=== PATIENT | male | born 1965 | race Caucasian/White ===

== ENCOUNTER 2023-03-20 15:06 | Emergency (ER) | payer SELFPAY ==
[2023-03-20] VITALS (41 sets, daily range): BP systolic 80–109; BP diastolic 43–85; PULSE 46–104; RESP 12–30; TEMP 36.4; O2SAT 90–100; BMI 30.7
--- NOTE | 2023-03-20 15:33 | ED_ITS ---
HPI - Chest Pain General Chief Complaint: Chest Pain Stated Complaint: Left Side pain/numbness Time Seen by Provider: 03/20/23 15:16 Source: patient Mode of arrival: ambulance Limitations: no limitations History of Present Illness HPI narrative: this patient came from his home. He stays with his family members. He said he had some tingling and numbness in his left arm and aching in his left chest and arm today. He has exact same problem one week ago last but did not go the hospital. He's not known any previous cardiovascular disease or pulmonary disease. He is not had previous EKGs. He had a traumatic brain injury a number of years ago but did not have surgery for it. He has some shortness of breath. He's very gassy and bloated today he's belching and passing a lot of gas and when he does he starts to feel a bit better but he still has his aching in his left chest. He has no swelling of his legs. He is not had a family doctor recently. He's not seen a health and physical education professor and has a severe no previous EKGs. On arrival here he did have an EKG that did not sshow any ST segment elevation but there is poor R-wave progression across his precordium indicating possible anterior lateral previous myocardial infarction. Related Data Allergies Allergy/AdvReac Type Severity Reaction Status Date / Time Penicillins Allergy Severe Verified 03/20/23 15:[address] [facility] Social History Smoking status: Heavy tobacco smoker Exam Narrative Exam Narrative: awake alert vital signs are stable. He is on a monitor is not having ectopy. Twelve-lead does not show any ST segment elevation his skin is warm and dry there is no pallor or diaphoresis. He is belching continuously. Chest examination his lungs are completely clear no wheezes rales or rhonchi the no pleural or pericardial rub heart sounds are normal with no ectopy at this time. I do not hear murmur. Extremities do not show any leg swelling edema or phlebitis. Neurological cognition and mentation is normal. There is no confusion. patient has no abdominal discomfort and no back pain Skin integument is without petechia purpura rash or exanthem. Constitutional Vital Signs, click to edit/add: Last Vital Signs Temp 97.6 F 03/20/23 15:12 Pulse 91 H 03/20/23 15:12 Resp 24 03/20/23 15:12 BP 105/78 03/20/23 15:12 Pulse Ox 97 03/20/23 15:12 O2 Del Method Room Air 03/20/23 15:12 Course Vital Signs Vital signs: Vital Signs Temperature 97.6 F 03/20/23 15:12 Pulse Rate 91 H 03/20/23 15:12 Respiratory Rate 24 03/20/23 15:12 Blood Pressure 105/78 03/20/23 15:12 Pulse Oximetry 97 03/20/23 15:12 Oxygen Delivery Method Room Air 03/20/23 15:12 Temperature 97.6 F 03/20/23 15:12 Pulse Rate 91 H 03/20/23 15:12 Respiratory Rate 24 03/20/23 15:12 Blood Pressure 105/78 03/20/23 15:12 Pulse Oximetry 97 03/20/23 15:12 Oxygen Delivery Method Room Air 03/20/23 15:12 MDM - Chest Pain MDM Narrative Medical decision making narrative: this patient did have some relief with this treatment but still having a little bit discomfort. His troponin has come back substantially elevated. It was reported at 4:40 PM. We immediately placed a call for the [facility] cardiology group. He'll be placed on a heparin drip and given a low bit of additional analgesic. His vital signs are stable. The health and physical education professor, Dr. Shaw was coil connector and suggested patient be started on [place] to 180 mg and nitroglycerin if the blood pressure would tolerate. However his blood pressure has been in the low 90s systolic and I did not start the nitroglycerin because of that. A 2nd IV was started. At approximately the same time I spoke with health and physical education professor the female family member in attendance now states that they do not want him going to [place] under any circumstances. They suggested that we take him to [place]. I explained that we would try to get a bed there as soon as possible but we have to initiate the transfer process all over again. We paged [place] [facility] immediately and also spoke with the hospitalist at [facility] area at 5:45 PM the hospitalist has accepted the patient but is awaiting an opening for the bed assignment. And we still have not heard back from [place] [facility]. We did here from cardiology at 1830 hrs. area there is no other treatment recommendations. We are going to repeat his troponin. The health and physical education professor requested that if the troponin elevated to greater than fifteen hundred that the patient be transferred by [facility] for intervention tonight. If the patient's blood pressure stays normal and a troponin just elevates a small amount that they should admit him to the cardiology floor and he would not need intervention this evening. The family was kept appraised of all these decisions and the nuances of making these decisions throughout his stay here. He did have one brief episode of hypotension. He was given a 300 mL bolus and his blood pressure came up very nicely with no pressor support. At the time of this notation he is not having any arrhythmia or heart block. Discharge Plan Discharge Chief Complaint: Chest Pain Clinical Impression: Non-ST elevated myocardial infarction (non-STEMI) Patient Disposition: [facility] Time of Disposition Decision: 18:38 Referrals: Physician,Non-Staff, MD [Primary Care Provider] - 1 week
--- NOTE | 2023-03-20 15:35 | XR_ITS ---
The [address] [address] Patient Name: SAM CROSS MRN: [id number] date: 1965 Sex: M Assigned Patient Location: ER Current Patient Location: ED.MAIN Accession/Order Number: [id number] Exam Date: 03/20/2023 15:55 Report Date: 03/20/2023 16:24 At the request of: OSCAR FRANZ Procedure: XR chest 1V EXAM: CHEST 1 VIEW HISTORY: chest TECHNIQUE: Chest, one view. COMPARISON: None. FINDINGS: Lungs are clear. No focal consolidation, pleural effusion, or pneumothorax. Pulmonary vasculature is within normal limits. There is mild aortic atherosclerosis, and heart size is borderline to mildly enlarged. XR/XR chest 1V IMPRESSION: 1. No acute cardiopulmonary disease. 2. Borderline to mild cardiomegaly. Electronically authenticated by: DONIS ÁLVAREZ Date: 03/20/2023 16:24
--- NOTE | 2023-03-20 15:35 | ECG_ITS ---
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
[2023-03-20] MEDS: MORPHINE SULFATE 2 MG/ML SYRINGE IV (15:45)
[2023-03-20] MEDS: ASPIRIN 81 MG TAB.CHEW 162 MG PO (15:45)
[2023-03-20 16:20] LABS: Basophils Percent Auto 0.2 % (0.2-2.0); Eosinophils Absolute Auto 0.1 10^3/uL (0.0-0.7); Eosinophils Percent Auto 0.4 % (0.9-7.0); Hematocrit 43.5 % (42.0-54.0); Hemoglobin 14.1 g/dL (14.0-18.0); Immature Granulocytes Abs Auto 0.04 10^3/uL (0.00-0.03); Immature Granulocytes Pct Auto 0.3 % (0.0-0.5); Lymphocytes Absolute Auto 1.5 10^3/uL (1.2-3.8); Lymphocytes Percent Auto 11.9 % (20.5-60.0); Mean Corpuscular HGB Conc 32.4 g/dL (29.9-35.2); Mean Corpuscular Hemoglobin 30.5 pg (25.9-34.0); Mean Corpuscular Volume 94.2 fL (80.0-94.0); Mean Platelet Volume 10.3 fL (9.5-13.5); Monocytes Absolute Auto 0.7 10^3/uL (0.3-0.8); Monocytes Percent Auto 5.4 % (1.7-12.0); Neutrophils Absolute Auto 10.5 10^3/uL (1.4-6.5); Neutrophils Percent Auto 81.8 % (43.0-75.0); Platelet Count 230 10^3/uL (150-450); Red Blood Count 4.62 10^6/uL (4.70-6.10); Red Cell Distribution Width 13.5 % (11.0-15.0); White Blood Count 12.9 10^3/uL (4.0-11.0)
[2023-03-20 16:37] LABS: Alanine Aminotransferase 23 U/L (16-63); Albumin Level 3.4 g/dL (3.4-5.0); Alkaline Phosphatase 72 U/L (46-116); Aspartate Amino Transferase 16 U/L (15-37); BUN Creatinine Ratio 9.7; Bilirubin Total 0.6 mg/dL (0.2-1.0); Calcium 8.9 mg/dL (8.5-10.1); Carbon Dioxide 26.5 mmol/L (21.0-32.0); Chloride 104 mmol/L (98-107); D Dimer 0.28 mg/L FEU (<=0.59); Estimated GFR (African America >60 (>=60); Estimated GFR (Non-African Ame >60 (>=60); Globulin 3.3 g/dL; Glucose 110 mg/dL (74-106); Potassium 3.5 mmol/L (3.5-5.1); Sodium 139 mmol/L (136-145); Total Protein 6.7 g/dL (6.4-8.2)
[2023-03-20 16:38] LABS: Troponin I High Sensitivity 819.5 pg/mL (4.0-76.1)
[2023-03-20] MEDS: MORPHINE SULFATE 4 MG/ML VIAL IV (16:56)
[2023-03-20] MEDS: HEPARIN SODIUM (PORCINE) 5,000 UNIT/ML VIAL 4000 UNIT IV (16:57)
[2023-03-20] MEDS: HEPARIN SODIUM,PORCINE/D5W 25,000 UNIT/500 ML IV.SOLN 20 UNIT IV (17:00)
[2023-03-20] MEDS: TICAGRELOR 90 MG TABLET 180 MG PO (17:13)
[2023-03-20] MEDS: 0.9 % SODIUM CHLORIDE 500 ML IV (18:00)
[2023-03-20] MEDS: ONDANSETRON PF 4 MG/2 ML VIAL IV (18:40)
--- NOTE | 2023-03-20 18:48 | ECG_ITS ---
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
[2023-03-20 19:00] LABS: Troponin I High Sensitivity 1082.6 pg/mL (4.0-76.1)
== END 2023-03-20 19:58 | disposition short-term general hospital (02) ==
PROVIDERS: Emergency Provider Emergency Medicine Emergency Medical Services
DX: I21.4 Non-ST elevation (NSTEMI) myocardial infarction (principal); F17.210 Nicotine dependence, cigarettes, uncomplicated; Z87.820 Personal history of traumatic brain injury
CPT/HCPCS: 36415; 71045; 80053; 84484; 85025; 85378; 93005; 96374; 96375; 96376; 99285

== ENCOUNTER 2023-04-22 12:53 | Outpatient (OUT) | payer MEDICAID, SELFPAY ==
--- OUTSIDE RECORDS SUMMARY | 2023-04-22 13:10 | XMS_ITS | CCD ---
Author Name Unknown Address [address] [place] [address] Organization [facility] Care Team Providers [facility] Supervisor Name Role Phone TRISTEN CASTILLO Admitting Unavailable TRISTEN CASTILLO Attending Unavailable REQUEST, NONE LISTED Primary Care Unavailable MANUEL APONTE Consulting Unavailable TRISTEN CASTILLO Consulting Unavailable ALI, DARIEL MCCARTHY Referring Unavailable ALI, DARIEL TIANMAN Referring Unavailable MAXINEMATEOF Admitting Unavailable PUNEETLAST PETER Attending Unavailable RAIMUNDO FRANZ Referring Unavailable PUNEET, LAST Admitting Unavailable PUNEETOBIE PETERMED Attending Unavailable ERNESTO JUNG Referring Unavailable YNIA ORNELAS Referring Unavailable AOUTHYINA CANTU Referring Unavailable MANISHA CALVILLO Attending Unavailable BRYAN NIELSEN Referring Unavailable ALI, HANNA SHARI Referring Unavailable Allergies Allergy Classification Reported Allergen(s) Allergy Type Date of Onset Reaction(s) Facility (2 sources) Penicillins; Translations: [PENICILLINS] Drug allergy (disorder) 3 [facility] Repository (1 source) Acetaminophen / HYDROcodone; Translations: [HYDROCODONE-ACET AMINOPHEN] Drug Allergy 3 [facility] Repository (1 source) oxyCODONE; Translations: [OXYCODONE] Drug Allergy 3 [facility] Repository (1 source) ALLERGIES NOT ON FILE; Translations: [ALLERGIES NOT ON FILE] Propensity to adverse reactions (disorder) [facility] Repository Problems Problem Classification Problem Date Documented Date Episodic/Chronic Acute myocardial infarction (4 sources) Non-ST elevation (NSTEMI) myocardial infarction; Translations: [Acute non-ST segment elevation myocardial infarction] Onset: 03-20-2023 Chronic Congestive heart failure; nonhypertensive (2 sources) Acute on chronic systolic (congestive) heart failure; Translations: [Acute on chronic systolic (congestive) heart failure] Onset: 03-28-2023 Chronic Coronary atherosclerosis and other heart disease (2 sources) Atherosclerotic heart disease of rosebud coronary artery without angina pectoris; Translations: [Atherosclerotic heart disease of rosebud coronary artery without angina pectoris] Onset: 03-28-2023 Chronic Disorders of lipid metabolism (2 sources) Mixed hyperlipidemia; Translations: [Mixed hyperlipidemia] Onset: 03-28-2023 Chronic Hypertension with complications and secondary hypertension (2 sources) Hypertensive heart disease with heart failure; Translations: [Hypertensive heart disease with heart failure] Onset: 03-28-2023 Chronic Intracranial injury (4 sources) Unspecified intracranial injury with loss of consciousness of unspecified duration, initial encounter; Translations: [UNS INTRACRAN INJ LOC UNS DUR INIT] Onset: 12-23-2018 Episodic Late effects of cerebrovascular disease (1 source) Unspecified sequelae of cerebral infarction; Translations: [UNS SEQUELAE CEREBRAL INFARCTION] Onset: 12-31-2018 Chronic Other lower respiratory disease (2 sources) Shortness of breath; Translations: [Shortness of breath] Onset: 03-20-2023 Episodic Lisette-; endo-; and myocarditis; cardiomyopathy (except that caused by tuberculosis or sexually transmitted disease) (2 sources) 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 classified elsewhere; Translations: [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 classified elsewhere] Onset: 03-28-2023 Chronic Syncope (1 source) Syncope and collapse; Translations: [SYNCOPE AND COLLAPSE] Onset: 12-31-2018 Episodic Results Test Name Value Interpretation Reference Range Facility 29on 03-28-2023 29 Addended by: MANISHA CALVILLO on: 03/28/2023 06:54 PM Modules accepted: Orders Normal [facility] Office Visiton 03-28-2023 Follow-up visit [id number] Michelle Elder B 1965 M Date Provider Department Center 03/28/2023 120-MANISHA CALVILLO [facility] Family History Problem Relation Age of Onset Coronary artery disease Mother Atrial fibrillation Mother Coronary artery disease Brother Hyperlipidemia Brother Family Status - Relation Status Age at Mother Brother Level of Service:30001 ID OFFICE/OUTPATIENT ESTABLISHED MOD MDM 30-39 MIN [facility] 36on 03-26-2023 36 Discharge date: 03/25/23 Call date: 03/26/23 Spoke with: patient HF Follow-up date: 03/28/23 Med reconciliation completed: yes Questions/Concerns: Home meds reviewed with pt. Pt denied any SOB or CP and stated he is checking daily weights. Pt acknowledged his follow up appt as well as the need to call to make other follow up appts listed on the AVS. Pt denied any additional questions or concerns. [facility] Documentationon 03-26-2023 Documentation [id number] Michelle Elder ld 1965 M Date Provider Department Center 03/26/2023 [id number], [facility] No family history on file Reason for Visit and Comments: HF inpatient satisfaction survey sent. [Other] [facility] Telephoneon 03-26-2023 Telephone [id number] Michelle Eledr ld 1965 M Date Provider Department Center 03/26/2023 [id number], [facility] No family history on file [facility] 30on 03-25-2023 30 Anibal from [employer] called and patient made payment, he will be fitted for lifevest sometime before 4pm today. [facility] 30 Call placed to Javier montoya from [employer] who reports he has a nurse on standby, and as soon as he gets confirmation of payment, nurse will be in to place life vest. Machine Rebuilder back to bedside, and updated. Patient verbalized understanding. Patient reports he is unsure of where his mother is, as she is not answering phone call. States he hopes to hear from her soon. Primary RN aware. [facility] 30 Spoke with patient a t bedside. Patients reports he was never fitted for [employer] yesterday. Patient states he only came in and gave me a brochure and educated me. I was never fitted for anything . Machine Rebuilder informed him Anibal from [employer] sent email stating patient owed $323.99 to get [employer], and a refund of $250.00 would be given to him when life vest was returned. Patient verbalized understanding and reports he received text messages stating this information. Patient states his mother is on her way to pick him up, and will be bringing his wallet. Primary RN aware. Normal [facility] BASIC METABOLIC PANELon 12-1 Anion gap [Moles/Vol] 11 mmol/L Normal 7-20 [facility] Comment on above: Performed By: #### L [id number] #### [facility] [address] [place] [address] Calcium [Mass/Vol] 9.4 mg/dL Normal 8.6-10.3 [facility] Comment on above: Performed By: #### L [id number] #### [facility] ([facility]) [address] [place] [address] Chloride [Moles/Vol] 108 mmol/L High 98-107 [facility] Comment on above: Performed By: #### L [id number] #### [facility] ([facility]) [address] [place] [address] CO2 [Moles/Vol] 23 mmol/L Normal 21-31 [facility] Comment on above: Performed By: #### L [id number] #### [facility] ([facility]) [address] [place] [address] Creatinine [Mass/Vol] 0.70 mg/dL Normal 0.70-1.30 [facility] Comment on above: Performed By: #### L [id number] #### [facility] ([facility]) [address] [place] [address] GLOMERULAR FILTRATION RATE ML/MIN/1.73 SQ M.PREDICTED 107.5 mL/min/1.73m*2 Normal >60.0 [facility] Comment on above: Result Comment: The [facility]???s estimated glomerular filtration rate (eGFR) will no longer include consideration of race in its calculation. The National Kidney Foundation???s eGFR Task Force developed new recommendations for the estimation of the glomerular filtration rate in the [place] They recommend immediate implementation of the new equation refit without the race variable in all laboratories because the calculation does not include race. In addition to not including race in the calculation and reporting, it included diversity in its development, and has acceptable performance characteristics and potential consequences that do not disproportionately affect any one group of individuals. Performed By: #### L [id number] #### [facility] ([facility]) [address] [place] [address] Glucose [Mass/Vol] 99 mg/dL Normal 70-100 [facility] Comment on above: Performed By: #### L [id number] #### [facility] ([facility]) [address] [place] [address] Potassium [Moles/Vol] 4.0 mmol/L Normal 3.5-5.1 [facility] Comment on above: Performed By: #### L [id number] #### [facility] ([facility]) [address] [place] [address] Sodium [Moles/Vol] 138 mmol/L Normal 136-145 [facility] Comment on above: Performed By: #### L [id number] #### [facility] ([facility]) [address] [place] [address] Urea nitrogen [Mass/Vol] 13 mg/dL Normal 7-25 [facility] Comment on above: Performed By: #### L [id number] #### [facility] ([facility]) [address] [place] [address] UREA NITROGEN/CREATININE (MASS RATIO) IN SER/PLAS 18.6 Normal [facility] Comment on above: Performed By: #### L [id number] #### [facility] ([facility]) [address] [place] [address] CBCon 03-25-2023 Erythrocyte distribution width (RBC) [Ratio] 13.4 % Normal 11.5-15.0 [facility] Comment on above: Performed By: #### L [id number] #### [facility] ([facility]) [address] [place] [address] ERYTHROCYTE MEAN CORPUSCULAR HEMOGLOBIN CONCENTRATION (G/DL) BY AUTOMATED 33.3 g/dL Normal 32.0-35.0 [facility] Comment on above: Performed By: #### L [id number] #### [facility] ([facility]) [address] [place] [address] Hematocrit (Bld) [Volume fraction] 40.2 % Normal 39.0-55.0 [facility] Comment on above: Performed By: #### L [id number] #### [facility] ([facility]) [address] [place] [address] Hemoglobin (Bld) [Mass/Vol] 13.4 g/dL Normal 13.0-17.0 [facility] Comment on above: Performed By: #### L [id number] #### [facility] ([facility]) [address] [place] [address] MCH (RBC) [Entitic mass] 30.3 pg Normal 27.0-33.0 [facility] Comment on above: Performed By: #### L [id number] #### [facility] ([facility]) [address] [place] [address] MCV (RBC) [Entitic vol] 91.0 fL Normal 82.0-98.0 [facility] Comment on above: Performed By: #### L [id number] #### [facility] ([facility]) [address] [place] [address] PLATELETS (10*3/UL) IN BLOOD AUTOMATED COUNT 268 10*3/uL Normal 150-400 [facility] Comment on above: Performed By: #### L [id number] #### [facility] ([facility]) [address] [place] [address] RBC (Bld) [#/Vol] 4.42 10*6/uL Normal 4.20-5.70 [facility] Comment on above: Performed By: #### L [id number] #### [facility] ([facility]) [address] [place] [address] WBC (Bld) [#/Vol] 8.69 10*3/uL Normal 4.00-10.60 [facility] Comment on above: Performed By: #### L [id number] #### [facility] ([facility]) [address] [place] [address] MAGNESIUMon 03-25-2023 Magnesium [Mass/Vol] 1.8 mg/dL Low 1.9-2.7 [facility] Comment on above: Performed By: #### L [id number] #### [facility] ([facility]) [address] [place] [address] 30on 03-24-2023 30 The patient is Moderately Stable - Low risk of patient condition declining or worsening The patient's goals for the shift include comfort, healing The clinical goals for the shift include vss Problem: Pain - Adult Goal: Verbalizes/displays adequate comfort level or baseline comfort level Outcome: Progressing Flowsheets (Taken 03/23/2023104 by Maria G Roberts RN) Verbalizes/displays adequate comfort level or baseline comfort level: Encourage patient to monitor pain and request assistance Assess pain using appropriate pain scale Administer analgesics based on type and severity of pain and evaluate response Implement non-pharmacological measures as appropriate and evaluate response Consider cultural and social influences on pain and pain management Problem: Safety - Adult Goal: Free from fall injury Outcome: Progressing Flowsheets (Taken 03/22/20232099 by Maria G Roberts RN) Free from fall injury: Assess patient frequently for physical needs Identify cognitive and physical deficits and behaviors that affect risk of falls Pelican fall precautions as indicated by assessment Educate patient/family on patient safety, including physical limitations Instruct patient to call for assistance with activity based on assessment Modify environment to reduce risk of injury Problem: Discharge Planning Goal: Discharge to home or other facility with appropriate resources Outcome: Progressing Flowsheets (Taken 03/23/2023104 by Maria G Roberts, RN) Discharge to home or other facility with appropriate resources: Identify barriers to discharge with patient and caregiver Arrange for needed discharge resources and transportation as appropriate Identify discharge learning needs (meds, wound care, etc) Problem: Chronic Conditions and Co-morbidities Goal: Patient's chronic conditions and co-morbidity symptoms are monitored and maintained or improved Outcome: Progressing Flowsheets (Taken 03/23/2023104 by Maria G Roberts RN) Care Plan - Patient's Chronic Conditions and Co-Morbidity Symptoms are Monitored and Maintained or Improved: Monitor and assess patient's chronic conditions and comorbid symptoms for stability, deterioration, or improvement Collaborate with multidisciplinary team to address chronic and comorbid conditions and prevent exacerbation or deterioration Update acute care plan with appropriate goals if chronic or comorbid symptoms are exacerbated and prevent overall improvement and discharge Problem: Cardiovascular - Adult Goal: Maintains optimal cardiac output and hemodynamic stability Outcome: Progressing Flowsheets (Taken 03/23/2023104 by aMria G Roberts RN) Maintains optimal cardiac output and hemodynamic stability: Monitor blood pressure and heart rate Monitor urine output and notify Licensed Independent Practitioner for values outside of normal range Assess for signs of decreased cardiac output Administer fluid and/or volume expanders as ordered Goal: Absence of cardiac dysrhythmias or at baseline Outcome: Progressing Flowsheets (Taken 03/23/2023104 by Maria G Roberts RN) Absence of cardiac dysrhythmias or at baseline: Monitor cardiac rate and rhythm Assess for signs of decreased cardiac output Problem: Skin/Tissue Integrity - Adult Goal: Skin integrity remains intact Outcome: Progressing Flowsheets (Taken 03/23/2023104 by Maria G Roberts RN) Skin integrity remains intact: Monitor for areas of redness and/or skin breakdown Assess vascular access sites hourly Change oxygen saturation probe site as needed Goal: Incisions, wounds, or drain sites healing without S/S of infection Outcome: Progressing Goal: Oral mucous membranes remain intact Outcome: Progressing Flowsheets (Taken 03/21/20231599 by Mitzy Murray RN) Oral mucous membranes remain intact: Assess oral mucosa and hygiene practices Implement preventative oral hygiene regimen Implement oral medicated treatments as ordered Problem: Genitourinary - Adult Goal: Absence of urinary retention Outcome: Progressing Flowsheets (Taken 03/23/2023104 by Maria G Roberts RN) Absence of urinary retention: Assess patient???s ability to void and empty bladder Monitor intake/output and perform bladder scan as needed Goal: Urinary catheter remains patent Outcome: Progressing Flowsheets (Taken 03/21/2023 1600 by Mitzy Murray RN) Urinary catheter remains patent: Assess patency of urinary catheter Irrigate catheter per Licensed Independent Practitioner order if indicated and notify Licensed Independent Practitioner if unable to irrigate Problem: Metabolic/Fluid and Electrolytes - Adult Goal: Electrolytes maintained within normal limits Outcome: Progressing Flowsheets (Taken 03/21/2023 1600 by Mitzy Murray RN) Electrolytes maintained within normal limits: Monitor labs and assess patient for signs and symptoms of electrolyte imbalances Administer electrolyte replacement as ordered Fluid restriction a (more content not included)... Normal [facility] 30 Contacted [facility] [employer] Anibal concerning lifevest. Anibal states he is on his way to [facility]. EF 25%. Order for vest was received per Anibal. 12:16 Spoke with Anibal from [facility] [employer] and all requested paperwork given. Anibal to check into charitable donations available form this patient and cost of lifevest considering income. Patient and SW updated on plan/delay. 13:20 Anibal and this sign writer hand met with patient and explained paperwork for lifevest assistance program. Paperwork given to patient. Awaiting finical statement from patient. 15:05 patient completed form with presence of sign writer hand. Assisted patient in calling his bank to request last statement to provide to [facility] [employer]. 15:25 All requested information and forms sent to Anibal from [employer]. Await determination Normal [facility] BASIC METABOLIC PANELon 12-1 Anion gap [Moles/Vol] 11 mmol/L Normal 7-20 [facility] Comment on above: Performed By: #### L [id number] #### [facility] ([facility]) [address] [place] [address] Calcium [Mass/Vol] 9.1 mg/dL Normal 8.6-10.3 [facility] Comment on above: Performed By: #### L [id number] #### [facility] ([facility]) [address] [place] [address] Chloride [Moles/Vol] 108 mmol/L High 98-107 [facility] Comment on above: Performed By: #### L [id number] #### [facility] ([facility]) [address] [place] [address] CO2 [Moles/Vol] 22 mmol/L Normal 21- [facility] Comment on above: Performed By: #### L [id number] #### [facility] ([facility]) [address] [place] [address] Creatinine [Mass/Vol] 0.67 mg/dL Low 0.70-1.30 [facility] Comment on above: Performed By: #### L [id number] #### [facility] ([facility]) [address] [place] [address] GLOMERULAR FILTRATION RATE ML/MIN/1.73 SQ M.PREDICTED 108.9 mL/min/1.73m*2 Normal >60.0 [facility] Comment on above: Result Comment: The [facility]???s estimated glomerular filtration rate (eGFR) will no longer include consideration of race in its calculation. The National Kidney Foundation???s eGFR Task Force developed new recommendations for the estimation of the glomerular filtration rate in the [place] They recommend immediate implementation of the new equation refit without the race variable in all laboratories because the calculation does not include race. In addition to not including race in the calculation and reporting, it included diversity in its development, and has acceptable performance characteristics and potential consequences that do not disproportionately affect any one group of individuals. Performed By: #### L [id number] #### [facility] ([facility]) [address] [place] [address] Glucose [Mass/Vol] 102 mg/dL High 70-100 [facility] Comment on above: Performed By: #### L [id number] #### [facility] ([facility]) [address] [place] [address] Potassium [Moles/Vol] 3.6 mmol/L Normal 3.5-5.1 [facility] Comment on above: Performed By: #### L [id number] #### [facility] ([facility]) [address] [place] [address] Sodium [Moles/Vol] 137 mmol/L Normal 136-145 [facility] Comment on above: Performed By: #### L [id number] #### [facility] ([facility]) [address] [place] [address] Urea nitrogen [Mass/Vol] 12 mg/dL Normal 7-25 [facility] Comment on above: Performed By: #### L [id number] #### [facility] ([facility]) [address] [place] [address] UREA NITROGEN/CREATININE (MASS RATIO) IN SER/PLAS 17.9 Normal [facility] Comment on above: Performed By: #### L [id number] #### [facility] ([facility]) [address] [place] [address] CBCon 03-24-2023 Erythrocyte distribution width (RBC) [Ratio] 13.6 % Normal 11.5-15.0 [facility] Comment on above: Performed By: #### L [id number] #### [facility] ([facility]) [address] [place] [address] ERYTHROCYTE MEAN CORPUSCULAR HEMOGLOBIN CONCENTRATION (G/DL) BY AUTOMATED 33.2 g/dL Normal 32.0-35.0 [facility] Comment on above: Performed By: #### L [id number] #### [facility] ([facility]) [address] [place] [address] Hematocrit (Bld) [Volume fraction] 38.0 % Low 39.0-55.0 [facility] Comment on above: Performed By: #### L [id number] #### [facility] ([facility]) [address] [place] [address] Hemoglobin (Bld) [Mass/Vol] 12.6 g/dL Low 13.0-17.0 [facility] Comment on above: Performed By: #### L [id number] #### [facility] ([facility]) [address] [place] [address] MCH (RBC) [Entitic mass] 30.1 pg Normal 27.0-33.0 [facility] Comment on above: Performed By: #### L [id number] #### [facility] ([facility]) [address] [place] [address] MCV (RBC) [Entitic vol] 90.9 fL Normal 82.0-98.0 [facility] Comment on above: Performed By: #### L [id number] #### [facility] ([facility]) [address] [place] [address] PLATELETS (10*3/UL) IN BLOOD AUTOMATED COUNT 217 10*3/uL Normal 150-400 [facility] Comment on above: Performed By: #### L [id number] #### [facility] ([facility]) [address] [place] [address] RBC (Bld) [#/Vol] 4.18 10*6/uL Low 4.20-5.70 [facility] Comment on above: Performed By: #### L [id number] #### [facility] ([facility]) [address] [place] [address] WBC (Bld) [#/Vol] 9.39 10*3/uL Normal 4.00-10.60 [facility] Comment on above: Performed By: #### L [id number] #### [facility] ([facility]) [address] [place] [address] CONSULTon 03-24-2023 CONSULT Adult Nutrition Consult Name: Sam Elder Date: 1965 Date of Visit: 03/24/23 Admission Dx: SOB (shortness of breath) [R06.02] NSTEMI (non-ST elevated myocardial infarction) ([facility]) [I21.4] Acute HFrEF: Life Vest upon discharge Reason for assessment: MD referral: HF Information obtained from: patient and medical record PMH: COPD Current Medications: aspirin, 81 mg, oral, Daily atorvastatin, 80 mg, oral, Nightly dapagliflozin propanediol, 10 mg, oral, Daily heparin (porcine), 5,000 Units, subcutaneous, BID lisinopril, 2.5 mg, oral, Daily metoprolol succinate XL, 25 mg, oral, Daily nicotine, 1 patch, transdermal, Daily Oxygen Therapy, , inhalation, Continuous pantoprazole, 40 mg, oral, Daily spironolactone, 12.5 mg, oral, Daily ticagrelor, 90 mg, oral, BID Labs: 0 Lab Value Date/Time BUN 12 03/24/2023420 CREATININE 0.67 (L) 03/24/2023420 NA 137 03/24/2023420 NA 134 (L) 03/21/2023 1333 K 3.6 03/24/2023420 K 3.8 03/21/2023 1333 MG 1.6 (L) 03/24/2023420 HGB 12.6 (L) 03/24/2023420 WBC 9.39 03/24/2023420 CHOL 178 03/20/20232038 HDL 35 03/20/20232038 I/O: Intake/Output Summary (Last 24 hours) at 03/24/2023 1552 Last data filed at 03/24/2023 1059 Gross per 24 hour Intake 556.66 ml Output 600 ml Net -43.34 ml Allergies: Allergies Allergen Reactions Oxycodone Nausea And Vomiting Penicillins Unknown Vicodin [Hydrocodone-Acetamino phen] Nausea And Vomiting Nutrition Problems: Swallowing Assessment: Pt denies difficulty swallowing Mouth: Pt denies difficulty chewing Abdominal Assessment: Pt c/o lower abd pain, off and on, over the past few weeks; at the time he attributed it to gas but in hindsight wonders if it was a precursor to the heart attack Appetite: decreased upon admission but now improving Cognition: A/O x4 Nutrition Data/Clinical Indicators of Nutrition Status: Height: 180.3 cm (5' 11 ) Weight: 102 kg (225 lb 15.5 oz) BMI (Calculated): 31.53 Wt change: Pt reports UBW of 229-230# (~104kg) but had recently made dietary changes and weight last week SIGN CARPENTER was 219# (99.5kg) IBW: 78.2kg Nutrition Assessment: Nutrition history: 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 He reports eating only 1 meal per day at times; drinking coffee throughout the day, and smoking 1-3 packs cigarettes/day. At times would get hungry at 10pm and eat an entire pizza. He admits to adding a lot of salt to food, even those foods that already contain high sodium content. He thinks his taste buds were dulled due to smoking. He reports starting last August, he started making changes in these habits: started eating oatmeal in the morning, purchasing fruit at the truck stops and using a drum dyeing machine operator to make smoothies, ordering salads at restaurants, and snacking on vegetables at times. He cut back coffee to twice daily and added green tea with dinner. He adds tumeric and black pepper to food. Dietary Orders (From admission, onward) Start Ordered 03/21/231928 Regular Diet Heart Healthy/HTN, CABG,Stroke, (2gNA, low fat, low cholesterol) Diet effective now Question Answer Comment Room Service? Yes Fat restriction: Heart Healthy/HTN, CABG,Stroke, (2gNA, low fat, low cholesterol) 03/21/231927 Meal Intakes: not recorded Nutrition Risk: Low Nutrition Needs: Needs based on: ideal body weight: 78.2kg Calorie needs: 5916-1300 kcals/day based on Equation: 25-30 kcal/kg Protein needs: 78-94 g/day based on 1-1.2 g/kg Fluid needs: 2000 ml/day per physician order Nutrition Diagnosis: food and nutrition related knowledge deficit related to low sodium diet as evidenced by lack of previous diet education Nutrition Education: Diet literature: Heart Failure Nutrition Therapy from Nutrition Care Manual Discussed rationale for <2000mg sodium per day r/t HF. Discussed difference between different types of salt (ie, iodized table salt, Himalayan, sea salt) and all contain sodium which should be limited r/t HF. 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 Discussed seasoning alternatives rather than salt: encouraged use of sodium-free seasonings such as Dash (name brand or store band version) and black pepper. Expected compliance/patient understanding: good Teach back method: completed Time spent: [address] contact information if questions arise after discharge. Treatment Plan: Monitor weight daily. Monitor meal intakes. Pt may benefit from further outpt education by RD after discharge. Goals: Nutrition Goals: intake > 75% meals and compliance w/ MNT Contact the dietitian via [employer] chat [phone]-[phone] Friday through Friday or call extension [phone]. For weekends & holidays, the dietitian can be reached via pager (more content not included)... Normal [facility] MAGNESIUMon 03-24-2023 Magnesium [Mass/Vol] 1.6 mg/dL Low 1.9-2.7 [facility] Comment on above: Performed By: #### L [id number] #### [facility] ([facility]) [address] [place] [address] 30on 03-23-2023 30 The patient is Moderately Stable - Low risk of patient condition declining or worsening The patient's goals for the shift include comfortDISCHARGE The clinical goals for the shift include AMBULATE, COMFORT Problem: Pain - Adult Goal: Verbalizes/displays adequate comfort level or baseline comfort level Outcome: Progressing Flowsheets (Taken 03/23/2023104 by Maria G Roberts RN) Verbalizes/displays adequate comfort level or baseline comfort level: Encourage patient to monitor pain and request assistance Assess pain using appropriate pain scale Administer analgesics based on type and severity of pain and evaluate response Implement non-pharmacological measures as appropriate and evaluate response Consider cultural and social influences on pain and pain management Problem: Safety - Adult Goal: Free from fall injury Outcome: Progressing Flowsheets (Taken 03/22/2023 2100 by Maria G Roberts RN) Free from fall injury: Assess patient frequently for physical needs Identify cognitive and physical deficits and behaviors that affect risk of falls Pelican fall precautions as indicated by assessment Educate patient/family on patient safety, including physical limitations Instruct patient to call for assistance with activity based on assessment Modify environment to reduce risk of injury Problem: Discharge Planning Goal: Discharge to home or other facility with appropriate resources Outcome: Progressing Flowsheets (Taken 03/23/2023104 by Maria G Roberts RN) Discharge to home or other facility with appropriate resources: Identify barriers to discharge with patient and caregiver Arrange for needed discharge resources and transportation as appropriate Identify discharge learning needs (meds, wound care, etc) Problem: Cardiovascular - Adult Goal: Maintains optimal cardiac output and hemodynamic stability Outcome: Progressing Flowsheets (Taken 03/23/2023104 by Maria G Roberts RN) Maintains optimal cardiac output and hemodynamic stability: Monitor blood pressure and heart rate Monitor urine output and notify Licensed Independent Practitioner for values outside of normal range Assess for signs of decreased cardiac output Administer fluid and/or volume expanders as ordered Goal: Absence of cardiac dysrhythmias or at baseline Outcome: Progressing Flowsheets (Taken 03/23/2023104 by Maria G Roberts RN) Absence of cardiac dysrhythmias or at baseline: Monitor cardiac rate and rhythm Assess for signs of decreased cardiac output Problem: Skin/Tissue Integrity - Adult Goal: Skin integrity remains intact Outcome: Progressing Flowsheets (Taken 03/23/2023104 by Marai G Roberts RN) Skin integrity remains intact: Monitor for areas of redness and/or skin breakdown Assess vascular access sites hourly Change oxygen saturation probe site as needed Goal: Incisions, wounds, or drain sites healing without S/S of infection Outcome: Progressing Flowsheets (Taken 03/23/2023104 by Maria G Roberts RN) Incisions, wounds, or drain sites healing without sign and symptoms of infection: TWICE DAILY: Assess and document skin integrity Goal: Oral mucous membranes remain intact Outcome: Progressing Flowsheets (Taken 03/21/2023 1600 by Mitzy Murray RN) Oral mucous membranes remain intact: Assess oral mucosa and hygiene practices Implement preventative oral hygiene regimen Implement oral medicated treatments as ordered Problem: Genitourinary - Adult Goal: Absence of urinary retention Outcome: Progressing Flowsheets (Taken 03/23/2023104 by Maria G Roberts RN) Absence of urinary retention: Assess patient???s ability to void and empty bladder Monitor intake/output and perform bladder scan as needed Goal: Urinary catheter remains patent Outcome: Progressing Flowsheets (Taken 03/21/2023 1600 by Mitzy Murray RN) Urinary catheter remains patent: Assess patency of urinary catheter Irrigate catheter per Licensed Independent Practitioner order if indicated and notify Licensed Independent Practitioner if unable to irrigate Problem: Metabolic/Fluid and Electrolytes - Adult Goal: Electrolytes maintained within normal limits Outcome: Progressing Flowsheets (Taken 03/21/2023 1600 by Mitzy Murray RN) Electrolytes maintained within normal limits: Monitor labs and assess patient for signs and symptoms of electrolyte imbalances Administer electrolyte replacement as ordered Fluid restriction as ordered Monitor response to electrolyte replacements, including repeat lab results as appropriate Goal: Hemodynamic stability and optimal renal function maintained Outcome: Progressing Problem: Musculoskeletal - Adult Goal: Return mobility to safest level of function Outcome: Progressing Goal: Return ADL status to a safe level of function Outcome: Progressing Problem: Gastrointestinal - Adult Goal: Minimal or absence of nausea and vomiting Outcome: Progressing Goal: Maintains or returns to baseline bowel fun (more content not included)... Normal [facility] 30 The patient is Moderately Stable - Low risk of patient condition declining or worsening The patient's goals for the shift include comfort The clinical goals for the shift include absence of chest pain/associated symptoms Problem: Pain - Adult Goal: Verbalizes/displays adequate comfort level or baseline comfort level Outcome: Progressing Flowsheets (Taken 03/23/2023104) Verbalizes/displays adequate comfort level or baseline comfort level: Encourage patient to monitor pain and request assistance Assess pain using appropriate pain scale Administer analgesics based on type and severity of pain and evaluate response Implement non-pharmacological measures as appropriate and evaluate response Consider cultural and social influences on pain and pain management Problem: Safety - Adult Goal: Free from fall injury Outcome: Progressing Flowsheets (Taken 03/22/2023 2100) Free from fall injury: Assess patient frequently for physical needs Identify cognitive and physical deficits and behaviors that affect risk of falls Pelican fall precautions as indicated by assessment Educate patient/family on patient safety, including physical limitations Instruct patient to call for assistance with activity based on assessment Modify environment to reduce risk of injury Problem: Discharge Planning Goal: Discharge to home or other facility with appropriate resources Flowsheets (Taken 03/23/2023104) Discharge to home or other facility with appropriate resources: Identify barriers to discharge with patient and caregiver Arrange for needed discharge resources and transportation as appropriate Identify discharge learning needs (meds, wound care, etc) Problem: Chronic Conditions and Co-morbidities Goal: Patient's chronic conditions and co-morbidity symptoms are monitored and maintained or improved Flowsheets (Taken 03/23/2023104) Care Plan - Patient's Chronic Conditions and Co-Morbidity Symptoms are Monitored and Maintained or Improved: Monitor and assess patient's chronic conditions and comorbid symptoms for stability, deterioration, or improvement Collaborate with multidisciplinary team to address chronic and comorbid conditions and prevent exacerbation or deterioration Update acute care plan with appropriate goals if chronic or comorbid symptoms are exacerbated and prevent overall improvement and discharge Problem: Cardiovascular - Adult Goal: Maintains optimal cardiac output and hemodynamic stability Outcome: Progressing Flowsheets (Taken 03/23/2023104) Maintains optimal cardiac output and hemodynamic stability: Monitor blood pressure and heart rate Monitor urine output and notify Licensed Independent Practitioner for values outside of normal range Assess for signs of decreased cardiac output Administer fluid and/or volume expanders as ordered Goal: Absence of cardiac dysrhythmias or at baseline Flowsheets (Taken 03/23/2023104) Absence of cardiac dysrhythmias or at baseline: Monitor cardiac rate and rhythm Assess for signs of decreased cardiac output Problem: Skin/Tissue Integrity - Adult Goal: Skin integrity remains intact Outcome: Progressing Flowsheets (Taken 03/23/2023104) Skin integrity remains intact: Monitor for areas of redness and/or skin breakdown Assess vascular access sites hourly Change oxygen saturation probe site as needed Goal: Incisions, wounds, or drain sites healing without S/S of infection Outcome: Progressing Flowsheets (Taken 03/23/2023104) Incisions, wounds, or drain sites healing without sign and symptoms of infection: TWICE DAILY: Assess and document skin integrity Problem: Genitourinary - Adult Goal: Absence of urinary retention Outcome: Progressing Flowsheets (Taken 03/23/2023104) Absence of urinary retention: Assess patient???s ability to void and empty bladder Monitor intake/output and perform bladder scan as needed Normal [facility] BASIC METABOLIC PANELon 12- Anion gap [Moles/Vol] 10 mmol/L Normal 7-20 [facility] Comment on above: Performed By: #### L [id number] #### [facility] ([facility]) [address] [place] [address] Calcium [Mass/Vol] 9.2 mg/dL Normal 8.6-10.3 [facility] Comment on above: Performed By: #### L [id number] #### [facility] ([facility]) [address] [place] [address] Chloride [Moles/Vol] 107 mmol/L Normal 98-107 [facility] Comment on above: Performed By: #### L [id number] #### [facility] ([facility]) [address] [place] [address] CO2 [Moles/Vol] 24 mmol/L Normal 21-31 [facility] Comment on above: Performed By: #### L [id number] #### [facility] ([facility]) [address] [place] [address] Creatinine [Mass/Vol] 0.65 mg/dL Low 0.70-1.30 [facility] Comment on above: Performed By: #### L [id number] #### [facility] ([facility]) [address] [place] [address] GLOMERULAR FILTRATION RATE ML/MIN/1.73 SQ M.PREDICTED 109.9 mL/min/1.73m*2 Normal >60.0 [facility] Comment on above: Result Comment: The [facility]???s estimated glomerular filtration rate (eGFR) will no longer include consideration of race in its calculation. The National Kid[employer] Foundation???s eGFR Task Force developed new recommendations for the estimation of the glomerular filtration rate in the [place] They recommend immediate implementation of the new equation refit without the race variable in all laboratories because the calculation does not include race. In addition to not including race in the calculation and reporting, it included diversity in its development, and has acceptable performance characteristics and potential consequences that do not disproportionately affect any one group of individuals. Performed By: #### L [id number] #### [facility] ([facility]) [address] [place] [address] Glucose [Mass/Vol] 103 mg/dL High 70-100 [facility] Comment on above: Performed By: #### L [id number] #### [facility] ([facility]) [address] [place] [address] Potassium [Moles/Vol] 3.8 mmol/L Normal 3.5-5.1 [facility] Comment on above: Performed By: #### L [id number] #### [facility] ([facility]) [address] [place] [address] Sodium [Moles/Vol] 137 mmol/L Normal 136-145 [facility] Comment on above: Performed By: #### L [id number] #### [facility] ([facility]) [address] [place] [address] Urea nitrogen [Mass/Vol] 9 mg/dL Normal 7-25 [facility] Comment on above: Performed By: #### L [id number] #### [facility] ([facility]) [address] [place] [address] UREA NITROGEN/CREATININE (MASS RATIO) IN SER/PLAS 13.8 Normal [facility] Comment on above: Performed By: #### L [id number] #### [facility] ([facility]) [address] [place] [address] MAGNESIUMon 03-23-2023 Magnesium [Mass/Vol] 1.6 mg/dL Low 1.9-2.7 [facility] Comment on above: Performed By: #### L [id number] #### [facility] ([facility]) [address] [place] [address] NURSNOTEon 03-23-2023 NURSNOTE Patient Name: Sam Elder : 1965 Primary Care Physician: SELF, REFERRED Admission Date: 03/20/2023 RAPID RESPONSE TEAM ICU TRANSFER FOLLOW-UP NOTE SUBJECTIVE / OBJECTIVE: Follow-up for previous transfer out of the ICU notification for 03/22 at 18:49. ASSESSMENT / INTERVENTIONS: Recent Vital Signs: Vitals: 03/22/23 1600 03/22/23 1634 03/22/23 1700 03/22/23 195 BP: 95/62 109/69 93/62 Pulse: 96 95 91 Resp: 20 20 Temp: 37.4 ???C (99.3 ???F) TempSrc: SpO2: 94% 97% 98% Weight: Height: Latest Labs: Results from last 7 days Lab Units 03/21/23 1333 PH ART pH 7.45 PCO2 ART mmHg 36 PO2 ART mmHg 79* HCO3 ART mEq/L 25.0 O2 SAT ART % 97.5 BASE EXC ART mmol/L 1.3 SOURCE OF OXYGEN Nasal cannula Lab Results Component Value Date WBC 10.09 03/22/2023 WBC 8.80 03/21/2023 HGB 13.1 03/22/2023 HGB 13.3 03/21/2023 HCT 38.5 (L) 03/22/2023 HCT 40.1 03/21/2023 MCV 90.6 03/22/2023 MCV 92.2 03/21/2023 PLT 198 03/22/2023 PLT 201 03/21/2023 NEUTROABS 7.22 03/21/2023 NEUTROABS 8.21 (H) 03/20/2023 Lab Results Component Value Date GLUCOSE 108 (H) 03/22/2023 GLUCOSE 124 (H) 03/22/2023 CALCIUM 8.4 (L) 03/22/2023 CALCIUM 8.8 03/22/2023 NA 137 03/22/2023 NA 136 03/22/2023 K 4.1 03/22/2023 K 3.4 (L) 03/22/2023 CO2 24 03/22/2023 CO2 25 03/22/2023 CL 108 (H) 03/22/2023 CL 106 03/22/2023 BUN 10 03/22/2023 BUN 12 03/22/2023 CREATININE 0.68 (L) 03/22/2023 CREATININE 0.76 03/22/2023 EGFR 108.4 03/22/2023 EGFR 104.8 03/22/2023 BCR 14.7 03/22/2023 BCR 15.8 03/22/2023 Lab Results Component Value Date MG 1.9 03/22/2023 MG 1.8 (L) 03/22/2023 No results found for: PHOS Lab Results Component Value Date ALT 13 03/20/2023 AST 26 03/20/2023 ALKPHOS 63 03/20/2023 BILITOT 0.6 03/20/2023 Lab Results Component Value Date INR 1.06 03/20/2023 Follow-up: Patient seen resting in bed and speaking on his phone at the time of my follow-up and in no apparent distress. I spoke with his primary nurse who noted that he has been having pain and tenderness at his femoral cath sites, likely secondary to insertion of Impella and monitoring devices during complex PCI. Vital signs and labs have been stable since transfer from ICU. No other questions or concerns noted. Encouraged to call if anything changes over night. Bryan Garg RN Rapid Response Team Nurse [phone] 03/22/2023 10:45 PM Normal [facility] 30on 03-22-2023 30 Problem: Pain - Adul t Goal: Verbalizes/displays adequate comfort level or baseline comfort level Outcome: Progressing Problem: Safety - Adult Goal: Free from fall injury Outcome: Progressing Problem: Discharge Planning Goal: Discharge to home or other facility with appropriate resources Outcome: Progressing Problem: Chronic Conditions and Co-morbidities Goal: Patient's chronic conditions and co-morbidity symptoms are monitored and maintained or improved Outcome: Progressing Problem: Cardiovascular - Adult Goal: Maintains optimal cardiac output and hemodynamic stability Outcome: Progressing Goal: Absence of cardiac dysrhythmias or at baseline Outcome: Progressing Problem: Skin/Tissue Integrity - Adult Goal: Skin integrity remains intact Outcome: Progressing Goal: Incisions, wounds, or drain sites healing without S/S of infection Outcome: Progressing Goal: Oral mucous membranes remain intact Outcome: Progressing Problem: Genitourinary - Adult Goal: Absence of urinary retention Outcome: Progressing Goal: Urinary catheter remains patent Outcome: Progressing Problem: Metabolic/Fluid and Electrolytes - Adult Goal: Electrolytes maintained within normal limits Outcome: Progressing Goal: Hemodynamic stability and optimal renal function maintained Outcome: Progressing Problem: Neurosensory - Adult Goal: Achieves stable or improved neurological status Outcome: Progressing Problem: Respiratory - Adult Goal: Achieves optimal ventilation and oxygenation Outcome: Progressing Problem: Musculoskeletal - Adult Goal: Return mobility to safest level of function Outcome: Progressing Goal: Return ADL status to a safe level of function Outcome: Progressing Problem: Gastrointestinal - Adult Goal: Minimal or absence of nausea and vomiting Outcome: Progressing Goal: Maintains or returns to baseline bowel function Outcome: Progressing Problem: Infection - Adult Goal: Absence of infection at discharge Outcome: Progressing Problem: Hematologic - Adult Goal: Maintains hematologic stability Outcome: Progressing Normal [facility] 30 Problem: Pain - Adul t Goal: Verbalizes/displays adequate comfort level or baseline comfort level Outcome: Progressing Flowsheets (Taken 03/21/2023 1330 by Mitzy Murray RN) Verbalizes/displays adequate comfort level or baseline comfort level: Encourage patient to monitor pain and request assistance Assess pain using appropriate pain scale Administer analgesics based on type and severity of pain and evaluate response Implement non-pharmacological measures as appropriate and evaluate response Consider cultural and social influences on pain and pain management Problem: Safety - Adult Goal: Free from fall injury Outcome: Progressing Flowsheets (Taken 03/22/2023 0243) Free from fall injury: Assess patient frequently for physical needs Pelican fall precautions as indicated by assessment Identify cognitive and physical deficits and behaviors that affect risk of falls Educate patient/family on patient safety, including physical limitations Problem: Discharge Planning Goal: Discharge to home or other facility with appropriate resources Outcome: Progressing Flowsheets (Taken 03/21/2023 1600 by Mitzy Murray RN) Discharge to home or other facility with appropriate resources: Identify barriers to discharge with patient and caregiver Arrange for needed discharge resources and transportation as appropriate Identify discharge learning needs (meds, wound care, etc) Arrange for interpreters to assist at discharge as needed Refer to discharge planning if patient needs post-hospital services based on physician order or complex needs related to functional status, cognitive ability or social support system Problem: Chronic Conditions and Co-morbidities Goal: Patient's chronic conditions and co-morbidity symptoms are monitored and maintained or improved Outcome: Progressing Flowsheets (Taken 03/22/2023 0243) Care Plan - Patient's Chronic Conditions and Co-Morbidity Symptoms are Monitored and Maintained or Improved: Monitor and assess patient's chronic conditions and comorbid symptoms for stability, deterioration, or improvement Collaborate with multidisciplinary team to address chronic and comorbid conditions and prevent exacerbation or deterioration Problem: Cardiovascular - Adult Goal: Maintains optimal cardiac output and hemodynamic stability Outcome: Progressing Flowsheets (Taken 03/21/2023 1600 by Mitzy Murray RN) Maintains optimal cardiac output and hemodynamic stability: Monitor blood pressure and heart rate Monitor urine output and notify Licensed Independent Practitioner for values outside of normal range Assess for signs of decreased cardiac output Administer fluid and/or volume expanders as ordered Administer vasoactive medications as ordered Problem: Skin/Tissue Integrity - Adult Goal: Skin integrity remains intact Outcome: Progressing Flowsheets (Taken 03/21/2023 1600 by Mitzy Murray RN) Skin integrity remains intact: Monitor for areas of redness and/or skin breakdown Assess vascular access sites hourly Change oxygen saturation probe site as needed Problem: Genitourinary - Adult Goal: Absence of urinary retention Outcome: Progressing Flowsheets (Taken 03/21/2023 1600 by Mitzy Murray RN) Absence of urinary retention: Assess patient???s ability to void and empty bladder Monitor intake/output and perform bladder scan as needed Place urinary catheter per Licensed Independent Practitioner order if needed Problem: Metabolic/Fluid and Electrolytes - Adult Goal: Electrolytes maintained within normal limits Outcome: Progressing Flowsheets (Taken 03/21/2023 1600 by Mitzy Murray RN) Electrolytes maintained within normal limits: Monitor labs and assess patient for signs and symptoms of electrolyte imbalances Administer electrolyte replacement as ordered Fluid restriction as ordered Monitor response to electrolyte replacements, including repeat lab results as appropriate Problem: Respiratory - Adult Goal: Achieves optimal ventilation and oxygenation Outcome: Progressing Flowsheets (Taken 03/21/2023 1600 by Mitzy Murray RN) Achieves optimal ventilation and oxygenation: Assess for changes in respiratory status Assess for changes in mentation and behavior Oxygen supplementation based on oxygen saturation or arterial blood gases Assess the need for suctioning and aspirate as needed Normal [facility] BASIC METABOLIC PANELon 12-0 Anion gap [Moles/Vol] 9 mmol/L Normal 7-20 [facility] Comment on above: Performed By: #### L [id number] #### [facility] ([facility]) [address] [place] [address] Calcium [Mass/Vol] 8.4 mg/dL Low 8.6-10.3 [facility] Comment on above: Performed By: #### L [id number] #### [facility] ([facility]) [address] [place] [address] Chloride [Moles/Vol] 108 mmol/L High 98-107 [facility] Comment on above: Performed By: #### L [id number] #### [facility] [address] [place] [address] CO2 [Moles/Vol] 24 mmol/L Normal 21-31 [facility] Comment on above: Performed By: #### L [id number] #### [facility] ([facility]) [address] [place] [address] Creatinine [Mass/Vol] 0.68 mg/dL Low 0.70-1.30 [facility] Comment on above: Performed By: #### L [id number] #### [facility] ([facility]) [address] [place] [address] GLOMERULAR FILTRATION RATE ML/MIN/1.73 SQ M.PREDICTED 108.4 mL/min/1.73m*2 Normal >60.0 [facility] Comment on above: Result Comment: The [facility]???s estimated glomerular filtration rate (eGFR) will no longer include consideration of race in its calculation. The National Kidney Foundation???s eGFR Task Force developed new recommendations for the estimation of the glomerular filtration rate in the [place] They recommend immediate implementation of the new equation refit without the race variable in all laboratories because the calculation does not include race. In addition to not including race in the calculation and reporting, it included diversity in its development, and has acceptable performance characteristics and potential consequences that do not disproportionately affect any one group of individuals. Performed By: #### L [id number] #### [facility] ([facility]) [address] [place] [address] Glucose [Mass/Vol] 108 mg/dL High 70-100 [facility] Comment on above: Performed By: #### L [id number] #### [facility] ([facility]) [address] [place] [address] Potassium [Moles/Vol] 4.1 mmol/L Normal 3.5-5.1 [facility] Comment on above: Performed By: #### L [id number] #### [facility] ([facility]) [address] [place] [address] Sodium [Moles/Vol] 137 mmol/L Normal 136-145 [facility] Comment on above: Performed By: #### L [id number] #### [facility] ([facility]) [address] [place] [address] Urea nitrogen [Mass/Vol] 10 mg/dL Normal 7-25 [facility] Comment on above: Performed By: #### L [id number] #### [facility] ([facility]) [address] [place] [address] UREA NITROGEN/CREATININE (MASS RATIO) IN SER/PLAS 14.7 Normal [facility] Comment on above: Performed By: #### L [id number] #### [facility] ([facility]) [address] [place] [address] Anion gap [Moles/Vol] 8 mmol/L Normal 7-20 [facility] Comment on above: Performed By: #### L [id number] #### [facility] ([facility]) [address] [place] [address] Calcium [Mass/Vol] 8.8 mg/dL Normal 8.6-10.3 [facility] Comment on above: Performed By: #### L [id number] #### [facility] ([facility]) [address] [place] [address] Chloride [Moles/Vol] 106 mmol/L Normal 98-107 [facility] Comment on above: Performed By: #### L [id number] #### [facility] ([facility]) [address] [place] [address] CO2 [Moles/Vol] 25 mmol/L Normal 21-31 [facility] Comment on above: Performed By: #### L [id number] #### [facility] [address] [place] [address] Creatinine [Mass/Vol] 0.76 mg/dL Normal 0.70-1.30 [facility] Comment on above: Performed By: #### L [id number] #### [facility] ([facility]) [address] [place] [address] GLOMERULAR FILTRATION RATE ML/MIN/1.73 SQ M.PREDICTED 104.8 mL/min/1.73m*2 Normal >60.0 [facility] Comment on above: Result Comment: The [facility]???s estimated glomerular filtration rate (eGFR) will no longer include consideration of race in its calculation. The National Kidney Foundation???s eGFR Task Force developed new recommendations for the estimation of the glomerular filtration rate in the [place] They recommend immediate implementation of the new equation refit without the race variable in all laboratories because the calculation does not include race. In addition to not including race in the calculation and reporting, it included diversity in its development, and has acceptable performance characteristics and potential consequences that do not disproportionately affect any one group of individuals. Performed By: #### L [id number] #### [facility] ([facility]) [address] [place] [address] Glucose [Mass/Vol] 124 mg/dL High 70-100 [facility] Comment on above: Performed By: #### L [id number] #### [facility] ([facility]) [address] [place] [address] Potassium [Moles/Vol] 3.4 mmol/L Low 3.5-5.1 [facility] Comment on above: Performed By: #### L [id number] #### [facility] [address] [place] [address] Sodium [Moles/Vol] 136 mmol/L Normal 136-145 [facility] Comment on above: Performed By: #### L [id number] #### [facility] ([facility]) [address] [place] [address] Urea nitrogen [Mass/Vol] 12 mg/dL Normal 7-25 [facility] Comment on above: Performed By: #### L [id number] #### [facility] ([facility]) [address] [place] [address] UREA NITROGEN/CREATININE (MASS RATIO) IN SER/PLAS 15.8 Normal [facility] Comment on above: Performed By: #### L [id number] #### [facility] ([facility]) [address] [place] [address] CBCon 03-22-2023 Erythrocyte distribution width (RBC) [Ratio] 13.7 % Normal 11.5-15.0 [facility] Comment on above: Performed By: #### L [id number] #### [facility] ([facility]) [address] [place] [address] ERYTHROCYTE MEAN CORPUSCULAR HEMOGLOBIN CONCENTRATION (G/DL) BY AUTOMATED 34.0 g/dL Normal 32.0-35.0 [facility] Comment on above: Performed By: #### L [id number] #### [facility] ([facility]) [address] [place] [address] Hematocrit (Bld) [Volume fraction] 38.5 % Low 39.0-55.0 [facility] Comment on above: Performed By: #### L [id number] #### [facility] ([facility] [address] [place] [address] Hemoglobin (Bld) [Mass/Vol] 13.1 g/dL Normal 13.0-17.0 [facility] Comment on above: Performed By: #### L [id number] #### [facility] ([facility] [address] [place] [address] MCH (RBC) [Entitic mass] 30.8 pg Normal 27.0-33.0 [facility] Comment on above: Performed By: #### L [id number] #### [facility] ([facility] [address] [place] [address] MCV (RBC) [Entitic vol] 90.6 fL Normal 82.0-98.0 [facility] Comment on above: Performed By: #### L [id number] #### [facility] ([facility]) [address] [place] [address] PLATELETS (10*3/UL) IN BLOOD AUTOMATED COUNT 198 10*3/uL Normal 150-400 [facility] Comment on above: Performed By: #### L [id number] #### [facility] ([facility]) [address] [place] [address] RBC (Bld) [#/Vol] 4.25 10*6/uL Normal 4.20-5.70 [facility] Comment on above: Performed By: #### L [id number] #### [facility] ([facility]) [address] [place] [address] WBC (Bld) [#/Vol] 10.09 10*3/uL Normal 4.00-10.60 [facility] Comment on above: Performed By: #### L [id number] #### [facility] ([facility] [address] [place] [address] MAGNESIUMon 03-22-2023 Magnesium [Mass/Vol] 1.9 mg/dL Normal 1.9-2.7 [facility] Comment on above: Performed By: #### L [id number] #### [facility] ([facility] [address] [place] [address] Magnesium [Mass/Vol] 1.8 mg/dL Low 1.9-2.7 [facility] Comment on above: Performed By: #### L [id number] #### [facility] ([facility] [address] [place] [address] TROPONIN Ion 03-22-2023 Troponin I.cardiac [Mass/Vol] 8.73 ng/mL Critically high 0.00-0.04 [facility] Comment on above: Result Comment: Prev ious result verified on 03/22/2023 0140 on specimen/case [id number] called with component Troponin I for procedure Troponin I with value 12.32 ng/mL. Performed By: #### L [id number] #### [facility] ([facility]) [address] [place] [address] Troponin I.cardiac [Mass/Vol] 12.32 ng/mL Critically high 0.00-0.04 [facility] Comment on above: Result Comment: M-ID EVIOUS CRITICAL RESULT Previous result verified on 03/21/2023 1359 on specimen/case [id number] called with component Troponin I for procedure Troponin I with value 19.66 ng/mL. Performed By: #### L [id number] #### [facility] ([facility]) [address] [place] [address] 30on 03-21-2023 30 The patient is Moderately Unstable - Medium risk of patient condition declining or worsening The patient's goals for the shift include comfort The clinical goals for the shift include absence of chest pain/associated symptoms Over the shift, the patient made progress toward the following goals: Problem: Pain - Adult Goal: Verbalizes/displays adequate comfort level or baseline comfort level Outcome: Progressing Problem: Safety - Adult Goal: Free from fall injury Outcome: Progressing Problem: Discharge Planning Goal: Discharge to home or other facility with appropriate resources Outcome: Progressing Problem: Chronic Conditions and Co-morbidities Goal: Patient's chronic conditions and co-morbidity symptoms are monitored and maintained or improved Outcome: Progressing Problem: Cardiovascular - Adult Goal: Maintains optimal cardiac output and hemodynamic stability Outcome: Progressing Goal: Absence of cardiac dysrhythmias or at baseline Outcome: Progressing Problem: Skin/Tissue Integrity - Adult Goal: Skin integrity remains intact Outcome: Progressing Goal: Incisions, wounds, or drain sites healing without S/S of infection Outcome: Progressing Problem: Genitourinary - Adult Goal: Absence of urinary retention Outcome: Progressing Problem: Metabolic/Fluid and Electrolytes - Adult Goal: Electrolytes maintained within normal limits Outcome: Progressing Goal: Hemodynamic stability and optimal renal function maintained Outcome: Progressing Normal [facility] ANTI-XA (HEPARIN LEVEL)on HEPARIN UNFRACTIONATED (U/ML) IN PPP BY CHROMOGENIC METHOD 0.59 IU/mL Normal 0.3-0.7 [facility] Comment on above: Result Comment: Adrian roxaban and Apixaban will interfere with the anti Xa assay used to monitor UFH and LMWH. Performed By: #### L [id number] #### [facility] ([facility]) [address] [place] [address] HEPARIN UNFRACTIONATED (U/ML) IN PPP BY CHROMOGENIC METHOD 0.42 IU/mL Normal 0.3-0.7 [facility] Comment on above: Result Comment: Adrian roxaban and Apixaban will interfere with the anti Xa assay used to monitor UFH and LMWH. Performed By: #### L [id number] #### [facility] ([facility]) [address] [place] [address] ARTERIAL BLOOD GAS WITH CO-O XIMETRYon 03-21-2023 Base excess Calc (Bld) [Moles/Vol] 1.3 mmol/L Normal -2.0-3.0 [facility] Comment on above: Performed By: #### L [id number] #### [facility] ([facility]) [address] [place] [address] CARBOXYHEMOGLOBIN/H EMOGLOBIN TOTAL % IN BLOOD 1.8 % Normal 0.0-3.0 [facility] Comment on above: Performed By: #### L [id number] #### [facility] ([facility]) [address] [place] [address] CO2 (Bld) [Partial pressure] 36 mm[Hg] Normal 35-48 [facility] Comment on above: Performed By: #### L [id number] #### [facility] ([facility]) [address] [place] [address] DEOXYGENATED HEMOGLOBIN IN BLOOD 2.4 % Normal 1-5 [facility] Comment on above: Performed By: #### L [id number] #### [facility] [address] [place] [address] HCO3 (Bld) [Moles/Vol] 25.0 mmol/L Normal 21.0-28.0 [facility] Comment on above: Performed By: #### L [id number] #### [facility] ([facility]) [address] [place] [address] Hemoglobin (Bld) [Mass/Vol] 13.6 g/dL Normal 11.7-17.4 [facility] Comment on above: Performed By: #### L [id number] #### [facility] ([facility]) [address] [place] [address] LPM 5 Normal [facility] Comment on above: Performed By: #### L [id number] #### [facility] ([facility]) [address] [place] [address] METHEMOGLOBIN/100 IN BLOOD 0.7 % Normal 0.0-1.5 [facility] Comment on above: Performed By: #### L [id number] #### [facility] ([facility]) [address] [place] [address] Oxygen (Bld) [Partial pressure] 79 mm[Hg] Low 83-100 [facility] Comment on above: Performed By: #### L [id number] #### [facility] ([facility]) [address] [place] [address] OXYGEN SATURATION (%) IN ARTERIAL BLOOD 97.5 % Normal 94.0-98.0 [facility] Comment on above: Performed By: #### L [id number] #### [facility] ([facility]) [address] [place] [address] OXYGENATED HEMOGLOBIN IN BLOOD 95.0 % Normal 90.0-95.0 [facility] Comment on above: Performed By: #### L [id number] #### [facility] ([facility]) [address] [place] [address] pH (Bld) 7.45 [pH] Normal 7.35-7.45 [facility] Comment on above: Performed By: #### L [id number] #### [facility] [address] [place] [address] SOURCE OF OXYGEN Nasal cannula Normal [facility] Comment on above: Performed By: #### L [id number] #### [facility] [address] [place] [address] B-TYPE NATRIURETIC PEPTIDEon 03-21-2023 Natriuretic peptide B (Bld) [Mass/Vol] 464 pg/mL High 0-100 [facility] Comment on above: Performed By: #### L [id number] #### [facility] [address] [place] [address] BASIC METABOLIC PANELon 120 Anion gap [Moles/Vol] 11 mmol/L Normal 7-20 [facility] Comment on above: Performed By: #### L [id number] #### [facility] ([facility] [address] [place] [address] Calcium [Mass/Vol] 8.9 mg/dL Normal 8.6-10.3 [facility] Comment on above: Performed By: #### L [id number] #### [facility] ([facility] [address] [place] [address] Chloride [Moles/Vol] 105 mmol/L Normal 98-107 [facility] Comment on above: Performed By: #### L [id number] #### [facility] ([facility] [address] [place] [address] CO2 [Moles/Vol] 24 mmol/L Normal 21-31 [facility] Comment on above: Performed By: #### L [id number] #### [facility] ([facility]) [address] [place] [address] Creatinine [Mass/Vol] 0.73 mg/dL Normal 0.70-1.30 [facility] Comment on above: Performed By: #### L [id number] #### [facility] ([facility]) [address] [place] [address] GLOMERULAR FILTRATION RATE ML/MIN/1.73 SQ M.PREDICTED 106.1 mL/min/1.73m*2 Normal >60.0 [facility] Comment on above: Result Comment: The [facility]???s estimated glomerular filtration rate (eGFR) will no longer include consideration of race in its calculation. The National Kidney Foundation???s eGFR Task Force developed new recommendations for the estimation of the glomerular filtration rate in the [place] They recommend immediate implementation of the new equation refit without the race variable in all laboratories because the calculation does not include race. In addition to not including race in the calculation and reporting, it included diversity in its development, and has acceptable performance characteristics and potential consequences that do not disproportionately affect any one group of individuals. Performed By: #### L [id number] #### [facility] ([facility]) [address] [place] [address] Glucose [Mass/Vol] 100 mg/dL Normal 70-100 [facility] Comment on above: Performed By: #### L [id number] #### [facility] ([facility]) [address] [place] [address] Potassium [Moles/Vol] 3.8 mmol/L Normal 3.5-5.1 [facility] Comment on above: Performed By: #### L [id number] #### [facility] ([facility]) [address] [place] [address] Sodium [Moles/Vol] 136 mmol/L Normal 136-145 [facility] Comment on above: Performed By: #### L [id number] #### [facility] ([facility]) [address] [place] [address] Urea nitrogen [Mass/Vol] 11 mg/dL Normal 7-25 [facility] Comment on above: Performed By: #### L [id number] #### [facility] ([facility]) [address] [place] [address] UREA NITROGEN/CREATININE (MASS RATIO) IN SER/PLAS 15.1 Normal [facility] Comment on above: Performed By: #### L [id number] #### [facility] [address] [place] [address] Anion gap [Moles/Vol] 10 mmol/L Normal 7-20 [facility] Comment on above: Performed By: #### L [id number] #### [facility] ([facility] [address] [place] [address] Calcium [Mass/Vol] 8.8 mg/dL Normal 8.6-10.3 [facility] Comment on above: Performed By: #### L [id number] #### [facility] ([facility]) [address] [place] [address] Chloride [Moles/Vol] 107 mmol/L Normal 98-107 [facility] Comment on above: Performed By: #### L [id number] #### [facility] [address] [place] [address] CO2 [Moles/Vol] 22 mmol/L Normal 21-31 [facility] Comment on above: Performed By: #### L [id number] #### [facility] ([facility]) [address] [place] [address] Creatinine [Mass/Vol] 0.71 mg/dL Normal 0.70-1.30 [facility] Comment on above: Performed By: #### L [id number] #### [facility] ([facility]) [address] [place] [address] GLOMERULAR FILTRATION RATE ML/MIN/1.73 SQ M.PREDICTED 107.0 mL/min/1.73m*2 Normal >60.0 [facility] Comment on above: Result Comment: The [facility]???s estimated glomerular filtration rate (eGFR) will no longer include consideration of race in its calculation. The National Kid[employer] Foundation???s eGFR Task Force developed new recommendations for the estimation of the glomerular filtration rate in the [place] They recommend immediate implementation of the new equation refit without the race variable in all laboratories because the calculation does not include race. In addition to not including race in the calculation and reporting, it included diversity in its development, and has acceptable performance characteristics and potential consequences that do not disproportionately affect any one group of individuals. Performed By: #### L [id number] #### [facility] ([facility]) [address] [place] [address] Glucose [Mass/Vol] 99 mg/dL Normal 70-100 [facility] Comment on above: Performed By: #### L [id number] #### [facility] ([facility]) [address] [place] [address] Potassium [Moles/Vol] 3.9 mmol/L Normal 3.5-5.1 [facility] Comment on above: Performed By: #### L [id number] #### [facility] ([facility]) [address] [place] [address] Sodium [Moles/Vol] 135 mmol/L Low 136-145 [facility] Comment on above: Performed By: #### L [id number] #### [facility] ([facility]) [address] [place] [address] Urea nitrogen [Mass/Vol] 11 mg/dL Normal 7-25 [facility] Comment on above: Performed By: #### L [id number] #### [facility] ([facility]) [address] [place] [address] UREA NITROGEN/CREATININE (MASS RATIO) IN SER/PLAS 15.5 Normal [facility] Comment on above: Performed By: #### L [id number] #### [facility] ([facility]) [address] [place] [address] CALCIUM, IONIZEDon CALCIUM IONIZED (MMOL/L) IN BLOOD 1.15 mmol/L Normal 1.15-1.33 [facility] Comment on above: Performed By: #### L [id number] #### [facility] ([facility]) [address] [place] [address] CBCon 03-21-2023 Erythrocyte distribution width (RBC) [Ratio] 13.9 % Normal 11.5-15.0 [facility] Comment on above: Order Comment: On ar rival to CVU Performed By: #### L [id number] #### [facility] ([facility]) [address] [place] [address] ERYTHROCYTE MEAN CORPUSCULAR HEMOGLOBIN CONCENTRATION (G/DL) BY AUTOMATED 33.2 g/dL Normal 32.0-35.0 [facility] Comment on above: Order Comment: On ar rival to CVU Performed By: #### L [id number] #### [facility] ([facility]) [address] [place] [address] Hematocrit (Bld) [Volume fraction] 40.1 % Normal 39.0-55.0 [facility] Comment on above: Order Comment: On ar rival to CVU Performed By: #### L [id number] #### [facility] ([facility]) [address] [place] [address] Hemoglobin (Bld) [Mass/Vol] 13.3 g/dL Normal 13.0-17.0 [facility] Comment on above: Order Comment: On ar rival to CVU Performed By: #### L [id number] #### [facility] ([facility]) [address] [place] [address] MCH (RBC) [Entitic mass] 30.6 pg Normal 27.0-33.0 [facility] Comment on above: Order Comment: On ar rival to CVU Performed By: #### L [id number] #### [facility] ([facility]) [address] [place] [address] MCV (RBC) [Entitic vol] 92.2 fL Normal 82.0-98.0 [facility] Comment on above: Order Comment: On ar rival to CVU Performed By: #### L [id number] #### [facility] ([facility]) [address] [place] [address] PLATELETS (10*3/UL) IN BLOOD AUTOMATED COUNT 201 10*3/uL Normal 150-400 [facility] Comment on above: Order Comment: On ar rival to CVU Performed By: #### L [id number] #### [facility] [address] [place] [address] RBC (Bld) [#/Vol] 4.35 10*6/uL Normal 4.20-5.70 [facility] Comment on above: Order Comment: On ar rival to CVU Performed By: #### L [id number] #### [facility] [address] [place] [address] WBC (Bld) [#/Vol] 8.80 10*3/uL Normal 4.00-10.60 [facility] Comment on above: Order Comment: On ar rival to CVU Performed By: #### L [id number] #### [facility] ([facility] [address] [place] [address] CBC WITH AUTO DIFFERENTIALon 03-21-2023 Basophils (Bld) [#/Vol] 0.03 10*3/uL Normal 0.00-0.20 [facility] Comment on above: Performed By: #### L [id number] #### [facility] [address] [place] [address] Basophils/100 WBC (Bld) 0.3 % Normal 0.0-1.0 [facility] Comment on above: Performed By: #### L [id number] #### [facility] ([facility] [address] [place] [address] Eosinophils (Bld) [#/Vol] 0.08 10*3/uL Normal 0.00-0.50 [facility] Comment on above: Performed By: #### L [id number] #### [facility] ([facility] [address] [place] [address] Eosinophils/100 WBC (Bld) 0.8 % Normal 0.0-6.0 [facility] Comment on above: Performed By: #### L [id number] #### [facility] ([facility]) [address] [place] [address] Erythrocyte distribution width (RBC) [Ratio] 13.7 % Normal 11.5-15.0 [facility] Comment on above: Performed By: #### L [id number] #### [facility] ([facility]) [address] [place] [address] ERYTHROCYTE MEAN CORPUSCULAR HEMOGLOBIN CONCENTRATION (G/DL) BY AUTOMATED 32.9 g/dL Normal 32.0-35.0 [facility] Comment on above: Performed By: #### L [id number] #### [facility] ([facility]) [address] [place] [address] Hematocrit (Bld) [Volume fraction] 37.4 % Low 39.0-55.0 [facility] Comment on above: Performed By: #### L [id number] #### [facility] ([facility]) [address] [place] [address] Hemoglobin (Bld) [Mass/Vol] 12.3 g/dL Low 13.0-17.0 [facility] Comment on above: Performed By: #### L [id number] #### [facility] ([facility]) [address] [place] [address] Immature granulocytes (Bld) [#/Vol] 0.04 10*3/uL Normal 0.00-0.20 [facility] Comment on above: Performed By: #### L [id number] #### [facility] ([facility]) [address] [place] [address] Immature granulocytes/100 WBC (Bld) 0.4 % Normal 0.0-1.0 [facility] Comment on above: Performed By: #### L [id number] #### [facility] ([facility]) [address] [place] [address] Lymphocytes (Bld) [#/Vol] 2.22 10*3/uL Normal 1.20-4.00 [facility] Comment on above: Performed By: #### L [id number] #### [facility] ([facility]) [address] [place] [address] Lymphocytes/100 WBC (Bld) 21.4 % Normal 20.0-45.0 [facility] Comment on above: Performed By: #### L [id number] #### [facility] ([facility]) [address] [place] [address] MCH (RBC) [Entitic mass] 30.6 pg Normal 27.0-33.0 [facility] Comment on above: Performed By: #### L [id number] #### [facility] ([facility]) [address] [facility] [place] [address] MCV (RBC) [Entitic vol] 93.0 fL Normal 82.0-98.0 [facility] Comment on above: Performed By: #### L [id number] #### [facility] ([facility]) [address] [place] [address] Monocytes (Bld) [#/Vol] 0.80 10*3/uL Normal 0.10-1.00 [facility] Comment on above: Performed By: #### L [id number] #### [facility] ([facility]) [address] [place] [address] Monocytes/100 WBC (Bld) 7.7 % Normal 5.0-12.0 [facility] Comment on above: Performed By: #### L [id number] #### [facility] ([facility]) [address] [place] [address] Neutrophils (Bld) [#/Vol] 7.22 10*3/uL Normal 1.60-7.60 [facility] Comment on above: Performed By: #### L [id number] #### [facility] ([facility]) [address] [place] [address] Neutrophils/100 WBC (Bld) 69.4 % Normal 40.0-72.0 [facility] Comment on above: Performed By: #### L [id number] #### [facility] ([facility]) [address] [place] [address] NRBC (PER 100 WBCS) BY AUTOMATED COUNT 0.0 % Normal 0 [facility] Comment on above: Performed By: #### L [id number] #### [facility] ([facility]) [address] [place] [address] PLATELETS (10*3/UL) IN BLOOD AUTOMATED COUNT 185 10*3/uL Normal 150-400 [facility] Comment on above: Performed By: #### L [id number] #### [facility] ([facility]) [address] [place] [address] RBC (Bld) [#/Vol] 4.02 10*6/uL Low 4.20-5.70 [facility] Comment on above: Performed By: #### L [id number] #### [facility] ([facility]) [address] [place] [address] WBC (Bld) [#/Vol] 10.39 10*3/uL Normal 4.00-10.60 [facility] Comment on above: Performed By: #### L [id number] #### [facility] ([facility]) [address] [place] [address] CO-OXIMETRYon 03-21-2023 CARBOXYHEMOGLOBIN/H EMOGLOBIN TOTAL % IN BLOOD 1.4 % Normal [facility] Comment on above: Performed By: #### L [id number] #### [facility] ([facility]) [address] [place] [address] Hemoglobin (Bld) [Mass/Vol] 13.3 g/dL Normal [facility] Comment on above: Performed By: #### L [id number] #### [facility] ([facility]) [address] [place] [address] METHEMOGLOBIN/100 IN BLOOD 1.1 % Normal 0.0-1.5 [facility] Comment on above: Performed By: #### L [id number] #### [facility] ([facility]) [address] [place] [address] Oxygen saturation in Blood 64.9 % Normal [facility] Comment on above: Performed By: #### L [id number] #### [facility] ([facility]) [address] [place] [address] OXYGENATED HEMOGLOBIN IN BLOOD 63.3 % Normal [facility] Comment on above: Performed By: #### L [id number] #### [facility] ([facility]) [address] [place] [address] CONSULTon 03-21-2023 CONSULT -- Attestation signed by Dariel Brewer MD at 03/24/2023 11:31 AM Patient is seen and examined at bedside. I agree with the findings as described with the following additions or corrections: Patient with NSTEMI and cardiogenic shock requiring empella support. Plan to remove device today per cardiology. Monitor in ICU Critical Care services were required for the patient due to critical condition: Cardiogenic shock NSTEMI Fluid and electrolyte imbalance The patient is critically ill and requires high complexity decision making for assessment and support including: frequent evaluation and titration of therapies; extensive interpretation of multiple databases including chart review, review of patient's labs, independent interpretation of imaging findings; application of advanced monitoring technologies and assessment and treatment of complex metabolic derangement. Critical Care minutes were 35, which excludes time performing separately billed procedures, updating family, and teaching. Medical ICU Consult Note Patient - Sam Elder Age - 57 y.o. - 1965 Date of Admission - 03/20/2023 8:25 PM Chief Complaint Chest pain History of Present Illness Sam Elder is a 57 y.o. male Patient has no known past medical history and has not seen a doctor regularly for his entire life. He initially presented to [facility] yesterday after having chest pain with radiation to the left arm for 1 week. Patient states at first he thought it was due to gas and he was having a large amount of gas/burping. Yesterday morning when walking outside he felt again worsening of the chest pain with radiation to left arm and jaw. He sat down and became diaphoretic and EMS was called. At [facility] initial workup significant for Troponin of 1.53, BNP 464, EKG with sinus rhythm, PVCs and septal infarct. Patient transferred to [facility] for catheterization. Patient had catheterization this am with stent placement in RCA and LAD. During the procedure patient had decompensating heart failure with low blood pressures and Impella device was placed. 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 Currently in the ICU, MAP 70 with systolics in 90s. Patient is asymptomatic, denies chest pain, shortness of breath, lightheadedness, dizziness, abdominal pain, fevers or chills. He does endorse pain with Quinn catheter and in right groin at site of Impella removal. Patient's heparin has been discontinued. Remains on ASA, ticagrelor, Toprol, aldactone, lisinopril and atrovastatin. Will monitor blood pressure overnight. PMH: has no past medical history on file. PSH: has no past surgical history on file. SH: reports that he has been smoking cigarettes. He has never used smokeless tobacco. Alc/Tobacco/Drug: has no history on file for alcohol use. reports that he has been smoking cigarettes. He has never used smokeless tobacco. has no history on file for drug use. Medications: Current Facility-Administered Medications: albuterol 90 mcg/actuation inhaler 2 puff, 2 puff, inhalation, q6h PRN, Bryan Nielsen MD aspirin EC tablet 81 mg, 81 mg, oral, Daily, Bryan Nielsen MD atorvastatin (Lipitor) tablet 80 mg, 80 mg, oral, Nightly, Bryan Nielsen MD, 80 mg at 12/07/23 2312 lisinopril tablet 2.5 mg, 2.5 mg, oral, Daily, Ernesto Jung MD, 2.5 mg at 03/21/23 1822 metoprolol succinate XL (Toprol-XL) 24 hr tablet 25 mg, 25 mg, oral, Daily, Jesse Mckeon MD nicotine (Nicoderm CQ) 21 mg/24 hr patch 1 patch, 1 patch, transdermal, Daily, Bryan Nielsen MD ondansetron ODT (Zofran-ODT) disintegrating tablet 4 mg, 4 mg, oral, q8h PRN OR ondansetron HCl (PF) (Zofran) injection 4 mg, 4 mg, intravenous, q6h PRN, Katy Ayala Oxygen Therapy, , inhalation, Continuous, Bryan Nielsen MD, Given at 03/20/23 2240 Oxygen Therapy, , inhalation, Continuous PRN, Dariel Brewer MD, Given at 03/21/23 1500 pantoprazole (ProtoNix) EC tablet 40 mg, 40 mg, oral, Daily, Bryan Nielsen MD, 40 mg at 03/20/23 2343 spironolactone (Aldactone) split tablet 12.5 mg, 12.5 mg, oral, Daily, Katy Ayala ticagrelor (Brilinta) tablet 90 mg, 90 mg, oral, BID, Katy Ayala Allergies: Oxycodone, Penicillins, and Vicodin [hydrocodone-acetamino phen] Family history: family history is not on file. Review of Systems: Review of Systems Constitutional: Negative for fever. HENT: Negative for sore throat. Eyes: Negative for visual disturbance. Respiratory: Negative for cough and shortness of breath. Cardiovascular: Negative for chest pain. Gastrointestinal: Negative for abdominal pain, nausea and vomiting. Genitourinary: Positive for penile pain. Negative for dysuria. Musculoskeleta (more content not included)... [facility] 03-21-2023 H&P reviewed. The patient was examined and there are no changes to the H&P. Patient without knonwn prior CAD hx, significant smoking and FH, presenting with NSTEMI and elevated BNP Will proceed with coronary angiogram and right heart cath. Procedures' details, risks and benefits discussed with the patient and he's agreeable. Normal [facility] MAGNESIUMon 03-21-2023 Magnesium [Mass/Vol] 1.7 mg/dL Low 1.9-2.7 [facility] Comment on above: Order Comment: On ar rival to CVU Performed By: #### L [id number] #### [facility] ([facility] [address] [place] [address] Magnesium [Mass/Vol] 1.7 mg/dL Low 1.9-2.7 [facility] Comment on above: Performed By: #### L [id number] #### [facility] ([facility]) [address] [place] [address] POCT ACTIVATED CLOTTING TIME UNSOLICITED RESULTSon 03-21-2023 POC ACTIVATED CLOTTING TIME 165 sec High 82-152 [facility] Comment on above: Performed By: #### L [id number] #### [facility] ([facility]) [address] [place] [address] POC ACTIVATED CLOTTING TIME 154 sec High 82-152 [facility] Comment on above: Performed By: #### L [id number] #### [facility] ([facility]) [address] [place] [address] POC ACTIVATED CLOTTING TIME 165 sec High 82-152 [facility] Comment on above: Performed By: #### L [id number] #### [facility] ([facility] [address] [place] [address] POC ACTIVATED CLOTTING TIME 194 sec High 82-152 [facility] Comment on above: Performed By: #### L [id number] #### [facility] ([facility]) [address] [place] [address] POTASSIUM, WHOLE BLOODon Potassium [Moles/Vol] 3.8 mmol/L Normal 3.5-5.1 [facility] Comment on above: Performed By: #### L [id number] #### [facility] ([facility]) [address] [place] [address] SODIUM, WHOLE BLOODon 2022 SODIUM, WHOLE BLOOD 134 Low 136-145 [facility] Comment on above: Performed By: #### S ODIUM, WHOLE BLOOD #### [facility] RESPIRATORY THERAPY [address] [place] [address] [place] TROPONIN Ion 03-21-2023 Troponin I.cardiac [Mass/Vol] 12.84 ng/mL Critically high 0.00-0.04 [facility] Comment on above: Result Comment: M-ID EVIOUS CRITICAL RESULT Previous result verified on 03/21/2023 1359 on specimen/case [id number] called with component Troponin I for procedure Troponin I with value 19.66 ng/mL. Performed By: #### L [id number] #### [facility] ([facility]) [address] [place] [address] Troponin I.cardiac [Mass/Vol] 19.66 ng/mL Critically high 0.00-0.04 [facility] Comment on above: Result Comment: Prev ious result verified on 03/21/2023 0637 on specimen/case [id number] called with component Troponin I for procedure Troponin I with value 17.29 ng/mL. Performed By: #### L [id number] #### [facility] ([facility]) [address] [place] [address] Troponin I.cardiac [Mass/Vol] 17.29 ng/mL Critically high 0.00-0.04 [facility] Comment on above: Result Comment: Prev ious result verified on 03/20/2023 2201 on specimen/case [facility]-[id number] called with component Troponin I for procedure Troponin I with value 1.53 ng/mL. Performed By: #### L [id number] #### [facility] ([facility]) [address] [place] [address] ANTI-XA (HEPARIN LEVEL)on HEPARIN UNFRACTIONATED (U/ML) IN PPP BY CHROMOGENIC METHOD 0.19 IU/mL Low 0.3-0.7 [facility] Comment on above: Order Comment: Check anti-Xa level every 6 hours while on heparin infusion, or per protocol. Result Comment: Mary roxaban and Apixaban will interfere with the anti Xa assay used to monitor UFH and LMWH. Performed By: #### L [id number] #### [facility] ([facility]) [address] [place] [address] APTTon 03-20-2023 ACTIVATED PARTIAL THROMBOPLASTIN TIME IN PPP BY COAGULATION ASSAY 49.5 Seconds High 25.0-35.0 [facility] Comment on above: Result Comment: Clin ical significance of the APTT is questionable in the presence of heparin. Performed By: #### L [id number] #### [facility] ([facility]) [address] [place] [address] CBC WITH AUTO DIFFERENTIALon 03-20-2023 Basophils (Bld) [#/Vol] 0.02 10*3/uL Normal 0.00-0.20 [facility] Comment on above: Performed By: #### L [id number] #### [facility] ([facility]) [address] [place] [address] Basophils/100 WBC (Bld) 0.2 % Normal 0.0-1.0 [facility] Comment on above: Performed By: #### L [id number] #### [facility] ([facility]) [address] [place] [address] Eosinophils (Bld) [#/Vol] 0.02 10*3/uL Normal 0.00-0.50 [facility] Comment on above: Performed By: #### L [id number] #### [facility] ([facility]) [address] [place] [address] Eosinophils/100 WBC (Bld) 0.2 % Normal 0.0-6.0 [facility] Comment on above: Performed By: #### L [id number] #### [facility] ([facility]) [address] [place] [address] Erythrocyte distribution width (RBC) [Ratio] 13.7 % Normal 11.5-15.0 [facility] Comment on above: Performed By: #### L [id number] #### [facility] ([facility]) [address] [place] [address] ERYTHROCYTE MEAN CORPUSCULAR HEMOGLOBIN CONCENTRATION (G/DL) BY AUTOMATED 32.8 g/dL Normal 32.0-35.0 [facility] Comment on above: Performed By: #### L [id number] #### [facility] ([facility]) [address] [place] [address] Hematocrit (Bld) [Volume fraction] 40.8 % Normal 39.0-55.0 [facility] Comment on above: Performed By: #### L [id number] #### [facility] ([facility]) [address] [place] [address] Hemoglobin (Bld) [Mass/Vol] 13.4 g/dL Normal 13.0-17.0 [facility] Comment on above: Performed By: #### L [id number] #### [facility] ([facility]) [address] [place] [address] Immature granulocytes (Bld) [#/Vol] 0.04 10*3/uL Normal 0.00-0.20 [facility] Comment on above: Performed By: #### L [id number] #### [facility] ([facility]) [address] [place] [address] Immature granulocytes/100 WBC (Bld) 0.4 % Normal 0.0-1.0 [facility] Comment on above: Performed By: #### L [id number] #### [facility] ([facility]) [address] [place] [address] Lymphocytes (Bld) [#/Vol] 1.22 10*3/uL Normal 1.20-4.00 [facility] Comment on above: Performed By: #### L [id number] #### [facility] (BEAKER) [address] [place] [address] Lymphocytes/100 WBC (Bld) 12.2 % Low 20.0-45.0 [facility] Comment on above: Performed By: #### L [id number] #### [facility] [address] [place] [address] MCH (RBC) [Entitic mass] 30.8 pg Normal 27.0-33.0 [facility] Comment on above: Performed By: #### L [id number] #### [facility] ([facility] [address] [place] [address] MCV (RBC) [Entitic vol] 93.8 fL Normal 82.0-98.0 [facility] Comment on above: Performed By: #### L [id number] #### [facility] ([facility]) [address] [place] [address] Monocytes (Bld) [#/Vol] 0.51 10*3/uL Normal 0.10-1.00 [facility] Comment on above: Performed By: #### L [id number] #### [facility] ([facility]) [address] [place] [address] Monocytes/100 WBC (Bld) 5.1 % Normal 5.0-12.0 [facility] Comment on above: Performed By: #### L [id number] #### [facility] ([facility]) [address] [place] [address] Neutrophils (Bld) [#/Vol] 8.21 10*3/uL High 1.60-7.60 [facility] Comment on above: Performed By: #### L [id number] #### [facility] ([facility] [address] [place] [address] Neutrophils/100 WBC (Bld) 81.9 % High 40.0-72.0 [facility] Comment on above: Performed By: #### L [id number] #### [facility] ([facility]) [address] [place] [address] NRBC (PER 100 WBCS) BY AUTOMATED COUNT 0.0 % Normal 0 [facility] Comment on above: Performed By: #### L [id number] #### [facility] ([facility] [address] [place] [address] PLATELETS (10*3/UL) IN BLOOD AUTOMATED COUNT 215 10*3/uL Normal 150-400 [facility] Comment on above: Performed By: #### L [id number] #### [facility] ([facility]) [address] [address] RBC (Bld) [#/Vol] 4.35 10*6/uL Normal 4.20-5.70 [facility] Comment on above: Performed By: #### L [id number] #### [facility] ([facility]) [address] [place] [address] WBC (Bld) [#/Vol] 10.02 10*3/uL Normal 4.00-10.60 [facility] Comment on above: Performed By: #### L [id number] #### [facility] ([facility]) [address] [place] [address] COMPREHENSIVE METABOLIC PANE Edy 03-20-2023 Albumin [Mass/Vol] 3.9 g/dL Normal 3.5-5.7 [facility] Comment on above: Performed By: #### L [id number] #### [facility] ([facility]) [address] [place] [address] ALP [Catalytic activity/Vol] 63 U/L Normal 34-104 [facility] Comment on above: Performed By: #### L [id number] #### [facility] ([facility]) [address] [place] [address] ALT [Catalytic activity/Vol] 13 U/L Normal 7-52 [facility] Comment on above: Performed By: #### L [id number] #### [facility] ([facility]) [address] [place] [address] Anion gap [Moles/Vol] 13 mmol/L Normal 7-20 [facility] Comment on above: Performed By: #### L [id number] #### [facility] ([facility]) [address] [place] [address] AST [Catalytic activity/Vol] 26 U/L Normal 13-39 [facility] Comment on above: Performed By: #### L [id number] #### [facility] ([facility]) [address] [place] [address] Bilirubin [Mass/Vol] 0.6 mg/dL Normal 0.3-1.0 [facility] Comment on above: Performed By: #### L [id number] #### [facility] ([facility]) [address] [place] [address] Calcium [Mass/Vol] 8.9 mg/dL Normal 8.6-10.3 [facility] Comment on above: Performed By: #### L [id number] #### [facility] ([facility]) [address] [place] [address] Chloride [Moles/Vol] 107 mmol/L Normal 98-107 [facility] Comment on above: Performed By: #### L [id number] #### [facility] ([facility]) [address] [place] [address] CO2 [Moles/Vol] 22 mmol/L Normal 21-31 [facility] Comment on above: Performed By: #### L [id number] #### [facility] ([facility]) [address] [place] [address] Creatinine [Mass/Vol] 0.78 mg/dL Normal 0.70-1.30 [facility] Comment on above: Performed By: #### L [id number] #### [facility] ([facility]) [address] [place] [address] GLOMERULAR FILTRATION RATE ML/MIN/1.73 SQ M.PREDICTED 104.0 mL/min/1.73m*2 Normal >60.0 [facility] Comment on above: Result Comment: The [facility]???s estimated glomerular filtration rate (eGFR) will no longer include consideration of race in its calculation. The National Kidney Foundation???s eGFR Task Force developed new recommendations for the estimation of the glomerular filtration rate in the [place] They recommend immediate implementation of the new equation refit without the race variable in all laboratories because the calculation does not include race. In addition to not including race in the calculation and reporting, it included diversity in its development, and has acceptable performance characteristics and potential consequences that do not disproportionately affect any one group of individuals. Performed By: #### L [id number] #### [facility] ([facility]) [address] [place] [address] Glucose [Mass/Vol] 121 mg/dL High 70-100 [facility] Comment on above: Performed By: #### L [id number] #### [facility] ([facility]) [address] [place] [address] Potassium [Moles/Vol] 4.6 mmol/L Normal 3.5-5.1 [facility] Comment on above: Performed By: #### L [id number] #### [facility] ([facility]) [address] [place] [address] Protein [Mass/Vol] 6.2 g/dL Normal 6.0-8.3 [facility] Comment on above: Performed By: #### L [id number] #### [facility] ([facility]) [address] [place] [address] Sodium [Moles/Vol] 137 mmol/L Normal 136-145 [facility] Comment on above: Performed By: #### L [id number] #### [facility] ([facility]) [address] [place] [address] Urea nitrogen [Mass/Vol] 10 mg/dL Normal 7-25 [facility] Comment on above: Performed By: #### L [id number] #### [facility] ([facility]) [address] [place] [address] UREA NITROGEN/CREATININE (MASS RATIO) IN SER/PLAS 12.8 Normal [facility] Comment on above: Performed By: #### L [id number] #### [facility] ([facility]) [address] [place] [address] EDNURSon 03-20-2023 EDNURS Patient arrives by life flight from [place] with elevated and increasing troponin from 0.82 to 1.1. Patient also reports shortness of breath with no history of COPD, asthma, emphysema, etc, but is a smoker. Patient comes with an established 22G in the Left AC and a 20 G in the right AC with a 1 L bolus of 0.9 NS given along with, 6mg morphine, aspirin, and heparin running at 12u/kg/hr with a initial 4000 unit bolus. Patient is currently alert and oriented times 4 and denies any pain. Normal [facility] EDPROVon 03-20-2023 EDPROV HPI Chief Complaint Patient presents with Shortness of Breath Initial evaluation completed by (Resident) at 2019 Sam Elder is a 57 y.o. male who presents with a chief complaint of shortness of breath. Patient arrives to the ED via EMS. EMS reports that the patient is suffering from shortness of breath. EMS reports that the patient is not suffering from any other symptoms or complaints. EMS reports that the patient arrives on heparin. EMS reports that the patient was sent to the ED for elevated troponin, possible NSTEMI and further cardiac work up. Patient reports no past cardiac hx. Patient reports that he is a tobacco user. Patient reports that he does not take any medication currently. History provided by: EMS personnel and patient manager bilingual used: No [facility] Coma Scale Score: 15 Patient History History reviewed. No pertinent past medical history. History reviewed. No pertinent surgical history. No family history on file. Social History Tobacco Use Smoking status: Not on file Smokeless tobacco: Not on file Substance Use Topics Alcohol use: Not on file Drug use: Not on file Review of Systems Review of Systems Respiratory: Positive for shortness of breath. Cardiovascular: Negative for chest pain. Physical Exam ED Triage Vitals Temp Pulse Resp BP -- -- -- -- SpO2 Temp src Heart Rate Source Patient Position -- -- -- -- BP Location FiO2 (%) -- -- Physical Exam Vitals and nursing note reviewed. Constitutional: Appearance: Normal appearance. He is not ill-appearing. HENT: Head: Normocephalic and atraumatic. Eyes: Extraocular Movements: Extraocular movements intact. Conjunctiva/sclera: Conjunctivae normal. Cardiovascular: Rate and Rhythm: Normal rate and regular rhythm. Pulses: Normal pulses. Carotid pulses are 2+ on the right side and 2+ on the left side. Radial pulses are 2+ on the right side and 2+ on the left side. Femoral pulses are 2+ on the right side and 2+ on the left side. Popliteal pulses are 2+ on the right side and 2+ on the left side. Dorsalis pedis pulses are 2+ on the right side and 2+ on the left side. Posterior tibial pulses are 2+ on the right side and 2+ on the left side. Heart sounds: Normal heart sounds. Pulmonary: Effort: Pulmonary effort is normal. Breath sounds: Wheezing (JACKIE) present. Abdominal: Palpations: Abdomen is soft. Tenderness: There is no abdominal tenderness. Comments: Small focal hernia Musculoskeletal: General: No tenderness. Normal range of motion. Cervical back: Normal range of motion. No tenderness. Skin: General: Skin is warm and dry. Neurological: General: No focal deficit present. Mental Status: He is alert and oriented to person, place, and time. Sensory: No sensory deficit. ECG 12 lead Performed by: Yina Ornelas MD Authorized by: Yina Ornelas MD ECG reviewed by ED Physician in the absence of a property assistant: yes Previous ECG: Previous ECG: Unavailable Interpretation: Interpretation: abnormal Rate: ECG rate: 83 ECG rate assessment: normal Rhythm: Rhythm: sinus rhythm Rhythm comment: W right axis deviation Comments: EKG interpretation done by Dr. Ornelas Qtc 432 ms ED Course & [facility] ED Course as of 03/20/232208 Deepali Mar 20, [id number] Patient arrives from OSH for concern of NSTEMI. He received 1 L fluid SIGN CARPENTER as well as aspirin and Brilinta. He arrives with systolic in the 100s. AOx4, GCS 15, no complaints. EKG showing mild ST depressions in the lateral precordial leads and aVF. Minimal ST elevations in V1-V2 however do not meet STEMI criteria. Patient states he is chest pain-free but has shortness of breath. Daily tobacco user. Heart rate in the 70s. Cardiac workup ordered. Will speak to property assistant once troponin results. Patient arrives on a heparin drip. This is continued. [NG] 2205 Troponin resulted at 1.53, cardiology paged [NG] [phone] Spoke to cardiology. As patient is stable they are recommending admission to medicine. Plan for trending troponins, echo, and cardiac cath. Cardiology will see patient in the morning [NG] ED Course User Index [NG] Marshal Weir MD Diagnoses as of 03/20/232208 NSTEMI (non-ST elevated myocardial infarction) ([facility]) SOB (shortness of breath) Medical Decision Making Patient arrives as transfer from OSH for concern of NSTEMI. On arrival patient is AOx4, GCS 15, complaining only of shortness of breath. Denies chest pain. Initial EKG on arrival shows ST depressions in aVF as well as lateral precordial leads. Minimal ST elevation in V1 through V2 however this does not meet STEMI criteria. He arrives with adequate heart rate and normotensive. Prior to arrival he received 1L fluid bolus, aspirin/Brilinta, heparin bolus, and arrives on a heparin drip. Repeat troponin and cardiac lab work ordered. troponin came back elevated 1.53. Patient remained stable with mild hypotension. He (more content not included)... Invalid Interpretation Code [facility] EDPROV -- Attestation signed by Yina Ornelas MD at 03/24/2023 3:04 PM I performed a history and physical examination of Sam Elder and discussed his management with Dr. Ornelas. I agree with the history, physical, assessment, and plan of care, with the following exceptions: None I was present for the following procedures: None Time Spent in Critical Care of the patient: None Time spent in discussions with the patient and family: 60 mins Yina Ornelas MD HPI Chief Complaint Patient presents with Shortness of Breath Initial evaluation completed by (Resident) at 2019 Sam Elder is a 57 y.o. male who presents with a chief complaint of shortness of breath. Patient arrives to the ED via EMS. EMS reports that the patient is suffering from shortness of breath. EMS reports that the patient is not suffering from any other symptoms or complaints. EMS reports that the patient arrives on heparin. EMS reports that the patient was sent to the ED for elevated troponin, possible NSTEMI and further cardiac work up. Patient reports no past cardiac hx. Patient reports that he is a tobacco user. Patient reports that he does not take any medication currently. History provided by: EMS personnel and patient manager bilingual used: No [facility] Coma Scale Score: 15 Patient History History reviewed. No pertinent past medical history. History reviewed. No pertinent surgical history. No family history on file. Social History Tobacco Use Smoking status: Not on file Smokeless tobacco: Not on file Substance Use Topics Alcohol use: Not on file Drug use: Not on file Review of Systems Review of Systems Respiratory: Positive for shortness of breath. Cardiovascular: Negative for chest pain. Physical Exam ED Triage Vitals Temp Pulse Resp BP -- -- -- -- SpO2 Temp src Heart Rate Source Patient Position -- -- -- -- BP Location FiO2 (%) -- -- Physical Exam Vitals and nursing note reviewed. Constitutional: Appearance: Normal appearance. He is not ill-appearing. HENT: Head: Normocephalic and atraumatic. Eyes: Extraocular Movements: Extraocular movements intact. Conjunctiva/sclera: Conjunctivae normal. Cardiovascular: Rate and Rhythm: Normal rate and regular rhythm. Pulses: Normal pulses. Carotid pulses are 2+ on the right side and 2+ on the left side. Radial pulses are 2+ on the right side and 2+ on the left side. Femoral pulses are 2+ on the right side and 2+ on the left side. Popliteal pulses are 2+ on the right side and 2+ on the left side. Dorsalis pedis pulses are 2+ on the right side and 2+ on the left side. Posterior tibial pulses are 2+ on the right side and 2+ on the left side. Heart sounds: Normal heart sounds. Pulmonary: Effort: Pulmonary effort is normal. Breath sounds: Wheezing (JACKIE) present. Abdominal: Palpations: Abdomen is soft. Tenderness: There is no abdominal tenderness. Comments: Small focal hernia Musculoskeletal: General: No tenderness. Normal range of motion. Cervical back: Normal range of motion. No tenderness. Skin: General: Skin is warm and dry. Neurological: General: No focal deficit present. Mental Status: He is alert and oriented to person, place, and time. Sensory: No sensory deficit. ECG 12 lead Performed by: Yina Ornelas MD Authorized by: Yina Ornelas MD ECG reviewed by ED Physician in the absence of a property assistant: yes Previous ECG: Previous ECG: Unavailable Interpretation: Interpretation: abnormal Rate: ECG rate: 83 ECG rate assessment: normal Rhythm: Rhythm: sinus rhythm Rhythm comment: W right axis deviation Comments: EKG interpretation done by Dr. Ornelas Qtc 432 ms ED Course & [facility] ED Course as of 03/20/232208 Deepali Mar 20, [id number] Patient arrives from OSH for concern of NSTEMI. He received 1 L fluid SIGN CARPENTER as well as aspirin and Brilinta. He arrives with systolic in the 100s. AOx4, GCS 15, no complaints. EKG showing mild ST depressions in the lateral precordial leads and aVF. Minimal ST elevations in V1-V2 however do not meet STEMI criteria. Patient states he is chest pain-free but has shortness of breath. Daily tobacco user. Heart rate in the 70s. Cardiac workup ordered. Will speak to property assistant once troponin results. Patient arrives on a heparin drip. This is continued. [NG] 2205 Troponin resulted at 1.53, cardiology paged [NG] [phone] Spoke to cardiology. As patient is stable they are recommending admission to medicine. Plan for trending troponins, echo, and cardiac cath. Cardiology will see patient in the morning [NG] ED Course User Index [NG] Marshal Weir MD Diagnoses as of 03/20/232208 NSTEMI (non-ST elevated myocardial infarction) (CMS/HCC) SOB (shortness of breath) Medical Decision (more content not included)... Normal [facility] LIPID PANELon 03-20-2023 CHOL/HDL 5.1 mg/dL Normal [facility] Comment on above: Performed By: #### L [id number] #### [facility] [address] [place] [address] Cholesterol [Mass/Vol] 178 mg/dL Normal 120-200 [facility] Comment on above: Performed By: #### L [id number] #### [facility] ([facility]) [address] [place] [address] Magnesium [Mass/Vol] 90 mg/dL Normal 40-149 [facility] Comment on above: Result Comment: TRIG LYCERIDE REFERENCE RANGE: 20 YEARS AND OLDER CARDIOVASCULAR RISK LESS THAN 150 mg/dL LOW RISK 150 TO 199 mg/dL BORDERLINE RISK 200 mg/dL AND GREATER HIGH RISK Performed By: #### L [id number] #### [facility] ([facility]) [address] [place] [address] Magnesium [Mass/Vol] 125 mg/dL Normal 0-160 [facility] Comment on above: Performed By: #### L [id number] #### [facility] ([facility]) [address] [place] [address] Magnesium [Mass/Vol] 35 mg/dL Normal 23-92 [facility] Comment on above: Performed By: #### L [id number] #### [facility] ([facility]) [address] [place] [address] NON HDL CHOL. (LDL+VLDL) 143 Normal [facility] Comment on above: Performed By: #### L [id number] #### [facility] ([facility]) [address] [place] [address] TOTAL VLDL-C 18 mg/dL Normal 0-40 [facility] Comment on above: Performed By: #### L [id number] #### [facility] ([facility]) [address] [place] [address] MAGNESIUMon 03-20-2023 Magnesium [Mass/Vol] 1.6 mg/dL Low 1.9-2.7 [facility] Comment on above: Performed By: #### L [id number] #### [facility] ([facility]) [address] [place] [place] [address] PROTIME-INRon 03-20-2023 INR IN PPP BY COAGULATION ASSAY 1.06 Normal 0.90-1.10 [facility] Comment on above: Result Comment: [facility] P RECOMMENDED INR FOR WARFARIN THERAPY CONDITION INR PROPHYLAXIS OF VENOUS THROMBOSIS 2-3 (HIGH-RISK SURGERY) TREATMENT OF VENOUS THROMBOSIS 2-3 TREATMENT OF PULMONARY EMBOLISM 2-3 PREVENTION OF SYSTEMIC EMBOLISM: 2-3 ACUTE MYOCARDIAL INFARCTION TISSUE HEART VALVES VALVULAR HEART DISEASE ATRIAL FIBRILLATION RECURRENT SYSTEMIC EMBOLISM MECHANICAL HEART VALVE 2.5-3.5 FROM: ORAL ANTICOAGULANTS. MECHANISM OF ACTION, CLINICAL EFFECTIVENESS, AND OPTIMAL THERAPEUTIC RANGE. CHEST 1995;108:231S-246S. Performed By: #### L [id number] #### [facility] [address] [place] [address] PROTHROMBIN TIME (PT) IN PPP BY COAGULATION ASSAY 13.8 Seconds Normal 12.3-14.8 [facility] Comment on above: Performed By: #### L [id number] #### [facility]) [address] [place] [address] TROPONIN Ion 03-20-2023 Troponin I.cardiac [Mass/Vol] 1.53 ng/mL Critically high 0.00-0.04 [facility] Comment on above: Performed By: #### L [id number] #### [facility] ([facility]) [address] [place] [address] MRI BRAIN WO/W CONon 019 MRI BRAIN WO/W CON Patient: SAM ELDERJn Exam Date: 12/23/2018 : 1965 Gender:M Ordering : TRISTEN CASTILLO Admission #: [id number] Family : Order #: [id number] CLICK HERE TO VIEW EXAM RADIOLOGY REPORT PROCEDURE: MRI BRAIN WITH AND WITHOUT CONTRAST COMPARISON: CT HEAD WO CON, 04/20/2017. INDICATIONS: Subsequent imaging for right frontal subdural hematoma TECHNIQUE: A variety of imaging planes and parameters were utilized for visualization of suspected pathology. Images were performed without and with 20 ml Dotarem contrast. FINDINGS: CEREBRUM: Stable area of encephalomalacic changes within the anterior inferior aspect of the right frontal lobe. A few small T2 hyperintensities scattered within the subcortical deep white matter, nonspecific but favoring chronic small vessel ischemic changes. No edema, hemorrhage, mass, acute infarction, or inappropriate atrophy. CEREBELLUM: No edema, hemorrhage, mass, acute infarction, or inappropriate atrophy. BRAINSTEM: No edema, hemorrhage, mass, acute infarction, or inappropriate atrophy. CSF SPACES: Ventricles, cisterns, and sulci are appropriate for age. No hydrocephalus, subarachnoid hemorrhage, or mass. SKULL: No mass or other significant visible lesion. SINUSES: Limited views demonstrate no significant mucosal thickening or fluid. ORBITS: Limited views are unremarkable. OTHER: No abnormal meningeal or parenchymal enhancement. CONCLUSION: 1. Stable encephalomalacia changes within the right frontal lobe from remote infarction. 2. Few, nonspecific small T2 hyperintensities within the deep white matter; chronic small vessel ischemic changes versus sequela of chronic migraine headaches versus incidental. 3. No appreciable right subdural hematoma or acute abnormality. Dictated by: Manuel Aponte M.D. on 12/23/2018 at 15:06 Approved by: Manuel Aponte M.D. on 12/23/2018 at 15:16 Normal [facility] XR FOREIGN BODY EYEon 2018 XR FOREIGN BODY EYE Patient: SAM ELDER Exam Date: 12/23/2018 : 1965 Gender:M Ordering : TRISTEN CASTILLO Admission #: [id number] Family : Order #: [id number] CLICK HERE TO VIEW EXAM RADIOLOGY REPORT PROCEDURE: RADIOGRAPH FOREIGN BODY EYE COMPARISON: None. INDICATIONS: Foreign body in eye for MRI FINDINGS: ORBITS: Negative for a metallic foreign body. OTHER: Negative. CONCLUSION: No metallic foreign body within the orbits. Dictated by: Manuel Aponte M.D. on 12/23/2018 at 13:31 Approved by: Manuel Aponte M.D. on 12/23/2018 at 13:31 Normal [facility] Encounters Encounter Date Encounter Type Care Provider Facility Start: 03-28-2023 End: 03-28-2023 ambulatory MANISHA CALVILLO [facility] Start: 03-22-2023 Evaluation and management of inpatient HANNA [facility] Start: 03-22-2023 Evaluation and management of inpatient HANNA [facility] Start: 03-21-2023 Evaluation and management of inpatient HANNA [facility] Start: 03-21-2023 Evaluation and management of inpatient ERNESTO JUNG [facility] Start: 03-21-2023 Evaluation and management of inpatient BRYAN NIELSEN [facility] Start: 03-20-2023 Emergency department patient visit YINA ORNELAS [facility] Start: 03-20-2023 End: 03-25-2023 Evaluation and management of inpatient CHAYA MAXINE [facility] Start: 03-20-2023 Emergency department patient visit RAIMUNDO FRANZ [facility] Start: 12-23-2018 End: 12-24-2018 Patient encounter procedure TRISTEN CASTILLO Facility:H1 Payers Date Payer Category Payer Unknown [id number] 1959 Self-pay [id number] Clinical Notes 03-21-2023 to 03-28-2023 Note Date & Type Note Facility 03-28-2023 Note Currently pt is akbar vering well, lifevest in place and pt is tolerating well. Initiation of Cardiac rehab and referral to furnace mechanic for nutrition counseling [facility] 03-28-2023 Note Continue lipitor [facility] 03-28-2023 Note [facility] CARDIOLOGY PROGR ESS NOTE HPI: Sam Elder is a 57 y.o. male here for hospital F/U s/p NSTEMI Patient here for follow up [facility] for NSTEMI and CHF. He was discharged with a LifeVest. Has stopped smoking since admission. Denies recurrent chest pain, lightheadedness, and palpitations. Gets a little SOB w/ exertion at times. PT arrived with his mother and daughter today to visit, living situation- they all reside in same home. Denied chest pain, shortness of breath at rest, orthopnea, palpitations, lightheadedness/dizziness, or leg swelling. States having his mother and daughter micro-managing his diet/ meals, sodium intake, fluid intake, and this is causing a lot of arguing and stress. States he is trying to eat a healthy diet, low sodium, monitoring fluid intake. 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 Review of Systems Cardiovascular: Positive for dyspnea on exertion. Musculoskeletal: Positive for back pain. All other systems reviewed and are negative. 03/20/23 Discharge Summary Final Discharge Diagnosis: #NSTEMI #status post PCI to LAD and RCA #Acute CHF with reduced ejection fraction, EF 25%. #Tobacco use #Hypomagnesemia Admission Diagnosis: SOB (shortness of breath) [R06.02] NSTEMI (non-ST elevated myocardial infarction) ([facility]) [I21.4] Hospital course: 57-year-old male with past medical history significant for tobacco use and otherwise unknown past medical history. Presented to [facility] due to chest pain, apparently has been dealing with chest discomfort for 1 week associated with shortness of breath and diaphoresis. At [facility] his high sensitive troponin was elevated, he was transferred to [facility] urgently for cardiology evaluation. Patient was started on IV heparin and he was admitted to the stepdown unit, his troponin was found to be elevated. EKG on admission was showing septal infarct. Patient had coronary angiogram which showed severe two-vessel coronary artery disease with 100% occlusion of LAD and 90% occlusion to RCA, he received GEN to RCA and LAD. Due to severely decompensated heart failure, Impella mechanical circulatory support was implemented. Patient was admitted to the medical ICU postoperatively. He was started on DAPT, high intensity statin, beta-bello. Repeat echocardiogram showed an EF of 25%. Patient was started on spironolactone and lisinopril. Patient will be on LifeVest on discharge. Patient was unable to afford [employer]. Patient will have close follow-up with cardiology and CHF clinic. He was counseled about his tobacco use and he is determined to quit smoking. Patient is being discharged home in stable condition on March 24, 2023 per Visit Vitals BP 102/60 (BP Location: Left arm, Patient Position: Sitting) Pulse 84 Ht 1.803 m (5' 11 ) Wt 94.3 kg (208 lb) SpO2 97% BMI 29.01 kg/m??? Smoking Status Former BSA 2.17 m??? Allergies Allergen Reactions Oxycodone Nausea And Vomiting Penicillins Unknown Vicodin [Hydrocodone-Acetaminophen] Nausea And Vomiting Medications: Current Outpatient Medications on File Prior to Visit Medication Sig Dispense Refill aspirin 81 mg EC tablet Take 1 tablet (81 mg) by mouth in the morning for 97 doses. 30 tablet 2 atorvastatin (Lipitor) 80 mg tablet Take 1 tablet (80 mg) by mouth at bedtime for 95 doses. 30 tablet 2 dapagliflozin propanediol (Farxiga) 10 mg Take 1 tablet (10 mg) by mouth in the morning for 99 doses. 30 tablet 2 lisinopril 2.5 mg tablet Take 1 tablet (2.5 mg) by mouth in the morning for 97 doses. 30 tablet 2 metoprolol succinate XL (Toprol-XL) 25 mg 24 hr tablet Take 1 tablet (25 mg) by mouth in the morning for 98 doses. Do not crush or chew. 30 tablet 2 nicotine (Nicoderm CQ) 21 mg/[address] 1 patch on the skin in the morning for 10 doses. Do not start before March 25, 2023. 10 patch 0 pantoprazole (ProtoNix) 40 mg EC tablet Take 1 tablet (40 mg) by mouth before breakfast for 95 doses. Do not crush, chew, or split. 30 tablet 2 spironolactone (Aldactone) 25 mg tablet Take 0.5 tablets (12.5 mg) by mouth in the morning for 97 doses. 15 tablet 2 ticagrelor (Brilinta) 90 mg tablet Take 1 tablet (90 mg) by mouth in the morning and at bedtime. 60 tablet 11 [START ON 04/05/2023] nicotine (Nicoderm CQ) 14 mg/[address] 1 patch on the skin 1 (one) time each day at the same time for 10 days. Do not start before April 05, 2023. (Patient not taking: Reported on 03/28/2023 Do not start before April 05, 2023.) 10 patch 0 [START ON 04/16/2023] nicotine (Nicoderm CQ) 7 mg/[address] 1 patch on the skin 1 (one) time each day at the same time for 10 days. Do not start before April 16, 2023. (Patient not taking: Reported on 03/28/2023 Do not start before April 16, 2023.) 10 patch 0 No current facility-administered medications on file prior to visit. Physical Exam: Constitutional: (more content not included)... [facility] 03-28-2023 Note Patient here for [facility] for NSTEMI and CHF. He was discharged with a LifeVest. Has stopped smoking since admission. Denies recurrent chest pain, lightheadedness, and palpitations. Gets a little SOB w/ exertion at times. Review of Systems Cardiovascular: Positive for dyspnea on exertion. Musculoskeletal: Positive for back pain. All other systems reviewed and are negative. [facility] 03-28-2023 Note [facility] II, currently e uvolemic without exacerbation. Pt has stopped smoking, implementing lifestyle modifications of heart healthy/ low sodium diet, fluid restriction and exercise. Family is helping to monitor sodium intake, fluid intake- which is also causing quite a bit of friction and stress to the pt. Support and reassurance given to pt. Continue GDMT- ASA, lipitor, farxiga, lisinopril, and aldactone. Repeating BMP and if renal function and electrolytes remains stable- will increase aldactone as b/p allows. Diuretic therapy- none currently- remains on farxiga Monitor daily weights, I&O, fluid restriction 1.5-2L/day, renal function and electrolytes- [facility] 03-28-2023 Note HTN very well contro lled 102/60- borderline labile- continue all medications [facility] 03-28-2023 Note Coronary artery dise ase is stable Continue GDMT- ASA, brilinta, toprol, lipitor and lisinopril. Pt to start cardiac rehab- orders completed continue risk factor modifications- heart healthy diet, regular exercise as tolerated and continue all medications. [facility] 03-25-2023 Note Hospital Medicine Daily Progress Note - 03/25/2023 2:11 PM; Room: 4148/4148-01 Admission: 03/20/2023 8:25 PM; Length of stay: 5 days THE HOSPITALIST TEAM PREFERS TO USE [employer] FOR COMMUNICATION 7AM-7PM. IF I DO NOT RESPOND WITHIN 15 MINUTES, PLEASE PAGE ME/CALL THROUGH THE SCREEN ROLLER. FROM 7PM-7AM, PLEASE PAGE [phone](COVR) Code Status: Full Code Barriers to Discharge: pending LifeVest arrangement Expected Discharge Date: today Discharge Destination: home Overview Patient is seen for evaluation and management of NSTEMI. Subjective Seen and evaluated at the bedside. patient reports no new symptoms. Physical Exam Visit Vitals BP 96/71 Pulse 79 Temp 36.8 ???C (98.2 ???F) Resp 16 Intake/Output Summary (Last 24 hours) at 03/25/2023 1411 Last data filed at 03/25/2023 0500 Gross per 24 hour Intake 1.67 ml Output 1000 ml Net -998.33 ml Physical Exam Eyes: Pupils: Pupils are equal, round, and reactive to light. Cardiovascular: Rate and Rhythm: Normal rate and regular rhythm. Pulmonary: Effort: Pulmonary effort is normal. Breath sounds: Normal breath sounds. Abdominal: General: Bowel sounds are normal. Palpations: Abdomen is soft. Skin: Capillary Refill: Capillary refill takes less than 2 seconds. Comments: Small bruise around the access site in the left groin area. Neurological: General: No focal deficit present. Mental Status: He is alert and oriented to person, place, and time. Estimated body mass index is 31.52 kg/m??? as calculated from the following: Height as of this encounter: 1.803 m (5' 11 ). Weight as of this encounter: 102 kg (225 lb 15.5 oz). Active Inpatient Problems Principal Problem: NSTEMI (non-ST elevated myocardial infarction) ([facility]) Assessment and Plan # NSTEMI # status post PCI to LAD and RCA - continue with dual antiplatelet treatment, continue with beta-bello and high intensity statin. # Acute CHF with reduced ejection fraction, EF 25%. Overall compensated. NYHA class 1 - continue with antiplatelets, beta-bello, statin, lisinopril and Aldactone. - pending lifevest # Tobacco use, counseled about that. # Hypomagnesemia, replace magnesium. Nutrition Screen VTE Prophylaxis: Heparin subcutaneous Scheduled Meds aspirin, 81 mg, oral, Daily atorvastatin, 80 mg, oral, Nightly dapagliflozin propanediol, 10 mg, oral, Daily heparin (porcine), 5,000 Units, subcutaneous, BID lisinopril, 2.5 mg, oral, Daily metoprolol succinate XL, 25 mg, oral, Daily nicotine, 1 patch, transdermal, Daily Oxygen Therapy, , inhalation, Continuous pantoprazole, 40 mg, oral, Daily spironolactone, 12.5 mg, oral, Daily ticagrelor, 90 mg, oral, BID Oxygen Therapy, Pertinent Investigations Hematology: Results from last 7 days Lab Units 03/25/23 0543 03/24/23 0421 03/21/23 0516 03/20/232038 WBC AUTO 10*3/uL 8.69 9.39 < > 10.02 HEMOGLOBIN g/dL 13.4 12.6* < > 13.4 HEMATOCRIT % 40.2 38.0* < > 40.8 MCV fL 91.0 90.9 < > 93.8 PLATELETS AUTO 10*3/uL 268 217 < > 215 INR -- -- -- 1.06 < > = values in this interval not displayed. Chemistry: Results from last 7 days Lab Units 03/25/23 0543 03/24/23 0421 03/23/23 0712 SODIUM mmol/L 138 137 137 POTASSIUM mmol/L 4.0 3.6 3.8 CHLORIDE mmol/L 108* 108* 107 CO2 mmol/L 23 22 24 BUN mg/dL 13 12 9 CREATININE mg/dL 0.70 0.67* 0.65* GLUCOSE mg/dL 99 102* 103* MAGNESIUM mg/dL 1.8* 1.6* 1.6* CALCIUM mg/dL 9.4 9.1 9.2 Results from last 7 days Lab Units 03/21/23 1333 03/20/232038 HCO3 ART mEq/L 25.0 -- O2 SAT ART % 97.5 -- AST U/L -- 26 ALT U/L -- 13 ALK PHOS U/L -- 63 BILIRUBIN TOTAL mg/dL -- 0.6 Historical Values: (Includes values prior to this admission) Lab Results Component Value Date HDL 35 03/20/2023 LDL 143 03/20/2023 No results found for: AXCINAXT47 , IRON , TIBC , C3 , C4 , FRANCOISE , CANCA , ASO , PSA , CEA , CA125 , CA199 , AFP , CA153 Imaging Cardiac catheterization Procedure: Impella removal and vascular hemostasis with modified post-closure technique (use of Perclose and Angio-seal closure devices) Window Draper: Ernesto Jung MD Technique: Patient's blood pressure and heart rate were stable throughout the day. He is awake and alert without any complaints. We did wean the Impella down from p7 to P5 and then to P4. I decided it was time to remove the Impella mechanical circulatory support device. Patient was brought back to the cardiac catheterization lab. The Impella device and right femoral site were prepped in sterile fashion. I placed a 0.035 wire through the sideport of the Impella sheath up to the thoracic aorta. I then turned the Impella to P2 and then removed it from the heart and then turn it off and the removed from the body. Manual pressure was applied to the access site to obtain temporary hemostasis. A 8 Urdu sheath was placed over the wire. A second 0.035 wire was then placed through the (more content not included)... [facility] 03-25-2023 Note 03/25/23 1045 Referral Data Referral Source Physician Referral Reason Other (Comment) (CHF) Patient Information Primary Caregiver Self Activities of Daily Living Assistive Device Not applicable Living Arrangement (Current/Prior to Hospitalization) Private residence Ambulation Independent Dressing Independent Feeding Independent Behavior Oriented Communication Can write;Talks;Understands speaking;Understands Maori;Reads Income Information Income Source Employed (He will not be able to work for at least 3 mths if not longer.) Referral To Financial Resources Change Healthcare;Financial counseling Discharge Planning Support Systems Family members;Parent Type of Residence/Post Acute Needs Private residence Patient's goal for discharge home with life vest. Does the patient need discharge transport arranged? No SW met with patient for CHF consult. Patient is a new CHF. He will be going home with a life vest today. 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 He has not sick, paid time off, STD or LTD plan. He states who would expect this at the age of 57 . Patient has already been seen by [facility] care. They completed a PFA and he is not eligible for Medicaid this month but will receive a discount for hospital stay. Due to patients job and a large transport load he was paid for the beginning of Mar he is over income for Mar. Patient states he knows he is grounded for at least 3 mths . He is not sure what will happen at that time as it depends on his recovery. Patient concerned about the financial future but states I have to take care of my health so he is paying his deposit for the Life vest and his meds through [employer] and plans to return home with family for his recovery. He feels he has been given a lot of information on his CHF and what he can and cannot do. HHC would be another expense and he does not feel he would need PT/OT at home. Education can be continued through the various appts that are being scheduled for his follow up after his discharge. Patient has family that will transport him at discharge. At this time he denies any other SW needs at this time. [facility] 03-24-2023 Note Cardiology Progress Note Reason for Consult: transfer from [place], NSTEMI, elevated trop 1.53, vitals stable, cards on board Subjective HPI: Sam Elder is a 57 y.o. male originally presented at outside hospital with chief complaint of chest pain. Patient describes the pain as left sided chest pain described as burning sensation radiating to left jaw and left arm with associated numbness and tingling which has been for the last 1 week. On initial investigation, troponin was found to be elevated at 1.53. Admission EKG revealed normal sinus rhythm with infrequent PVCs and septal infarct. BNP was elevated 464. Past medical history includes tobacco abuse disorder and COPD. Appears the patient is not on any medications at home. Unable to locate any prior ischemic workup. Patient remains afebrile and slightly hypotensive. Blood pressure around 90s and diastolic blood pressure in 60s. Patient remains on nasal cannula saturating well. 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 Patient evaluated in afternoon following stent placement in catheter lab. Patient denies any chest pain at this time and states that his numbness in his left hand has much improved. Denies any palpitations, dyspnea, nor lightheadedness at this time. 03/23/2023 Patient seen and eamined at bedside. No acute events overnight. He plans to quit smoking. Denies c/o CP, dyspnea, orthopnea, PND, LE edema, dizziness/LH, palpitations, syncope. 03/24/23 Patient examined while hw is resting in bed No acute events overnight. Has plans to stop smoking Denies c/o CP, dyspnea, orthopnea, PND, LE edema, dizziness/LH, palpitations, syncope. Objective Patient Vitals for the past 24 hrs: BP Temp Pulse Resp SpO2 03/24/23 0734 101/66 36.6 ???C (97.9 ???F) 76 16 96 % 03/24/23 0325 94/64 37 ???C (98.6 ???F) 87 18 95 % 03/23/232012 100/70 37 ???C (98.6 ???F) 89 18 96 % Physical Exam Constitutional: Appearance: Normal appearance. He is normal weight. HENT: Head: Normocephalic and atraumatic. Right Ear: External ear normal. Left Ear: External ear normal. Eyes: Extraocular Movements: Extraocular movements intact. Pupils: Pupils are equal, round, and reactive to light. Neck: Vascular: No carotid bruit. Cardiovascular: Rate and Rhythm: Normal rate and regular rhythm. Pulses: Normal pulses. Heart sounds: Normal heart sounds. Comments: Right radial cath site soft, nontender, no hematoma, no bruit, no eccymosis Right femoral cath site soft, +tenderness with palpation, small hematoma, small amount of ecchymosis, no drainage, no bruit Left femoral cath site soft, nontender, no hematoma, no bruit, no eccymosis Pulmonary: Effort: Pulmonary effort is normal. Breath sounds: Normal breath sounds. Abdominal: General: Bowel sounds are normal. Palpations: Abdomen is soft. Musculoskeletal: General: Normal range of motion. Cervical back: Neck supple. Right lower leg: No edema. Left lower leg: No edema. Skin: General: Skin is warm and dry. Neurological: General: No focal deficit present. Mental Status: He is alert and oriented to person, place, and time. Psychiatric: Mood and Affect: Mood normal. Behavior: Behavior normal. Thought Content: Thought content normal. Judgment: Judgment normal. Lab Results Component Value Date NA 137 03/24/2023 K 3.6 03/24/2023 CL 108 (H) 03/24/2023 ANIONGAP 11 03/24/2023 BUN 12 03/24/2023 CREATININE 0.67 (L) 03/24/2023 CALCIUM 9.1 03/24/2023 MG 1.6 (L) 03/24/2023 Lab Results Component Value Date BILITOT 0.6 03/20/2023 ALKPHOS 63 03/20/2023 AST 26 03/20/2023 ALT 13 03/20/2023 PROT 6.2 03/20/2023 ALBUMIN 3.9 03/20/2023 Lab Results Component Value Date WBC 9.39 03/24/2023 RBC 4.18 (L) 03/24/2023 HGB 12.6 (L) 03/24/2023 HCT 38.0 (L) 03/24/2023 MCV 90.9 03/24/2023 MCH 30.1 03/24/2023 MCHC 33.2 03/24/2023 RDW 13.6 03/24/2023 NEUTOPHILPCT 69.4 03/21/2023 LYMPHOPCT 21.4 03/21/2023 MONOPCT 7.7 03/21/2023 EOSPCT 0.8 03/21/2023 BASOPCT 0.3 03/21/2023 NEUTROABS 7.22 03/21/2023 LYMPHSABS 2.22 03/21/2023 MONOSABS 0.80 03/21/2023 EOSABS 0.08 03/21/2023 BASOSABS 0.03 03/21/2023 PLT 217 03/24/2023 NRBC 0.0 03/21/2023 === Imaging Orders, Last 24 Hours === XR CHEST 1 VIEW - Impression - Unchanged from 2 days ago Electronically signed: Raimundo Villavicencio. ECHO 03/22/2023 Left Ventricle: The left ventricle appears enlarged. Global left ventricular systolic function is severely reduced. The EF is 25 % visually. Left ventricular wall thickness is normal. Regional wall motion abnormalities (see diagram). Right Ventricle: The right ventricle appears normal in size. Right ventricular systolic function appears normal. Left Atrium: The left atrium appears enlarged. Overall Conclusions: Due to suboptimal imaging Lumason contrast was administered for opacification and better delineation of endocardial bord (more content not included)... [facility] 03-24-2023 Note Hospital Medicine Discharge Summary Final Discharge Diagnosis: #NSTEMI #status post PCI to LAD and RCA #Acute CHF with reduced ejection fraction, EF 25%. #Tobacco use #Hypomagnesemia Admission Diagnosis: SOB (shortness of breath) [R06.02] NSTEMI (non-ST elevated myocardial infarction) ([facility]) [I21.4] Hospital course: 57-year-old male with past medical history significant for tobacco use and otherwise unknown past medical history. Presented to [facility] due to chest pain, apparently has been dealing with chest discomfort for 1 week associated with shortness of breath and diaphoresis. At [facility] his high sensitive troponin was elevated, he was transferred to [facility] urgently for cardiology evaluation. Patient was started on IV heparin and he was admitted to the stepdown unit, his troponin was found to be elevated. EKG on admission was showing septal infarct. Patient had coronary angiogram which showed severe two-vessel coronary artery disease with 100% occlusion of LAD and 90% occlusion to RCA, he received GEN to RCA and LAD. Due to severely decompensated heart failure, Impella mechanical circulatory support was implemented. Patient was admitted to the medical ICU postoperatively. He was started on DAPT, high intensity statin, beta-bello. Repeat echocardiogram showed an EF of 25%. Patient was started on spironolactone and lisinopril. Patient will be on LifeVest on discharge. Patient was unable to afford Farxiga. Patient will have close follow-up with cardiology and CHF clinic. He was counseled about his tobacco use and he is determined to quit smoking. Patient is being discharged home in stable condition on March 24, 2023 per Dear ONEYDA Neff Ronald is advised to follow up with you within 1-2 weeks. Follow-up with: Cardiology and CHF clinic Scheduled appointments: Future Appointments Date Time Provider Department Center 03/28/2023 9:20 AM Manisha Calvillo NP [facility] Your medication list START taking these medications Instructions Last Dose Given Next Dose Due aspirin 81 mg EC tablet Take 1 tablet (81 mg) by mouth in the morning for 97 doses. atorvastatin 80 mg tablet Commonly known as: Lipitor Take 1 tablet (80 mg) by mouth at bedtime for 95 doses. dapagliflozin propanediol 10 mg Commonly known as: Farxiga Take 1 tablet (10 mg) by mouth in the morning for 99 doses. lisinopril 2.5 mg tablet Take 1 tablet (2.5 mg) by mouth in the morning for 97 doses. metoprolol succinate XL 25 mg 24 hr tablet Commonly known as: Toprol-XL Take 1 tablet (25 mg) by mouth in the morning for 98 doses. Do not crush or chew. nicotine 21 mg/24 hr patch Commonly known as: Nicoderm CQ Start taking on: March 25, 2023 Place 1 patch on the skin in the morning for 10 doses. Do not start before March 25, 2023. nicotine 14 mg/24 hr patch Commonly known as: Nicoderm CQ Start taking on: April 05, 2023 Place 1 patch on the skin 1 (one) time each day at the same time for 10 days. Do not start before April 05, 2023. nicotine 7 mg/24 hr patch Commonly known as: Nicoderm CQ Start taking on: April 16, 2023 Place 1 patch on the skin 1 (one) time each day at the same time for 10 days. Do not start before April 16, 2023. pantoprazole 40 mg EC tablet Commonly known as: ProtoNix Take 1 tablet (40 mg) by mouth before breakfast for 95 doses. Do not crush, chew, or split. spironolactone 25 mg tablet Commonly known as: Aldactone Take 0.5 tablets (12.5 mg) by mouth in the morning for 97 doses. ticagrelor 90 mg tablet Commonly known as: Brilinta Take 1 tablet (90 mg) by mouth in the morning and at bedtime. Where to Get Your Medications These medications were sent to [facility] - [address] [place] [address] [address] [facility] [place] [address], [facility] [address] aspirin 81 mg EC tablet atorvastatin 80 mg tablet dapagliflozin propanediol 10 mg lisinopril 2.5 mg tablet metoprolol succinate XL 25 mg 24 hr tablet nicotine 14 mg/24 hr patch nicotine 21 mg/24 hr patch nicotine 7 mg/24 hr patch pantoprazole 40 mg EC tablet spironolactone 25 mg tablet ticagrelor 90 mg tablet Sam is allergic to oxycodone, penicillins, and vicodin [hydrocodone-acetaminophen]. Disposition: Home or Self Care Discharge Condition: Stable Code Status: Full Code Diagnostic Results Hematology: Results from last 7 days Lab Units 03/24/23 0421 03/22/23 0024 03/21/23 0516 03/20/23 2039 WBC AUTO 10*3/uL 9.39 10.09 < > 10.02 HEMOGLOBIN g/dL 12.6* 13.1 < > 13.4 HEMATOCRIT % 38.0* 38.5* < > 40.8 MCV fL 90.9 90.6 < > 93.8 PLATELETS AUTO 10*3/uL 217 198 < > 215 INR -- -- -- 1.06 < > = values in this interval not displayed. Chemistry: Results from last 7 days Lab Units 03/24/23 0421 03/23/23 0712 03/22/23 0811 SODIUM mmol/L 137 137 137 POTASSIUM (more content not included)... [facility] 03-24-2023 Note Pt admitted to [facility] for NSTEMI. Pt's echo from 03/22/23 estimated LVEF 25%, which qualifies pt for cardiac rehab (CR) therapy with HF diagnosis. Pt also eligible for NSTEMI. I will watch for updates and follow up with pt, if appropriate. JOSE GuzmánN cytology manager Outpatient Coordinator Cardiopulmonary Rehab [facility] 03-23-2023 Note Hospital Medicine Daily Progress Note - 03/23/2023 11:53 AM; Room: [address] [place] [address] Admission: 03/20/2023 8:25 PM; Length of stay: 3 days THE HOSPITALIST TEAM PREFERS TO USE [employer] FOR COMMUNICATION 7AM-7PM. IF I DO NOT RESPOND WITHIN 15 MINUTES, PLEASE PAGE ME/CALL THROUGH THE SCREEN ROLLER. FROM 7PM-7AM, PLEASE PAGE [phone](COVR) Code Status: Full Code Barriers to Discharge: pending clinical course. Expected Discharge Date: within 24 hours Discharge Destination: home Overview Patient is seen for evaluation and management of NSTEMI. Subjective Seen and evaluated at the bedside. Patient was transferred from MICU service to our service, he reports no new symptoms, no shortness of breath no chest pain. Physical Exam Visit Vitals BP 99/65 Pulse 81 Temp 37 ???C (98.6 ???F) Resp 16 Intake/Output Summary (Last 24 hours) at 03/23/2023 1153 Last data filed at 03/23/2023 0600 Gross per 24 hour Intake -- Output 900 ml Net -900 ml Physical Exam Eyes: Pupils: Pupils are equal, round, and reactive to light. Cardiovascular: Rate and Rhythm: Normal rate and regular rhythm. Pulmonary: Effort: Pulmonary effort is normal. Breath sounds: Normal breath sounds. Abdominal: General: Bowel sounds are normal. Palpations: Abdomen is soft. Skin: Capillary Refill: Capillary refill takes less than 2 seconds. Comments: Small bruise around the access site in the left groin area. Neurological: General: No focal deficit present. Mental Status: He is alert and oriented to person, place, and time. Estimated body mass index is 31.52 kg/m??? as calculated from the following: Height as of this encounter: 1.803 m (5' 11 ). Weight as of this encounter: 102 kg (225 lb 15.5 oz). Active Inpatient Problems Principal Problem: NSTEMI (non-ST elevated myocardial infarction) ([facility]) Assessment and Plan # NSTEMI # status post PCI to LAD and RCA - continue with dual antiplatelet treatment, continue with beta-bello and high intensity statin. # Acute CHF with reduced ejection fraction, EF 25%. Overall compensated. - continue with antiplatelets, beta-bello, statin, lisinopril and Aldactone. - Discussed with cardiology about LifeVest, they will reevaluate. # Tobacco use, counseled about that. # Hypomagnesemia, replace magnesium. Nutrition Screen VTE Prophylaxis: Heparin subcutaneous Scheduled Meds aspirin, 81 mg, oral, Daily atorvastatin, 80 mg, oral, Nightly heparin (porcine), 5,000 Units, subcutaneous, BID lisinopril, 2.5 mg, oral, Daily metoprolol succinate XL, 25 mg, oral, Daily nicotine, 1 patch, transdermal, Daily Oxygen Therapy, , inhalation, Continuous pantoprazole, 40 mg, oral, Daily spironolactone, 12.5 mg, oral, Daily ticagrelor, 90 mg, oral, BID Oxygen Therapy, Pertinent Investigations Hematology: Results from last 7 days Lab Units 03/22/23 0024 03/21/23 1305 03/21/23 0516 03/20/23 2039 WBC AUTO 10*3/uL 10.09 8.80 < > 10.02 HEMOGLOBIN g/dL 13.1 13.3 < > 13.4 HEMATOCRIT % 38.5* 40.1 < > 40.8 MCV fL 90.6 92.2 < > 93.8 PLATELETS AUTO 10*3/uL 198 201 < > 215 INR -- -- -- 1.06 < > = values in this interval not displayed. Chemistry: Results from last 7 days Lab Units 03/23/23 0712 03/22/23 0811 03/22/23 0024 SODIUM mmol/L 137 137 136 POTASSIUM mmol/L 3.8 4.1 3.4* CHLORIDE mmol/L 107 108* 106 CO2 mmol/L 24 24 25 BUN mg/dL 9 10 12 CREATININE mg/dL 0.65* 0.68* 0.76 GLUCOSE mg/dL 103* 108* 124* MAGNESIUM mg/dL 1.6* 1.9 1.8* CALCIUM mg/dL 9.2 8.4* 8.8 Results from last 7 days Lab Units 03/21/23 1333 03/20/232038 HCO3 ART mEq/L 25.0 -- O2 SAT ART % 97.5 -- AST U/L -- 26 ALT U/L -- 13 ALK PHOS U/L -- 63 BILIRUBIN TOTAL mg/dL -- 0.6 Historical Values: (Includes values prior to this admission) Lab Results Component Value Date HDL 35 03/20/2023 LDL 143 03/20/2023 No results found for: [id number] , IRON , TIBC , C3 , C4 , FRANCOISE , CANCA , ASO , PSA , CEA , CA125 , CA199 , AFP , CA153 Imaging XR chest 1 view Narrative: XR CHEST 1 VIEW 03/22/2023 9:39 AM CLINICAL INDICATIONS: Follow-up for pulmonary edema COMPARISON: 03/20/2023 FINDINGS: Cardiomegaly and pulmonary vascular congestion unchanged. No tommie pulmonary edema or other acute pulmonary or pleural abnormalities displayed Impression: Unchanged from 2 days ago Electronically signed: Raimundo Villavicencio. TRANSTHORACIC ECHO (TTE) LIMITED W/O IMAGING AGENT, STRAIN, 3D, BUBBLE STUDY 1 1 [facility] Heart Station [address] [facility] [place] [address] [phone] (fax) Echocardiogram-[facility] Name: SAM ELDER Study Date: 03/22/2023 08:13 AM B/P: 103 mmHg/57 mmHg HR: Date of : 1965 Location: [facility] Height: 71 in. Age: 57 year(s) Patient Room: 3219 Weight: 225 lb. Gender: Male Patient Status: InPt BSA: 2.22 m2 Indication: Chest Pain, Impella removed 03/21/23 (more content not included)... [facility] 03-23-2023 Note Cardiology Progress Note Reason for Consult: transfer from [facility], NSTEMI, elevated trop 1.53, vitals stable, cards on board Subjective HPI: Sam Elder is a 57 y.o. male originally presented at outside hospital with chief complaint of chest pain. Patient describes the pain as left sided chest pain described as burning sensation radiating to left jaw and left arm with associated numbness and tingling which has been for the last 1 week. On initial investigation, troponin was found to be elevated at 1.53. Admission EKG revealed normal sinus rhythm with infrequent PVCs and septal infarct. BNP was elevated 464. Past medical history includes tobacco abuse disorder and COPD. Appears the patient is not on any medications at home. Unable to locate any prior ischemic workup. Patient remains afebrile and slightly hypotensive. Blood pressure around 90s and diastolic blood pressure in 60s. Patient remains on nasal cannula saturating well. 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 Patient evaluated in afternoon following stent placement in catheter lab. Patient denies any chest pain at this time and states that his numbness in his left hand has much improved. Denies any palpitations, dyspnea, nor lightheadedness at this time. 03/23/2023 Patient seen and eamined at bedside. No acute events overnight. He plans to quit smoking. Denies c/o CP, dyspnea, orthopnea, PND, LE edema, dizziness/LH, palpitations, syncope. Objective Patient Vitals for the past 24 hrs: BP Temp Pulse Resp SpO2 03/23/23 0919 99/65 37 ???C (98.6 ???F) 81 16 92 % 03/23/23 0450 105/67 37.4 ???C (99.3 ???F) 85 -- 96 % 03/23/23 0042 98/69 37.3 ???C (99.1 ???F) 96 -- 93 % 03/22/23 1952 93/62 37.4 ???C (99.3 ???F) 91 -- 96 % 03/22/23 1700 109/69 -- 95 20 98 % 03/22/23 1634 -- -- -- -- 97 % 03/22/23 1600 95/62 -- 96 20 94 % 03/22/23 1500 95/61 -- 95 14 97 % 03/22/23 1400 93/68 -- 87 19 95 % 03/22/23 1300 91/63 -- 83 21 91 % 03/22/23 1200 90/69 -- 84 20 96 % 03/22/23 1100 92/67 -- 81 17 96 % Physical Exam Constitutional: Appearance: Normal appearance. He is normal weight. HENT: Head: Normocephalic and atraumatic. Right Ear: External ear normal. Left Ear: External ear normal. Eyes: Extraocular Movements: Extraocular movements intact. Pupils: Pupils are equal, round, and reactive to light. Neck: Vascular: No carotid bruit. Cardiovascular: Rate and Rhythm: Normal rate and regular rhythm. Pulses: Normal pulses. Heart sounds: Normal heart sounds. Comments: Right radial cath site soft, nontender, no hematoma, no bruit, no eccymosis Right femoral cath site soft, +tenderness with palpation, small hematoma, small amount of ecchymosis, no drainage, no bruit Left femoral cath site soft, nontender, no hematoma, no bruit, no eccymosis Pulmonary: Effort: Pulmonary effort is normal. Breath sounds: Normal breath sounds. Abdominal: General: Bowel sounds are normal. Palpations: Abdomen is soft. Musculoskeletal: General: Normal range of motion. Cervical back: Neck supple. Right lower leg: No edema. Left lower leg: No edema. Skin: General: Skin is warm and dry. Neurological: General: No focal deficit present. Mental Status: He is alert and oriented to person, place, and time. Psychiatric: Mood and Affect: Mood normal. Behavior: Behavior normal. Thought Content: Thought content normal. Judgment: Judgment normal. Lab Results Component Value Date NA 137 03/23/2023 K 3.8 03/23/2023 CL 107 03/23/2023 ANIONGAP 10 03/23/2023 BUN 9 03/23/2023 CREATININE 0.65 (L) 03/23/2023 CALCIUM 9.2 03/23/2023 MG 1.6 (L) 03/23/2023 Lab Results Component Value Date BILITOT 0.6 03/20/2023 ALKPHOS 63 03/20/2023 AST 26 03/20/2023 ALT 13 03/20/2023 PROT 6.2 03/20/2023 ALBUMIN 3.9 03/20/2023 Lab Results Component Value Date WBC 10.09 03/22/2023 RBC 4.25 03/22/2023 HGB 13.1 03/22/2023 HCT 38.5 (L) 03/22/2023 MCV 90.6 03/22/2023 MCH 30.8 03/22/2023 MCHC 34.0 03/22/2023 RDW 13.7 03/22/2023 NEUTOPHILPCT 69.4 03/21/2023 LYMPHOPCT 21.4 03/21/2023 MONOPCT 7.7 03/21/2023 EOSPCT 0.8 03/21/2023 BASOPCT 0.3 03/21/2023 NEUTROABS 7.22 03/21/2023 LYMPHSABS 2.22 03/21/2023 MONOSABS 0.80 03/21/2023 EOSABS 0.08 03/21/2023 BASOSABS 0.03 03/21/2023 PLT 198 03/22/2023 NRBC 0.0 03/21/2023 === Imaging Orders, Last 24 Hours === XR CHEST 1 VIEW - Impression - Unchanged from 2 days ago Electronically signed: Raimundo Villavicencio. ECHO 03/22/2023 Left Ventricle: The left ventricle appears enlarged. Global left ventricular systolic function is severely reduced. The EF is 25 % visually. Left ventricular wall thickness is normal. Regional wall motion abnormalities (see diagram). Right Ventricle: The right ventricle appears normal in size. Right ventricular systolic function appears normal. Left Atrium: The left atrium appears enlarged. Overall Conclusions: (more content not included)... [facility] 03-22-2023 Note ------ Attestation signed by Yordy Judd MD at 03/23/2023 1:35 PM I personally saw and examined the patient on the same date of service as resident/fellow Dr. Mckeon. I discussed the findings and therapeutic plan with the resident/fellow Dr. Mckeon. I agree with the documentation, except for any edits/updates below. Teaching Physician's Revisions: None ------ Cardiology Progress Note Subjective Subjective: Sam Elder is a 57 y.o. male presenting as a transfer from [facility] for chest pain. Patient underwent stent placement; post day . Impella was removed same day of cath procedure. No acute overnight events. Patient was seen and examined today. He denies chest pain, palpitations, shortness of breath or dyspnea. Objective Objective: Patient Vitals for the past 24 hrs: BP Temp Pulse Resp SpO2 03/23/23 0919 99/65 37 ???C (98.6 ???F) 81 16 92 % 03/23/23 0450 105/67 37.4 ???C (99.3 ???F) 85 -- 96 % 03/23/23 0042 98/69 37.3 ???C (99.1 ???F) 96 -- 93 % 03/22/23 1952 93/62 37.4 ???C (99.3 ???F) 91 -- 96 % 03/22/23 1700 109/69 -- 95 20 98 % 03/22/23 1634 -- -- -- -- 97 % 03/22/23 1600 95/62 -- 96 20 94 % 03/22/23 1500 95/61 -- 95 14 97 % 03/22/23 1400 93/68 -- 87 19 95 % 03/22/23 1300 91/63 -- 83 21 91 % 03/22/23 1200 90/69 -- 84 20 96 % 03/22/23 1100 92/67 -- 81 17 96 % Physical Examination: GENERAL: AOx3, in no acute distress. HEAD: Atraumatic, normocephalic. EYES: SELIN, EOMI. NECK: No JVD present. CARDIAC: RRR. No murmur, rubs, or gallops. RESPIRATORY: CTAB, no increased effort of breathing. ABDOMEN: Soft, nontender, nondistended. EXTREMITIES: No lower extremity edema, peripheral pulses are 2+ bilaterally. NEURO: No focal deficits Relevant Lab Results Encounter Date: 03/20/23 Electrocardiogram, 12-lead Result Value Ventricular Rate 82 Atrial Rate 82 ID Interval 178 QRS DURATION 96 QT Interval 396 QTC CALCULATION(BAZETT) 462 P Monetta 55 R-Monetta 85 T Wave Monetta 40 Impression Normal sinus rhythm Possible Left atrial enlargement Low voltage QRS limb leads Septal infarct (cited on or before 20-MAR-2023) Abnormal ECG When compared with ECG of 20-MAR-2023 23:26, Premature ventricular complexes are no longer Present Nonspecific T wave abnormality now evident in Inferior lead Confirmed by Papi CARDOSO, L.S. (2) on 03/21/2023 1:57:25 PM Lab Results Component Value Date TROPONINI 8.73 (HH) 03/22/2023 TRANSTHORACIC ECHO (TTE) LIMITED W/O IMAGING AGENT, STRAIN, 3D, BUBBLE STUDY Result Date: 03/22/2023 1 1 [facility] Heart Station [address] [place], [place] [id number] (fax) Echocardiogram-[facility] Name: SAM ELDER Study Date: 03/22/2023 08:13 AM B/P: 103 mmHg/57 mmHg HR: Date of : 1965 Location: [facility] Height: 71 in. Age: 57 year(s) Patient Room: 3219 Weight: 225 lb. Gender: Male Patient Status: InPt BSA: 2.22 m2 Indication: Chest Pain, Impella removed 03/21/23 Examination: Limited Echo, Lumason Contrast Image Quality: Fair Patient Consent: Procedure explained to patient Conclusions Left Ventricle: The left ventricle appears enlarged. Global left ventricular systolic function is severely reduced. The EF is 25 % visually. Left ventricular wall thickness is normal. Regional wall motion abnormalities (see diagram). Right Ventricle: The right ventricle appearsnormal in size. Right ventricular systolic function appears normal. Left Atrium: The left atrium appears enlarged. Overall Conclusions: Due to suboptimal imaging Lumason contrast was administered for opacification and better delineation of endocardial borders. Measurements Left Ventricle Label Value Normal Value LVEF visual 25 % Findings Left Ventricle: The left ventricle appears enlarged. Global left ventricular systolic function is severely reduced. The EF is 25 % visually. Left ventricular wall thickness is normal. Regional wall motion abnormalities (see diagram). The basal inferior, basal inferolateral, basal anterolateral, mid inferior, mid inferolateral, mid anterolateral, apical inferior and apical lateral left ventricular wall segments are hypokinetic. The basal anterior, basal anteroseptal, basal inferoseptal, mid anterior, mid anteroseptal, mid inferoseptal, apical anterior, apical septal and apex left ventricular wall segments are akinetic. Right Ventricle: The right ventricle appears normal in size. Right ventricular systolic function appears normal. Left Atrium: The left atrium appears enlarged. Right Atrium: The right atrium appears normal in size. Mitral Valve: Mitral valve appears normal. AorticValve: Aortic valve appears normal. Tricuspid Valve: Tricuspid valve appears normal. Aorta: The aortic root exhibits n (more content not included)... [facility] 03-22-2023 Note ------ Attestation signed by Omari Lamb MD at 03/22/2023 4:04 PM Patient was seen and examined with the resident on the same date of service, I discussed the findings and therapeutic plan with the resident/fellow, I agree with the documentation, assessment and plan as above except for any edits/updates below. Omari Lamb MD Pulmonary and critical care ------ Medical ICU Progress Note Patient - Sam Elder Age - 57 y[facility] 1965 [id number] Date of Admission - 03/20/2023 8:25 PM HPI/Hospital Course Subjective Patient has no known past medical history and has not seen a doctor regularly for his entire life. He initially presented to [facility] yesterday after having chest pain with radiation to the left arm for 1 week. Patient states at first he thought it was due to gas and he was having a large amount of gas/burping. Yesterday morning when walking outside he felt again worsening of the chest pain with radiation to left arm and jaw. He sat down and became diaphoretic and EMS was called. At [facility] initial workup significant for Troponin of 1.53, BNP 464, EKG with sinus rhythm, PVCs and septal infarct. Patient transferred to [facility] for catheterization. Patient had catheterization this am with stent placement in RCA and LAD. During the procedure patient had decompensating heart failure with low blood pressures and Impella device was placed. 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 Currently in the ICU, MAP 70 with systolics in 90s. Patient is asymptomatic, denies chest pain, shortness of breath, lightheadedness, dizziness, abdominal pain, fevers or chills. He does endorse pain with Quinn catheter and in right groin at site of Impella removal. Patient's heparin has been discontinued. Remains on ASA, ticagrelor, Toprol, aldactone, lisinopril and atrovastatin. Will monitor blood pressure overnight. SUBJECTIVE Send bedside. Remains afebrile hemodynamically stable. Morning lab reviewed, electrolytes replaced. Denies having chest pain shortness of breath or cough OBJECTIVE Vitals height is 1.803 m (5' 11 ) and weight is 102 kg (225 lb 15.5 oz). His temperature is 36 ???C (96.8 ???F). His blood pressure is 103/57 and his pulse is 82. His respiration is 15 and oxygen saturation is 96%. Temp: [36 ???C (96.8 ???F)-37.3 ???C (99.1 ???F)] 36 ???C (96.8 ???F) Heart Rate: [79-98] 82 Resp: [5-22] 15 BP: (103-140)/(55-81) 103/57 Arterial Line BP 1: (81-112)/(48-71) 86/50 Physical Exam: General: No acute distress HEENT: Normocephalic, atraumatic, EOMI, no scleral icterus or erythema Neck: Supple, trachea midline, no masses noted Cardiovascular: Regular rate and rhythm, normal S1-S2, no murmurs, no rubs, no peripheral edema Respiratory: No acute respiratory distress, clear to auscultation bilaterally, no wheezing, no rales Abdomen: Soft, nontender, nondistended, positive bowel sounds Extremities: No cyanosis, no edema Neuro: No focal deficits Skin: Warm, dry, no rashes Weight: Admission weight: 102 kg (225 lb 1.4 oz) Wt Readings from Last 1 Encounters: 03/21/23 102 kg (225 lb 15.5 oz) Input/Output: Intake/Output Summary (Last 24 hours) at 03/22/2023 0909 Last data filed at 03/22/2023 0800 Gross per 24 hour Intake 2078.33 ml Output 4995 ml Net -2916.67 ml Ventilator: Lab Results ABG: pH, Arterial Date Value Ref Range Status 03/21/2023 7.45 7.35 - 7.45 pH Final pCO2, Arterial Date Value Ref Range Status 03/21/2023 36 35 - 48 mmHg Final pO2, Arterial Date Value Ref Range Status 03/21/2023 79 (L) 83 - 100 mmHg Final HCO3, Arterial Date Value Ref Range Status 03/21/2023 25.0 21.0 - 28.0 mEq/L Final No results found for: PHVEN , YUV6PRY , PO2VEN , IQW5CMM , IONCALVEN CBC: Results from last 7 days Lab Units 03/22/23 0024 03/21/23 1305 03/21/23 0516 WBC AUTO 10*3/uL 10.09 8.80 10.39 HEMOGLOBIN g/dL 13.1 13.3 12.3* HEMATOCRIT % 38.5* 40.1 37.4* PLATELETS AUTO 10*3/uL 198 201 185 Coagulation: Results from last 7 days Lab Units 03/20/232038 APTT Seconds 49.5* INR 1.06 Metabolic Panel: Results from last 7 days Lab Units 03/22/23 0024 03/21/23 1333 03/21/23 1243 03/21/23 0516 SODIUM, WHOLE BLOOD -- 134* -- -- SODIUM mmol/L 136 -- 136 135* POTASSIUM, WHOLE BLOOD mmol/L -- 3.8 -- -- POTASSIUM mmol/L 3.4* -- 3.8 3.9 CHLORIDE mmol/L 106 -- 105 107 CO2 mmol/L 25 -- 24 22 BUN mg/dL 12 -- 11 11 CREATININE mg/dL 0.76 -- 0.73 0.71 GLUCOSE mg/dL 124* -- 100 99 CALCIUM mg/dL 8.8 -- 8.9 8.8 MAGNESIUM mg/dL 1.8* -- 1.7* 1.7* Liver Panel: Results from last 7 days Lab Units 03/20/232038 ALBUMIN g/dL 3.9 BILIRUBIN TOTAL mg/dL 0.6 ALT U/L 13 AST U/L 26 ALK PHOS U/L 63 (more content not included)... [facility] 03-21-2023 Note Interventional Cardi ology Impella removed in the cook house laborer See my procedure note under the cardiology tab for details Patient tolerated Impella removal well Monitor right groin access sites for bleeding I discontinued heparin infusion Optimize HFrEF meds in the next few days Ernesto Jung MD tag writer Interventional Cardiology [place] [facility] Pager: [phone] [facility] 03-21-2023 Note Interventional Cardi ology Complex presentation with high risk NSTEMI, acute systolic heart failure, cardiogenic shock, and multivessel CAD Patient status post Impella mechanical circulatory support and multivessel PCI Please see my report under cardiology tab Page interventional cardiology with any questions Interventional cardiology will reassess to determine appropriate time for Impella weaning and removal. Ernesto Jung MD tag writer Interventional Cardiology [place] [facility] Pager: [phone] [facility] 03-21-2023 Note Patient: Sma alva Procedure Information Date/Time: 03/21/23 0830 Procedures: Coronary angiography Right heart cath Location: [facility] SERVICE SUPERINTENDENT 3 / [facility] (Cath) Providers: Ernesto Jung MD Clinical information reviewed: Allergies Meds Med Hx Surg Hx Fam Hx Physical Exam Airway Mallampati: III TM distance: >3 FB Neck ROM: full Cardiovascular Rhythm: regular Rate: normal Dental Pulmonary - normal exam Breath sounds clear to auscultation Abdominal (+) obese Abdomen: soft Anesthesia Plan ASA 4 other (Moderate sedation) Anesthetic plan and risks discussed with patient. Use of blood products discussed with patient who consented to blood products. Plan discussed with fellow and attending. Additional Equipment Requests [facility] 03-21-2023 Note unable to see Patien t to discuss insurance needs, due to Pt not being in room [facility] 03-21-2023 Note Pt left floor for ec ho and cath procedure prior to sign writer hand being able to perform morning assessment. [facility] 03-21-2023 Note 03/20/23 2310 Physical Activity On average, how many days per week do you engage in moderate to strenuous exercise (like a brisk walk)? 0 days On average, how many minutes do you engage in exercise at this level? 0 min Financial Resource Strain How hard is it for you to pay for the very basics like food, housing, medical care, and heating? Not hard Housing Stability In the last 12 months, was there a time when you were not able to pay the mortgage or rent on time? N In the last 12 months, how many places have you lived? 1 (Lives at home with mother) In the last 12 months, was there a time when you did not have a steady place to sleep or slept in a long-term (including now)? N Transportation Needs In the past 12 months, has lack of transportation kept you from medical appointments or from getting medications? no In the past 12 months, has lack of transportation kept you from meetings, work, or from getting things needed for daily living? No Food Insecurity Within the past 12 months, you worried that your food would run out before you got the money to buy more. Never true Within the past 12 months, the food you bought just didn't last and you didn't have money to get more. Never true Stress Do you feel stress - tense, restless, nervous, or anxious, or unable to sleep at night because your mind is troubled all the time - these days? Rather much Social Connections In a typical week, how many times do you talk on the phone with family, friends, or neighbors? More than 3 How often do you get together with friends or relatives? Never How often do you attend congregational or episcopalian services? Never Do you belong to any clubs or organizations such as congregational groups, unions, fraternal or athletic groups, or school groups? No How often do you attend meetings of the clubs or organizations you belong to? Never Are you , , , , never , or living with a partner? Intimate Partner Violence Within the last year, have you been afraid of your partner or ex-partner? No Within the last year, have you been humiliated or emotionally abused in other ways by your partner or ex-partner? No Within the last year, have you been kicked, hit, slapped, or otherwise physically hurt by your partner or ex-partner? No Within the last year, have you been raped or forced to have any kind of sexual activity by your partner or ex-partner? No Alcohol Use Q1: How often do you have a drink containing alcohol? Never Q2: How many drinks containing alcohol do you have on a typical day when you are drinking? None Q3: How often do you have six or more drinks on one occasion? Never 03/20/23 5495 Referral Data Referral Source family worker Referral Reason Psychosocial assessment Patient Information Primary Caregiver Self Christianity/Cultural Factors Jainism Activities of Daily Living Assistive Device Not applicable Living Arrangement (Current/Prior to Hospitalization) Private residence (Lives at home with mother) Ambulation Independent Dressing Independent Feeding Independent Behavior Oriented Communication Can write;Talks;Understands speaking;Understands Maori;Reads Income Information Income Source Employed (Employed FT) Discharge Planning Support Systems Friends/neighbors Type of Residence/Post Acute Needs Private residence Will patient need Precert for Post Acute needs? No Patient's goal for discharge Home Does the patient need discharge transport arranged? No (Family will provide) Completed social work assessment and SDoH screening. Patient was awake, alert and oriented at this time. Patient exhibited tangential thinking. Patient reported that he lives at home with his mother and he identified his friends as his support system. Patient endorsed social isolation and denied any regular physical activity. Patient reported that he is independent with ADLs and denied the use of any assistive devices. Patient reported that he is employed full-time and denied the need for assistance with obtaining basic needs. Patient also denied the need for assistance with transportation for medical appointments. Patient reported that his family will provide transportation for him to return home from the hospital upon discharge. Patient endorsed experiencing a significant level of stress in his everyday life. Patient denied having a current mental health provider and declined interest to be connected with one. Patient denied experiencing any form of IPV within the past year and denied any alcohol consumption. [facility] 03-21-2023 Note Hospital Medicine History and Physical 03/20/2023 10:38 PM THE HOSPITALIST TEAM PREFERS TO USE [employer] FOR COMMUNICATION 7AM-7PM. IF I DO NOT RESPOND WITHIN 15 MINUTES, PLEASE PAGE ME/CALL THROUGH THE SCREEN ROLLER. FROM 7PM-7AM, PLEASE PAGE [phone](COVR) Chief Complaint Chief Complaint Patient presents with Shortness of Breath History of Present Illness Sam Elder is an 57 y.o. male [facility] where he was evaluated for ongoing chest pain starting at on the left chest pressure-like at times burning sensation going to his neck jaw and left arm with some numbness tingling on the fingers patient stated that he had been having these discomfort intermittently since 1 week back today it got worse had associated diaphoresis and shortness of breath he felt bloated and gassy and had belching with passing of a lot of gas he denies any heart palpitation PND orthopnea syncope or syncope like feeling he did feel tired after the pain started he smokes 2 packs/day and has dyspnea on exertion and since past 1 year his level of activity has been affected had to rest because of shortness of breath and wheezing he has cough more pronounced in the morning productive of clear phlegm and intermittent wheezing and dyspnea on exertion the EKG in the [facility] showed anterior septal changes and possible incomplete left bundle branch block his white blood count at [facility] was 12.9 his glucose was 110 and troponin high-sensitivity was 819.5 he had repeat troponin done in [facility] which was 1.53 chest x-ray showed no consolidation or CHF but moderate cardiomegaly EKG showed septal changes patient denies any history of hypertension hyperlipidemia stroke thromboembolic event he had family history of coronary artery disease with his mother having acute [place] in the mid 50s Review of System and Physical Exam Temp: [36.8 ???C (98.2 ???F)] 36.8 ???C (98.2 ???F) Heart Rate: [78-92] 81 Resp: [15-24] 23 BP: (86-108)/(58-77) 86/69 Physical Exam Constitutional: Appearance: He is normal weight. Comments: Unkempt appearance HENT: Head: Normocephalic and atraumatic. Right Ear: Tympanic membrane, ear canal and external ear normal. Left Ear: Tympanic membrane, ear canal and external ear normal. Nose: Nose normal. Mouth/Throat: Mouth: Mucous membranes are moist. Pharynx: Oropharynx is clear. Eyes: Extraocular Movements: Extraocular movements intact. Conjunctiva/sclera: Conjunctivae normal. Pupils: Pupils are equal, round, and reactive to light. Cardiovascular: Rate and Rhythm: Normal rate and regular rhythm. Pulses: Normal pulses. Pulmonary: Effort: Pulmonary effort is normal. Breath sounds: Wheezing present. Abdominal: General: Abdomen is flat. Bowel sounds are normal. Palpations: Abdomen is soft. Musculoskeletal: General: Normal range of motion. Cervical back: Normal range of motion and neck supple. Skin: General: Skin is warm and dry. Capillary Refill: Capillary refill takes less than 2 seconds. Neurological: General: No focal deficit present. Mental Status: He is alert and oriented to person, place, and time. Psychiatric: Mood and Affect: Mood normal. Behavior: Behavior normal. Review of Systems Constitutional: Positive for fatigue. Negative for activity change, appetite change, chills, diaphoresis and fever. HENT: Negative. Eyes: Negative. Respiratory: Positive for cough, chest tightness and shortness of breath. Negative for wheezing. Cardiovascular: Positive for chest pain. Negative for palpitations and leg swelling. Gastrointestinal: Negative. Dyspepsia Endocrine: Negative. Genitourinary: Negative. Musculoskeletal: Negative. Allergic/Immunologic: Negative. Neurological: Negative. Hematological: Negative. Psychiatric/Behavioral: Negative. Problem List Patient Active Problem List Diagnosis Date Noted NSTEMI (non-ST elevated myocardial infarction) ([facility]) 03/20/2023 Assessment and Plan Nstemi Copd exertional dyspnea Tobacco dependence Iv heparin serial troponins asa high intensity statin cardiology to see patient echo to assess Lv function counseled re tobacco cessation nicotine replacement recommend out PT PFT sw to help patient for health insurance VTE Prophylaxis: IV heparin ----- Focus of this inpatient stay will remain on problems that need acute care setting for care. We will review available studies and will order additional labs, imaging and other studies as appropriate. As needed medicines are ordered as appropriate. VTE Prophylaxis will be ordered as appropriate. Please see above for management plan for individual hospital problems. Home medications are reviewed and will be continued as appropriate. Patient will be continued to be followed during this hospital stay by a member of [facility]. Past Medical History History reviewed. No pertinent past medical history. Past Surgical (more content not included)... [facility] Summary Purpose Family History No Family History Records FoundNo Family History Records Found Advance Directives No Advanced Directives Records FoundNo Advanced Directives Records Found Additional Source Comments (unrecognized sect ion and content) No Status Records FoundNo Status Records Found INFORMATION SOURCE (unrecogn ized section and content) DATE CREATED AUTHOR 12/31/2018 [facility] DATE CREATED AUTHOR AUTHOR'S ORGANIZ ATION 03/30/[address] [facility] FOR RECORDS PERTAINING TO PATIENTS WHO ARE OR HAVE BEEN ENROLLED IN A CHEMICAL DEPENDENCY/SUBSTANCEABUSE PROGRAM, SOME INFORMATION MAY BE OMITTED. This clinical summary was aggregated from multiple sources. Caution should be exercised in using it in the provision of clinical care. This summary normalizes information from multiple sources, and as a consequence, information in this document may materially change the coding, format and clinical context of patient data. In addition, data may be omitted in some cases. CLINICAL DECISIONS SHOULD BE BASED ON THE PRIMARY CLINICAL RECORDS. [employer] provides no warranty or guarantee of the accuracy or completeness of information in this document.
--- NOTE | 2023-04-22 14:35 | CA_ITS ---
Patient Name: SAM CROSS MR#: [id number] : 1965 Exam Date: 04/22/2023 Ordering Doctor: MANISHA CALVILLO ECHOCARDIOGRAM REPORT PROCEDURE: CA ECHO W/ CON INDICATIONS: Heart failure with reduced ejection fraction, VA with PYCA, hypertension COMPARISON: None. DESCRIPTION: COMPLETE ECHOCARDIOGRAM Real-time transthoracic echocardiography with 2D, M-mode, spectral and color flow Doppler performed. QUALITY: Technical quality was good. 71 , 196#, BSA 2.09 m2 LEFT VENTRICLE: Normal chamber size. Normal left ventricular wall thickness. Calculated left ventricular ejection fraction is 37%. LV EF: Global left ventricular systolic function is mild to moderately reduced; visually estimated ejection fraction is 45 to 40%. Diffuse hypokinesis. DIASTOLIC: Grade II diastolic dysfunction. ATRIAL SEPTUM: Visually appears intact. LEFT ATRIUM: Normal chamber size. RIGHT ATRIUM: Normal chamber size. RIGHT VENTRICLE: Normal chamber size. Normal right ventricular systolic function. TRICUSPID VALVE: Normal mobility and thickness. No stenosis with no regurgitation. Unable to assess right-sided pressures due to lack of measurable tricuspid regurgitation. MITRAL VALVE: Normal mobility and thickness. No evidence of mitral valve stenosis. There is no mitral annular calcification. Trivial mitral regurgitation. AORTIC VALVE: Normal trileaflet appearance. No visible sclerosis. Normal leaflet mobility. No evidence of aortic valve stenosis. No aortic regurgitation. AORTIC ROOT: Normal diameter when corrected for body surface area and appearance. PULMONIC VALVE: Normal thickness and mobility. No stenosis. Trivial regurgitation. PERICARDIUM: Anterior free space; trivial effusion versus fat pad. IVC: Collapses with inspirations. CONCLUSION: 1. Global left ventricular systolic function is mild to moderately reduced; visually estimated ejection fraction is 35 to 40% 2. The right ventricle is normal in size and systolic function 3. Grade 2, moderate diastolic dysfunction 4. No significant valvular abnormalities 5. Anterior free space; trivial effusion versus fat pad Adult Echocardiography Procedure Report Left Ventricle LVEDD (3.7 - 5.6 cm): 5.43 cm LVESD (2.2 - 4.0 cm): 4.22 cm LVIVS thickness (0.6 - 1.2 cm): 1.10 cm LVPW thickness (0.5 - 1.0 cm): 1.04 cm E - e': 6.86 LVOT Max Gradient: 2.84 mm[Hg] LVOT Area (cm2): 0.84 m/s Peak Velocity (LVOT): 0.84 m/s Mean Velocity (LVOT): 0.62 m/s LVOT Diameter 2.60 cm Left Atrium LA Volume Index (2D A2C): 24.03 ml/m2 Left Atrium Systolic Dimension: 3.94 cm Mitral Valve MV E to A Ratio: 0.83, 0.72 Right Ventricle Aorta AO Root Diam: 3.81 cm Ascending Ao Diam: 3.34 cm Aortic Valve AoV Area (Peak Doug): 4.75 cm2, 4.75 cm2 AoV Area (VTI): 4.21 cm2, 4.21 cm2 Peak Velocity(Antegrade Flow): 0.94 m/s Peak Gradient(Antegrade Flow): 3.51 mm[Hg] Mean Velocity(Antegrade Flow): 0.69 m/s Mean Gradient(Antegrade Flow): 2.18 mm[Hg] Velocity Time Integral: 16.60 cm Tricuspid Valve Pulmonic Valve Peak Gradient: 2.27 mm[Hg], 1.98 mm[Hg] Right Atrium Right Atrium Systolic Pressure: 56.14 ml, 56.14 ml Dictated by: Isaias Woodward M.D. on 04/23/2023 at 09:39 Approved by: Isaias Woodward M.D. on 04/23/2023 at 09:44
== END 2023-04-22 12:54 | disposition home or self-care (01) ==
LOC: CARD 12:53
PROVIDERS: Visit Provider Nurse Practitioner
DX: I50.23 Acute on chronic systolic (congestive) heart failure (principal)
CPT/HCPCS: 93356; C8929

== ENCOUNTER 2023-05-02 09:37 | Outpatient (OUT) | payer MEDICAID, SELFPAY ==
--- OUTSIDE RECORDS SUMMARY | 2023-05-02 09:45 | XMS_ITS | CCD ---
Author Name Unknown Address [address] [place] [address] Organization [facility] Care Team Providers Care Agriculture Scientist Name Role Phone TRISTEN CASTILLO Admitting Unavailable TRISTEN CASTILLO Attending Unavailable REQUEST, NONE LISTED Primary Care Unavailable MANUEL APONTE Consulting Unavailable TRISTEN CASTILLO Consulting Unavailable ALI, DARIEL MCCARTHY Referring Unavailable ALI, DARIEL TIANMAN Referring Unavailable MAXINEMATEOF Admitting Unavailable PUNEETLAST PETER Attending Unavailable RAIMUNDO FRANZ Referring Unavailable PUNEET, LAST Admitting Unavailable PUNEETOBIE PETERMED Attending Unavailable ERNESTO JUNG Referring Unavailable YINA ORNELAS Referring Unavailable AOUTHYINA CANTU Referring Unavailable MANISHA CALVILLO Attending Unavailable BRYAN NIELSEN Referring Unavailable ALI, HANNA SHARI Referring Unavailable Allergies Allergy Classification Reported Allergen(s) Allergy Type Date of Onset Reaction(s) Facility (2 sources) Penicillins; Translations: [PENICILLINS] Drug allergy (disorder) 3 [facility] Repository (1 source) Acetaminophen / HYDROcodone; Translations: [HYDROCODONE-ACET AMINOPHEN] Drug Allergy 3 [facility] Repository (1 source) oxyCODONE; Translations: [OXYCODONE] Drug Allergy 3 [facility] Repository (1 source) ALLERGIES NOT ON FILE; Translations: [ALLERGIES NOT ON FILE] Propensity to adverse reactions (disorder) [facility] Repository Problems Problem Classification Problem Date [...] disease (2 sources) Atherosclerotic heart disease of [place] coronary artery without angina pectoris; Translations: [Atherosclerotic heart disease of [place] coronary artery without angina pectoris] Onset: 03-28-2023 [...] Test Name Value Interpretation Reference Range Facility Documentationon 04-23-2023 Documentation [id number] Michelle Elder B 1965 M Date Provider Department Center 04/23/202334043-ORDPIILRONAL DOWNS [facility] CARD [facility] Family History Problem Relation Age of Onset Coronary artery disease Mother Atrial fibrillation Mother Coronary artery disease Brother Hyperlipidemia Brother Family Status - Relation Status Age at Mother Brother Reason for Visit and Comments: Medication Access - Farxiga [Other] [facility] 36on 04-22-2023 36 Patient stopped by t he office after his echo today to make you aware that Brilinta and Farxiga are too costly for him. Can he be switched to Plavix and maybe Jardiance? He does not currently have insurance. Please advise. Thanks. [facility] 29on 03-28-2023 29 Addended by: MANISHA CALVILLO on: 03/28/2023 06:54 PM Modules accepted: Orders [facility] Office Visiton 03-28-2023 Follow-up visit [id number] JerrodMichelle ld B 1965 M Date Provider Department Center 03/28/2023 120-MANISHA CAL[facility]ILLO CARD [facility] Family History Problem Relation Age of Onset Coronary artery disease Mother Atrial fibrillation Mother Coronary artery disease Brother Hyperlipidemia Brother Family Status - Relation Status Age at Mother Brother Level of Service:33214 ND OFFICE/OUTPATIENT ESTABLISHED MOD MDM 30-39 MIN [facility] 36on 03-26-2023 36 Discharge date: 03/25/23 Call [...] Pt denied any additional questions or concerns. [facility] Documentationon 03-26-2023 Documentation [id number] Michelle Elder 1965 M Date Provider Department [place] 03/26/2023 [facility] No family history on file Reason for Visit and Comments: HF inpatient satisfaction survey sent. [Other] [facility] Telephoneon 03-26-2023 Telephone [id number] Michelle Elder 1965 M Date Provider Department [place] 03/26/2023 [facility] HVC [facility] No family history on file [facility] 30on 03-25-2023 30 Anibal from life[employer] called and patient made payment, he will be fitted for lifevest sometime before 4pm today. [facility] 30 Call placed to Javier montoya from [employer] who reports he has a nurse on standby, and as soon as he gets confirmation of payment, nurse will be in to place life vest. 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 Patient verbalized understanding. Patient reports he is unsure of where his mother is, as she is not answering phone call. States he hopes to hear from her soon. Primary RN aware. Normal [facility] 30 Spoke with patient a t bedside. Patients reports he was never fitted for Life V[employer] yesterday. Patient states he only came in and gave me a brochure and educated me. I was never fitted for anything . Frozen Meat Cutter informed him Anibal from [employer] sent [...] be bringing his wallet. Primary RN aware. [facility] BASIC METABOLIC PANELon 12- Anion gap [Moles/Vol] 11 mmol/L Normal 7-20 [facility] Comment on above: Performed By: #### L [id number] ####[facility] (BEAKER)[address] [place] [address] Calcium [Mass/Vol] 9.4 mg/dL Normal 8.6-10.3 [facility] Comment on above: Performed By: #### L [id number] ####[facility] (BEAKER)[address] [place] [address] Chloride [Moles/Vol] 108 mmol/L High 98-107 [facility] Comment on above: Performed By: #### L [id number] ####[facility] (BEAKER)[address] [place] [address] CO2 [Moles/Vol] 23 mmol/L Normal 21-31 [facility] Comment on above: Performed By: #### L [id number] ####[facility] (BEAKER)[address] [place] [address] Creatinine [Mass/Vol] 0.70 mg/dL Normal 0.70-1.30 [facility] Comment on above: Performed By: #### L [id number] ####[facility] ([facility])[address] [place] [address] GLOMERULAR FILTRATION RATE ML/MIN/1.73 SQ M.PREDICTED 107.5 mL/min/1.73m*2 Normal >60.0 [facility] Comment on above: Result Comment: [facility]???s estimated glomerular filtration rate (eGFR) will [...] of individuals. Performed By: #### L [id number] ####[facility] ([facility])[address] [place] [address] Glucose [Mass/Vol] 99 mg/dL Normal 70-100 [facility] Comment on above: Performed By: #### L [id number] ####[facility] ([facility])[address] [place] [address] Potassium [Moles/Vol] 4.0 mmol/L Normal 3.5-5.1 [facility] Comment on above: Performed By: #### L [id number] ####[facility] ([facility])[address] [place] [address] Sodium [Moles/Vol] 138 mmol/L Normal 136-145 [facility] Comment on above: Performed By: #### L [id number] ####[facility] ([facility])[address] [facility] [place] [address] Urea nitrogen [Mass/Vol] 13 mg/dL Normal 7-25 [facility] Comment on above: Performed By: #### L [id number] ####[facility] ([facility])[address] [place] [address] UREA NITROGEN/CREATININE (MASS RATIO) IN SER/PLAS 18.6 Normal [facility] Comment on above: Performed By: #### L [id number] ####[facility] ([facility])[address] [place] [address] CBCon 03-25-2023 Erythrocyte distribution width (RBC) [Ratio] 13.4 % Normal 11.5-15.0 [facility] Comment on above: Performed By: #### L [id number] #### [facility] ([facility]) [address] [place] [address] ERYTHROCYTE MEAN CORPUSCULAR HEMOGLOBIN CONCENTRATION (G/DL) BY AUTOMATED 33.3 g/dL Normal 32.0-35.0 [facility] Comment on above: Performed By: #### L [id number] #### [facility] ([facility]) [address] [place] [address] Hematocrit (Bld) [Volume fraction] 40.2 % Normal 39.0-55.0 [facility] Comment on above: Performed By: #### L [id number] #### [facility] ([facility]) [address] [place] [address] Hemoglobin (Bld) [Mass/Vol] 13.4 g/dL Normal 13.0-17.0 [facility] Comment on above: Performed By: #### L [id number] #### [facility] ([facility]) [address] [place] [address] MCH (RBC) [Entitic mass] 30.3 pg Normal 27.0-33.0 [facility] Comment on above: Performed By: #### L [id number] #### [facility] ([facility]) [address] [place] [address] MCV (RBC) [Entitic vol] 91.0 fL Normal 82.0-98.0 [facility] Comment on above: Performed By: #### L [id number] #### [facility] ([facility]) [address] [place] [address] PLATELETS (10*3/UL) IN BLOOD AUTOMATED COUNT 268 10*3/uL Normal 150-400 [facility] Comment on above: Performed By: #### L [id number] #### [facility] ([facility]AKER) [address] [place] [address] RBC (Bld) [#/Vol] 4.42 10*6/uL Normal 4.20-5.70 [facility] Comment on above: Performed By: #### L [id number] #### [facility] ([facility]AKER) [address] [place] [address] WBC (Bld) [#/Vol] 8.69 10*3/uL Normal 4.00-10.60 [facility] Comment on above: Performed By: #### L [id number] #### [facility] ([facility]) [address] [place] [address] MAGNESIUMon 03-25-2023 Magnesium [Mass/Vol] 1.8 mg/dL Low 1.9-2.7 [facility] Comment on above: Performed By: #### L [id number] ####[facility] [place] [address] 30on 03-24-2023 30 The patient is Moderately Stable - Low risk of patient condition declining or worsening The patient's goals for the shift include comfort, healing The clinical goals for the shift include vss Problem: Pain - Adult Goal: Verbalizes/displays adequate comfort level or baseline comfort level Outcome: Progressing Flowsheets (Taken 03/23/2023 0105 by Maria G Roberts RN) Verbalizes/displays adequate [...] and behaviors that affect risk of falls [place] fall precautions as indicated by assessment Educate [...] Progressing Flowsheets (Taken 03/21/2023 1600 by Mitzy Murray, TISHA) Urinary catheter remains patent: Assess patency of urinary catheter Irrigate catheter per Licensed Independent Practitioner order if indicated and notify Licensed Independent Practitioner if unable to irrigate Problem: Metabolic/Fluid and Electrolytes - Adult Goal: Electrolytes maintained within normal limits Outcome: Progressing Flowsheets (Taken 03/21/2023 1600 by Mitzy Murray, TISHA) Electrolytes maintained within normal limits: Monitor labs and assess patient for signs and symptoms of electrolyte imbalances Administer electrolyte replacement as ordered Fluid restriction a (more content not included)... Normal [facility] 30 Contacted [facility] [employer] Hanger Anibal concerning lifevest. Anibal states he is on his way to [facility]. EF 25%. Order for vest was received per Anibal. 12:16 Spoke with Anibal from [facility] [employer] and all requested paperwork given. Anibal to check into charitable donations available form this patient and cost of lifevest considering income. Patient and SW updated on plan/delay. 13:20 Anibal and this investigative writer met with patient and explained paperwork for lifevest assistance program. Paperwork given to patient. Awaiting finical statement from patient. 15:05 patient completed form with presence of investigative writer. Assisted patient in calling his bank to request last statement to provide to [employer]. 15:25 All requested information and forms sent to Anibal from [employer]. Await determination Normal [facility] BASIC METABOLIC PANELon 12- Anion gap [Moles/Vol] 11 mmol/L Normal 7-20 [facility] Comment on above: Performed By: #### L [id number] ####[facility] ([facility]AKER)[address] [place] [address] Calcium [Mass/Vol] 9.1 mg/dL Normal 8.6-10.3 [facility] Comment on above: Performed By: #### L [id number] ####[facility] ([facility]ER)[address] [place] [address] Chloride [Moles/Vol] 108 mmol/L High 98-107 [facility] Comment on above: Performed By: #### L [id number] ####[facility] ([facility])[address] [place] [address] CO2 [Moles/Vol] 22 mmol/L Normal 21-31 [facility] Comment on above: Performed By: #### L [id number] ####[facility] ([facility])[address] [place] [address] Creatinine [Mass/Vol] 0.67 mg/dL Low 0.70-1.30 [facility] Comment on above: Performed By: #### L [id number] ####[facility] ([facility])[address] [place] [address] GLOMERULAR FILTRATION RATE ML/MIN/1.73 SQ M.PREDICTED 108.9 mL/min/1.73m*2 Normal >60.0 [facility] Comment on above: Result Comment: [facility]???s estimated glomerular filtration rate (eGFR) will [...] of individuals. Performed By: #### L [id number] ####[facility] ([facility])[address] [place] [address] Glucose [Mass/Vol] 102 mg/dL High 70-100 [facility] Comment on above: Performed By: #### L [id number] ####[facility] ([facility]ER)[address] [place] [address] Potassium [Moles/Vol] 3.6 mmol/L Normal 3.5-5.1 [facility] Comment on above: Performed By: #### L [id number] ####[facility] (BEAKER)[address] [place] [address] Sodium [Moles/Vol] 137 mmol/L Normal 136-145 [facility] Comment on above: Performed By: #### L [id number] ####[facility] ([facility]ER)[address] [place] [address] Urea nitrogen [Mass/Vol] 12 mg/dL Normal 7-25 [facility] Comment on above: Performed By: #### L [id number] ####[facility] ([facility]ER)[address] [place] [address] UREA NITROGEN/CREATININE (MASS RATIO) IN SER/PLAS 17.9 Normal [facility] Comment on above: Performed By: #### L [id number] ####[facility] ([facility])[address] [place] [address] CBCon 03-24-2023 Erythrocyte distribution width (RBC) [Ratio] 13.6 % Normal 11.5-15.0 [facility] Comment on above: Performed By: #### L [id number] ####[facility] ([facility])[address] [place] [address] ERYTHROCYTE MEAN CORPUSCULAR HEMOGLOBIN CONCENTRATION (G/DL) BY AUTOMATED 33.2 g/dL Normal 32.0-35.0 [facility] Comment on above: Performed By: #### L [id number] ####[facility] ([facility])[address] [place], [place] [address] Hematocrit (Bld) [Volume fraction] 38.0 % Low 39.0-55.0 [facility] Comment on above: Performed By: #### L [id number] ####[facility] (BEAKER)[address] [place], [place] [address] Hemoglobin (Bld) [Mass/Vol] 12.6 g/dL Low 13.0-17.0 [facility] Comment on above: Performed By: #### L [id number] ####[facility] (BEAKER)[address] [place] [address] MCH (RBC) [Entitic mass] 30.1 pg Normal 27.0-33.0 [facility] Comment on above: Performed By: #### L [id number] ####[facility] ([facility])[address] [place] [address] MCV (RBC) [Entitic vol] 90.9 fL Normal 82.0-98.0 [facility] Comment on above: Performed By: #### L [id number] ####[facility] ([facility])[address] [place] [address] PLATELETS (10*3/UL) IN BLOOD AUTOMATED COUNT 217 10*3/uL Normal 150-400 [facility] Comment on above: Performed By: #### L [id number] ####[facility] ([facility])[address] [place] [address] RBC (Bld) [#/Vol] 4.18 10*6/uL Low 4.20-5.70 [facility] Comment on above: Performed By: #### L [id number] ####[facility] ([facility])[address] [place] [address] WBC (Bld) [#/Vol] 9.39 10*3/uL Normal 4.00-10.60 [facility] Comment on above: Performed By: #### L [id number] ####[facility] ([facility])[address] [place] [address] CONSULTon 03-24-2023 CONSULT Adult Nutrition Consult Name: Sam Elder Date: 1965 Date of Visit: 03/24/23 Admission Dx: SOB (shortness of breath) [R06.02] NSTEMI (non-ST elevated myocardial infarction) (CMS/HCC) [I21.4] Acute HFrEF: Life Vest upon discharge [...] 1333 K 3.6 03/24/2023420 K 3.8 03/21/2023 133 MG 1.6 (L) 03/24/2023420 HGB 12.6 (L) [...] made dietary changes and weight last week TRANSPLANT NURSE was 219# (99.5kg) IBW: 78.2kg Nutrition Assessment: Nutrition history: 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 Discussed seasoning alternatives rather than salt: encouraged [...] compliance w/ MNT Contact the dietitian via [employer] chat [phone]-4P Friday through Friday or call extension [phone]. For weekends & holidays, the dietitian can be reached via pager (more content not included)... Normal [facility] MAGNESIUMon 03-24-2023 Magnesium [Mass/Vol] 1.6 mg/dL Low 1.9-2.7 [facility] Comment on above: Performed By: #### L [id number] #### [facility] ([facility]AKER) [address] [place] [address] 30on 03-23-2023 30 The patient is Moderately [...] and behaviors that affect risk of falls [place] fall precautions as indicated by assessment Educate [...] baseline Outcome: Progressing Flowsheets (Taken 03/23/2023104 by Mraia G Roberts RN) Absence of cardiac dysrhythmias [...] bowel fun (more content not included)... Normal [facility] 30 The patient is Moderately Stable [...] and behaviors that affect risk of falls [place] fall precautions as indicated by assessment Educate [...] and perform bladder scan as needed Normal [facility] BASIC METABOLIC PANELon 12-1 Anion gap [Moles/Vol] 10 mmol/L Normal 7-20 [facility] Comment on above: Performed By: #### L [id number] ####[facility] ([facility]ER)[address] [place] [address] Calcium [Mass/Vol] 9.2 mg/dL Normal 8.6-10.3 [facility] Comment on above: Performed By: #### L [id number] ####[facility] ([facility])[address] [place] [address] Chloride [Moles/Vol] 107 mmol/L Normal 98-107 [facility] Comment on above: Performed By: #### L AB15 ####[facility] ([facility])[address] [place] [address] CO2 [Moles/Vol] 24 mmol/L Normal 21-31 [facility] Comment on above: Performed By: #### L [id number] ####[facility] ([facility])[address] [place] [address] Creatinine [Mass/Vol] 0.65 mg/dL Low 0.70-1.30 [facility] Comment on above: Performed By: #### L AB15 ####[facility] ([facility])[address] [place] [address] GLOMERULAR FILTRATION RATE ML/MIN/1.73 SQ M.PREDICTED 109.9 mL/min/1.73m*2 Normal >60.0 [facility] Comment on above: Result Comment: [facility]???s estimated glomerular filtration rate (eGFR) will [...] of individuals. Performed By: #### L AB15 ####[facility] ([facility])[address] [place] [address] Glucose [Mass/Vol] 103 mg/dL High 70-100 [facility] Comment on above: Performed By: #### L [id number] ####[facility] ([facility])[address] [place] [address] Potassium [Moles/Vol] 3.8 mmol/L Normal 3.5-5.1 [facility] Comment on above: Performed By: #### L AB15 ####[facility] ([facility])[address] [place] [address] Sodium [Moles/Vol] 137 mmol/L Normal 136-145 [facility] Comment on above: Performed By: #### L [id number] ####[facility] ([facility])[address] [place] [address] Urea nitrogen [Mass/Vol] 9 mg/dL Normal 7-25 [facility] Comment on above: Performed By: #### L [id number] ####[facility] ([facility])[address] [place] [address] UREA NITROGEN/CREATININE (MASS RATIO) IN SER/PLAS 13.8 Normal [facility] Comment on above: Performed By: #### L [id number] ####[facility] ([facility])[address] [place] [address] MAGNESIUMon 03-23-2023 Magnesium [Mass/Vol] 1.6 mg/dL Low 1.9-2.7 [facility] Comment on above: Performed By: #### L [id number] ####[facility] ([facility])[address] [place] [address] NURSNOTEon 03-23-2023 NURSNOTE Patient Name: Sam Elder : 1965 Primary Care Physician: DAVY, REFERRED Admission Date: 03/20/2023 RAPID RESPONSE TEAM ICU TRANSFER FOLLOW-UP NOTE SUBJECTIVE / OBJECTIVE: Follow-up for previous transfer out of the ICU notification for 03/22 at 18:49. ASSESSMENT / INTERVENTIONS: Recent Vital Signs: Vitals: 03/22/23 1600 03/22/23 1634 03/22/23 1700 03/22/231951 BP: 95/62 109/69 93/62 Pulse: 96 95 [...] Bryan Garg RN Rapid Response Team Nurse [phone] 03/22/2023 10:45 PM Normal [facility] 30on 03-22-2023 30 Problem: Pain - [...] Goal: Maintains hematologic stability Outcome: Progressing Normal [facility] 30 Problem: Pain - Adul t [...] injury: Assess patient frequently for physical needs [place] fall precautions as indicated by assessment Identify [...] for suctioning and aspirate as needed Normal [facility] BASIC METABOLIC PANELon 12-0 Anion gap [Moles/Vol] 9 mmol/L Normal 7-20 [facility] Comment on above: Performed By: #### L [id number] #### [facility] ([facility]AKER) [address] [place] [address] Calcium [Mass/Vol] 8.4 mg/dL Low 8.6-10.3 [facility] Comment on above: Performed By: #### L [id number] #### [facility] (BE[facility]ER) [address] [place] [address] Chloride [Moles/Vol] 108 mmol/L High 98-107 [facility] Comment on above: Performed By: #### L [id number] #### [facility] ([facility]ER) [address] [place] [address] CO2 [Moles/Vol] 24 mmol/L Normal 21-31 [facility] Comment on above: Performed By: #### L [id number] #### [facility] (BEAKER) [address] [place] [address] Creatinine [Mass/Vol] 0.68 mg/dL Low 0.70-1.30 [facility] Comment on above: Performed By: #### L [id number] #### [facility] (BEAKER) [address] [place] [address] GLOMERULAR FILTRATION RATE ML/MIN/1.73 SQ M.PREDICTED 108.4 mL/min/1.73m*2 Normal >60.0 [facility] Comment on above: Result Comment: [facility]???s estimated glomerular filtration rate (eGFR) will [...] group of individuals. Performed By: #### L [id number] #### [facility] ([facility]) [address] [place] [address] Glucose [Mass/Vol] 108 mg/dL High 70-100 [facility] Comment on above: Performed By: #### L [id number] #### [facility] ([facility]) [address] [place] [address] Potassium [Moles/Vol] 4.1 mmol/L Normal 3.5-5.1 [facility] Comment on above: Performed By: #### L [id number] #### [facility] ([facility]) [address] [place] [address] Sodium [Moles/Vol] 137 mmol/L Normal 136-145 [facility] Comment on above: Performed By: #### L [id number] #### [facility] ([facility]) [address] [place] [address] Urea nitrogen [Mass/Vol] 10 mg/dL Normal 7-25 [facility] Comment on above: Performed By: #### L [id number] #### [facility] ([facility]) [address] [place] [address] UREA NITROGEN/CREATININE (MASS RATIO) IN SER/PLAS 14.7 Normal [facility] Comment on above: Performed By: #### L [id number] #### [facility] ([facility]) [address] [place] [address] Anion gap [Moles/Vol] 8 mmol/L Normal 7-20 [facility] Comment on above: Performed By: #### L [id number] ####[facility] ([facility] [place], [place] [address] Calcium [Mass/Vol] 8.8 mg/dL Normal 8.6-10.3 [facility] Comment on above: Performed By: #### L AB15 ####[facility] ([facility])[address] [place] [address] Chloride [Moles/Vol] 106 mmol/L Normal 98-107 [facility] Comment on above: Performed By: #### L [id number] ####[facility] ([facility])[address] [place] [address] CO2 [Moles/Vol] 25 mmol/L Normal 21-31 [facility] Comment on above: Performed By: #### L [id number] ####[facility] ([facility])[address] [place] [address] Creatinine [Mass/Vol] 0.76 mg/dL Normal 0.70-1.30 [facility] Comment on above: Performed By: #### L [id number] ####[facility] ([facility])[address] [place] [address] GLOMERULAR FILTRATION RATE ML/MIN/1.73 SQ M.PREDICTED 104.8 mL/min/1.73m*2 Normal >60.0 [facility] Comment on above: Result Comment: [facility]???s estimated glomerular filtration rate (eGFR) will [...] of individuals. Performed By: #### L [id number] ####[facility] ([facility])[address] [place] [address] Glucose [Mass/Vol] 124 mg/dL High 70-100 [facility] Comment on above: Performed By: #### L [id number] ####[facility] ([facility])[address] [place] [address] Potassium [Moles/Vol] 3.4 mmol/L Low 3.5-5.1 [facility] Comment on above: Performed By: #### L [id number] ####[facility] ([facility])[address] [place] [address] Sodium [Moles/Vol] 136 mmol/L Normal 136-145 [facility] Comment on above: Performed By: #### L [id number] ####[facility] ([facility])[address] [place] [address] Urea nitrogen [Mass/Vol] 12 mg/dL Normal 7-25 [facility] Comment on above: Performed By: #### L [id number] ####[facility] ([facility])[address] [place] [address] UREA NITROGEN/CREATININE (MASS RATIO) IN SER/PLAS 15.8 Normal [facility] Comment on above: Performed By: #### L [id number] ####[facility] ([facility])[address] [place] [address] CBCon 03-22-2023 Erythrocyte distribution width (RBC) [Ratio] 13.7 % Normal 11.5-15.0 [facility] Comment on above: Performed By: #### L [id number] #### [facility] ([facility]) [address] [place] [address] ERYTHROCYTE MEAN CORPUSCULAR HEMOGLOBIN CONCENTRATION (G/DL) BY AUTOMATED 34.0 g/dL Normal 32.0-35.0 [facility] Comment on above: Performed By: #### L [id number] #### [facility] ([facility]) [address] [place] [address] Hematocrit (Bld) [Volume fraction] 38.5 % Low 39.0-55.0 [facility] Comment on above: Performed By: #### L [id number] #### [facility] ([facility]) [address] [place] [address] Hemoglobin (Bld) [Mass/Vol] 13.1 g/dL Normal 13.0-17.0 [facility] Comment on above: Performed By: #### L [id number] #### [facility] ([facility]) [address] [place] [address] MCH (RBC) [Entitic mass] 30.8 pg Normal 27.0-33.0 [facility] Comment on above: Performed By: #### L [id number] #### [facility] ([facility]) [address] [place] [address] MCV (RBC) [Entitic vol] 90.6 fL Normal 82.0-98.0 [facility] Comment on above: Performed By: #### L [id number] #### [facility] ([facility]) [address] [place] [address] PLATELETS (10*3/UL) IN BLOOD AUTOMATED COUNT 198 10*3/uL Normal 150-400 [facility] Comment on above: Performed By: #### L [id number] #### [facility] ([facility]) [address] [place] [address] RBC (Bld) [#/Vol] 4.25 10*6/uL Normal 4.20-5.70 [facility] Comment on above: Performed By: #### L [id number] #### [facility] ([facility]) [address] [place] [address] WBC (Bld) [#/Vol] 10.09 10*3/uL Normal 4.00-10.60 [facility] Comment on above: Performed By: #### L [id number] #### [facility] ([facility]) [address] [place] [address] MAGNESIUMon 03-22-2023 Magnesium [Mass/Vol] 1.9 mg/dL Normal 1.9-2.7 [facility] Comment on above: Performed By: #### L [id number] ####[facility] ([facility])[address] [place] [address] Magnesium [Mass/Vol] 1.8 mg/dL Low 1.9-2.7 [facility] Comment on above: Performed By: #### L [id number] #### [facility] ([facility]) [address] [place] [address] TROPONIN Ion 03-22-2023 Troponin I.cardiac [Mass/Vol] 8.73 ng/mL Critically high 0.00-0.04 [facility] Comment on above: Result Comment: Prev ious result verified on 03/22/2023 0140 on specimen/case [id number] called with component Troponin I for procedure Troponin I with value 12.32 ng/mL. Performed By: #### L [id number] ####[facility] ([facility])[address] [place] [address] Troponin I.cardiac [Mass/Vol] 12.32 ng/mL Critically high 0.00-0.04 [facility] Comment on above: Result Comment: M-ND EVIOUS CRITICAL RESULT Previous result verified on 03/21/2023 1359 on specimen/case [id number] called with component Troponin I for procedure Troponin I with value 19.66 ng/mL. Performed By: #### L [id number] ####[facility] ([facility])[address] [place] [address] 30on 03-21-2023 30 The patient is Moderately [...] optimal renal function maintained Outcome: Progressing Normal [facility] ANTI-XA (HEPARIN LEVEL)on HEPARIN UNFRACTIONATED (U/ML) IN PPP BY CHROMOGENIC METHOD 0.59 IU/mL Normal 0.3-0.7 [facility] Comment on above: Result Comment: [place] roxaban and Apixaban will interfere with the anti Xa assay used to monitor UFH and LMWH. Performed By: #### L [id number] ####[facility] ([facility])[address] [place] [address] HEPARIN UNFRACTIONATED (U/ML) IN PPP BY CHROMOGENIC METHOD 0.42 IU/mL Normal 0.3-0.7 [facility] Comment on above: Result Comment: [place] roxaban and Apixaban will interfere with the anti Xa assay used to monitor UFH and LMWH. Performed By: #### L [id number] #### [facility] ([facility]) [address] [place] [address] ARTERIAL BLOOD GAS WITH CO-O XIMETRYon 03-21-2023 Base excess Calc (Bld) [Moles/Vol] 1.3 mmol/L Normal -2.0-3.0 [facility] Comment on above: Performed By: #### L [id number] ####[facility] RESPIRATORY [id number] [place] [address] [place] CARBOXYHEMOGLOBIN/H EMOGLOBIN TOTAL % IN BLOOD 1.8 % Normal 0.0-3.0 [facility] Comment on above: Performed By: #### L [id number] ####[facility] RESPIRATORY [id number] [place] [address] [place] CO2 (Bld) [Partial pressure] 36 mm[Hg] Normal 35-48 [facility] Comment on above: Performed By: #### L [id number] ####[facility] RESPIRATORY [id number] [place] [address] [place] DEOXYGENATED HEMOGLOBIN IN BLOOD 2.4 % Normal 1-5 [facility] Comment on above: Performed By: #### L [id number] ####[facility] RESPIRATORY [id number] [place] [address] [facility] HCO3 (Bld) [Moles/Vol] 25.0 mmol/L Normal 21.0-28.0 [facility] Comment on above: Performed By: #### L [id number] ####[facility] RESPIRATORY [id number] [place] [address] [facility] Hemoglobin (Bld) [Mass/Vol] 13.6 g/dL Normal 11.7-17.4 [facility] Comment on above: Performed By: #### L [id number] ####[facility] RESPIRATORY [id number] [place] [address] [place] LPM 5 Normal [facility] Comment on above: Performed By: #### L [id number] ####[facility] RESPIRATORY [id number] [place] [address] [place] METHEMOGLOBIN/100 IN BLOOD 0.7 % Normal 0.0-1.5 [facility] Comment on above: Performed By: #### L [id number] ####[facility] RESPIRATORY [id number] [place] [address] [place] Oxygen (Bld) [Partial pressure] 79 mm[Hg] Low 83-100 [facility] Comment on above: Performed By: #### L [id number] ####[facility] RESPIRATORY [id number] [place] [address] [place] OXYGEN SATURATION (%) IN ARTERIAL BLOOD 97.5 % Normal 94.0-98.0 [facility] Comment on above: Performed By: #### L [id number] ####[facility] RESPIRATORY [id number] [place] [address] [place] OXYGENATED HEMOGLOBIN IN BLOOD 95.0 % Normal 90.0-95.0 [facility] Comment on above: Performed By: #### L [id number] ####[facility] RESPIRATORY [id number] [place] [address] [facility] pH (Bld) 7.45 [pH] Normal 7.35-7.45 [facility] Comment on above: Performed By: #### L [id number] ####[facility] RESPIRATORY [id number] [place] [address] [facility] SOURCE OF OXYGEN Nasal cannula Normal [facility] Comment on above: Performed By: #### L [id number] ####[facility] RESPIRATORY [id number] [place] [address] [facility] B-TYPE NATRIURETIC PEPTIDEon 03-21-2023 Natriuretic peptide B (Bld) [Mass/Vol] 464 pg/mL High 0-100 [facility] Comment on above: Performed By: #### L [id number] #### [facility] ([facility]) [address] [place] [address] BASIC METABOLIC PANELon 12-0 Anion gap [Moles/Vol] 11 mmol/L Normal 7-20 [facility] Comment on above: Performed By: #### L [id number] #### [facility] ([facility]) [address] [place] [address] Calcium [Mass/Vol] 8.9 mg/dL Normal 8.6-10.3 [facility] Comment on above: Performed By: #### L [id number] #### [facility] ([facility]) [address] [place] [address] Chloride [Moles/Vol] 105 mmol/L Normal 98-107 [facility] Comment on above: Performed By: #### L [id number] #### [facility] LAB ([facility]) [address] [place] [address] CO2 [Moles/Vol] 24 mmol/L Normal 21-31 [facility] Comment on above: Performed By: #### L [id number] #### [facility] LAB ([facility]) [address] [place] [address] Creatinine [Mass/Vol] 0.73 mg/dL Normal 0.70-1.30 [facility] Comment on above: Performed By: #### L [id number] #### [facility] ([facility]) [address] [place] [address] GLOMERULAR FILTRATION RATE ML/MIN/1.73 SQ M.PREDICTED 106.1 mL/min/1.73m*2 Normal >60.0 [facility] Comment on above: Result Comment: [facility]???s estimated glomerular filtration rate (eGFR) will [...] group of individuals. Performed By: #### L [id number] #### [facility] ([facility]) [address] [place] [address] Glucose [Mass/Vol] 100 mg/dL Normal 70-100 [facility] Comment on above: Performed By: #### L [id number] #### [facility] ([facility]) [address] [place] [address] Potassium [Moles/Vol] 3.8 mmol/L Normal 3.5-5.1 [facility] Comment on above: Performed By: #### L [id number] #### [facility] ([facility]) [address] [place] [address] Sodium [Moles/Vol] 136 mmol/L Normal 136-145 [facility] Comment on above: Performed By: #### L [id number] #### [facility] ([facility]) [address] [place] [address] Urea nitrogen [Mass/Vol] 11 mg/dL Normal 7-25 [facility] Comment on above: Performed By: #### L [id number] #### [facility] ([facility]) [address] [place] [address] UREA NITROGEN/CREATININE (MASS RATIO) IN SER/PLAS 15.1 Normal [facility] Comment on above: Performed By: #### L [id number] #### [facility] ([facility]) [address] [place] [address] Anion gap [Moles/Vol] 10 mmol/L Normal 7-20 [facility] Comment on above: Performed By: #### C ALCIUM, IONIZED #### [facility] RESPIRATORY THERAPY [address] [place] [address] [place] Calcium [Mass/Vol] 8.8 mg/dL Normal 8.6-10.3 [facility] Comment on above: Performed By: #### C ALCIUM, IONIZED #### [facility] RESPIRATORY THERAPY [address] [place] [address] [place] Chloride [Moles/Vol] 107 mmol/L Normal 98-107 [facility] Comment on above: Performed By: #### C ALCIUM, IONIZED #### [facility] RESPIRATORY THERAPY [address] [place] [address] [place] CO2 [Moles/Vol] 22 mmol/L Normal 21-31 [facility] Comment on above: Performed By: #### C ALCIUM, IONIZED #### [facility] RESPIRATORY THERAPY [address] [place] [address] [place] Creatinine [Mass/Vol] 0.71 mg/dL Normal 0.70-1.30 [facility] Comment on above: Performed By: #### C ALCIUM, IONIZED #### [facility] RESPIRATORY THERAPY [address] [place] [address] [place] GLOMERULAR FILTRATION RATE ML/MIN/1.73 SQ M.PREDICTED 107.0 mL/min/1.73m*2 Normal >60.0 [facility] Comment on above: Result Comment: [facility]???s estimated glomerular filtration rate (eGFR) will [...] one group of individuals. Performed By: #### C ALCIUM, IONIZED #### [facility] RESPIRATORY THERAPY [address] [place] [address] [facility] Glucose [Mass/Vol] 99 mg/dL Normal 70-100 [facility] Comment on above: Performed By: #### C ALCIUM, IONIZED #### [facility] RESPIRATORY THERAPY [address] [place] [address] [facility] Potassium [Moles/Vol] 3.9 mmol/L Normal 3.5-5.1 [facility] Comment on above: Performed By: #### C ALCIUM, IONIZED #### [facility] RESPIRATORY THERAPY [address] [place] [address] [facility] Sodium [Moles/Vol] 135 mmol/L Low 136-145 [facility] Comment on above: Performed By: #### C ALCIUM, IONIZED #### [facility] RESPIRATORY THERAPY [address] [place] [address] [facility] Urea nitrogen [Mass/Vol] 11 mg/dL Normal 7-25 [facility] Comment on above: Performed By: #### C ALCIUM, IONIZED #### [facility] RESPIRATORY THERAPY [address] [place] [address] [place] UREA NITROGEN/CREATININE (MASS RATIO) IN SER/PLAS 15.5 Normal [facility] Comment on above: Performed By: #### C ALCIUM, IONIZED #### [facility] RESPIRATORY THERAPY [address] [place] [address] [place] CALCIUM, IONIZEDon 3 CALCIUM IONIZED (MMOL/L) IN BLOOD 1.15 mmol/L Normal 1.15-1.33 [facility] Comment on above: Performed By: #### C ALCIUM, IONIZED #### [facility] RESPIRATORY THERAPY [address] [place] [address] [place] CBCon 03-21-2023 Erythrocyte distribution width (RBC) [Ratio] 13.9 % Normal 11.5-15.0 [facility] Comment on above: Order Comment: On ar rival to CVU Performed By: #### L [id number] #### [facility] ([facility]) [address] [place] [address] ERYTHROCYTE MEAN CORPUSCULAR HEMOGLOBIN CONCENTRATION (G/DL) BY AUTOMATED 33.2 g/dL Normal 32.0-35.0 [facility] Comment on above: Order Comment: On ar rival to CVU Performed By: #### L [id number] #### [facility] ([facility]) [address] [place] [address] Hematocrit (Bld) [Volume fraction] 40.1 % Normal 39.0-55.0 [facility] Comment on above: Order Comment: On ar rival to CVU Performed By: #### L [id number] #### [facility] ([facility]) [address] [place] [address] Hemoglobin (Bld) [Mass/Vol] 13.3 g/dL Normal 13.0-17.0 [facility] Comment on above: Order Comment: On ar rival to CVU Performed By: #### L [id number] #### [facility] ([facility]) [address] [place] [address] MCH (RBC) [Entitic mass] 30.6 pg Normal 27.0-33.0 [facility] Comment on above: Order Comment: On ar rival to CVU Performed By: #### L [id number] #### [facility] ([facility]) [address] [place] [address] MCV (RBC) [Entitic vol] 92.2 fL Normal 82.0-98.0 [facility] Comment on above: Order Comment: On ar rival to CVU Performed By: #### L [id number] #### [facility] ([facility]) [address] [place] [address] PLATELETS (10*3/UL) IN BLOOD AUTOMATED COUNT 201 10*3/uL Normal 150-400 [facility] Comment on above: Order Comment: On ar rival to CVU Performed By: #### L [id number] #### [facility] ([facility]) [address] [place] [address] RBC (Bld) [#/Vol] 4.35 10*6/uL Normal 4.20-5.70 [facility] Comment on above: Order Comment: On ar rival to CVU Performed By: #### L [id number] #### [facility] ([facility]) [address] [place] [address] WBC (Bld) [#/Vol] 8.80 10*3/uL Normal 4.00-10.60 [facility] Comment on above: Order Comment: On ar rival to CVU Performed By: #### L [id number] #### [facility] ([facility]) [address] [place] [address] CBC WITH AUTO DIFFERENTIALon 03-21-2023 Basophils (Bld) [#/Vol] 0.03 10*3/uL Normal 0.00-0.20 [facility] Comment on above: Performed By: #### L [id number] #### [facility] ([facility]) [address] [place] [address] Basophils/100 WBC (Bld) 0.3 % Normal 0.0-1.0 [facility] Comment on above: Performed By: #### L [id number] #### [facility] ([facility]) [address] [place] [address] Eosinophils (Bld) [#/Vol] 0.08 10*3/uL Normal 0.00-0.50 [facility] Comment on above: Performed By: #### L [id number] #### [facility] ([facility]) [address] [place] [address] Eosinophils/100 WBC (Bld) 0.8 % Normal 0.0-6.0 [facility] Comment on above: Performed By: #### L [id number] #### [facility] ([facility]) [address] [place] [address] Erythrocyte distribution width (RBC) [Ratio] 13.7 % Normal 11.5-15.0 [facility] Comment on above: Performed By: #### L [id number] #### [facility] ([facility]) [address] [place] [address] ERYTHROCYTE MEAN CORPUSCULAR HEMOGLOBIN CONCENTRATION (G/DL) BY AUTOMATED 32.9 g/dL Normal 32.0-35.0 [facility] Comment on above: Performed By: #### L [id number] #### [facility] ([facility]) [address] [place] [address] Hematocrit (Bld) [Volume fraction] 37.4 % Low 39.0-55.0 [facility] Comment on above: Performed By: #### L [id number] #### [facility] ([facility]) [address] [place] [address] Hemoglobin (Bld) [Mass/Vol] 12.3 g/dL Low 13.0-17.0 [facility] Comment on above: Performed By: #### L [id number] #### [facility] ([facility]) [address] [place] [address] Immature granulocytes (Bld) [#/Vol] 0.04 10*3/uL Normal 0.00-0.20 [facility] Comment on above: Performed By: #### L [id number] #### [facility] ([facility]) [address] [place] [address] Immature granulocytes/100 WBC (Bld) 0.4 % Normal 0.0-1.0 [facility] Comment on above: Performed By: #### L [id number] #### [facility] ([facility]) [address] [place] [address] Lymphocytes (Bld) [#/Vol] 2.22 10*3/uL Normal 1.20-4.00 [facility] Comment on above: Performed By: #### L [id number] #### [facility] ([facility]) [address] [place] [address] Lymphocytes/100 WBC (Bld) 21.4 % Normal 20.0-45.0 [facility] Comment on above: Performed By: #### L [id number] #### [facility] ([facility]) [address] [place] [address] MCH (RBC) [Entitic mass] 30.6 pg Normal 27.0-33.0 [facility] Comment on above: Performed By: #### L [id number] #### [facility] ([facility]) [address] [place] [address] MCV (RBC) [Entitic vol] 93.0 fL Normal 82.0-98.0 [facility] Comment on above: Performed By: #### L [id number] #### [facility] ([facility]) [address] [place] [address] Monocytes (Bld) [#/Vol] 0.80 10*3/uL Normal 0.10-1.00 [facility] Comment on above: Performed By: #### L [id number] #### [facility] ([facility]) [address] [place] [address] Monocytes/100 WBC (Bld) 7.7 % Normal 5.0-12.0 [facility] Comment on above: Performed By: #### L [id number] #### [facility] ([facility]) [address] [place] [address] Neutrophils (Bld) [#/Vol] 7.22 10*3/uL Normal 1.60-7.60 [facility] Comment on above: Performed By: #### L [id number] #### [facility] ([facility]) [address] [place] [address] Neutrophils/100 WBC (Bld) 69.4 % Normal 40.0-72.0 [facility] Comment on above: Performed By: #### L [id number] #### [facility] ([facility]) [address] [place] [address] NRBC (PER 100 WBCS) BY AUTOMATED COUNT 0.0 % Normal 0 [facility] Comment on above: Performed By: #### L [id number] #### [facility] ([facility]) [address] [place] [address] PLATELETS (10*3/UL) IN BLOOD AUTOMATED COUNT 185 10*3/uL Normal 150-400 [facility] Comment on above: Performed By: #### L [id number] #### [facility] ([facility]) [address] [place] [address] RBC (Bld) [#/Vol] 4.02 10*6/uL Low 4.20-5.70 [facility] Comment on above: Performed By: #### L [id number] #### [facility] ([facility]) [address] [place] [address] WBC (Bld) [#/Vol] 10.39 10*3/uL Normal 4.00-10.60 [facility] Comment on above: Performed By: #### L [id number] #### [facility] ([facility]) [address] [place] [address] CO-OXIMETRYon 03-21-2023 CARBOXYHEMOGLOBIN/H EMOGLOBIN TOTAL % IN BLOOD 1.4 % Normal [facility] Comment on above: Performed By: #### L [id number] #### [facility] ([facility]) [address] [place] [address] Hemoglobin (Bld) [Mass/Vol] 13.3 g/dL Normal [facility] Comment on above: Performed By: #### L [id number] #### [facility] ([facility]) [address] [place] [address] METHEMOGLOBIN/100 IN BLOOD 1.1 % Normal 0.0-1.5 [facility] Comment on above: Performed By: #### L [id number] #### [facility] ([facility]) [address] [place] [address] Oxygen saturation in Blood 64.9 % Normal [facility] Comment on above: Performed By: #### L [id number] #### [facility] ([facility]) [address] [place] [address] OXYGENATED HEMOGLOBIN IN BLOOD 63.3 % Normal [facility] Comment on above: Performed By: #### L [id number] #### [facility] ([facility]) [address] [place] [address] CONSULTon 03-21-2023 CONSULT -- Attestation signed by [...] his entire life. He initially presented to [facility] yesterday after having chest pain with radiation [...] became diaphoretic and EMS was called. At [place] initial workup significant for Troponin of 1.53, BNP 464, EKG with sinus rhythm, PVCs and septal infarct. Patient transferred to [facility] for catheterization. Patient had catheterization this am with stent placement in RCA and LAD. During the procedure patient had decompensating heart failure with low blood pressures and Impella device was placed. Patient then returned to the laboratory supervisor later this afternoon and the Impella device [...] Nightly, Bryan Nielsen MD, 80 mg at 03/20/23 2312 lisinopril tablet 2.5 mg, 2.5 mg, [...] for dysuria. Musculoskeleta (more content not included)... Normal [facility] HPon 03-21-2023 H&P reviewed. The patient was examined and there are no changes to the H&P. Patient without knonwn prior CAD hx, significant smoking and FH, presenting with NSTEMI and elevated BNP Will proceed with coronary angiogram and right heart cath. Procedures' details, risks and benefits discussed with the patient and he's agreeable. Normal [facility] MAGNESIUMon 03-21-2023 Magnesium [Mass/Vol] 1.7 mg/dL Low 1.9-2.7 [facility] Comment on above: Order Comment: On ar [facility] to [facility] Performed By: #### L [id number] #### [facility] (BEAKER) [address] [place] [address] Magnesium [Mass/Vol] 1.7 mg/dL Low 1.9-2.7 [facility] Comment on above: Performed By: #### C ALCIUM, IONIZED #### [facility] RESPIRATORY THERAPY [address] [address] [place] POCT ACTIVATED CLOTTING TIME UNSOLICITED RESULTSon 03-21-2023 POC ACTIVATED CLOTTING TIME 165 sec High 82-152 [facility] Comment on above: Performed By: #### L [id number] #### [facility] ([facility]) [address] [place] [address] POC ACTIVATED CLOTTING TIME 154 sec High 82-152 [facility] Comment on above: Performed By: #### L [id number] #### [facility] ([facility]) [address] [place] [address] POC ACTIVATED CLOTTING TIME 165 sec High 82-152 [facility] Comment on above: Performed By: #### L [id number] ####[facility] ([facility])[address] [place] [address] POC ACTIVATED CLOTTING TIME 194 sec High 82-152 [facility] Comment on above: Performed By: #### L [id number] #### [facility] ([facility]) [address] [place] [address] POTASSIUM, WHOLE BLOODon Potassium [Moles/Vol] 3.8 mmol/L Normal 3.5-5.1 [facility] Comment on above: Performed By: #### P OTASSIUM, WHOLE BLOOD ####[facility] RESPIRATORY [id number] [place] [address] [place] SODIUM, WHOLE BLOODon 2022 SODIUM, WHOLE BLOOD 134 Low 136-145 [facility] Comment on above: Performed By: #### S ODIUM, WHOLE BLOOD ####[facility] RESPIRATORY [id number] [place] [address] [place] TROPONIN Ion 03-21-2023 Troponin I.cardiac [Mass/Vol] 12.84 ng/mL Critically high 0.00-0.04 [facility] Comment on above: Result Comment: M-ND EVIOUS CRITICAL RESULT Previous result verified on 03/21/2023 1359 on specimen/case [id number] called with component Troponin I for procedure Troponin I with value 19.66 ng/mL. Performed By: #### L [id number] #### [facility] ([facility]) [address] [place] [address] Troponin I.cardiac [Mass/Vol] 19.66 ng/mL Critically high 0.00-0.04 [facility] Comment on above: Result Comment: Prev ious result verified on 03/21/2023 0637 on specimen/case [facility]-[id number] called with component Troponin I for procedure Troponin I with value 17.29 ng/mL. Performed By: #### L [id number] ####[facility] ([facility])[address] [place] [address] Troponin I.cardiac [Mass/Vol] 17.29 ng/mL Critically high 0.00-0.04 [facility] Comment on above: Result Comment: Prev ious result verified on 03/20/2023 2201 on specimen/case [facility]-[id number] called with component Troponin I for procedure Troponin I with value 1.53 ng/mL. Performed By: #### L [id number] #### [facility] ([facility]) [address] [place] [address] ANTI-XA (HEPARIN LEVEL)on HEPARIN UNFRACTIONATED (U/ML) IN PPP BY CHROMOGENIC METHOD 0.19 IU/mL Low 0.3-0.7 [facility] Comment on above: Order Comment: Check anti-Xa level every 6 hours while on heparin infusion, or per protocol. Result Comment: [place] roxaban and Apixaban will interfere with the anti Xa assay used to monitor UFH and LMWH. Performed By: #### L [id number] ####[facility] ([facility])[address] [facility] [place] [address] APTTon 03-20-2023 ACTIVATED PARTIAL THROMBOPLASTIN TIME IN PPP BY COAGULATION ASSAY 49.5 Seconds High 25.0-35.0 [facility] Comment on above: Result Comment: Clin ical significance of the APTT is questionable in the presence of heparin. Performed By: #### L [id number] #### [facility] ([facility]) [address] [place] [address] CBC WITH AUTO DIFFERENTIALon 03-20-2023 Basophils (Bld) [#/Vol] 0.02 10*3/uL Normal 0.00-0.20 [facility] Comment on above: Performed By: #### L [id number] #### [facility] ([facility]) [address] [place] [address] Basophils/100 WBC (Bld) 0.2 % Normal 0.0-1.0 [facility] Comment on above: Performed By: #### L [id number] #### [facility] ([facility]) [address] [place] [address] Eosinophils (Bld) [#/Vol] 0.02 10*3/uL Normal 0.00-0.50 [facility] Comment on above: Performed By: #### L [id number] #### [facility] ([facility]) [address] [place] [address] Eosinophils/100 WBC (Bld) 0.2 % Normal 0.0-6.0 [facility] Comment on above: Performed By: #### L [id number] #### [facility] ([facility]) [address] [address] Erythrocyte distribution width (RBC) [Ratio] 13.7 % Normal 11.5-15.0 [facility] Comment on above: Performed By: #### L [id number] #### [facility] ([facility]) [address] [place] [address] ERYTHROCYTE MEAN CORPUSCULAR HEMOGLOBIN CONCENTRATION (G/DL) BY AUTOMATED 32.8 g/dL Normal 32.0-35.0 [facility] Comment on above: Performed By: #### L [id number] #### [facility] ([facility]) [address] [place] [address] Hematocrit (Bld) [Volume fraction] 40.8 % Normal 39.0-55.0 [facility] Comment on above: Performed By: #### L [id number] #### [facility] ([facility]) [address] [place] [address] Hemoglobin (Bld) [Mass/Vol] 13.4 g/dL Normal 13.0-17.0 [facility] Comment on above: Performed By: #### L [id number] #### [facility] ([facility]) [address] [place] [address] Immature granulocytes (Bld) [#/Vol] 0.04 10*3/uL Normal 0.00-0.20 [facility] Comment on above: Performed By: #### L [id number] #### [facility] ([facility]) [address] [place] [address] Immature granulocytes/100 WBC (Bld) 0.4 % Normal 0.0-1.0 [facility] Comment on above: Performed By: #### L [id number] #### [facility] ([facility]) [address] [place] [address] Lymphocytes (Bld) [#/Vol] 1.22 10*3/uL Normal 1.20-4.00 [facility] Comment on above: Performed By: #### L [id number] #### [facility] ([facility]) [address] [place] [address] Lymphocytes/100 WBC (Bld) 12.2 % Low 20.0-45.0 [facility] Comment on above: Performed By: #### L [id number] #### [facility] ([facility]) [address] [place] [address] MCH (RBC) [Entitic mass] 30.8 pg Normal 27.0-33.0 [facility] Comment on above: Performed By: #### L [id number] #### [facility] ([facility]) [address] [place] [address] MCV (RBC) [Entitic vol] 93.8 fL Normal 82.0-98.0 [facility] Comment on above: Performed By: #### L [id number] #### [facility] ([facility]) [address] [place] [address] Monocytes (Bld) [#/Vol] 0.51 10*3/uL Normal 0.10-1.00 [facility] Comment on above: Performed By: #### L [id number] #### [facility] ([facility]) [address] [place] [address] Monocytes/100 WBC (Bld) 5.1 % Normal 5.0-12.0 [facility] Comment on above: Performed By: #### L [id number] #### [facility] ([facility]) [address] [place] [address] Neutrophils (Bld) [#/Vol] 8.21 10*3/uL High 1.60-7.60 [facility] Comment on above: Performed By: #### L [id number] #### [facility] ([facility]) [address] [place] [address] Neutrophils/100 WBC (Bld) 81.9 % High 40.0-72.0 [facility] Comment on above: Performed By: #### L [id number] #### [facility] ([facility]) [address] [place] [address] NRBC (PER 100 WBCS) BY AUTOMATED COUNT 0.0 % Normal 0 [facility] Comment on above: Performed By: #### L [id number] #### [facility] ([facility]) [address] [place] [address] PLATELETS (10*3/UL) IN BLOOD AUTOMATED COUNT 215 10*3/uL Normal 150-400 [facility] Comment on above: Performed By: #### L [id number] #### [facility] ([facility]) [address] [place] [address] RBC (Bld) [#/Vol] 4.35 10*6/uL Normal 4.20-5.70 [facility] Comment on above: Performed By: #### L [id number] #### [facility] ([facility]) [address] [place] [address] WBC (Bld) [#/Vol] 10.02 10*3/uL Normal 4.00-10.60 [facility] Comment on above: Performed By: #### L [id number] #### [facility] ([facility]) [address] [place] [address] COMPREHENSIVE METABOLIC PANE Edy 03-20-2023 Albumin [Mass/Vol] 3.9 g/dL Normal 3.5-5.7 [facility] Comment on above: Performed By: #### L [id number] ####[facility] ([facility])[address] [place] [address] ALP [Catalytic activity/Vol] 63 U/L Normal 34-104 [facility] Comment on above: Performed By: #### L [id number] ####[facility] ([facility])[address] [place] [address] ALT [Catalytic activity/Vol] 13 U/L Normal 7-52 [facility] Comment on above: Performed By: #### L [id number] ####[facility] ([facility])[address] [place] [address] Anion gap [Moles/Vol] 13 mmol/L Normal 7-20 [facility] Comment on above: Performed By: #### L [id number] ####[facility] ([facility])[address] [place] [address] AST [Catalytic activity/Vol] 26 U/L Normal 13-39 [facility] Comment on above: Performed By: #### L [id number] ####[facility] ([facility])[address] [place] [address] Bilirubin [Mass/Vol] 0.6 mg/dL Normal 0.3-1.0 [facility] Comment on above: Performed By: #### L [id number] ####[facility] ([facility])[address] [place] [address] Calcium [Mass/Vol] 8.9 mg/dL Normal 8.6-10.3 [facility] Comment on above: Performed By: #### L [id number] ####[facility] ([facility])[address] [place] [address] Chloride [Moles/Vol] 107 mmol/L Normal 98-107 [facility] Comment on above: Performed By: #### L [id number] ####[facility] ([facility])[address] [place] [address] CO2 [Moles/Vol] 22 mmol/L Normal 21-31 [facility] Comment on above: Performed By: #### L [id number] ####[facility] ([facility])[address] [place] [address] Creatinine [Mass/Vol] 0.78 mg/dL Normal 0.70-1.30 [facility] Comment on above: Performed By: #### L [id number] ####[facility] ([facility])[address] [place] [address] GLOMERULAR FILTRATION RATE ML/MIN/1.73 SQ M.PREDICTED 104.0 mL/min/1.73m*2 Normal >60.0 [facility] Comment on above: Result Comment: [facility]???s estimated glomerular filtration rate (eGFR) will [...] group of individuals. Performed By: #### L [id number] ####[facility] ([facility])[address] [place] [address] Glucose [Mass/Vol] 121 mg/dL High 70-100 [facility] Comment on above: Performed By: #### L [id number] ####[facility] ([facility])[address] [place] [address] Potassium [Moles/Vol] 4.6 mmol/L Normal 3.5-5.1 [facility] Comment on above: Performed By: #### L [id number] ####[facility] ([facility])[address] [place] [address] Protein [Mass/Vol] 6.2 g/dL Normal 6.0-8.3 [facility] Comment on above: Performed By: #### L [id number] ####[facility] ([facility])[address] [place] [address] Sodium [Moles/Vol] 137 mmol/L Normal 136-145 [facility] Comment on above: Performed By: #### L [id number] ####[facility] ([facility])[address] [place] [address] Urea nitrogen [Mass/Vol] 10 mg/dL Normal 7-25 [facility] Comment on above: Performed By: #### L [id number] ####[facility] ([facility])[address] [place] [address] UREA NITROGEN/CREATININE (MASS RATIO) IN SER/PLAS 12.8 Normal [facility] Comment on above: Performed By: #### L [id number] ####[facility] ([facility])[address] [place] [address] EDNURSon 03-20-2023 EDNURS Patient arrives by life flight from [place] with elevated and increasing troponin from 0.82 [...] times 4 and denies any pain. Normal [facility] EDPROVon 03-20-2023 EDPROV HPI Chief Complaint [...] History provided by: EMS personnel and patient event decorator and designer used: No Naima Coma Scale Score: 15 Patient History History [...] ED Physician in the absence of a pantry steward/stewardess: yes Previous ECG: Previous ECG: Unavailable Interpretation: Interpretation: abnormal Rate: ECG rate: 83 ECG rate assessment: normal Rhythm: Rhythm: sinus rhythm Rhythm comment: W right axis deviation Comments: EKG interpretation done by Dr. Ornelas Qtc 432 ms ED Course & MDM ED Course as of 03/20/232208 Deepali Mar 20, 20232037 Patient arrives from OSH for concern of NSTEMI. He received 1 L fluid TRANSPLANT NURSE as well as aspirin and Brilinta. He [...] 70s. Cardiac workup ordered. Will speak to pantry steward/stewardess once troponin results. Patient arrives on a [...] of 03/20/232208 NSTEMI (non-ST elevated myocardial infarction) ([facility]) SOB (shortness of breath) Medical Decision Making [...] (more content not included)... Invalid Interpretation Code [facility] EDPROV -- Attestation signed by Yina [...] History provided by: EMS personnel and patient event decorator and designer used: No Naima Coma Scale Score: 15 Patient History History [...] ED Physician in the absence of a pantry steward/stewardess: yes Previous ECG: Previous ECG: Unavailable Interpretation: Interpretation: abnormal Rate: ECG rate: 83 ECG rate assessment: normal Rhythm: Rhythm: sinus rhythm Rhythm comment: W right axis deviation Comments: EKG interpretation done by Dr. Ornelas Qtc 432 ms ED Course & MDM ED Course as of 03/20/232208 Deepali Mar 20, 20232037 Patient arrives from OSH for concern of NSTEMI. He received 1 L fluid TRANSPLANT NURSE as well as aspirin and Brilinta. He [...] 70s. Cardiac workup ordered. Will speak to pantry steward/stewardess once troponin results. Patient arrives on a [...] Medical Decision (more content not included)... Normal [facility] LIPID PANELon 03-20-2023 CHOL/HDL 5.1 mg/dL Normal [facility] Comment on above: Performed By: #### L [id number] #### [facility] ([facility]) [address] [place] [address] Cholesterol [Mass/Vol] 178 mg/dL Normal 120-200 [facility] Comment on above: Performed By: #### L [id number] #### [facility] ([facility]) [address] [place] [address] Magnesium [Mass/Vol] 90 mg/dL Normal 40-149 [facility] Comment on above: Result Comment: TRIG LYCERIDE REFERENCE RANGE: 20 YEARS AND OLDER CARDIOVASCULAR RISK LESS THAN 150 mg/dL LOW RISK 150 TO 199 mg/dL BORDERLINE RISK 200 mg/dL AND GREATER HIGH RISK Performed By: #### L [id number] #### [facility] ([facility]) [address] [place] [address] Magnesium [Mass/Vol] 125 mg/dL Normal 0-160 [facility] Comment on above: Performed By: #### L [id number] #### [facility] ([facility]) [address] [place] [address] Magnesium [Mass/Vol] 35 mg/dL Normal 23-92 [facility] Comment on above: Performed By: #### L [id number] #### [facility] ([facility]) [address] [place] [address] NON HDL CHOL. (LDL+VLDL) 143 Normal [facility] Comment on above: Performed By: #### L [id number] #### [facility] ([facility]) [address] [place] [address] TOTAL VLDL-C 18 mg/dL Normal 0-40 [facility] Comment on above: Performed By: #### L [id number] #### [facility] ([facility]) [address] [place] [address] MAGNESIUMon 03-20-2023 Magnesium [Mass/Vol] 1.6 mg/dL Low 1.9-2.7 [facility] Comment on above: Performed By: #### L [id number] #### [facility] ([facility]) [address] [place] [address] PROTIME-INRon 03-20-2023 INR IN PPP BY COAGULATION ASSAY 1.06 Normal 0.90-1.10 [facility] Comment on above: Result Comment: ACCC [...] RANGE. CHEST 1995;108:231S-246S. Performed By: #### L [id number] ####[facility] ([facility])[address] [place] [address] PROTHROMBIN TIME (PT) IN PPP BY COAGULATION ASSAY 13.8 Seconds Normal 12.3-14.8 [facility] Comment on above: Performed By: #### L [id number] ####[facility] ([facility])[address] [place] [address] TROPONIN Ion 03-20-2023 Troponin I.cardiac [Mass/Vol] 1.53 ng/mL Critically high 0.00-0.04 [facility] Comment on above: Performed By: #### C ALCIUM, IONIZED #### [facility] RESPIRATORY THERAPY [address] [place] [address] [place] MRI BRAIN WO/W CONon 019 MRI BRAIN WO/W CON Patient: SAM ELDERJn Exam Date: 12/23/2018 : 1965 Gender:M Ordering : TRISTEN CASTILLO Admission #: [id number] Family : Order #: [id number] CLICK HERE TO VIEW EXAM RADIOLOGY REPORT [...] Aponte M.D. on 12/23/2018 at 15:16 Normal [facility] XR FOREIGN BODY EYEon 2018 XR FOREIGN BODY EYE Patient: SAM ELDER Exam Date: 12/23/2018 : 1965 Gender:M Ordering : TRISTEN CASTILLO Admission #: [id number] Family : Order #: [id number] CLICK HERE TO VIEW EXAM RADIOLOGY REPORT PROCEDURE: RADIOGRAPH FOREIGN BODY EYE COMPARISON: None. INDICATIONS: Foreign body in eye for MRI FINDINGS: ORBITS: Negative for a metallic foreign body. OTHER: Negative. CONCLUSION: No metallic foreign body within the orbits. Dictated by: Manuel Aponte M.D. on 12/23/2018 at 13:31 Approved by: Manuel Aponte M.D. on 12/23/2018 at 13:[address] [facility] Encounters Encounter Date Encounter Type Care Provider Facility Start: 03-28-2023 End: 03-28-2023 ambulatory MANISHA CALVILLO [facility] Start: 03-22-2023 Evaluation and management of inpatient DARIEL BREWER [facility] Start: 03-22-2023 Evaluation and management of inpatient DARIEL BREWER [facility] Start: 03-21-2023 Evaluation and management of inpatient DARIEL BREWER [facility] Start: 03-21-2023 Evaluation and management of inpatient ERNESTO JUNG [facility] Start: 03-21-2023 Evaluation and management of inpatient BRYAN MORALES [facility] Start: 03-20-2023 Emergency department patient visit YINA JOHNSON [facility] Start: 03-20-2023 End: 03-25-2023 Evaluation and management of inpatient CHAYA WATSONMOOD [facility] Start: 03-20-2023 Emergency department patient visit RAIMUNDO MARIA M [facility] Start: 12-23-2018 End: 12-24-2018 Patient encounter procedure TRISTEN CASTILLO Facility: Payers Date Payer Category Payer Unknown [id number] 1959 Self-pay [id number] Clinical Notes 03-21-2023 to 04-23-2023 Note Date & Type Note Facility 04-23-2023 Note PharmD Consult - [facility] T2i Initiation 04/23/23 Provider: Ernesto Humphreyegan is a 57 y.o. male with PMH of: Past Medical History: Diagnosis Date CHF (congestive heart failure) ([facility]) Coronary artery disease PharmD consulted for evaluation of [facility] for management of heart failure with reduced ejection fraction (Diagnosis Code: I50.23). Current heart failure medications: - Lisinopril 2.5 mg daily - Metoprolol succinate XL 25 mg daily - Spironolactone 12.5 mg daily Pertinent labs:?? CMP: Lab Results Component Value Date GLUCOSE 99 03/25/2023 CALCIUM 9.4 03/25/2023 NA 138 03/25/2023 K 4.0 03/25/2023 CO2 23 03/25/2023 CL 108 (H) 03/25/2023 BUN 13 03/25/2023 CREATININE 0.70 03/25/2023 EGFR 107.5 03/25/2023 Evaluation: Based on above labs within normal limits, patient is an appropriate candidate for this medication.?Of note, he does not have insurance and cannot afford the medication at [facility]. Started a patient assistance application with [employer] for Farxiga, but I need income information from the patient to proceed. Called patient to get this information, but he did not answer. LVM for him to call us back when he gets our message. Follow-up: Pharmacy will continue to try to reach the patient to get his income information and proceed with the application for Farxiga through [employer]. Ronal Downs (Robbie), PharmD, PGY-1 Drier And Evaporator Operator 04/23/23 [facility] Cardiology, Heart [facility] V[facility] Center [facility] 04-23-2023 Note Attempted to call sue verma to get information required for [employer] application for Farxiga, but he did not answer. LVM for him to call us back when he can. Ronal Downs (Robbie), Saroj, PGY-1 Drier And Evaporator Operator 04/30/23 [facility] Cardiology[facility] 03-28-2023 Note Currently pt is akbar vering well, lifevest in place and pt is tolerating well. Initiation of Cardiac rehab and referral to concession attendant for nutrition counseling [facility] 03-28-2023 Note Continue lipitor [facility] 03-28-2023 Note [facility] CARDIOLOGY PROGR ESS NOTE HPI: Sam Elder is a 57 y.o. male here for hospital F/U s/p NSTEMI Patient here for follow up [facility] for NSTEMI and CHF. He was discharged [...] breath) [R06.02] NSTEMI (non-ST elevated myocardial infarction) ([facility]) [I21.4] Hospital course: 57-year-old male with past medical history significant for tobacco use and otherwise unknown past medical history. Presented to [facility] due to chest pain, apparently has been dealing with chest discomfort for 1 week associated with shortness of breath and diaphoresis. At [facility] his high sensitive troponin was elevated, he was transferred to [facility] urgently for cardiology evaluation. Patient was started [...] on discharge. Patient was unable to afford [email or web address]. Patient will have close follow-up with cardiology [...] Physical Exam: Constitutional: (more content not included)... [facility] 03-28-2023 Note Patient here for [facility] for NSTEMI and CHF. He was discharged with a LifeVest. Has stopped smoking since admission. Denies recurrent chest pain, lightheadedness, and palpitations. Gets a little SOB w/ exertion at times. Review of Systems Cardiovascular: Positive for dyspnea on exertion. Musculoskeletal: Positive for back pain. All other systems reviewed and are negative. [facility] 03-28-2023 Note [facility] II, currently e [...] fluid restriction 1.5-2L/day, renal function and electrolytes- [facility] 03-28-2023 Note HTN very well contro lled 102/60- borderline labile- continue all medications [facility] 03-28-2023 Note Coronary artery dise ase is stable Continue GDMT- ASA, brilinta, toprol, lipitor and lisinopril. Pt to start cardiac rehab- orders completed continue risk factor modifications- heart healthy diet, regular exercise as tolerated and continue all medications. [facility] 03-25-2023 Note Hospital Medicine Daily Progress Note - 03/25/2023 2:11 PM; Room: 4148/4148-01 Admission: 03/20/2023 8:25 PM; Length of stay: 5 days THE HOSPITALIST TEAM PREFERS TO USE [employer] CHAT FOR COMMUNICATION 7AM-7PM. IF I DO NOT RESPOND WITHIN 15 MINUTES, PLEASE PAGE ME/CALL THROUGH THE PHOTO BOOTH OPERATOR. FROM 7PM-7AM, PLEASE PAGE [phone](COVR) Code Status: Full Code Barriers to Discharge: [...] Principal Problem: NSTEMI (non-ST elevated myocardial infarction) ([facility]) Assessment and Plan # NSTEMI # status [...] Units 03/25/23 0543 03/24/23 0421 03/21/23 0516 03/20/239 WBC AUTO 10*3/uL 8.69 9.39 < > [...] last 7 days Lab Units 03/21/23 1333 03/20/239 HCO3 ART mEq/L 25.0 -- O2 SAT ART % 97.5 -- AST U/L -- 26 ALT U/L -- 13 ALK PHOS U/L -- 63 BILIRUBIN TOTAL mg/dL -- 0.6 Historical Values: (Includes values prior to this admission) Lab Results Component Value Date HDL 35 03/20/2023 LDL 143 03/20/2023 No results found for: [id number] , IRON , TIBC , C3 , C4 , FRANCOISE , CANCA , ASO , PSA , CEA , CA125 , CA199 , AFP , CA153 Imaging Cardiac catheterization Procedure: Impella removal and vascular hemostasis with modified post-closure technique (use of Perclose and Angio-seal closure devices) Lifestyle Director: Ernesto Jung MD Technique: Patient's blood pressure [...] site to obtain temporary hemostasis. A 8 Ethiopian sheath was placed over the wire. A second 0.035 wire was then placed through the (more content not included)... [facility] 03-25-2023 Note 03/25/23 1045 Referral Data Referral Source Physician Referral Reason Other (Comment) (CHF) Patient Information Primary Caregiver Self Activities of Daily Living Assistive Device Not applicable Living Arrangement (Current/Prior to Hospitalization) Private residence Ambulation Independent Dressing Independent Feeding Independent Behavior Oriented Communication Can write;Talks;Understands speaking;Understands Icelandic;Reads Income Information Income Source Employed (He will [...] a life vest today. 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 He has not sick, paid time off, STD or LTD plan. He states who would expect this at the age of 57 . Patient has already been seen by [facility] care. They completed a PFA and [...] the Life vest and his meds through [facility] and plans to return home with family [...] any other SW needs at this time. [facility] 03-24-2023 Note Cardiology Progress Note Reason for Consult: transfer from [place], NSTEMI, elevated trop 1.53, vitals stable, cards [...] on nasal cannula saturating well. Patient at laboratory supervisor during bedside evaluation in AM. Patient evaluated [...] of endocardial bord (more content not included)... [facility] 03-24-2023 Note Hospital Medicine Discharge Summary Final Discharge Diagnosis: #NSTEMI #status post PCI to LAD and RCA #Acute CHF with reduced ejection fraction, EF 25%. #Tobacco use #Hypomagnesemia Admission Diagnosis: SOB (shortness of breath) [R06.02] NSTEMI (non-ST elevated myocardial infarction) (CMS/HCC) [I21.4] Hospital course: 57-year-old male with past medical history significant for tobacco use and otherwise unknown past medical history. Presented to [facility] due to chest pain, apparently has been dealing with chest discomfort for 1 week associated with shortness of breath and diaphoresis. At [facility] his high sensitive troponin was elevated, he was transferred to [facility] urgently for cardiology evaluation. Patient was started [...] Center 03/28/2023 9:20 AM Manisha Calvillo NP CARD [facility] Your medication list START taking these [...] Medications These medications were sent to [facility] - [address] [place] [address] [facility] [place] [address], [facility] [address] aspirin 81 mg EC tablet atorvastatin 80 [...] 137 137 POTASSIUM (more content not included)... [facility] 03-24-2023 Note Pt admitted to [facility] for NSTEMI. Pt's echo from 03/22/23 estimated LVEF 25%, which qualifies pt for cardiac rehab (CR) therapy with HF diagnosis. Pt also eligible for NSTEMI. I will watch for updates and follow up with pt, if appropriate. JOSE GuzmánN excellence consultant Outpatient Coordinator Cardiopulmonary Rehab [facility] 03-23-2023 Note Hospital Medicine Daily Progress Note - 03/23/2023 11:53 AM; Room: [address] [place] [address] Admission: 03/20/2023 8:25 PM; Length of stay: 3 days THE HOSPITALIST TEAM PREFERS TO USE [employer] CHAT FOR COMMUNICATION 7AM-7PM. IF I DO NOT RESPOND WITHIN 15 MINUTES, PLEASE PAGE ME/CALL THROUGH THE PHOTO BOOTH OPERATOR. FROM 7PM-7AM, PLEASE PAGE [phone](COVR) Code Status: Full Code Barriers to Discharge: [...] Principal Problem: NSTEMI (non-ST elevated myocardial infarction) ([facility]) Assessment and Plan # NSTEMI # status [...] last 7 days Lab Units 03/21/23 1333 03/20/239 HCO3 ART mEq/L 25.0 -- O2 SAT ART % 97.5 -- AST U/L -- 26 ALT U/L -- 13 ALK PHOS U/L -- 63 BILIRUBIN TOTAL mg/dL -- 0.6 Historical Values: (Includes values prior to this admission) Lab Results Component Value Date HDL 35 03/20/2023 LDL 143 03/20/2023 No results found for: [id number] , IRON , TIBC , C3 , [...] AGENT, STRAIN, 3D, BUBBLE STUDY 1 [facility] Heart Station [address] [place] [address] [phone] (fax) Echocardiogram-[facility] Name: SAM ELDER Study Date: 03/22/2023 08:13 AM B/P: 103 mmHg/57 mmHg HR: Date of : 1965 Location: [facility] Height: 71 in. Age: 57 year(s) Patient Room: 3219 Weight: 225 lb. Gender: Male Patient Status: InPt BSA: 2.22 m2 Indication: Chest Pain, Impella removed 03/21/23 (more content not included)... [facility] 03-23-2023 Note Cardiology Progress Note Reason for Consult: transfer from [place], NSTEMI, elevated trop 1.53, vitals stable, cards [...] on nasal cannula saturating well. Patient at laboratory supervisor during bedside evaluation in AM. Patient evaluated [...] enlarged. Overall Conclusions: (more content not included)... [facility] 03-22-2023 Note ------ Attestation signed by [...] y.o. male presenting as a transfer from [facility] for chest pain. Patient underwent stent placement; post day 01. Impella was removed same day of cath [...] Value Ventricular Rate 82 Atrial Rate 82 ND Interval 178 QRS DURATION 96 QT Interval 396 QTC CALCULATION(BAZETT) 462 P Blandon 55 R-Blandon 85 T Wave Blandon 40 Impression Normal sinus rhythm Possible Left [...] BUBBLE STUDY Result Date: 03/22/2023 1 1 [facility] Heart Station [address] [place] [address] [phone] (fax) Echocardiogram-[facility] Name: SAM ELDER Study Date: 03/22/2023 08:13 AM B/P: 103 mmHg/57 mmHg HR: Date of : 1965 Location: [facility] Height: 71 in. Age: 57 year(s) Patient [...] root exhibits n (more content not included)... [facility] 03-22-2023 Note ------ Attestation signed by [...] Elder Age - 57 y.o. - 1965 [facility] # - [id number] Date of Admission - 03/20/2023 8:25 PM HPI/Hospital Course Subjective Patient has no known past medical history and has not seen a doctor regularly for his entire life. He initially presented to [facility] yesterday after having chest pain with radiation [...] became diaphoretic and EMS was called. At [place] initial workup significant for Troponin of 1.53, BNP 464, EKG with sinus rhythm, PVCs and septal infarct. Patient transferred to [facility] for catheterization. Patient had catheterization this am with stent placement in RCA and LAD. During the procedure patient had decompensating heart failure with low blood pressures and Impella device was placed. Patient then returned to the laboratory supervisor later this afternoon and the Impella device [...] Final No results found for: PHVEN , ZPO4RGY , PO2VEN , QKW0SXD , IONCALVEN CBC: Results from last 7 [...] PHOS U/L 63 (more content not included)... [facility] 03-21-2023 Note Interventional Cardi ology Impella removed in the laboratory supervisor See my procedure note under the cardiology tab for details Patient tolerated Impella removal well Monitor right groin access sites for bleeding I discontinued heparin infusion [employer] HFrEF meds in the next few days Ernesto Jung MD stock order lister Interventional Cardiology [facility] Pager: [phone] [facility] 03-21-2023 Note Interventional Cardi ology Complex presentation with high risk NSTEMI, acute systolic heart failure, cardiogenic shock, and multivessel CAD Patient status post Impella mechanical circulatory support and multivessel PCI Please see my report under cardiology tab Page interventional cardiology with any questions Interventional cardiology will reassess to determine appropriate time for Impella weaning and removal. Ernesto Jung MD stock order lister Interventional Cardiology [facility] Pager: [phone] [facility] 03-21-2023 Note Patient: Sam alva Procedure Information Date/Time: 12/08/23 0830 Procedures: Coronary angiography Right heart cath Location: [facility] STRATEGIC CLIENT EXECUTIVE 3 / [facility] (Cath) Providers: Ernesto Jung MD [...] with fellow and attending. Additional Equipment Requests [facility] 03-21-2023 Note unable to see Patien t to discuss insurance needs, due to Pt not being in room [facility] 03-21-2023 Note Pt left floor for ec ho and cath procedure prior to investigative writer being able to perform morning assessment. [facility] 03-21-2023 Note 03/20/23 2310 Physical Activity [...] relatives? Never How often do you attend episcopalian or orthodox services? Never Do you belong to any clubs or organizations such as episcopalian groups, unions, fraternal or athletic groups, or [...] more drinks on one occasion? Never 03/20/23 4927 Referral Data Referral Source shearing shed worker Referral Reason Psychosocial assessment Patient Information Primary Caregiver Self Sabianism/Cultural Factors Adventism Activities of Daily Living Assistive Device Not applicable Living Arrangement (Current/Prior to Hospitalization) Private residence (Lives at home with mother) Ambulation Independent Dressing Independent Feeding Independent Behavior Oriented Communication Can write;Talks;Understands speaking;Understands Icelandic;Reads Income Information Income Source Employed (Employed FT) [...] past year and denied any alcohol consumption. [facility] 03-21-2023 Note Hospital Medicine History and Physical 03/20/2023 10:38 PM THE HOSPITALIST TEAM PREFERS TO USE [employer] CHAT FOR COMMUNICATION 7AM-7PM. IF I DO NOT RESPOND WITHIN 15 MINUTES, PLEASE PAGE ME/CALL THROUGH THE PHOTO BOOTH OPERATOR. FROM 7PM-7AM, PLEASE PAGE [phone](COVR) Chief Complaint Chief Complaint Patient presents with Shortness of Breath History of Present Illness Sam Elder is an 57 y.o. male [facility] where he was evaluated for ongoing [...] dyspnea on exertion the EKG in the [place] showed anterior septal changes and possible incomplete left bundle branch block his white blood count at [facility] was 12.9 his glucose was 110 and troponin high-sensitivity was 819.5 he had repeat troponin done in [facility] ER which was 1.53 chest x-ray showed [...] Date Noted NSTEMI (non-ST elevated myocardial infarction) ([facility]) 03/20/2023 Assessment and Plan Nstemi Copd exertional [...] this hospital stay by a member of [facility]. Past Medical History History reviewed. No pertinent past medical history. Past Surgical (more content not included)... [facility] Summary Purpose Family History No Family History Records FoundNo Family History Records Found Advance Directives No Advanced Directives Records FoundNo Advanced Directives Records Found Additional Source Comments (unrecognized sect ion and content) No Status Records FoundNo Status Records Found INFORMATION SOURCE (unrecogn ized section and content) DATE CREATED AUTHOR 12/31/2018 [facility] DATE CREATED AUTHOR AUTHOR'S ORGANIZ ATION 05/01/2023 [facility] FOR RECORDS PERTAINING TO PATIENTS WHO ARE [...] BE BASED ON THE PRIMARY CLINICAL RECORDS. [employer] provides no warranty or guarantee of the accuracy or completeness of information in this document.
[2023-05-02 10:16] LABS: Anion Gap 10.4; BUN Creatinine Ratio 8.1; Calcium 8.9 mg/dL (8.5-10.1); Chloride 104 mmol/L (98-107); Estimated GFR (African America >60 (>=60); Estimated GFR (Non-African Ame >60 (>=60); Glucose 91 mg/dL (74-106); Potassium 4.4 mmol/L (3.5-5.1); Sodium 139 mmol/L (136-145)
== END 2023-05-02 09:38 | disposition home or self-care (01) ==
PROVIDERS: Visit Provider Nurse Practitioner
DX: I50.23 Acute on chronic systolic (congestive) heart failure (principal)
CPT/HCPCS: 36415; 80048

== ENCOUNTER 2023-06-18 07:30 | Outpatient (OUT) | payer MEDICAID, SELFPAY ==
--- NOTE | 2023-06-18 | PCN_ITS ---
CARDIAC STRESS TEST Requesting Physician: Procedure Date: 06/18/2023 INDICATION: Coronary artery disease. METHODS: After risks, benefits, and alternatives were explained, written informed consent was obtained. The patient was brought to the Stress Lab in a resting and fasting state. He was connected to the appropriate hemodynamic and electrocardiographic monitoring. He underwent a Elmer protocol for exercise. At the completion of the test, he was discharged in a stable state. There were no complications. FINDINGS: HEMODYNAMICS: The patient exercised for 6 minutes and 22 seconds. He achieved 8.00 METS. He reached stage 3 of the Elmer protocol. Resting blood pressure was 102/64, increasing to a maximum of 120/68. Resting heart rate was 68 beats per minute, increasing to a maximum of 148 beats per minute, which is 90% of maximum predicted heart rate. There were no symptoms reported. The test was terminated due to achievement of target heart rate and fatigue. ELECTROCARDIOGRAPHY: Rest EKG: Sinus rhythm, anteroseptal infarct, age indeterminate, cannot be ruled out, right axis deviation. Abnormal resting EKG. During exercise and recovery: Upsloping ST-T wave changes are seen. No significant arrhythmias are noted. FINAL IMPRESSIONS: 1. No ischemic EKG changes seen on treadmill exercise stress test. 2. Appropriate heart rate and blood pressure response to exercise. 3. Cohen treadmill score is 6.2. Estimated one year mortality is 0.3 to 0.9%. Risk category is low risk. Angiography usually not indicated. MTDD
--- OUTSIDE RECORDS SUMMARY | 2023-06-18 07:33 | XMS_ITS | CCD ---
Author Name Unknown Address [address] [place] [address] Organization [facility] Care Team Providers [employer] Name Role Phone TRISTEN CASTILLO Admitting Unavailable TRISTEN CASTILLO Attending Unavailable REQUEST, NONE LISTED Primary Care Unavailable MANUEL APONTE Consulting Unavailable TRISTEN CASTILLO Consulting Unavailable RAIMUNDO FRANZ Referring Unavailable PUNEET, LAST Admitting Unavailable PUNEET, OBIEMED Attending Unavailable MAXINECHAYA Admitting Unavailable PUNEET, OBIEMED Attending Unavailable ALI, DARIEL MCCARTHY Referring Unavailable ALIDARIEL Referring Unavailable MARTIN BLACKBURN Attending Unavailable MANISHA CALVILLO Attending Unavailable ALGHOTHMARTIN VARGAS Attending Unavailable YINA ORNELAS Referring Unavailable AOUTHDIDI CANTUZA Referring Unavailable JUNGERNESTO VUONG Referring Unavailable SANBRYAN MOHR Referring Unavailable ALI, DARIEL MCCARTHY Referring Unavailable Allergies Allergy Classification Reported Allergen(s) Allergy Type Date of Onset Reaction(s) Facility (2 sources) Penicillins; Translations: [PENICILLINS] Drug allergy (disorder) 3 [facility] Repository (1 source) Acetaminophen / HYDROcodone; Translations: [HYDROCODONE-ACET AMINOPHEN] Drug Allergy 3 [facility] Repository (1 source) oxyCODONE; Translations: [OXYCODONE] Drug Allergy 3 [facility] Repository (1 source) ALLERGIES NOT ON FILE; Translations: [ALLERGIES NOT ON FILE] Propensity to adverse reactions (disorder) [facility] Repository Problems Problem Classification Problem [...] disease (2 sources) Atherosclerotic heart disease of [place] coronary artery without angina pectoris; Translations: [Atherosclerotic heart disease of [place] coronary artery without angina pectoris] Onset: 03-28-2023 [...] Test Name Value Interpretation Reference Range Facility Office Visiton 06-06-2023 Follow-up visit [id number] Michelle Elder 1965 M Date Provider Department Center 06/06/2023 MARTIN YATES [facility] Family History Problem Relation Age of Onset Coronary artery disease Mother Atrial fibrillation Mother Coronary artery disease Brother Hyperlipidemia Brother Family Status - Relation Status Age at Mother Brother Level of Service:84248 [place] OFFICE/OUTPATIENT ESTABLISHED MOD MDM 30 MIN Normal [facility] Orders Onlyon 06-06-2023 Orders Only [id number] Michelle Elder 1965 M Date Provider Department Center 06/06/2023 DONTE LUIS [facility] Family History Problem Relation Age of Onset Coronary artery disease Mother Atrial fibrillation Mother Coronary artery disease Brother Hyperlipidemia Brother Family Status - Relation Status Age at Mother Brother [facility] 36on 05-28-2023 36 Called patient and confirmed he received the Farxiga in the mail through the [place] patient assistance program without any issues around 05/19/2023. Educated the patient that his most recent BMP in April 2023 was WNL. He has an appointment with Dr. Blackburn on 06/06/2023, so I will pass the message along to him. Ronal Downs (Robbie), PharmD, PGY-1 Non Licensed Nuclear Equipment Operator 05/28/23 [facility] Cardiology, Heart and Vascular Center [facility] Telephoneon 05-28-2023 Telephone [id number] Michelle Elder 1965 M Date Provider Department Center 05/28/202393150-FEODWNORONAL DOWNS [facility]ARD [place] [facility] Family History Problem Relation Age of Onset Coronary artery disease Mother Atrial fibrillation Mother Coronary artery disease Brother Hyperlipidemia Brother Family Status - Relation Status Age at Mother Brother [facility] Office Visiton 05-02-2023 Follow-up visit [id number] Michelle Elder 1965 M Date Provider Department Center 05/02/2023 3848-MARTIN BLACKBURN [facility] Family History Problem Relation Age of Onset Coronary artery disease Mother Atrial fibrillation Mother Coronary artery disease Brother Hyperlipidemia Brother Family Status - Relation Status Age at Mother Brother Level of Service:[address]666 [place] OFFICE/OUTPATIENT ESTABLISHED MOD MDM 30 MIN [facility] 29on 04-23-2023 29 Addended by: RONAL DOWNS on: 05/05/2023 10:33 AM Modules accepted: Orders [facility] Documentationon 04-23-2023 Documentation [id number] Michelle Elder 1965 M Date Provider Department Center 04/23/202332114-JTOEMJDRONAL DOWNS [facility] CARD [place] [facility] Family History Problem Relation Age of Onset Coronary artery disease Mother Atrial fibrillation Mother Coronary artery disease Brother Hyperlipidemia Brother Family Status - Relation Status Age at Mother Brother Reason for Visit and Comments: Medication Access - Farxiga [Other] [facility] 36on 04-22-2023 36 Patient stopped by t irais office after his echo today to make you aware that Brilinta and Farxiga are too costly for him. Can he be switched to Plavix and maybe Jardiance? He does not currently have insurance. Please advise. Thanks. [facility] 29on 03-28-2023 29 Addended by: MANISHA CALVILLO on: 03/28/2023 06:54 PM Modules accepted: Orders [facility] Office Visiton 03-28-2023 Follow-up visit [id number] Michelle Elder B 1965 M Date Provider Department Center 03/28/2023 120-MANISHA CALVILLO CARD [facility] Family History Problem Relation Age of Onset Coronary artery disease Mother Atrial fibrillation Mother Coronary artery disease Brother Hyperlipidemia Brother Family Status - Relation Status Age at Mother Brother Level of Service:28636 [place] OFFICE/OUTPATIENT ESTABLISHED MOD MDM 30-39 MIN [facility] 36on 03-26-2023 36 Discharge [...] Pt denied any additional questions or concerns. [facility] Documentationon 03-26-2023 Documentation [id number] Michelle Elder 1965 M Date Provider Department Center 03/26/2023 JUAN GREEN [facility] VASC LAB [place] [facility] No family history on file Reason for Visit and Comments: HF inpatient satisfaction survey sent. [Other] [facility] Telephoneon 03-26-2023 Telephone [id number] Michelle Elder 1965 M Date Provider Department Center 03/26/2023 [facility] GREEN [facility] VASC LAB [facility] No family history on file [facility] 30on 03-25-2023 30 Anibal from [employer] called and patient made payment, he will be fitted for lifevest sometime before 4pm today. [facility] 30 Call placed to Javier montoya from [employer] who reports he has a nurse on standby, and as soon as he gets confirmation of payment, nurse will be in to place life vest. Cloth Shrinker back to bedside, and updated. Patient verbalized understanding. Patient reports he is unsure of where his mother is, as she is not answering phone call. States he hopes to hear from her soon. Primary RN aware. [facility] 30 Spoke with patient a t bedside. Patients reports he was never fitted for [employer] yesterday. Patient states he only came in and gave me a brochure and educated me. I was never fitted for anything . Cloth Shrinker informed him Anibal from [employer] sent [...] bringing his wallet. Primary RN aware. Normal [facility] BASIC METABOLIC PANELon 12- Anion gap [Moles/Vol] 11 mmol/L Normal 7-20 [facility] Comment on above: Performed By: #### L AB15 ####[facility] (BEAKER)[address] [place] [address] Calcium [Mass/Vol] 9.4 mg/dL Normal 8.6-10.3 [facility] Comment on above: Performed By: #### L [id number] ####[facility] (BEAKER)[address] [place] [address] Chloride [Moles/Vol] 108 mmol/L High 98-107 [facility] Comment on above: Performed By: #### L [id number] ####[facility] ([facility]ER)[address] [place] [address] CO2 [Moles/Vol] 23 mmol/L Normal 21-31 [facility] Comment on above: Performed By: #### L [id number] ####[facility] ([facility])[address] [place] [id number] Creatinine [Mass/Vol] 0.70 mg/dL Normal 0.70-1.30 [facility] Comment on above: Performed By: #### L [id number] ####[facility] ([facility])[address] [place] [address] GLOMERULAR FILTRATION RATE ML/MIN/1.73 SQ M.PREDICTED 107.5 mL/min/1.73m*2 Normal >60.0 [facility] Comment on above: Result Comment: [facility]???s estimated glomerular filtration rate (eGFR) [...] of individuals. Performed By: #### L [id number] ####[facility] ([facility])[address] [place] [address] Glucose [Mass/Vol] 99 mg/dL Normal 70-100 [facility] Comment on above: Performed By: #### L [id number] ####[facility] ([facility])[address] [place] [address] Potassium [Moles/Vol] 4.0 mmol/L Normal 3.5-5.1 [facility] Comment on above: Performed By: #### L [id number] ####[facility] ([facility])[address] [place] [address] Sodium [Moles/Vol] 138 mmol/L Normal 136-145 [facility] Comment on above: Performed By: #### L [id number] ####[facility] ([facility] [place] [id number] Urea nitrogen [Mass/Vol] 13 mg/dL Normal 7-25 [facility] Comment on above: Performed By: #### L [id number] ####[facility] ([facility])[address] [place] [id number] UREA NITROGEN/CREATININE (MASS RATIO) IN SER/PLAS 18.6 Normal [facility] Comment on above: Performed By: #### L [id number] ####[facility] ([facility])[address] [place] [id number] CBCon 03-25-2023 Erythrocyte distribution width (RBC) [Ratio] 13.4 % Normal 11.5-15.0 [facility] Comment on above: Performed By: #### L [id number] #### [facility] ([facility]) [address] [place] [address] ERYTHROCYTE MEAN CORPUSCULAR HEMOGLOBIN CONCENTRATION (G/DL) BY AUTOMATED 33.3 g/dL Normal 32.0-35.0 [facility] Comment on above: Performed By: #### L [id number] #### [facility] ([facility]) [address] [place] [address] Hematocrit (Bld) [Volume fraction] 40.2 % Normal 39.0-55.0 [facility] Comment on above: Performed By: #### L [id number] #### [facility] ([facility]) [address] [place] [address] Hemoglobin (Bld) [Mass/Vol] 13.4 g/dL Normal 13.0-17.0 [facility] Comment on above: Performed By: #### L [id number] #### [facility] ([facility]) [address] [place] [address] MCH (RBC) [Entitic mass] 30.3 pg Normal 27.0-33.0 [facility] Comment on above: Performed By: #### L [id number] #### [facility] [address] [place] [address] MCV (RBC) [Entitic vol] 91.0 fL Normal 82.0-98.0 [facility] Comment on above: Performed By: #### L [id number] #### [facility] ([facility]) [address] [place] [id number] PLATELETS (10*3/UL) IN BLOOD AUTOMATED COUNT 268 10*3/uL Normal 150-400 [facility] Comment on above: Performed By: #### L [id number] #### [facility] ([facility]) [address] [place] [address] RBC (Bld) [#/Vol] 4.42 10*6/uL Normal 4.20-5.70 [facility] Comment on above: Performed By: #### L [id number] #### [facility] ([facility]) [address] [place] [id number] WBC (Bld) [#/Vol] 8.69 10*3/uL Normal 4.00-10.60 [facility] Comment on above: Performed By: #### L [id number] #### [facility] ([facility]) [address] [place] [address] MAGNESIUMon 03-25-2023 Magnesium [Mass/Vol] 1.8 mg/dL Low 1.9-2.7 [facility] Comment on above: Performed By: #### L [id number] ####[facility] ([facility])[address] [place] [address] 30on 03-24-2023 30 The patient is Moderately [...] and behaviors that affect risk of falls [place] fall precautions as indicated by assessment Educate [...] of urinary retention Outcome: Progressing Flowsheets (Taken 03/23/2023 0105 by Maria G Roberts RN) Absence of [...] restriction a (more content not included)... Normal [facility] 30 Contacted [employer] Anibal concerning lifevest. Anibal states he is on his way to [facility]. EF 25%. Order for vest was received per Anibal. 12:16 Spoke with Anibal from [employer] and all requested paperwork given. Anibal to check into charitable donations available form this patient and cost of lifevest considering income. Patient and SW updated on plan/delay. 13:20 Anibal and this development writer met with patient and explained paperwork for lifevest assistance program. Paperwork given to patient. Awaiting finical statement from patient. 15:05 patient completed form with presence of development writer. Assisted patient in calling his bank to request last statement to provide to [employer]. 15:25 All requested information and forms sent to Anibal from [employer]. Await determination Normal [facility] BASIC METABOLIC PANELon 12-1 Anion gap [Moles/Vol] 11 mmol/L Normal 7-20 [facility] Comment on above: Performed By: #### L [id number] #### [facility] [address] [place] [address] Calcium [Mass/Vol] 9.1 mg/dL Normal 8.6-10.3 [facility] Comment on above: Performed By: #### L [id number] #### [facility] ([facility]) [address] [place] [address] Chloride [Moles/Vol] 108 mmol/L High 98-107 [facility] Comment on above: Performed By: #### L [id number] #### [facility] ([facility]) [address] [place] [address] CO2 [Moles/Vol] 22 mmol/L Normal 21-31 [facility] Comment on above: Performed By: #### L [id number] #### [facility] ([facility]) [address] [place] [address] Creatinine [Mass/Vol] 0.67 mg/dL Low 0.70-1.30 [facility] Comment on above: Performed By: #### L [id number] #### [facility] ([facility]) [address] [place] [address] GLOMERULAR FILTRATION RATE ML/MIN/1.73 SQ M.PREDICTED 108.9 mL/min/1.73m*2 Normal >60.0 [facility] Comment on above: Result Comment: [facility]???s estimated glomerular filtration rate (eGFR) [...] group of individuals. Performed By: #### L [id number] #### [facility] ([facility]) [address] [place] [address] Glucose [Mass/Vol] 102 mg/dL High 70-100 [facility] Comment on above: Performed By: #### L [id number] #### [facility] [address] [place] [address] Potassium [Moles/Vol] 3.6 mmol/L Normal 3.5-5.1 [facility] Comment on above: Performed By: #### L [id number] #### [facility] ([facility]) [address] [place] [address] Sodium [Moles/Vol] 137 mmol/L Normal 136-145 [facility] Comment on above: Performed By: #### L [id number] #### [facility] ([facility]) [address] [place] [address] Urea nitrogen [Mass/Vol] 12 mg/dL Normal 7-25 [facility] Comment on above: Performed By: #### L [id number] #### [facility] ([facility]) [address] [place] [address] UREA NITROGEN/CREATININE (MASS RATIO) IN SER/PLAS 17.9 Normal [facility] Comment on above: Performed By: #### L [id number] #### [facility] ([facility]) [address] [place] [address] CBCon 03-24-2023 Erythrocyte distribution width (RBC) [Ratio] 13.6 % Normal 11.5-15.0 [facility] Comment on above: Performed By: #### L [id number] ####[facility] ([facility])[address] [place] [address] ERYTHROCYTE MEAN CORPUSCULAR HEMOGLOBIN CONCENTRATION (G/DL) BY AUTOMATED 33.2 g/dL Normal 32.0-35.0 [facility] Comment on above: Performed By: #### L [id number] ####[facility] [place] [address] Hematocrit (Bld) [Volume fraction] 38.0 % Low 39.0-55.0 [facility] Comment on above: Performed By: #### L [id number] ####[facility] ([facility])[address] [place] [address] Hemoglobin (Bld) [Mass/Vol] 12.6 g/dL Low 13.0-17.0 [facility] Comment on above: Performed By: #### L [id number] ####[facility] ([facility])[address] [place] [address] MCH (RBC) [Entitic mass] 30.1 pg Normal 27.0-33.0 [facility] Comment on above: Performed By: #### L [id number] ####[facility] ([facility])[address] [place] [address] MCV (RBC) [Entitic vol] 90.9 fL Normal 82.0-98.0 [facility] Comment on above: Performed By: #### L [id number] ####[facility] ([facility])[address] [place] [address] PLATELETS (10*3/UL) IN BLOOD AUTOMATED COUNT 217 10*3/uL Normal 150-400 [facility] Comment on above: Performed By: #### L [id number] ####[facility] ([facility])[address] [place] [address] RBC (Bld) [#/Vol] 4.18 10*6/uL Low 4.20-5.70 [facility] Comment on above: Performed By: #### L [id number] ####[facility] ([facility])[address] [place] [address] WBC (Bld) [#/Vol] 9.39 10*3/uL Normal 4.00-10.60 [facility] Comment on above: Performed By: #### L [id number] ####[facility] ([facility])[address] [place] [address] CONSULTon 03-24-2023 CONSULT Adult Nutrition Consult Name: Sam Elder Date: 1965 Date of Visit: 03/24/23 Admission Dx: SOB (shortness of breath) [R06.02] NSTEMI (non-ST elevated myocardial infarction) ([facility]) [I21.4] Acute HFrEF: Life Vest upon discharge [...] made dietary changes and weight last week DIRECTOR ERP was 219# (99.5kg) IBW: 78.2kg Nutrition Assessment: Nutrition history: 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 Discussed seasoning alternatives rather than salt: encouraged [...] compliance w/ MNT Contact the dietitian via QVIVO chat [phone]-4P Friday through Friday or call extension [phone]. For weekends & holidays, the dietitian can be reached via pager (more content not included)... Normal [facility] MAGNESIUMon 03-24-2023 Magnesium [Mass/Vol] 1.6 mg/dL Low 1.9-2.7 [facility] Comment on above: Performed By: #### L [id number] #### [facility] ([facility]) [address] [place] [address] 30on 03-23-2023 30 The patient is Moderately [...] and behaviors that affect risk of falls [place] fall precautions as indicated by assessment Educate [...] bowel fun (more content not included)... Normal [facility] 30 The patient is Moderately [...] and behaviors that affect risk of falls [place] fall precautions as indicated by assessment Educate patient/family on patient safety, including physical limitations Instruct patient to call for assistance with activity based on assessment Modify environment to reduce risk of injury Problem: Discharge Planning Goal: Discharge to home or other facility with appropriate resources Flowsheets (Taken 03/23/2023 0105) Discharge to home or other facility with [...] and perform bladder scan as needed Normal [facility] BASIC METABOLIC PANELon 03-14 Anion gap [Moles/Vol] 10 mmol/L Normal - [facility] Comment on above: Performed By: #### L [id number] ####[facility] ([facility])[address] [place] [address] Calcium [Mass/Vol] 9.2 mg/dL Normal 8.6-10.3 [facility] Comment on above: Performed By: #### L [id number] ####[facility] ([facility])[address] [place] [address] Chloride [Moles/Vol] 107 mmol/L Normal 98-107 [facility] Comment on above: Performed By: #### L [id number] ####[facility] ([facility])[address] [place] [address] CO2 [Moles/Vol] 24 mmol/L Normal 21-31 [facility] Comment on above: Performed By: #### L [id number] ####[facility] ([facility])[address] [place] [address] Creatinine [Mass/Vol] 0.65 mg/dL Low 0.70-1.30 [facility] Comment on above: Performed By: #### L [id number] ####[facility] ([facility])[address] [place] [address] GLOMERULAR FILTRATION RATE ML/MIN/1.73 SQ M.PREDICTED 109.9 mL/min/1.73m*2 Normal >60.0 [facility] Comment on above: Result Comment: [facility]???s estimated glomerular filtration rate (eGFR) [...] of individuals. Performed By: #### L [id number] ####[facility] ([facility])[address] [place] [address] Glucose [Mass/Vol] 103 mg/dL High 70-100 [facility] Comment on above: Performed By: #### L [id number] ####[facility] [place] [address] Potassium [Moles/Vol] 3.8 mmol/L Normal 3.5-5.1 [facility] Comment on above: Performed By: #### L [id number] ####[facility] ([facility]ER)[address] [place] [address] Sodium [Moles/Vol] 137 mmol/L Normal 136-145 [facility] Comment on above: Performed By: #### L [id number] ####[facility] ([facility])[address] [place] [address] Urea nitrogen [Mass/Vol] 9 mg/dL Normal 7-25 [facility] Comment on above: Performed By: #### L [id number] ####[facility] ([facility]ER)[address] [place] [address] UREA NITROGEN/CREATININE (MASS RATIO) IN SER/PLAS 13.8 Normal [facility] Comment on above: Performed By: #### L [id number] ####[facility] ([facility])[address] [place] [address] MAGNESIUMon 03-23-2023 Magnesium [Mass/Vol] 1.6 mg/dL Low 1.9-2.7 [facility] Comment on above: Performed By: #### L [id number] #### [facility] ([facility]) [address] [place] [address] NURSNOTEon 03-23-2023 NURSNOTE Patient Name: Sam Elder [...] Bryan Garg RN Rapid Response Team Nurse [phone] 03/22/2023 10:45 PM Normal [facility] 30on 03-22-2023 30 Problem: Pain [...] Goal: Maintains hematologic stability Outcome: Progressing Normal [facility] 30 Problem: Pain - Adul [...] fall injury Outcome: Progressing Flowsheets (Taken 03/22/2023 024) Free from fall injury: Assess patient frequently for physical needs [place] fall precautions as indicated by assessment Identify [...] maintained or improved Outcome: Progressing Flowsheets (Taken 03/22/2023242) Care Plan - Patient's Chronic Conditions and [...] Progressing Flowsheets (Taken 03/21/2023 1600 by Mitzy Krawetzke, RN) Skin integrity remains intact: Monitor for [...] for suctioning and aspirate as needed Normal [facility] BASIC METABOLIC PANELon 12-0 Anion gap [Moles/Vol] 9 mmol/L Normal 7-20 [facility] Comment on above: Performed By: #### L [id number] #### [facility] (BE[facility]ER) [address] [place] [address] Calcium [Mass/Vol] 8.4 mg/dL Low 8.6-10.3 [facility] Comment on above: Performed By: #### L [id number] #### [facility] ([facility]) [address] [place] [address] Chloride [Moles/Vol] 108 mmol/L High 98-107 [facility] Comment on above: Performed By: #### L [id number] #### [facility] ([facility]) [address] [place] [address] CO2 [Moles/Vol] 24 mmol/L Normal 21-31 [facility] Comment on above: Performed By: #### L [id number] #### [facility] ([facility]) [address] [place] [address] Creatinine [Mass/Vol] 0.68 mg/dL Low 0.70-1.30 [facility] Comment on above: Performed By: #### L [id number] #### [facility] ([facility]) [address] [place] [address] GLOMERULAR FILTRATION RATE ML/MIN/1.73 SQ M.PREDICTED 108.4 mL/min/1.73m*2 Normal >60.0 [facility] Comment on above: Result Comment: [facility]???s estimated glomerular filtration rate (eGFR) [...] group of individuals. Performed By: #### L [id number] #### [facility] ([facility]) [address] [place] [address] Glucose [Mass/Vol] 108 mg/dL High 70-100 [facility] Comment on above: Performed By: #### L [id number] #### [facility] ([facility]) [address] [place] [address] Potassium [Moles/Vol] 4.1 mmol/L Normal 3.5-5.1 [facility] Comment on above: Performed By: #### L [id number] #### [facility] ([facility]) [address] [place] [address] Sodium [Moles/Vol] 137 mmol/L Normal 136-145 [facility] Comment on above: Performed By: #### L [id number] #### [facility] ([facility]) [address] [place] [address] Urea nitrogen [Mass/Vol] 10 mg/dL Normal 7-25 [facility] Comment on above: Performed By: #### L [id number] #### [facility] ([facility]) [address] [place] [id number] UREA NITROGEN/CREATININE (MASS RATIO) IN SER/PLAS 14.7 Normal [facility] Comment on above: Performed By: #### L [id number] #### [facility] ([facility]) [address] [place] [id number] Anion gap [Moles/Vol] 8 mmol/L Normal 7-20 [facility] Comment on above: Performed By: #### L [id number] ####[facility] ([facility])[address] [place] [id number] Calcium [Mass/Vol] 8.8 mg/dL Normal 8.6-10.3 [facility] Comment on above: Performed By: #### L [id number] ####[facility] ([facility])[address] [place] [address] Chloride [Moles/Vol] 106 mmol/L Normal 98-107 [facility] Comment on above: Performed By: #### L [id number] ####[facility] ([facility])[address] [place] [id number] CO2 [Moles/Vol] 25 mmol/L Normal 21-31 [facility] Comment on above: Performed By: #### L [id number] ####[facility] ([facility])[address] [place] [address] Creatinine [Mass/Vol] 0.76 mg/dL Normal 0.70-1.30 [facility] Comment on above: Performed By: #### L [id number] ####[facility] ([facility])[address] [place] [address] GLOMERULAR FILTRATION RATE ML/MIN/1.73 SQ M.PREDICTED 104.8 mL/min/1.73m*2 Normal >60.0 [facility] Comment on above: Result Comment: [facility]???s estimated glomerular filtration rate (eGFR) will no [...] of individuals. Performed By: #### L [id number] ####[facility] ([facility])[address] [place] [address] Glucose [Mass/Vol] 124 mg/dL High 70-100 [facility] Comment on above: Performed By: #### L [id number] ####[facility] ([facility])[address] [place] [address] Potassium [Moles/Vol] 3.4 mmol/L Low 3.5-5.1 [facility] Comment on above: Performed By: #### L [id number] ####[facility] ([facility])[address] [place] [address] Sodium [Moles/Vol] 136 mmol/L Normal 136-145 [facility] Comment on above: Performed By: #### L [id number] ####[facility] ([facility])[address] [place] [address] Urea nitrogen [Mass/Vol] 12 mg/dL Normal 7-25 [facility] Comment on above: Performed By: #### L [id number] ####[facility] ([facility])[address] [place] [address] UREA NITROGEN/CREATININE (MASS RATIO) IN SER/PLAS 15.8 Normal [facility] Comment on above: Performed By: #### L [id number] ####[facility] ([facility])[address] [place] [address] CBCon 03-22-2023 Erythrocyte distribution width (RBC) [Ratio] 13.7 % Normal 11.5-15.0 [facility] Comment on above: Performed By: #### L [id number] #### [facility] ([facility]) [address] [place] [address] ERYTHROCYTE MEAN CORPUSCULAR HEMOGLOBIN CONCENTRATION (G/DL) BY AUTOMATED 34.0 g/dL Normal 32.0-35.0 [facility] Comment on above: Performed By: #### L [id number] #### [facility] ([facility]) [address] [place] [address] Hematocrit (Bld) [Volume fraction] 38.5 % Low 39.0-55.0 [facility] Comment on above: Performed By: #### L [id number] #### [facility] ([facility]) [address] [place] [address] Hemoglobin (Bld) [Mass/Vol] 13.1 g/dL Normal 13.0-17.0 [facility] Comment on above: Performed By: #### L [id number] #### [facility] ([facility]) [address] [place] [address] MCH (RBC) [Entitic mass] 30.8 pg Normal 27.0-33.0 [facility] Comment on above: Performed By: #### L [id number] #### [facility] ([facility]) [address] [place] [address] MCV (RBC) [Entitic vol] 90.6 fL Normal 82.0-98.0 [facility] Comment on above: Performed By: #### L [id number] #### [facility] ([facility]) [address] [place] [address] PLATELETS (10*3/UL) IN BLOOD AUTOMATED COUNT 198 10*3/uL Normal 150-400 [facility] Comment on above: Performed By: #### L [id number] #### [facility] ([facility]) [address] [place] [address] RBC (Bld) [#/Vol] 4.25 10*6/uL Normal 4.20-5.70 [facility] Comment on above: Performed By: #### L [id number] #### [facility] ([facility]) [address] [place] [address] WBC (Bld) [#/Vol] 10.09 10*3/uL Normal 4.00-10.60 [facility] Comment on above: Performed By: #### L [id number] #### [facility] ([facility]) [address] [place] [address] MAGNESIUMon 03-22-2023 Magnesium [Mass/Vol] 1.9 mg/dL Normal 1.9-2.7 [facility] Comment on above: Performed By: #### L [id number] ####[facility] ([facility])[address] [place] [address] Magnesium [Mass/Vol] 1.8 mg/dL Low 1.9-2.7 [facility] Comment on above: Performed By: #### L [id number] ####[facility] ([facility])[address] [place] [address] TROPONIN Ion 03-22-2023 Troponin I.cardiac [Mass/Vol] 8.73 ng/mL Critically high 0.00-0.04 [facility] Comment on above: Result Comment: Prev ious result verified on 03/22/2023 0140 on specimen/case [id number] called with component Troponin I for procedure Troponin I with value 12.32 ng/mL. Performed By: #### L [id number] #### [facility] ([facility]) [address] [place] [address] Troponin I.cardiac [Mass/Vol] 12.32 ng/mL Critically high 0.00-0.04 [facility] Comment on above: Result Comment: M-KS EVIOUS CRITICAL RESULT Previous result verified on 03/21/2023 1359 on specimen/case [id number] called with component Troponin I for procedure Troponin I with value 19.66 ng/mL. Performed By: #### L [id number] ####[facility] ([facility])[address] [place] [address] 30on 03-21-2023 30 The patient is Moderately [...] optimal renal function maintained Outcome: Progressing Normal [facility] ANTI-XA (HEPARIN LEVEL)on HEPARIN UNFRACTIONATED (U/ML) IN PPP BY CHROMOGENIC METHOD 0.59 IU/mL Normal 0.3-0.7 [facility] Comment on above: Result Comment: Mary roxaban and Apixaban will interfere with the anti Xa assay used to monitor UFH and LMWH. Performed By: #### L [id number] ####[facility] (BEAKER)[address] [place] [address] HEPARIN UNFRACTIONATED (U/ML) IN PPP BY CHROMOGENIC METHOD 0.42 IU/mL Normal 0.3-0.7 [facility] Comment on above: Result Comment: Torrey roxaban and Apixaban will interfere with the anti Xa assay used to monitor UFH and LMWH. Performed By: #### L [id number] #### [facility] ([facility]ER) [address] [place] [address] ARTERIAL BLOOD GAS WITH CO-O XIMETRYon 03-21-2023 Base excess Calc (Bld) [Moles/Vol] 1.3 mmol/L Normal -2.0-3.0 [facility] Comment on above: Performed By: #### L [id number] ####[facility] [id number] [place] [address] [facility] CARBOXYHEMOGLOBIN/H EMOGLOBIN TOTAL % IN BLOOD 1.8 % Normal 0.0-3.0 [facility] Comment on above: Performed By: #### L [id number] ####[facility] [id number] [place] [address] [facility] CO2 (Bld) [Partial pressure] 36 mm[Hg] Normal 35-48 [facility] Comment on above: Performed By: #### L [id number] ####[facility] [id number] [place] [address] [facility] DEOXYGENATED HEMOGLOBIN IN BLOOD 2.4 % Normal 1-5 [facility] Comment on above: Performed By: #### L [id number] ####[facility] [id number] [place] [address] [facility] HCO3 (Bld) [Moles/Vol] 25.0 mmol/L Normal 21.0-28.0 [facility] Comment on above: Performed By: #### L [id number] ####[facility] [id number] [place] [address] [facility] Hemoglobin (Bld) [Mass/Vol] 13.6 g/dL Normal 11.7-17.4 [facility] Comment on above: Performed By: #### L [id number] ####[facility] [id number] [place] [address] [facility] LPM 5 Normal [facility] Comment on above: Performed By: #### L [id number] ####[facility] [id number] [place] [address] [facility] METHEMOGLOBIN/100 IN BLOOD 0.7 % Normal 0.0-1.5 [facility] Comment on above: Performed By: #### L [id number] ####[facility] [id number] [place] [address] [place] Oxygen (Bld) [Partial pressure] 79 mm[Hg] Low 83-100 [facility] Comment on above: Performed By: #### L [id number] ####[facility] [id number] [place] [address] [facility] OXYGEN SATURATION (%) IN ARTERIAL BLOOD 97.5 % Normal 94.0-98.0 [facility] Comment on above: Performed By: #### L [id number] ####[facility] [id number] [place] [address] [facility] OXYGENATED HEMOGLOBIN IN BLOOD 95.0 % Normal 90.0-95.0 [facility] Comment on above: Performed By: #### L [id number] ####[facility] [id number] [place] [address] [facility] pH (Bld) 7.45 [pH] Normal 7.35-7.45 [facility] Comment on above: Performed By: #### L [id number] ####[facility] [id number] [place] [address] [facility] SOURCE OF OXYGEN Nasal cannula Normal [facility] Comment on above: Performed By: #### L [id number] ####[facility] [id number] [place] [address] [facility] B-TYPE NATRIURETIC PEPTIDEon 03-21-2023 Natriuretic peptide B (Bld) [Mass/Vol] 464 pg/mL High 0-100 [facility] Comment on above: Performed By: #### L [id number] ####[facility] ([facility]ER)[address] [place] [address] BASIC METABOLIC PANELon 12-0 Anion gap [Moles/Vol] 11 mmol/L Normal 7-20 [facility] Comment on above: Performed By: #### L [id number] #### [facility] ([facility]ER) [address] [place] [address] Calcium [Mass/Vol] 8.9 mg/dL Normal 8.6-10.3 [facility] Comment on above: Performed By: #### L [id number] #### [facility] [address] [place] [address] Chloride [Moles/Vol] 105 mmol/L Normal 98-107 [facility] Comment on above: Performed By: #### L [id number] #### [facility] ([facility]) [address] [place] [address] CO2 [Moles/Vol] 24 mmol/L Normal 21-31 [facility] Comment on above: Performed By: #### L [id number] #### [facility] ([facility]) [address] [facility] [place] [address] Creatinine [Mass/Vol] 0.73 mg/dL Normal 0.70-1.30 [facility] Comment on above: Performed By: #### L [id number] #### [facility] ([facility]) [address] [place] [address] GLOMERULAR FILTRATION RATE ML/MIN/1.73 SQ M.PREDICTED 106.1 mL/min/1.73m*2 Normal >60.0 [facility] Comment on above: Result Comment: [facility]???s estimated glomerular filtration rate (eGFR) [...] group of individuals. Performed By: #### L [id number] #### [facility] ([facility]) [address] [place] [address] Glucose [Mass/Vol] 100 mg/dL Normal 70-100 [facility] Comment on above: Performed By: #### L [id number] #### [facility] [address] [place] [address] Potassium [Moles/Vol] 3.8 mmol/L Normal 3.5-5.1 [facility] Comment on above: Performed By: #### L [id number] #### [facility] [address] [place] [address] Sodium [Moles/Vol] 136 mmol/L Normal 136-145 [facility] Comment on above: Performed By: #### L [id number] #### [facility] ([facility]) [address] [place] [address] Urea nitrogen [Mass/Vol] 11 mg/dL Normal 7-25 [facility] Comment on above: Performed By: #### L [id number] #### [facility] ([facility]) [address] [place] [address] UREA NITROGEN/CREATININE (MASS RATIO) IN SER/PLAS 15.1 Normal [facility] Comment on above: Performed By: #### L [id number] #### [facility] ([facility]) [address] [place] [address] Anion gap [Moles/Vol] 10 mmol/L Normal 7-20 [facility] Comment on above: Performed By: #### L [id number] #### [facility] [address] [place] [address] Calcium [Mass/Vol] 8.8 mg/dL Normal 8.6-10.3 [facility] Comment on above: Performed By: #### L [id number] #### [facility] ([facility]ER) [address] [place] [address] Chloride [Moles/Vol] 107 mmol/L Normal 98-107 [facility] Comment on above: Performed By: #### L [id number] #### [facility] ([facility]) [address] [place] [address] CO2 [Moles/Vol] 22 mmol/L Normal 21-31 [facility] Comment on above: Performed By: #### L [id number] #### [facility] ([facility]ER) [address] [place] [address] Creatinine [Mass/Vol] 0.71 mg/dL Normal 0.70-1.30 [facility] Comment on above: Performed By: #### L [id number] #### [facility] ([facility]) [address] [facility] [place] [address] GLOMERULAR FILTRATION RATE ML/MIN/1.73 SQ M.PREDICTED 107.0 mL/min/1.73m*2 Normal >60.0 [facility] Comment on above: Result Comment: [facility]???s estimated glomerular filtration rate (eGFR) [...] individuals. Performed By: #### L [id number] #### [facility] ([facility]) [address] [place] [address] Glucose [Mass/Vol] 99 mg/dL Normal 70-100 [facility] Comment on above: Performed By: #### L [id number] #### [facility] ([facility]) [address] [place] [address] Potassium [Moles/Vol] 3.9 mmol/L Normal 3.5-5.1 [facility] Comment on above: Performed By: #### L [id number] #### [facility] ([facility]) [address] [place] [address] Sodium [Moles/Vol] 135 mmol/L Low 136-145 [facility] Comment on above: Performed By: #### L [id number] #### [facility] ([facility]) [address] [place] [address] Urea nitrogen [Mass/Vol] 11 mg/dL Normal 7-25 [facility] Comment on above: Performed By: #### L [id number] #### [facility] ([facility]) [address] [place] [address] UREA NITROGEN/CREATININE (MASS RATIO) IN SER/PLAS 15.5 Normal [facility] Comment on above: Performed By: #### L [id number] #### [facility] ([facility]) [address] [place] [address] CALCIUM, IONIZEDon CALCIUM IONIZED (MMOL/L) IN BLOOD 1.15 mmol/L Normal 1.15-1.33 [facility] Comment on above: Performed By: #### L [id number] #### [facility] ([facility]) [address] [place] [id number] CBCon 03-21-2023 Erythrocyte distribution width (RBC) [Ratio] 13.9 % Normal 11.5-15.0 [facility] Comment on above: Order Comment: On ar rival to CVU Performed By: #### L [id number] #### [facility] ([facility]) [address] [place] [address] ERYTHROCYTE MEAN CORPUSCULAR HEMOGLOBIN CONCENTRATION (G/DL) BY AUTOMATED 33.2 g/dL Normal 32.0-35.0 [facility] Comment on above: Order Comment: On ar rival to CVU Performed By: #### L [id number] #### [facility] ([facility]) [address] [place] [address] Hematocrit (Bld) [Volume fraction] 40.1 % Normal 39.0-55.0 [facility] Comment on above: Order Comment: On ar rival to CVU Performed By: #### L [id number] #### [facility] ([facility]) [address] [place] [address] Hemoglobin (Bld) [Mass/Vol] 13.3 g/dL Normal 13.0-17.0 [facility] Comment on above: Order Comment: On ar rival to CVU Performed By: #### L [id number] #### [facility] ([facility]) [address] [place] [address] MCH (RBC) [Entitic mass] 30.6 pg Normal 27.0-33.0 [facility] Comment on above: Order Comment: On ar rival to CVU Performed By: #### L [id number] #### [facility] ([facility]) [address] [place] [address] MCV (RBC) [Entitic vol] 92.2 fL Normal 82.0-98.0 [facility] Comment on above: Order Comment: On ar rival to CVU Performed By: #### L [id number] #### [facility] ([facility]) [address] [place] [address] PLATELETS (10*3/UL) IN BLOOD AUTOMATED COUNT 201 10*3/uL Normal 150-400 [facility] Comment on above: Order Comment: On ar rival to CVU Performed By: #### L [id number] #### [facility] ([facility]) [address] [place] [address] RBC (Bld) [#/Vol] 4.35 10*6/uL Normal 4.20-5.70 [facility] Comment on above: Order Comment: On ar rival to CVU Performed By: #### L [id number] #### [facility] ([facility]) [address] [place] [address] WBC (Bld) [#/Vol] 8.80 10*3/uL Normal 4.00-10.60 [facility] Comment on above: Order Comment: On ar rival to CVU Performed By: #### L [id number] #### [facility] ([facility]) [address] [place] [address] CBC WITH AUTO DIFFERENTIALon 03-21-2023 Basophils (Bld) [#/Vol] 0.03 10*3/uL Normal 0.00-0.20 [facility] Comment on above: Performed By: #### L [id number] #### [facility] ([facility]) [address] [place] [address] Basophils/100 WBC (Bld) 0.3 % Normal 0.0-1.0 [facility] Comment on above: Performed By: #### L [id number] #### [facility] ([facility]) [address] [place] [address] Eosinophils (Bld) [#/Vol] 0.08 10*3/uL Normal 0.00-0.50 [facility] Comment on above: Performed By: #### L [id number] #### [facility] ([facility]) [address] [place] [address] Eosinophils/100 WBC (Bld) 0.8 % Normal 0.0-6.0 [facility] Comment on above: Performed By: #### L [id number] #### [facility] ([facility]) [address] [place] [address] Erythrocyte distribution width (RBC) [Ratio] 13.7 % Normal 11.5-15.0 [facility] Comment on above: Performed By: #### L [id number] #### [facility] ([facility]) [address] [place] [address] ERYTHROCYTE MEAN CORPUSCULAR HEMOGLOBIN CONCENTRATION (G/DL) BY AUTOMATED 32.9 g/dL Normal 32.0-35.0 [facility] Comment on above: Performed By: #### L [id number] #### [facility] ([facility]) [address] [place] [address] Hematocrit (Bld) [Volume fraction] 37.4 % Low 39.0-55.0 [facility] Comment on above: Performed By: #### L [id number] #### [facility] ([facility]) [address] [place] [address] Hemoglobin (Bld) [Mass/Vol] 12.3 g/dL Low 13.0-17.0 [facility] Comment on above: Performed By: #### L [id number] #### [facility] [address] [facility] [place] [address] Immature granulocytes (Bld) [#/Vol] 0.04 10*3/uL Normal 0.00-0.20 [facility] Comment on above: Performed By: #### L [id number] #### [facility] ([facility]) [address] [place] [address] Immature granulocytes/100 WBC (Bld) 0.4 % Normal 0.0-1.0 [facility] Comment on above: Performed By: #### L [id number] #### [facility] ([facility]) [address] [place] [address] Lymphocytes (Bld) [#/Vol] 2.22 10*3/uL Normal 1.20-4.00 [facility] Comment on above: Performed By: #### L [id number] #### [facility] ([facility]) [address] [place] [address] Lymphocytes/100 WBC (Bld) 21.4 % Normal 20.0-45.0 [facility] Comment on above: Performed By: #### L [id number] #### [facility] ([facility]) [address] [facility] [address] MCH (RBC) [Entitic mass] 30.6 pg Normal 27.0-33.0 [facility] Comment on above: Performed By: #### L [id number] #### [facility] ([facility]) [address] [place] [address] MCV (RBC) [Entitic vol] 93.0 fL Normal 82.0-98.0 [facility] Comment on above: Performed By: #### L [id number] #### [facility] ([facility]) [address] [facility] [place] [address] Monocytes (Bld) [#/Vol] 0.80 10*3/uL Normal 0.10-1.00 [facility] Comment on above: Performed By: #### L [id number] #### [facility] [address] [place] [address] Monocytes/100 WBC (Bld) 7.7 % Normal 5.0-12.0 [facility] Comment on above: Performed By: #### L [id number] #### [facility] ([facility]) [address] [place] [id number] Neutrophils (Bld) [#/Vol] 7.22 10*3/uL Normal 1.60-7.60 [facility] Comment on above: Performed By: #### L [id number] #### [facility] ([facility]) [address] [place] [id number] Neutrophils/100 WBC (Bld) 69.4 % Normal 40.0-72.0 [facility] Comment on above: Performed By: #### L [id number] #### [facility] ([facility]) [address] [place] [id number] NRBC (PER 100 WBCS) BY AUTOMATED COUNT 0.0 % Normal 0 [facility] Comment on above: Performed By: #### L [id number] #### [facility] ([facility]) [address] [place] [id number] PLATELETS (10*3/UL) IN BLOOD AUTOMATED COUNT 185 10*3/uL Normal 150-400 [facility] Comment on above: Performed By: #### L [id number] #### [facility] ([facility]) [address] [place] [id number] RBC (Bld) [#/Vol] 4.02 10*6/uL Low 4.20-5.70 [facility] Comment on above: Performed By: #### L [id number] #### [facility] ([facility]) [address] [place] [id number] WBC (Bld) [#/Vol] 10.39 10*3/uL Normal 4.00-10.60 [facility] Comment on above: Performed By: #### L [id number] #### [facility] ([facility]) [address] [place] [id number] CO-OXIMETRYon 03-21-2023 CARBOXYHEMOGLOBIN/H EMOGLOBIN TOTAL % IN BLOOD 1.4 % Normal [facility] Comment on above: Performed By: #### L [id number] #### [facility] ([facility]) [address] [place] [address] Hemoglobin (Bld) [Mass/Vol] 13.3 g/dL Normal [facility] Comment on above: Performed By: #### L [id number] #### [facility] ([facility]) [address] [place] [address] METHEMOGLOBIN/100 IN BLOOD 1.1 % Normal 0.0-1.5 [facility] Comment on above: Performed By: #### L [id number] #### [facility] ([facility]) [address] [place] [address] Oxygen saturation in Blood 64.9 % Normal [facility] Comment on above: Performed By: #### L [id number] #### [facility] ([facility]) [address] [place] [address] OXYGENATED HEMOGLOBIN IN BLOOD 63.3 % Normal [facility] Comment on above: Performed By: #### L [id number] #### [facility] ([facility]) [address] [place] [id number] CONSULTon 03-21-2023 CONSULT -- Attestation signed by [...] his entire life. He initially presented to [facility] yesterday after having chest pain with radiation [...] became diaphoretic and EMS was called. At [facility] initial workup significant for Troponin of 1.53, BNP 464, EKG with sinus rhythm, PVCs and septal infarct. Patient transferred to [facility] for catheterization. Patient had catheterization this am with stent placement in RCA and LAD. During the procedure patient had decompensating heart failure with low blood pressures and Impella device was placed. 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 and the Impella device [...] puff, 2 puff, inhalation, q6h PRN, Bryan Hugo MD aspirin EC tablet 81 mg, 81 mg, oral, Daily, Bryan Hugo MD atorvastatin (Lipitor) tablet 80 mg, 80 mg, oral, Nightly, Bryan Hugo MD, 80 mg at 03/20/23 2312 lisinopril tablet 2.5 mg, 2.5 mg, oral, Daily, Ernesto Jung MD, 2.5 mg at 03/21/23 182 metoprolol succinate XL (Toprol-XL) 24 hr tablet 25 mg, 25 mg, oral, Daily, Jesse Mckeon MD nicotine (Nicoderm CQ) 21 mg/24 hr patch 1 patch, 1 patch, transdermal, Daily, Bryan Hugo MD ondansetron ODT (Zofran-ODT) disintegrating tablet 4 mg, 4 mg, oral, q8h PRN OR ondansetron HCl (PF) (Zofran) injection 4 mg, 4 mg, intravenous, q6h PRN, Katy Ayala Oxygen Therapy, , inhalation, Continuous, Bryan Hugo MD, Given at 03/20/23 2240 Oxygen Therapy, , inhalation, Continuous PRN, Dariel Brewer MD, Given at 03/21/23 1500 pantoprazole (ProtoNix) EC tablet 40 mg, 40 mg, oral, Daily, Bryan Hugo MD, 40 mg at 03/20/23 2343 spironolactone [...] dysuria. Musculoskeleta (more content not included)... Normal [facility] CONSULT -- Attestation signed by Martin Blackburn MD at 05/15/2023 8:31 PM I personally saw and examined the patient on the same date of service as the resident. I discussed the findings and therapeutic plan with the resident/fellow. Plan of care was discussed with patient, and patient is agreeable with plan. I agree with the documentation, except for any edits/updates below. Teaching Physician's Revisions: none Martin Blackburn MD [facility] Cardiology Consult Note Reason for Consult: transfer from [facility], NSTEMI, elevated trop 1.53, vitals stable, cards on board HPI: Sam Elder is a 57 y.o. [...] on nasal cannula saturating well. 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 Patient evaluated in afternoon following stent placement in catheter lab. Patient denies any chest pain at this time and states that his numbness in his left hand has much improved. Denies any palpitations, dyspnea, nor lightheadedness at this time. Cardiology ROS: GENERAL: Denies fever, chills, night sweats, weight loss. CARDIOVASCULAR: Denies chest pain and exertional dyspnea, orthopnea/PND, lower extremity edema, palpitations, lightheadedness/dizzin ess, syncope. RESPIRATORY: Denies SOB, coughing, wheezing GI: Denies abdominal pain, nausea/vomiting. PSYCH: Denies anxiety. Past Medical History He has no past medical history on file. Surgical History He has no past surgical history on file. Social History He reports that he has been smoking cigarettes. He has never used smokeless tobacco. No history on file for alcohol use and drug use. Family History No family history on file. Allergies Oxycodone, Penicillins, and Vicodin [hydrocodone-acetamino phen] Medications No medications prior to admission. Last Recorded Vitals Patient Vitals for the past 24 hrs: BP Temp Temp src Pulse Resp SpO2 Height Weight 03/21/23 0400 81/62 -- -- 68 18 97 % -- 100 kg (220 lb 10.9 oz) 03/21/23 0205 88/65 -- -- 74 20 96 % -- -- 03/21/23 0010 90/67 36.9 ???C (98.4 ???F) -- 75 18 96 % 1.803 m (5' 11 ) 99.9 kg (220 lb 3.8 oz) 03/20/23 2346 94/71 -- -- 83 21 96 % -- -- 03/20/23 2326 92/77 -- -- 76 21 97 % -- -- 03/20/23 2306 91/72 -- -- 87 22 (!) 89 % -- -- 03/20/23 2246 93/72 -- -- 82 21 92 % -- -- 03/20/23 222 86/69 -- -- 81 23 92 % -- -- 03/20/23 220 91/77 -- -- 81 22 90 % -- -- 03/20/232145 93/72 -- -- 83 19 93 % -- -- 03/20/232125 93/73 -- -- 80 20 91 % -- -- 03/20/232105 96/76 -- -- 82 21 91 % -- -- 03/20/232045 92/72 -- -- 83 15 94 % -- -- 03/20/232038 108/58 -- -- 92 24 91 % -- -- 03/20/232030 105/69 36.8 ???C (98.2 ???F) Oral 78 20 98 % 1.803 m (5' 11 ) 102 kg (225 lb 1.4 oz) Physical Examination: Physical Exam Constitutional: Appearance: Normal appearance. He is normal weight. HENT: Head: Normocephalic and atraumatic. Mouth/Throat: Mouth: Mucous membranes are moist. Pharynx: Oropharynx is clear. Eyes: Extraocular Movements: Extraocular movements intact. Pupils: Pupils are equal, round, and reactive to light. Cardiovascular: Pulses: Normal pulses. Heart sounds: Normal heart sounds. Comments: High pitched humming murmur from Impella Pulmonary: Effort: Pulmonary effort is normal. Breath sounds: Normal breath sounds. Abdominal: General: Abdomen is flat. Palpations: Abdomen is soft. Musculoskeletal: General: Normal range of motion. Cervical back: Normal range of motion and neck supple. Right lower leg: No edema. Left lower leg: No edema. Skin: General: Skin is warm and dry. Neurological: General: No focal deficit present. Mental Status: He is alert and oriented to person, place, and time. Psychiatric: Mood and Affect: Mood normal. Behavior: Behavior normal. Relevant Lab Results Encounter Date: 03/20/23 ECG 12 lead Result Value Ventricular Rate 76 Atrial Rate 76 KS Interval 194 QRS DURATION 94 QT Interval 362 QTC CALCULATION(BAZETT) 407 P Letts 69 R-Letts 113 T Wave Letts 97 Impression Sinus rhythm with occasional Premature vent (more content not included)... Normal [facility] HPon 03-21-2023 HP H&P reviewed. The patient was examined and there are no changes to the H&P. Patient without knonwn prior CAD hx, significant smoking and FH, presenting with NSTEMI and elevated BNP Will proceed with coronary angiogram and right heart cath. Procedures' details, risks and benefits discussed with the patient and he's agreeable. Normal [facility] MAGNESIUMon 03-21-2023 Magnesium [Mass/Vol] 1.7 mg/dL Low 1.9-2.7 [facility] Comment on above: Order Comment: On ar rival to CVU Performed By: #### L [id number] ####[facility] ([facility])[address] [place] [address] Magnesium [Mass/Vol] 1.7 mg/dL Low 1.9-2.7 [facility] Comment on above: Performed By: #### L [id number] #### [facility] ([facility]) [address] [facility] [place] [address] POCT ACTIVATED CLOTTING TIME UNSOLICITED RESULTSon 03-21-2023 POC ACTIVATED CLOTTING TIME 165 sec High 82-152 [facility] Comment on above: Performed By: #### L [id number] #### [facility] [address] [facility] [place] [address] POC ACTIVATED CLOTTING TIME 154 sec High 82-152 [facility] Comment on above: Performed By: #### L [id number] ####[facility] ([facility])[address] [place] [address] POC ACTIVATED CLOTTING TIME 165 sec High 82-152 [facility] Comment on above: Performed By: #### L [id number] #### [facility] [address] [place] [address] POC ACTIVATED CLOTTING TIME 194 sec High 82-152 [facility] Comment on above: Performed By: #### L [id number] #### [facility] [address] [facility] [place] [address] POTASSIUM, WHOLE BLOODon Potassium [Moles/Vol] 3.8 mmol/L Normal 3.5-5.1 [facility] Comment on above: Performed By: #### P OTASSIUM, WHOLE BLOOD ####[facility] RESPIRATORY [id number] [place] [address] [place] SODIUM, WHOLE BLOODon 2022 SODIUM, WHOLE BLOOD 134 Low 136-145 [facility] Comment on above: Performed By: #### L [id number] #### [facility] ([facility]) [address] [place] [address] TROPONIN Ion 03-21-2023 Troponin I.cardiac [Mass/Vol] 12.84 ng/mL Critically high 0.00-0.04 [facility] Comment on above: Result Comment: M-KS EVIOUS CRITICAL RESULT Previous result verified on 03/21/2023 1359 on specimen/case [id number] called with component Troponin I for procedure Troponin I with value 19.66 ng/mL. Performed By: #### L [id number] #### [facility] ([facility]) [address] [place] [address] Troponin I.cardiac [Mass/Vol] 19.66 ng/mL Critically high 0.00-0.04 [facility] Comment on above: Result Comment: Prev ious result verified on 03/21/2023 0637 on specimen/case [id number] called with component Troponin I for procedure Troponin I with value 17.29 ng/mL. Performed By: #### L [id number] ####[facility] ([facility])[address] [place] [address] Troponin I.cardiac [Mass/Vol] 17.29 ng/mL Critically high 0.00-0.04 [facility] Comment on above: Result Comment: Prev ious result verified on 03/20/2023 2201 on specimen/case [id number] called with component Troponin I for procedure Troponin I with value 1.53 ng/mL. Performed By: #### L [id number] #### [facility] [address] [place] [address] ANTI-XA (HEPARIN LEVEL)on HEPARIN UNFRACTIONATED (U/ML) IN PPP BY CHROMOGENIC METHOD 0.19 IU/mL Low 0.3-0.7 [facility] Comment on above: Order Comment: Check anti-Xa level every 6 hours while on heparin infusion, or per protocol. Result Comment: Torrey roxaban and Apixaban will interfere with the anti Xa assay used to monitor UFH and LMWH. Performed By: #### L [id number] ####[facility] ([facility])[address] [place] [address] APTTon 03-20-2023 ACTIVATED PARTIAL THROMBOPLASTIN TIME IN PPP BY COAGULATION ASSAY 49.5 Seconds High 25.0-35.0 [facility] Comment on above: Result Comment: Clin ical significance of the APTT is questionable in the presence of heparin. Performed By: #### L [id number] ####[facility] ([facility])[address] [place] [address] CBC WITH AUTO DIFFERENTIALon 03-20-2023 Basophils (Bld) [#/Vol] 0.02 10*3/uL Normal 0.00-0.20 [facility] Comment on above: Performed By: #### L [id number] #### [facility] ([facility]) [address] [place] [address] Basophils/100 WBC (Bld) 0.2 % Normal 0.0-1.0 [facility] Comment on above: Performed By: #### L [id number] #### [facility] ([facility]) [address] [place] [address] Eosinophils (Bld) [#/Vol] 0.02 10*3/uL Normal 0.00-0.50 [facility] Comment on above: Performed By: #### L [id number] #### [facility] ([facility]) [address] [place] [address] Eosinophils/100 WBC (Bld) 0.2 % Normal 0.0-6.0 [facility] Comment on above: Performed By: #### L [id number] #### [facility] [address] [place] [id number] Erythrocyte distribution width (RBC) [Ratio] 13.7 % Normal 11.5-15.0 [facility] Comment on above: Performed By: #### L [id number] #### [facility] ([facility]) [address] [place] [id number] ERYTHROCYTE MEAN CORPUSCULAR HEMOGLOBIN CONCENTRATION (G/DL) BY AUTOMATED 32.8 g/dL Normal 32.0-35.0 [facility] Comment on above: Performed By: #### L [id number] #### [facility] ([facility]) [address] [place] [address] Hematocrit (Bld) [Volume fraction] 40.8 % Normal 39.0-55.0 [facility] Comment on above: Performed By: #### L [id number] #### [facility] ([facility]) [address] [place] [address] Hemoglobin (Bld) [Mass/Vol] 13.4 g/dL Normal 13.0-17.0 [facility] Comment on above: Performed By: #### L [id number] #### [facility] ([facility]) [address] [place] [address] Immature granulocytes (Bld) [#/Vol] 0.04 10*3/uL Normal 0.00-0.20 [facility] Comment on above: Performed By: #### L [id number] #### [facility] ([facility]) [address] [place] [address] Immature granulocytes/100 WBC (Bld) 0.4 % Normal 0.0-1.0 [facility] Comment on above: Performed By: #### L [id number] #### [facility] ([facility]) [address] [place] [address] Lymphocytes (Bld) [#/Vol] 1.22 10*3/uL Normal 1.20-4.00 [facility] Comment on above: Performed By: #### L [id number] #### [facility] ([facility]) [address] [place] [id number] Lymphocytes/100 WBC (Bld) 12.2 % Low 20.0-45.0 [facility] Comment on above: Performed By: #### L [id number] #### [facility] ([facility]) [address] [place] [id number] MCH (RBC) [Entitic mass] 30.8 pg Normal 27.0-33.0 [facility] Comment on above: Performed By: #### L [id number] #### [facility] ([facility]) [address] [place] [address] MCV (RBC) [Entitic vol] 93.8 fL Normal 82.0-98.0 [facility] Comment on above: Performed By: #### L [id number] #### [facility] ([facility]) [address] [place] [address] Monocytes (Bld) [#/Vol] 0.51 10*3/uL Normal 0.10-1.00 [facility] Comment on above: Performed By: #### L [id number] #### [facility] ([facility]) [address] [place] [address] Monocytes/100 WBC (Bld) 5.1 % Normal 5.0-12.0 [facility] Comment on above: Performed By: #### L [id number] #### [facility] ([facility]) [address] [place] [address] Neutrophils (Bld) [#/Vol] 8.21 10*3/uL High 1.60-7.60 [facility] Comment on above: Performed By: #### L [id number] #### [facility] ([facility]) [address] [place] [address] Neutrophils/100 WBC (Bld) 81.9 % High 40.0-72.0 [facility] Comment on above: Performed By: #### L [id number] #### [facility] ([facility]) [address] [place] [address] NRBC (PER 100 WBCS) BY AUTOMATED COUNT 0.0 % Normal 0 [facility] Comment on above: Performed By: #### L [id number] #### [facility] ([facility]) [address] [place] [address] PLATELETS (10*3/UL) IN BLOOD AUTOMATED COUNT 215 10*3/uL Normal 150-400 [facility] Comment on above: Performed By: #### L [id number] #### [facility] ([facility]) [address] [place] [address] RBC (Bld) [#/Vol] 4.35 10*6/uL Normal 4.20-5.70 [facility] Comment on above: Performed By: #### L [id number] #### [facility] ([facility]) [address] [place] [id number] WBC (Bld) [#/Vol] 10.02 10*3/uL Normal 4.00-10.60 [facility] Comment on above: Performed By: #### L [id number] #### [facility] ([facility]) [address] [place] [address] COMPREHENSIVE METABOLIC PANE Edy 03-20-2023 Albumin [Mass/Vol] 3.9 g/dL Normal 3.5-5.7 [facility] Comment on above: Performed By: #### L [id number] ####[facility] ([facility])[address] [place] [address] ALP [Catalytic activity/Vol] 63 U/L Normal 34-104 [facility] Comment on above: Performed By: #### L [id number] ####[facility] ([facility])[address] [place] [address] ALT [Catalytic activity/Vol] 13 U/L Normal 7-52 [facility] Comment on above: Performed By: #### L [id number] ####[facility] ([facility])[address] [place] [address] Anion gap [Moles/Vol] 13 mmol/L Normal 7-20 [facility] Comment on above: Performed By: #### L [id number] ####[facility] [place] [address] AST [Catalytic activity/Vol] 26 U/L Normal 13-39 [facility] Comment on above: Performed By: #### L [id number] ####[facility] ([facility])[address] [place] [address] Bilirubin [Mass/Vol] 0.6 mg/dL Normal 0.3-1.0 [facility] Comment on above: Performed By: #### L [id number] ####[facility] ([facility])[address] [place] [address] Calcium [Mass/Vol] 8.9 mg/dL Normal 8.6-10.3 [facility] Comment on above: Performed By: #### L [id number] ####[facility] ([facility])[address] [place] [address] Chloride [Moles/Vol] 107 mmol/L Normal 98-107 [facility] Comment on above: Performed By: #### L [id number] ####[facility] ([facility])[address] [place] [address] CO2 [Moles/Vol] 22 mmol/L Normal 21-31 [facility] Comment on above: Performed By: #### L [id number] ####[facility] ([facility])[address] [place] [address] Creatinine [Mass/Vol] 0.78 mg/dL Normal 0.70-1.30 [facility] Comment on above: Performed By: #### L [id number] ####[facility] ([facility])[address] [place] [address] GLOMERULAR FILTRATION RATE ML/MIN/1.73 SQ M.PREDICTED 104.0 mL/min/1.73m*2 Normal >60.0 [facility] Comment on above: Result Comment: [facility]???s estimated glomerular filtration rate (eGFR) [...] of individuals. Performed By: #### L [id number] ####[facility] ([facility])[address] [place] [address] Glucose [Mass/Vol] 121 mg/dL High 70-100 [facility] Comment on above: Performed By: #### L [id number] ####[facility] ([facility])[address] [place] [address] Potassium [Moles/Vol] 4.6 mmol/L Normal 3.5-5.1 [facility] Comment on above: Performed By: #### L [id number] ####[facility] [place] [address] Protein [Mass/Vol] 6.2 g/dL Normal 6.0-8.3 [facility] Comment on above: Performed By: #### L [id number] ####[facility] [place] [address] Sodium [Moles/Vol] 137 mmol/L Normal 136-145 [facility] Comment on above: Performed By: #### L [id number] ####[facility] ([facility])[address] [place] [address] Urea nitrogen [Mass/Vol] 10 mg/dL Normal 7-25 [facility] Comment on above: Performed By: #### L [id number] ####[facility] [place] [address] UREA NITROGEN/CREATININE (MASS RATIO) IN SER/PLAS 12.8 Normal [facility] Comment on above: Performed By: #### L [id number] ####[facility] ([facility])[address] [place] [address] EDNURSon 03-20-2023 EDNURS Patient arrives by life flight from [place] with elevated and increasing troponin from 0.82 [...] times 4 and denies any pain. Normal [facility] EDPROVon 03-20-2023 EDPROV HPI Chief [...] History provided by: EMS personnel and patient eligibility examiner used: No [place] Coma Scale Score: 15 [...] ED Physician in the absence of a developer analyst: yes Previous ECG: Previous ECG: Unavailable Interpretation: Interpretation: abnormal Rate: ECG rate: 83 ECG rate assessment: normal Rhythm: Rhythm: sinus rhythm Rhythm comment: W right axis deviation Comments: EKG interpretation done by Dr. Ornelas Qtc 432 ms ED Course & [facility] ED Course as of 03/20/232208 Deepali Mar 20, [id number] Patient arrives from [facility]SH for concern of NSTEMI. He received 1 L fluid DIRECTOR ERP as well as aspirin and Brilinta. He [...] 70s. Cardiac workup ordered. Will speak to developer analyst once troponin results. Patient arrives on a [...] of 03/20/232208 NSTEMI (non-ST elevated myocardial infarction) ([facility]) SOB (shortness of breath) Medical Decision Making [...] (more content not included)... Invalid Interpretation Code [facility] EDPROV -- Attestation signed by [...] History provided by: EMS personnel and patient eligibility examiner used: No [place] Coma Scale Score: 15 Patient History History [...] ED Physician in the absence of a developer analyst: yes Previous ECG: Previous ECG: Unavailable Interpretation: Interpretation: abnormal Rate: ECG rate: 83 ECG rate assessment: normal Rhythm: Rhythm: sinus rhythm Rhythm comment: W right axis deviation Comments: EKG interpretation done by Dr. Ornelas Qtc 432 ms ED Course & [facility] ED Course as of 03/20/232208 Deepali Mar 20, 20232037 Patient arrives from OSH for concern of NSTEMI. He received 1 L fluid DIRECTOR ERP as well as aspirin and Brilinta. He [...] 70s. Cardiac workup ordered. Will speak to developer analyst once troponin results. Patient arrives on a [...] Medical Decision (more content not included)... Normal [facility] LIPID PANELon 03-20-2023 CHOL/HDL 5.1 mg/dL Normal [facility] Comment on above: Performed By: #### L AB18 #### [facility] (BEAKER) [address] [place] [address] Cholesterol [Mass/Vol] 178 mg/dL Normal 120-200 [facility] Comment on above: Performed By: #### L AB18 #### [facility] (BEAKER) [address] [place] [address] Magnesium [Mass/Vol] 90 mg/dL Normal 40-149 [facility] Comment on above: Result Comment: TRIG LYCERIDE REFERENCE RANGE: 20 YEARS AND OLDER CARDIOVASCULAR RISK LESS THAN 150 mg/dL LOW RISK 150 TO 199 mg/dL BORDERLINE RISK 200 mg/dL AND GREATER HIGH RISK Performed By: #### L AB18 #### [facility] (BEAKER) [address] [place] [address] Magnesium [Mass/Vol] 125 mg/dL Normal 0-160 [facility] Comment on above: Performed By: #### L AB18 #### [facility] (BEAKER) [address] [place] [address] Magnesium [Mass/Vol] 35 mg/dL Normal 23-92 [facility] Comment on above: Performed By: #### L AB18 #### [facility] (BEAKER) [address] [place] [address] NON HDL CHOL. (LDL+VLDL) 143 Normal [facility] Comment on above: Performed By: #### L AB18 #### [facility] (BEAKER) [address] [place] [address] TOTAL VLDL-C 18 mg/dL Normal 0-40 [facility] Comment on above: Performed By: #### L AB18 #### [facility] (BEAKER) [address] [place] [address] MAGNESIUMon 03-20-2023 Magnesium [Mass/Vol] 1.6 mg/dL Low 1.9-2.7 [facility] Comment on above: Performed By: #### L AB103 #### [facility] ([facility]) [address] [place] [address] PROTIME-INRon 03-20-2023 INR IN PPP BY COAGULATION ASSAY 1.06 Normal 0.90-1.10 [facility] Comment on above: Result Comment: [...] CHEST 1995;108:231S-246S. Performed By: #### L AB320 ####[facility] ([facility])[address] [place] [address] PROTHROMBIN TIME (PT) IN PPP BY COAGULATION ASSAY 13.8 Seconds Normal 12.3-14.8 [facility] Comment on above: Performed By: #### L AB320 ####[facility] ([facility]ER)[address] [place] [address] TROPONIN Ion 03-20-2023 Troponin I.cardiac [Mass/Vol] 1.53 ng/mL Critically high 0.00-0.04 [facility] Comment on above: Performed By: #### L AB15 #### [facility] (BEAKER) [address] [place] [address] MRI BRAIN WO/W CONon 019 MRI BRAIN WO/W CON Patient: SAM ELDER. Exam Date: 12/23/2018 : 1965 Gender:M Ordering : TRISTEN CASTILLO Admission #: [id number] Family : Order #: [id number] CLICK HERE TO VIEW EXAM RADIOLOGY REPORT [...] Aponte M.D. on 12/23/2018 at 15:16 Normal [facility] XR FOREIGN BODY EYEon 2018 XR FOREIGN BODY EYE Patient: SAM ELDER. Exam Date: 12/23/2018 : 1965 Gender:M Ordering : TRISTEN CASTILLO Admission #: [id number] Family : Order #: [id number] CLICK HERE TO VIEW EXAM RADIOLOGY REPORT PROCEDURE: RADIOGRAPH FOREIGN BODY EYE COMPARISON: None. INDICATIONS: Foreign body in eye for MRI FINDINGS: ORBITS: Negative for a metallic foreign body. OTHER: Negative. CONCLUSION: No metallic foreign body within the orbits. Dictated by: Manuel Aponte M.D. on 12/23/2018 at 13:31 Approved by: Manuel Aponte M.D. on 12/23/2018 at 13:31 [facility] Encounters Encounter Date Encounter Type Care Provider Facility Start: 06-06-2023 End: 06-06-2023 ambulatory [facility] Start: 05-02-2023 End: 05-02-2023 ambulatory [facility] Start: 03-28-2023 End: 03-28-2023 ambulatory MANISHA CALVILLO [facility] Start: 03-22-2023 Evaluation and management of inpatient HANNA [facility] Start: 03-22-2023 Evaluation and management of inpatient HANNA [facility] Start: 03-21-2023 Evaluation and management of inpatient HANNA [facility] Start: 03-21-2023 Evaluation and management of inpatient ERNESTO JUNG [facility] Start: 03-21-2023 [facility] 03-20-[facility]23 Emergency department patient visit YINA ORNELAS [facility] Start: 03-20-2023 End: 03-25-2023 Evaluation and management of inpatient CHAYA MAXINE [facility] Start: 03-20-2023 Emergency department patient visit RAIMUNDO FRANZ [facility] Start: 12-23-2018 End: 12-24-2018 Patient encounter procedure TRISTEN CASTILLO Facility:[facility]1 Payers Date Payer Category Payer Medicaid [id number] 1965 Unknown [id number] 1959 Self-pay [id number] Clinical Notes 03-21-2023 to 06-06-2023 Note Date & Type Note Facility 06-06-2023 Note Patient here for 6 w jackson follow up CAD, systolic heart failure, HTN, and HLD. No longer wearing LifeVest. He is doing very well, and said yesterday he walked over 10,000 steps. Denies chest pain, SOB, palpitations, and lightheadedness/syncope. Review of Systems Musculoskeletal: Positive for back pain. All other systems reviewed and are negative. [facility] 06-06-2023 Note [facility]TP CARDIOLOGY PROGR ESS NOTE HPI: Sam Elder is a 57 y.o. male here for F/U Patient with past medical history including NSTEMI and CHF. Patient is seen for follow up. Patient is doing very well. He is very pleased with how he is feeling. He denies any cardiac complaints or concerns. He denies any chest pain. He denies any shortness of breath. No lower extremity edema, orthopnea, or PND. No near syncope or syncope. He is walking at least 10,000 steps per day and adamantly denies any symptoms with walking. He has continued refraining from smoking. He is taking all of his medications as prescribed and denies any issues with his medications. Review of Systems 10 point ROS is performed and is negative unless otherwise specified in HPI Final Discharge Diagnosis: #NSTEMI #status post PCI to LAD and RCA #Acute CHF with reduced ejection fraction, EF 25%. #Tobacco use #Hypomagnesemia Admission Diagnosis: SOB (shortness of breath) [R06.02] NSTEMI (non-ST elevated myocardial infarction) ([facility]) [I21.4] Hospital course: 57-year-old male with past medical history significant for tobacco use and otherwise unknown past medical history. Presented to [facility] due to chest pain, apparently has been dealing with chest discomfort for 1 week associated with shortness of breath and diaphoresis. At [facility] his high sensitive troponin was elevated, he was transferred to [facility] urgently for cardiology evaluation. Patient was [...] March 24, 2023 per Visit Vitals BP 99/70 (BP Location: Left arm, Patient Position: Sitting) Pulse 86 Ht 1.803 m (5' 11 ) Wt 93.9 kg (207 lb) SpO2 95% BMI 28.87 kg/m??? Smoking Status Former BSA 2.17 m??? [...] bedtime for 95 doses. 30 tablet 2 clopidogrel (Plavix) 75 mg tablet Take 1 tablet (75 mg) by mouth once daily as directed. 90 tablet 3 dapagliflozin propanediol (Farxiga) 10 mg Take 1 tablet (10 mg) by mouth in the morning. 90 tablet 3 lisinopril 2.5 mg tablet Take 1 tablet (2.5 mg) by mouth in the morning for 97 doses. 30 tablet 2 metoprolol succinate XL (Toprol-XL) 25 mg 24 hr tablet Take 1 tablet (25 mg) by mouth in the morning for 98 doses. Do not crush or chew. 30 tablet 2 pantoprazole (ProtoNix) 40 mg EC tablet Take 1 tablet (40 mg) by mouth before breakfast for 95 doses. Do not crush, chew, or split. 30 tablet 2 spironolactone (Aldactone) 25 mg tablet Take 0.5 tablets (12.5 mg) by mouth in the morning for 97 doses. 15 tablet 2 nicotine (Nicoderm CQ) 14 mg/[address] 1 patch on the skin 1 (one) time each day at the same time for 10 days. Do not start before April 05, 2023. (Patient not taking: Reported on 03/28/2023 Do not start before April 05, 2023.) 10 patch 0 nicotine (Nicoderm CQ) 21 mg/[address] 1 patch on the skin in the morning for 10 doses. Do not start before March 25, 2023. 10 patch 0 nicotine (Nicoderm CQ) 7 mg/[address] 1 patch on the skin 1 (one) time each day at the same time for 10 days. Do not start before April 16, 2023. (Patient not taking: Reported on 03/28/2023 Do not start before April 16, 2023.) 10 patch 0 ticagrelor (Brilinta) 90 mg tablet Take 1 tablet (90 mg) by mouth in the morning and at bedtime. 60 tablet 11 No current facility-administered medications on file prior to visit. Physical Exam VITAL SIGNS: BP 99/70 (BP Location: Left arm, Patient Position: Sitting) Pulse 86 Ht 1.803 m (5' 11 ) Wt 93.9 kg (207 lb) SpO2 95% BMI 28.87 kg/m??? Constitutional: Well developed, Well nourished, No acute distress, Non-toxic appearance. HENT: Normoceph (more content not included)... [facility] 05-02-2023 Note Telephone visit for 1 mo follow up echo and BMP. He was switched from Brilinta to Plavix due to cost. He denies chest pain, SOB, and palpitations. States he is no longer getting lightheaded upon standing up. He is currently uninsured, so after his free 30 day voucher for Farxiga is used up he will not be able to stay on it. Review of Systems Musculoskeletal: Positive for back pain. All other systems reviewed and are negative. [facility] 05-02-2023 Note UTP CARDIOLOGY PROGR ESS NOTE HPI: Sam Elder is a 57 y.o. male here for F/U Patient with past medical history including NSTEMI and CHF. Patient is seen in telemedicine for follow-up visit today. Date of Telehealth Visit: 05/02/2023 The patient was notified that using 3rd libertarian telecommunication application (e.g., BoxCat) is not HIPPA compliant and may carry some privacy risks. Yes The visit was conducted with the use of audio technology between patient and provider for a virtual visit. Verbal consent to provide and bill this service was obtained on 05/02/2023 . Today, patient states that he is doing well. He adamantly denies any cardiac complaints or concerns. He denies any chest pain or shortness of breath. He is not going to cardiac rehab due to insurance, but he states that he is very active at home and on his own, he adamantly denies any chest pain or shortness of breath. He continues to wear LifeVest. Repeat Echo demonstrates EF 35 to 40%. Review of Systems 10 point ROS is performed and is negative unless otherwise specified in HPI Final Discharge Diagnosis: #NSTEMI #status post PCI to LAD and RCA #Acute CHF with reduced ejection fraction, EF 25%. #Tobacco use #Hypomagnesemia Admission Diagnosis: SOB (shortness of breath) [R06.02] NSTEMI (non-ST elevated myocardial infarction) ([facility]) [I21.4] Hospital course: 57-year-old male with past medical history significant for tobacco use and otherwise unknown past medical history. Presented to [facility] due to chest pain, apparently has been dealing with chest discomfort for 1 week associated with shortness of breath and diaphoresis. At [facility] his high sensitive troponin was elevated, he was transferred to [facility] urgently for cardiology evaluation. Patient was [...] on discharge. Patient was unable to afford [employer]. Patient will have close follow-up with cardiology and CHF clinic. He was counseled about his tobacco use and he is determined to quit smoking. Patient is being discharged home in stable condition on March 24, 2023 per Visit Vitals BP 90/64 (BP Location: Right arm, Patient Position: Sitting) Pulse 68 Ht 1.803 m (5' 11 ) Wt 94.3 kg (208 lb) SpO2 94% BMI 29.01 kg/m??? Smoking Status Former BSA [...] bedtime for 95 doses. 30 tablet 2 clopidogrel (Plavix) 75 mg tablet Take 1 tablet (75 mg) by mouth once daily as directed. 90 tablet 3 lisinopril 2.5 mg tablet Take 1 tablet (2.5 mg) by mouth in the morning for 97 doses. 30 tablet 2 metoprolol succinate XL (Toprol-XL) 25 mg 24 hr tablet Take 1 tablet (25 mg) by mouth in the morning for 98 doses. Do not crush or chew. 30 tablet 2 pantoprazole (ProtoNix) 40 mg EC tablet Take 1 tablet (40 mg) by mouth before breakfast for 95 doses. Do not crush, chew, or split. 30 tablet 2 spironolactone (Aldactone) 25 mg tablet Take 0.5 tablets (12.5 mg) by mouth in the morning for 97 doses. 15 tablet 2 dapagliflozin propanediol (Farxiga) 10 mg Take 1 tablet (10 mg) by mouth in the morning. 90 tablet 3 nicotine (Nicoderm CQ) 14 mg/[address] 1 patch on the skin 1 (one) time each day at the same time for 10 days. Do not start before April 05, 2023. (Patient not taking: Reported on 03/28/2023 Do not start before April 05, 2023.) 10 patch 0 nicotine (Nicoderm CQ) 21 mg/[address] 1 patch on the skin in the morning for 10 doses. Do not start before March 25, 2023. 10 patch 0 nicotine (Nicoderm CQ) 7 mg/[address] 1 patch on the skin 1 (one) time each day at the same time for 10 days. Do not start before April 16, 2023. (Patient not taking: Reported on 03/28/2023 Do not start before April 16, 2023.) 10 patch 0 ticagrelor (Brilinta) 90 mg tablet Take 1 tablet (90 mg) by mouth in the morning and at bedtime. (Patient not taking: Reported on 05/02/2023) 60 tablet (more content not included)... [facility] 04-23-2023 Note Attestation signed by Avelina Luois at 05/06/2023 8:04 AM I was available for discussion and questions prior to patient visit. Plan was discussed prior to implementation and I was present for delivery of the plan. I agree with the assessment and plan and have modified the documentation as necessary. Avelina Louis PharmD, BCACP 05/06/23 [place] General Internal Medicine Patient called back and provided income information so I could proceed with the AZ&Me application for GENERAL MEDICAL MERATE. Patient is enrolled in AZ&Me as follows: Start of Enrollment period: 05/05/2023 End of Enrollment period: 05/05/2024 Prescribed medication to [facility] mail order pharmacy for processing the prescription. They will mail the medication to the patient at no cost. Pharmacy team will continue to follow to ensure he receives the medication. Of note, it could be beneficial to check a BMP two to four weeks after he starts the Farxiga. Ronal Downs PharmD (Robbie), PGY-1 Non Licensed Nuclear Equipment Operator 05/05/23 [facility] Cardiology, Heart [facility] Vascular [facility] 04-23-2023 Note PharmD Consult - SGL T2i Initiation 04/23/23 Provider: Ernesto Jung Sam Elder is a 57 y.o. male with PMH of: Past Medical History: Diagnosis Date CHF (congestive heart failure) ([facility]) Coronary artery disease PharmD consulted for evaluation of Farxiga for management of heart failure with reduced [...] application for Farxiga through AZ&Me. Ronal Downs PharmD (Robbie), PGY-1 Non Licensed Nuclear Equipment Operator 04/23/23 [facility] Cardiology[facility] 04-23-2023 Note Attempted to call sue verma to get information required for AZ&Me application for Farxiga, but he did not answer. LVM for him to call us back when he can. Ronal Downs (Robbie), Saroj, PGY-1 Non Licensed Nuclear Equipment Operator 04/30/23 [facility] Cardiology[facility] 04-23-2023 Note The Farxiga is in pr ocess and in transit to be delivered. [facility] tracking number is [id number] and it is currently in [place], [place]. It is yet to be out for delivery yet. Ronal Downs (Robbie), PharmD, PGY-1 Non Licensed Nuclear Equipment Operator 05/14/23 [facility] Cardiology[facility] Heart [facility] 03-28-2023 Note Currently pt is akbar vering well, lifevest in place and pt is tolerating well. Initiation of Cardiac rehab and referral to rocket motor mechanic for nutrition counseling [facility] 03-28-2023 Note Continue lipitor [facility] 03-28-2023 Note Patient here for fol low up [facility] for NSTEMI and CHF. He was discharged with a LifeVest. Has stopped smoking since admission. Denies recurrent chest pain, lightheadedness, and palpitations. Gets a little SOB w/ exertion at times. Review of Systems Cardiovascular: Positive for dyspnea on exertion. Musculoskeletal: Positive for back pain. All other systems reviewed and are negative. [facility] 03-28-2023 Note UTP CARDIOLOGY PROGR ESS NOTE HPI: Sam Elder is a 57 y.o. male here for hospital F/U s/p NSTEMI Patient here for follow up [facility] for NSTEMI and CHF. 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 Review of Systems Cardiovascular: Positive for dyspnea on exertion. Musculoskeletal: Positive for back pain. All other systems reviewed and are negative. 03/20/23 Discharge Summary Final Discharge Diagnosis: #NSTEMI #status post PCI to LAD and RCA #Acute CHF with reduced ejection fraction, EF 25%. #Tobacco use #Hypomagnesemia Admission Diagnosis: SOB (shortness of breath) [R06.02] NSTEMI (non-ST elevated myocardial infarction) ([facility]) [I21.4] Hospital course: 57-year-old male with past medical history significant for tobacco use and otherwise unknown past medical history. Presented to [facility] due to chest pain, apparently has been dealing with chest discomfort for 1 week associated with shortness of breath and diaphoresis. At [facility] his high sensitive troponin was elevated, he was transferred to [facility] urgently for cardiology evaluation. Patient was [...] Physical Exam: Constitutional: (more content not included)... [facility] 03-28-2023 Note [facility] II, currently [...] fluid restriction 1.5-2L/day, renal function and electrolytes- [facility] 03-28-2023 Note HTN very well contro lled 102/60- borderline labile- continue all medications [facility] 03-28-2023 Note Coronary artery dise ase is stable Continue GDMT- ASA, brilinta, toprol, lipitor and lisinopril. Pt to start cardiac rehab- orders completed continue risk factor modifications- heart healthy diet, regular exercise as tolerated and continue all medications. [facility] 03-25-2023 Note Hospital Medicine Daily Progress Note - 03/25/2023 2:11 PM; Room: [address] [place] [address] Admission: 03/20/2023 8:25 PM; Length of stay: 5 days THE HOSPITALIST TEAM PREFERS TO USE [employer] CHAT FOR COMMUNICATION 7AM-7PM. IF I DO NOT RESPOND WITHIN 15 MINUTES, PLEASE PAGE ME/CALL THROUGH THE ELECTRODYNAMICIST. FROM 7PM-7AM, PLEASE PAGE [phone](COVR) Code Status: Full Code Barriers to Discharge: [...] Principal Problem: NSTEMI (non-ST elevated myocardial infarction) ([facility]) Assessment and Plan # NSTEMI # status [...] last 7 days Lab Units 03/25/23 0543 03/24/2342003/21/23 0516 03/20/23 2039 WBC AUTO 10*3/uL 8.69 9.39 < > [...] LDL 143 03/20/2023 No results found for: KUNOASCV04 , IRON , TIBC , C3 , C4 , FRANCOISE , CANCA , ASO , PSA , CEA , CA125 , CA199 , AFP , CA153 Imaging Cardiac catheterization Procedure: Impella removal and vascular hemostasis with modified post-closure technique (use of Perclose and Angio-seal closure devices) Identification Officer: Ernesto Jung MD Technique: Patient's blood pressure [...] site to obtain temporary hemostasis. A 8 Australian sheath was placed over the wire. A second 0.035 wire was then placed through the (more content not included)... [facility] 03-25-2023 Note 03/25/23 1045 Referral Data Referral Source Physician Referral Reason Other (Comment) (CHF) Patient Information Primary Caregiver Self Activities of Daily Living Assistive Device Not applicable Living Arrangement (Current/Prior to Hospitalization) Private residence Ambulation Independent Dressing Independent Feeding Independent Behavior Oriented Communication Can write;Talks;Understands speaking;Understands Cook Islander;Reads Income Information Income Source Employed (He will not be able to work for at least 3 mths if not longer.) Referral To Financial Resources [facility];Financial counseling Discharge Planning Support Systems Family members;Parent Type of Residence/Post Acute Needs Private residence Patient's goal for discharge home with life vest. Does the patient need discharge transport arranged? No SW met with patient for CHF consult. Patient is a new CHF. He will be going home with a life vest today. 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 He has not sick, paid time off, STD or LTD plan. He states who would expect this at the age of 57 . Patient has already been seen by [facility] care. They completed a PFA and he is not eligible for Medicaid this month but will receive a discount for hospital stay. Due to patients job and a large transport load he was paid for the beginning of Mar he is over income for Dec. Patient states he knows he is grounded for at least 3 mths . He is not sure what will happen at that time as it depends on his recovery. Patient concerned about the financial future but states I have to take care of my health so he is paying his deposit for the Life vest and his meds through [employer] and plans to return home with family [...] At this time he denies any other needs at this time. [facility] 03-24-2023 Note Cardiology Progress Note Reason for Consult: transfer from [facility], NSTEMI, elevated trop 1.53, vitals stable, cards [...] on nasal cannula saturating well. 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 Patient evaluated [...] from 2 days ago Electronically signed: Raimundo Saud. ECHO 03/22/2023 Left Ventricle: The left ventricle [...] of endocardial bord (more content not included)... [facility] 03-24-2023 Note Hospital Medicine Discharge Summary Final Discharge Diagnosis: #NSTEMI #status post PCI to LAD and RCA #Acute CHF with reduced ejection fraction, EF 25%. #Tobacco use #Hypomagnesemia Admission Diagnosis: SOB (shortness of breath) [R06.02] NSTEMI (non-ST elevated myocardial infarction) ([facility]) [I21.4] Hospital course: 57-year-old male with past medical history significant for tobacco use and otherwise unknown past medical history. Presented to [facility] due to chest pain, apparently has been dealing with chest discomfort for 1 week associated with shortness of breath and diaphoresis. At [facility] his high sensitive troponin was elevated, he was transferred to [facility] urgently for cardiology evaluation. Patient was [...] on discharge. Patient was unable to afford [employer]. Patient will have close follow-up with cardiology and CHF clinic. He was counseled about his tobacco use and he is determined to quit smoking. Patient is being discharged home in stable condition on March 24, [address] BHATTI, ONEYDA, Sam is advised to follow up with you within 1-2 weeks. Follow-up with: Cardiology and CHF clinic Scheduled appointments: Future Appointments Date Time Provider Department Center 03/28/2023 9:20 AM Manisha Calvillo NP [facility] Your medication list START taking these medications [...] Medications These medications were sent to [facility] - [place], [place] - [address] [place] [address] [place] [address], [facility] [address] aspirin 81 mg EC tablet atorvastatin 80 [...] 137 137 POTASSIUM (more content not included)... [facility] 03-24-2023 Note Pt admitted to [facility] for NSTEMI. Pt's echo from 03/22/23 estimated LVEF 25%, which qualifies pt for cardiac rehab (CR) therapy with HF diagnosis. Pt also eligible for NSTEMI. I will watch for updates and follow up with pt, if appropriate. JOSE GuzmánN rheostat assembler Outpatient Coordinator Cardiopulmonary Rehab [facility] 03-23-2023 Note Hospital Medicine Daily Progress Note - 03/23/2023 11:53 AM; Room: 4148/4148-01 Admission: 03/20/2023 8:25 PM; Length of stay: 3 days THE HOSPITALIST TEAM PREFERS TO USE [employer] CHAT FOR COMMUNICATION 7AM-7PM. IF I DO NOT RESPOND WITHIN 15 MINUTES, PLEASE PAGE ME/CALL THROUGH THE ELECTRODYNAMICIST. FROM 7PM-7AM, PLEASE PAGE [phone](COVR) Code Status: Full Code Barriers to Discharge: [...] Principal Problem: NSTEMI (non-ST elevated myocardial infarction) ([facility]) Assessment and Plan # NSTEMI # status [...] Units 03/22/23 0024 03/21/23 1305 03/21/23 0516 03/20/232038 WBC AUTO 10*3/uL 10.09 8.80 < > [...] last 7 days Lab Units 03/21/23 1333 03/20/23 2039 HCO3 ART mEq/L 25.0 -- O2 SAT ART % 97.5 -- AST U/L -- 26 ALT U/L -- 13 ALK PHOS U/L -- 63 BILIRUBIN TOTAL mg/dL -- 0.6 Historical Values: (Includes values prior to this admission) Lab Results Component Value Date HDL 35 03/20/2023 LDL 143 03/20/2023 No results found for: [id number] , IRON , TIBC , C3 , [...] [facility] Heart Station [address] [place] [address] [phone] (fax) Echocardiogram-[facility] Name: SAM ELDER Study Date: 03/22/2023 08:13 AM B/P: 103 mmHg/57 mmHg HR: Date of : 1965 Location: [facility] Height: 71 in. Age: 57 year(s) Patient Room: 3219 Weight: 225 lb. Gender: Male Patient Status: InPt BSA: 2.22 m2 Indication: Chest Pain, Impella removed 03/21/23 (more content not included)... [facility] 03-23-2023 Note Cardiology Progress Note Reason for Consult: transfer from [facility], NSTEMI, elevated trop 1.53, vitals stable, cards [...] on nasal cannula saturating well. 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 Patient evaluated [...] enlarged. Overall Conclusions: (more content not included)... [facility] 03-22-2023 Note Attestation signed by Yordy Judd MD at 03/23/2023 1:35 PM I personally saw and examined the patient on the same date of service as resident/fellow Dr. Mckeon. I discussed the findings and therapeutic plan with the resident/fellow Dr. Mckeon. I agree with the documentation, except for any edits/updates below. Teaching Physician's Revisions: None Cardiology Progress Note Subjective Subjective: Sam Elder is a 57 y.o. male presenting as a transfer from [facility] for chest pain. Patient underwent stent [...] Value Ventricular Rate 82 Atrial Rate 82 KS Interval 178 QRS DURATION 96 QT Interval 396 QTC CALCULATION(BAZETT) 462 P Letts 55 R-Letts 85 T Wave Letts 40 Impression Normal sinus rhythm Possible Left [...] 1 [facility] Heart Station [address] [place] [address] [phone] (fax) Echocardiogram-[facility] Name: SAM ELDER Study Date: 03/22/2023 08:13 AM B/P: 103 mmHg/57 mmHg HR: Date of : 1965 Location: [facility] Height: 71 in. Age: 57 year(s) [...] root exhibits n (more content not included)... [facility] 03-22-2023 Note Attestation signed by Omari Lamb MD at 03/22/2023 4:04 PM Patient was seen and examined with the resident on the same date of service, I discussed the findings and therapeutic plan with the resident/fellow, I agree with the documentation, assessment and plan as above except for any edits/updates below. Omari Lamb MD Pulmonary and critical care Medical ICU Progress Note Patient - Sam Elder Age - 57 y.o. - 1965 N - [id number] Date of Admission - 03/20/2023 8:25 PM HPI/Hospital Course Subjective Patient has no known past medical history and has not seen a doctor regularly for his entire life. He initially presented to [facility] yesterday after having chest pain with radiation [...] became diaphoretic and EMS was called. At [facility] initial workup significant for Troponin of 1.53, BNP 464, EKG with sinus rhythm, PVCs and septal infarct. Patient transferred to [facility] for catheterization. Patient had catheterization this am with stent placement in RCA and LAD. During the procedure patient had decompensating heart failure with low blood pressures and Impella device was placed. 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 and the Impella device [...] Final No results found for: PHVEN , OKY1YHN , PO2VEN , RMN2AYC , IONCALVEN CBC: Results from last 7 days Lab Units 03/22/23 0024 03/21/23 1305 03/21/23 0516 WBC AUTO 10*3/uL 10.09 8.80 10.39 HEMOGLOBIN g/dL 13.1 13.3 12.3* HEMATOCRIT % 38.5* 40.1 37.4* PLATELETS AUTO 10*3/uL 198 201 185 Coagulation: Results from last 7 days Lab Units 03/20/23 2039 APTT Seconds 49.5* INR 1.06 Metabolic Panel: [...] PHOS U/L 63 (more content not included)... [facility] 03-21-2023 Note Interventional Cardi ology Impella removed in the analytical laboratory technician See my procedure note under the cardiology tab for details Patient tolerated Impella removal well Monitor right groin access sites for bleeding I discontinued heparin infusion Optimize HFrEF meds in the next few days Ernesto Jung MD nick setter Interventional Cardiology [place] [facility] Pager: [phone] [facility] 03-21-2023 Note Interventional Cardi ology Complex presentation with high risk NSTEMI, acute systolic heart failure, cardiogenic shock, and multivessel CAD Patient status post Impella mechanical circulatory support and multivessel PCI Please see my report under cardiology tab Page interventional cardiology with any questions Interventional cardiology will reassess to determine appropriate time for Impella weaning and removal. Ernesto Jung MD nick setter Interventional Cardiology [place] [facility] Pager: [phone] [facility] 03-21-2023 Note Patient: Sam alva Procedure Information Date/Time: 03/21/23829 Procedures: Coronary angiography Right heart cath Location: [facility] [employer]RIER M113 3 / [facility] HV VASCULAR LAB (Cath) Providers: Ernesto Jung MD [...] with fellow and attending. Additional Equipment Requests [facility] 03-21-2023 Note unable to see Patien t to discuss insurance needs, due to Pt not being in room [facility] 03-21-2023 Note Pt left floor for ec ho and cath procedure prior to development writer being able to perform morning assessment. [facility] 03-21-2023 Note 03/20/23 2310 Physical [...] place to sleep or slept in a long term (including now)? N Transportation Needs In the [...] relatives? Never How often do you attend baptism or synagogue services? Never Do you belong to any clubs or organizations such as baptism groups, unions, fraternal or athletic groups, or [...] more drinks on one occasion? Never 03/20/23 5625 Referral Data Referral Source plate take out worker Referral Reason Psychosocial assessment Patient Information Primary Caregiver Self Uatsdin/Cultural Factors Anglican Activities of Daily Living Assistive Device Not applicable Living Arrangement (Current/Prior to Hospitalization) Private residence (Lives at home with mother) Ambulation Independent Dressing Independent Feeding Independent Behavior Oriented Communication Can write;Talks;Understands speaking;Understands Cook Islander;Reads Income Information Income Source Employed (Employed FT) [...] past year and denied any alcohol consumption. [facility] 03-21-2023 Note Hospital Medicine History and Physical 03/20/2023 10:38 PM THE HOSPITALIST TEAM PREFERS TO USE [employer] CHAT FOR COMMUNICATION 7AM-7PM. IF I DO NOT RESPOND WITHIN 15 MINUTES, PLEASE PAGE ME/CALL THROUGH THE ELECTRODYNAMICIST. FROM 7PM-7AM, PLEASE PAGE [phone](COVR) Chief Complaint Chief Complaint Patient presents with Shortness of Breath History of Present Illness Sam Elder is an 57 y.o. male [facility] where he was evaluated for ongoing chest [...] dyspnea on exertion the EKG in the [facility] showed anterior septal changes and possible incomplete left bundle branch block his white blood count at [facility] was 12.9 his glucose was 110 and troponin high-sensitivity was 819.5 he had repeat troponin done in [facility] ER which was 1.53 chest x-ray showed no consolidation or CHF but moderate cardiomegaly EKG showed septal changes patient denies any history of hypertension hyperlipidemia stroke thromboembolic event he had family history of coronary artery disease with his mother having acute IN in the mid 50s Review of System [...] Date Noted NSTEMI (non-ST elevated myocardial infarction) ([facility]) 03/20/2023 Assessment and Plan Nstemi Copd exertional [...] this hospital stay by a member of [facility] Medicine. Past Medical History History reviewed. No pertinent past medical history. Past Surgical (more content not included)... [facility] Summary Purpose Family History No Family History Records FoundNo Family History Records Found Advance Directives No Advanced Directives Records FoundNo Advanced Directives Records Found Additional Source Comments (unrecognized sect ion and content) No Status Records FoundNo Status Records Found INFORMATION SOURCE (unrecogn ized section and content) DATE CREATED AUTHOR 12/31/2018 [facility] DATE CREATED AUTHOR AUTHOR'S ZEINA ABDI 06/12/2023 [facility] FOR RECORDS PERTAINING TO PATIENTS WHO [...] BE BASED ON THE PRIMARY CLINICAL RECORDS. [employer] provides no warranty or guarantee of the accuracy or completeness of information in this document.
--- NOTE | 2023-06-18 08:30 | CA_ITS ---
Patient Name: SAM CROSS MR#: [id number] : 1965 Exam Date: 06/18/2023 Ordering Doctor: MARTIN CASAREZ M.D. ECHOCARDIOGRAM REPORT PROCEDURE: CA ECHO DOPPLER COMPLETE INDICATIONS: ASHD, I25.83, MT, cardiac stents, h/o life vest COMPARISON: None. DESCRIPTION: COMPLETE ECHOCARDIOGRAM Real-time transthoracic echocardiography with 2D, M-mode, spectral and color flow Doppler performed. QUALITY: Technical quality was good. 71 , 203#, BSA 2.12 m2 LEFT VENTRICLE: Normal chamber size. Normal left ventricular wall thickness. There is global hypokinesis. Systolic function is mildly reduced. LV EF: Calculated left ventricular ejection fraction is 48%. Mildly reduced left ventricular ejection fraction, (45-50%). DIASTOLIC: Grade I diastolic dysfunction. ATRIAL SEPTUM: Visually appears intact. LEFT ATRIUM: Normal chamber size. RIGHT ATRIUM: Normal chamber size. RIGHT VENTRICLE: Normal chamber size. Normal right ventricular systolic function. TRICUSPID VALVE: Normal mobility and thickness. No stenosis with trivial regurgitation. No evidence of pulmonary hypertension. RVSP 24 mmHg MITRAL VALVE: Normal mobility and thickness. No evidence of mitral valve stenosis. Mild mitral annular calcification. Trivial mitral regurgitation. AORTIC VALVE: Normal trileaflet appearance. No visible sclerosis. Normal leaflet mobility. No evidence of aortic valve stenosis. No aortic regurgitation. AORTIC ROOT: Normal diameter and appearance. PULMONIC VALVE: Normal thickness and mobility. No stenosis. Trivial regurgitation. PERICARDIUM: No evidence of pericardial effusion. IVC: Collapses with inspirations. IVC is normal in size. PLEURA: CONCLUSION: 1. The left ventricle is normal in size and exhibits mild global hypokinesis. Systolic function is mildly reduced. Estimated LVEF is 45 to 50%. 2. Normal right ventricular size and systolic function. 3. No significant valvular dysfunction. 4. Normal right-sided pressures. Adult Echocardiography Procedure Report Left Ventricle LVEDD (3.7 - 5.6 cm): 5.37 cm LVESD (2.2 - 4.0 cm): 3.69 cm LVIVS thickness (0.6 - 1.2 cm): 1.09 cm LVPW thickness (0.5 - 1.0 cm): 0.97 cm e': 0.11 m/s E - e': 4.75 LVOT Max Gradient: 2.13 mm[Hg], 2.22 mm[Hg] LVOT Area (cm2): 0.74 m/s Peak Velocity (LVOT): 0.73 m/s, 0.75 m/s Mean Velocity (LVOT): 0.57 m/s LVOT Diameter 2.45 cm Left Atrium LA Volume Index (2D A2C): 33.72 ml/m2 Left Atrium Systolic Dimension: 4.11 cm Mitral Valve MV E to A Ratio: 0.72 Mitral Valve A-Wave Peak Velocity: 0.73 m/s Mitral Valve E-Wave Peak Velocity: 0.53 m/s Right Ventricle Aorta AO Root Diam: 3.70 cm Ascending Ao Diam: 3.40 cm Aortic Valve AoV Area (Peak Doug): 3.77 cm2, 3.73 cm2 AoV Area (VTI): 3.86 cm2, 3.71 cm2 Peak Velocity(Antegrade Flow): 0.93 m/s Peak Gradient(Antegrade Flow): 3.43 mm[Hg] Mean Velocity(Antegrade Flow): 0.63 m/s Mean Gradient(Antegrade Flow): 1.87 mm[Hg] Velocity Time Integral: 18.59 cm Tricuspid Valve Peak Velocity (Regurgitant Flow): 2.29 m/s Pulmonic Valve Peak Velocity: 0.87 m/s Peak Gradient: 3.08 mm[Hg], 2.93 mm[Hg] Right Atrium Right Atrium Systolic Pressure: 45.63 ml, 45.63 ml Dictated by: Kg Quezada M.D. on 06/18/2023 at 16:46 Approved by: Kg Quezada M.D. on 06/18/2023 at 16:50
== END 2023-06-18 07:31 | disposition home or self-care (01) ==
LOC: CARD 07:31
PROVIDERS: Visit Provider Internal Medicine Cardiovascular Disease
DX: I50.22 Chronic systolic (congestive) heart failure (principal); I25.10 Atherosclerotic heart disease of native coronary artery without angina pectoris; I25.83 Coronary atherosclerosis due to lipid rich plaque
CPT/HCPCS: 93017; 93306; 93356

== ENCOUNTER 2023-12-31 09:21 | Outpatient (OUT) | payer MEDICAID, SELFPAY ==
--- OUTSIDE RECORDS SUMMARY | 2023-12-31 09:32 | XMS_ITS | CCD ---
Author Organization [facility] Care Team Providers Care Wax Bleacher Name Role Phone TRISTEN CASTILLO Admitting Unavailable TRISTEN CASTILLO Attending Unavailable REQUEST, NONE LISTED Primary Care Unavailable AMIE APONTE Consulting Unavailable TRISTEN CASTILLO Consulting Unavailable SANTANA JUNG Referring Unavailable AOUTHMANY, MONSE Referring Unavailable AOUTHMANDIDI MohamudZA Referring Unavailable ALGHOTHMARTIN VARGAS Attending Unavailable ALGHOLANDON, MARTIN Attending Unavailable MAUREEN CALVILLO Attending Unavailable ALGHOTHANI, MARTIN Attending Unavailable JACQUES BREWER Referring Unavailable MAXINECHAYA BOOGIE Admitting Unavailable LAST TEIXEIRA Attending Unavailable RAIMUNDO FRANZ Referring Unavailable PUNEET, LAST Admitting Unavailable PUNEETLAST PETER Attending Unavailable ALI, HANNA SHARI Referring Unavailable ALI, JACQUES TIANMAN Referring Unavailable BRYAN NIELSEN Referring Unavailable Allergies Allergy Classification Reported Allergen(s) Allergy Type Date of Onset Reaction(s) Facility (2 sources) Penicillins; Translations: [PENICILLINS] Drug allergy (disorder) 3 Repository (1 source) Acetaminophen / HYDROcodone; Translations: [HYDROCODONE-ACET AMINOPHEN] Drug Allergy 3 [facility] Repository (1 source) oxyCODONE; Translations: [OXYCODONE] Drug Allergy 3 [facility] Repository (1 source) ALLERGIES NOT ON FILE; Translations: [ALLERGIES NOT ON FILE] Propensity to adverse reactions (disorder) [facility] Repository Problems Active Problems Problem Classification Problem Date Documented Date [...] disease (2 sources) Atherosclerotic heart disease of [place] coronary artery without angina pectoris; Translations: [Atherosclerotic heart disease of [place] coronary artery without angina pectoris] Onset: 03-28-2023 [...] [UNS SEQUELAE CEREBRAL INFARCTION] Onset: 12-31-2018 Chronic Lisette-; endo-; and myocarditis; cardiomyopathy (except that caused by tuberculosis or sexually transmitted disease) (2 sources) 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 classified elsewhere; Translations: [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 classified elsewhere] Onset: 03-28-2023 Chronic Syncope (1 source) Syncope and collapse; Translations: [SYNCOPE AND COLLAPSE] Onset: 12-31-2018 Episodic Past or Other Problems Problem Classification Problem Date Documented Da te Episodic/Chronic Other lower respiratory disease (2 sources) Shortness of breath; Translations: [Shortness of breath] Onset: 03-20-2023 Episodic Results Test Name Value Interpretation Reference Range Facility Office Visiton 10-10-2023 Follow-up visit [id number] Michelle Elder 1965 M Date Provider Department Center 10/10/2023 [facility] Family History Problem Relation Age of Onset Coronary artery disease Mother Atrial fibrillation Mother Coronary artery disease Brother Hyperlipidemia Brother Family Status - Relation Status Age at Mother Brother Level of Service:51428 CT OFFICE/OUTPATIENT ESTABLISHED LOW MDM 20 MIN Normal [facility] Office Visiton 06-06-2023 Follow-up visit [id number] Michelle Elder 1965 M Date Provider Department Center 06/06/2023 3848MARTIN FINN [facility] Family History Problem Relation Age of Onset Coronary artery disease Mother Atrial fibrillation Mother Coronary artery disease Brother Hyperlipidemia Brother Family Status - Relation Status Age at Mother Brother Level of Service:30405 CT OFFICE/OUTPATIENT ESTABLISHED MOD MDM 30 MIN [facility] Orders Onlyon 06-06-2023 Orders Only [id number] Michelle Elder B 1965 M Date Provider Department Center 06/06/2023 DONTE LUIS [facility] Family History Problem Relation Age of Onset Coronary artery disease Mother Atrial fibrillation Mother Coronary artery disease Brother Hyperlipidemia Brother Family Status - Relation Status Age at Mother Brother [facility] 36on 05-28-2023 36 Called patient and confirmed he received the Farxiga in the mail through the [employer] patient assistance program without any issues around 05/19/2023. Educated the patient that his most recent BMP in April 2023 was WNL. He has an appointment with Dr. Blackburn on 06/06/2023, so I will pass the message along to him. Ronal Downs (Robbie), PharmD, PGY-1 [place] 05/28/23 [facility] Cardiology, Heart and Vascular Center Normal [facility] Telephoneon 05-28-2023 Telephone [id number] Michelle Elder 1965 M Date Provider Department Center 05/28/202326104-UNLBOHRRONAL DOWNS [facility] CARD [facility] Family History Problem Relation Age of Onset Coronary artery disease Mother Atrial fibrillation Mother Coronary artery disease Brother Hyperlipidemia Brother Family Status - Relation Status Age at Mother Brother [facility] Office Visiton 05-02-2023 Follow-up visit [id number] Michelle lEder 1965 M Date Provider Department Center 05/02/2023 3848-MARTIN BLACKBURN [facility] Family History Problem Relation Age of Onset Coronary artery disease Mother Atrial fibrillation Mother Coronary artery disease Brother Hyperlipidemia Brother Family Status - Relation Status Age at Mother Brother Level of Service:15762 CT OFFICE/OUTPATIENT ESTABLISHED MOD MDM 30 MIN [facility] 29on 04-23-2023 29 Addended by: RONAL DOWNS on: 05/05/2023 10:33 AM Modules accepted: Orders [facility] Documentationon 04-23-2023 Documentation [id number] Michelle Elder B 1965 M Date Provider Department Center 04/23/2023 44431-OQAOYEKRONAL DOWNS [facility] CARD [facility] Family History Problem Relation Age of Onset Coronary artery disease Mother Atrial fibrillation Mother Coronary artery disease Brother Hyperlipidemia Brother Family Status - Relation Status Age at Mother Brother Reason for Visit and Comments: Medication Access - Farxiga [Other] [facility] 36on 04-22-2023 36 Patient stopped by t he office after his echo today to make you aware that Brilinta and Farxiga are too costly for him. Can he be switched to Plavix and maybe Jardiance? He does not currently have insurance. Please advise. Thanks. [facility] 29on 03-28-2023 29 Addended by: MAUREEN CALVILLO on: 03/28/2023 06:54 PM Modules accepted: Orders [facility] Office Visiton 03-28-2023 Follow-up visit [id number] Michelle Elder 1965 M Date Provider Department Center 03/28/2023 120-MAUREEN CALVILLO [facility] Family History Problem Relation Age of Onset Coronary artery disease Mother Atrial fibrillation Mother Coronary artery disease Brother Hyperlipidemia Brother Family Status - Relation Status Age at Mother Brother Level of Service:80378 CT OFFICE/OUTPATIENT ESTABLISHED MOD MDM 30-39 MIN [facility] 36on 03-26-2023 36 Discharge date: 03/25/23 [...] Pt denied any additional questions or concerns. [facility] Documentationon 03-26-2023 Documentation [id number] Michelle Elder ld 1965 M Date Provider Department Center 03/26/2023 JUAN GREEN [facility] V[facility] LAB [facility] No family history on file Reason for Visit and Comments: HF inpatient satisfaction survey sent. [Other] [facility] Telephoneon 03-26-2023 Telephone [id number] Michelle Elder ld 1965 M Date Provider Department Center 03/26/2023 JUAN GRE[facility] No family history on file [facility] 30on 03-25-2023 30 Anibal from [employer] called and patient made payment, he will be fitted for lifevest sometime before 4pm today. [facility] 30 Call placed to Javier montoya from [employer] who reports he has a nurse on standby, and as soon as he gets confirmation of payment, nurse will be in to place life vest. Ski Topper back to bedside, and updated. Patient verbalized understanding. Patient reports he is unsure of where his mother is, as she is not answering phone call. States he hopes to hear from her soon. Primary RN aware. [facility] 30 Spoke with patient a t bedside. Patients reports he was never fitted for [employer] yesterday. Patient states he only came in and gave me a brochure and educated me. I was never fitted for anything . Ski Topper informed him Anibal from [employer] sent [...] bringing his wallet. Primary RN aware. Normal [facility] BASIC METABOLIC PANELon 03-14 Anion gap [Moles/Vol] 11 mmol/L Normal 7- [facility] Comment on above: Performed By: #### L [id number] ####[facility] ([facility])[address] [place] [address] Calcium [Mass/Vol] 9.4 mg/dL Normal 8.6-10.3 [facility] Comment on above: Performed By: #### L [id number] ####[facility] ([facility])[address] [place] [address] Chloride [Moles/Vol] 108 mmol/L High 98-107 [facility] Comment on above: Performed By: #### L [id number] ####[facility] ([facility])[address] [place] [address] CO2 [Moles/Vol] 23 mmol/L Normal 21-31 [facility] Comment on above: Performed By: #### L [id number] ####[facility] ([facility])[address] [place] [address] Creatinine [Mass/Vol] 0.70 mg/dL Normal 0.70-1.30 [facility] Comment on above: Performed By: #### L [id number] ####[facility] ([facility])[address] [place] [address] GLOMERULAR FILTRATION RATE ML/MIN/1.73 SQ M.PREDICTED 107.5 mL/min/1.73m*2 Normal >60.0 [facility] Comment on above: Result Comment: The [facility]???s estimated glomerular filtration rate (eGFR) will [...] of individuals. Performed By: #### L [id number] ####[facility] ([facility])[address] [place] [address] Glucose [Mass/Vol] 99 mg/dL Normal 70-100 [facility] Comment on above: Performed By: #### L [id number] ####[facility] ([facility])[address] [place] [address] Potassium [Moles/Vol] 4.0 mmol/L Normal 3.5-5.1 [facility] Comment on above: Performed By: #### L [id number] ####[facility] [place] [address] Sodium [Moles/Vol] 138 mmol/L Normal 136-145 [facility] Comment on above: Performed By: #### L [id number] ####[facility] ([facility] [place] [address] Urea nitrogen [Mass/Vol] 13 mg/dL Normal 7-25 [facility] Comment on above: Performed By: #### L [id number] ####[facility] ([facility])[address] [place] [address] UREA NITROGEN/CREATININE (MASS RATIO) IN SER/PLAS 18.6 Normal [facility] Comment on above: Performed By: #### L [id number] ####[facility] ([facility] [place] [address] CBCon 03-25-2023 Erythrocyte distribution width (RBC) [Ratio] 13.4 % Normal 11.5-15.0 [facility] Comment on above: Performed By: #### L [id number] #### [facility] ([facility] [address] [address] ERYTHROCYTE MEAN CORPUSCULAR HEMOGLOBIN CONCENTRATION (G/DL) BY AUTOMATED 33.3 g/dL Normal 32.0-35.0 [facility] Comment on above: Performed By: #### L [id number] #### [facility] ([facility] [address] [place] [address] Hematocrit (Bld) [Volume fraction] 40.2 % Normal 39.0-55.0 [facility] Comment on above: Performed By: #### L [id number] #### [facility] ([facility]ER) [address] [place] [address] Hemoglobin (Bld) [Mass/Vol] 13.4 g/dL Normal 13.0-17.0 [facility] Comment on above: Performed By: #### L [id number] #### [facility] ([facility]) [address] [place] [address] MCH (RBC) [Entitic mass] 30.3 pg Normal 27.0-33.0 [facility] Comment on above: Performed By: #### L [id number] #### [facility] ([facility]) [address] [place] [address] MCV (RBC) [Entitic vol] 91.0 fL Normal 82.0-98.0 [facility] Comment on above: Performed By: #### L [id number] #### [facility] ([facility]) [address] [place] [address] PLATELETS (10*3/UL) IN BLOOD AUTOMATED COUNT 268 10*3/uL Normal 150-400 [facility] Comment on above: Performed By: #### L [id number] #### [facility] ([facility]) [address] [place] [address] RBC (Bld) [#/Vol] 4.42 10*6/uL Normal 4.20-5.70 [facility] Comment on above: Performed By: #### L [id number] #### [facility] ([facility]) [address] [place] [address] WBC (Bld) [#/Vol] 8.69 10*3/uL Normal 4.00-10.60 [facility] Comment on above: Performed By: #### L [id number] #### [facility] ([facility]) [address] [place] [address] MAGNESIUMon 03-25-2023 Magnesium [Mass/Vol] 1.8 mg/dL Low 1.9-2.7 [facility] Comment on above: Performed By: #### L [id number] ####[facility] ([facility] [place] [address] 30on 03-24-2023 30 The patient is Moderately [...] and behaviors that affect risk of falls [place] fall precautions as indicated by assessment Educate [...] restriction a (more content not included)... Normal [facility] 30 Contacted [employer] T[employer] Anibal concerning lifevest. Anibal states he is on his way to [facility]. EF 25%. Order for vest was received per Anibal. 12:16 Spoke with Anibal from [employer] and all requested paperwork given. Anibal to check into charitable donations available form this patient and cost of lifevest considering income. Patient and SW updated on plan/delay. 13:20 Anibal and this consumer loan underwriter met with patient and explained paperwork for [employer] assistance program. Paperwork given to patient. Awaiting finical statement from patient. 15:05 patient completed form with presence of consumer loan underwriter. Assisted patient in calling his bank to request last statement to provide to chetna roseliawong. 15:25 All requested information and forms sent to Anibal from [facility]. Await determination Normal [facility] BASIC METABOLIC PANELon 12-1 Anion gap [Moles/Vol] 11 mmol/L Normal 7-20 [facility] Comment on above: Performed By: #### L [id number] #### [facility] ([facility]) [address] [place] [address] Calcium [Mass/Vol] 9.1 mg/dL Normal 8.6-10.3 [facility] Comment on above: Performed By: #### L [id number] #### [facility] ([facility]) [address] [place] [address] Chloride [Moles/Vol] 108 mmol/L High 98-107 [facility] Comment on above: Performed By: #### L [id number] #### [facility] ([facility]) [address] [place] [address] CO2 [Moles/Vol] 22 mmol/L Normal 21-31 [facility] Comment on above: Performed By: #### L [id number] #### [facility] ([facility]) [address] [place] [address] Creatinine [Mass/Vol] 0.67 mg/dL Low 0.70-1.30 [facility] Comment on above: Performed By: #### L [id number] #### [facility] ([facility]) [address] [place] [address] GLOMERULAR FILTRATION RATE ML/MIN/1.73 SQ M.PREDICTED 108.9 mL/min/1.73m*2 Normal >60.0 [facility] Comment on above: Result Comment: The [facility]???s estimated glomerular filtration rate (eGFR) will [...] group of individuals. Performed By: #### L [id number] #### [facility] ([facility]) [address] [place] [address] Glucose [Mass/Vol] 102 mg/dL High 70-100 [facility] Comment on above: Performed By: #### L [id number] #### [facility] ([facility]) [address] [place] [address] Potassium [Moles/Vol] 3.6 mmol/L Normal 3.5-5.1 [facility] Comment on above: Performed By: #### L [id number] #### [facility] ([facility]) [address] [place] [address] Sodium [Moles/Vol] 137 mmol/L Normal 136-145 [facility] Comment on above: Performed By: #### L [id number] #### [facility] ([facility]) [address] [place] [address] Urea nitrogen [Mass/Vol] 12 mg/dL Normal 7-25 [facility] Comment on above: Performed By: #### L [id number] #### [facility] ([facility]) [address] [place] [address] UREA NITROGEN/CREATININE (MASS RATIO) IN SER/PLAS 17.9 Normal [facility] Comment on above: Performed By: #### L [id number] #### [facility] ([facility]) [address] [place] [address] CBCon 03-24-2023 Erythrocyte distribution width (RBC) [Ratio] 13.6 % Normal 11.5-15.0 [facility] Comment on above: Performed By: #### L [id number] #### [facility] ([facility] [address] [place] [address] ERYTHROCYTE MEAN CORPUSCULAR HEMOGLOBIN CONCENTRATION (G/DL) BY AUTOMATED 33.2 g/dL Normal 32.0-35.0 [facility] Comment on above: Performed By: #### L [id number] #### [facility] ([facility]) [address] [place] [address] Hematocrit (Bld) [Volume fraction] 38.0 % Low 39.0-55.0 [facility] Comment on above: Performed By: #### L [id number] #### [facility] ([facility]) [address] [place] [address] Hemoglobin (Bld) [Mass/Vol] 12.6 g/dL Low 13.0-17.0 [facility] Comment on above: Performed By: #### L [id number] #### [facility] ([facility]) [address] [place] [address] MCH (RBC) [Entitic mass] 30.1 pg Normal 27.0-33.0 [facility] Comment on above: Performed By: #### L [id number] #### [facility] ([facility]) [address] [place] [address] MCV (RBC) [Entitic vol] 90.9 fL Normal 82.0-98.0 [facility] Comment on above: Performed By: #### L [id number] #### [facility] ([facility]) [address] [place] [address] PLATELETS (10*3/UL) IN BLOOD AUTOMATED COUNT 217 10*3/uL Normal 150-400 [facility] Comment on above: Performed By: #### L [id number] #### [facility] ([facility]) [address] [place] [address] RBC (Bld) [#/Vol] 4.18 10*6/uL Low 4.20-5.70 [facility] Comment on above: Performed By: #### L [id number] #### [facility] ([facility]ER) [address] [place] [address] WBC (Bld) [#/Vol] 9.39 10*3/uL Normal 4.00-10.60 [facility] Comment on above: Performed By: #### L [id number] #### [facility] ([facility]ER) [address] [place] [address] CONSULTon 03-24-2023 CONSULT Adult Nutrition Consult Name: [...] Date/Time BUN 12 03/24/2023420 CREATININE 0.67 (L) 03/24/2023 0421 NA 137 03/24/2023 0421 NA 134 (L) 03/21/2023 1333 K 3.6 03/24/2023 0421 K 3.8 03/21/2023 1333 MG 1.6 (L) 03/24/2023 042 HGB 12.6 (L) 03/24/2023 0421 WBC 9.39 03/24/2023 042 CHOL 178 03/20/20232038 HDL 35 03/20/20232038 I/O: [...] made dietary changes and weight last week MANAGER TRAINING was 219# (99.5kg) IBW: 78.2kg Nutrition Assessment: Nutrition history: 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 Discussed seasoning alternatives rather than salt: encouraged [...] compliance w/ MNT Contact the dietitian via Informaat chat 8A-4P Friday through Friday or call extension [phone]. For weekends & holidays, the dietitian can be reached via pager (more content not included)... Normal [facility] MAGNESIUMon 03-24-2023 Magnesium [Mass/Vol] 1.6 mg/dL Low 1.9-2.7 [facility] Comment on above: Performed By: #### L [id number] #### [facility] ([facility]) [address] [place] [address] 30on 03-23-2023 30 The patient is Moderately [...] Progressing Flowsheets (Taken 03/22/20232099 by Maria G Roberts, RN) Free from fall injury: Assess patient frequently for physical needs Identify cognitive and physical deficits and behaviors that affect risk of falls [place] fall precautions as indicated by assessment Educate [...] urinary retention Outcome: Progressing Flowsheets (Taken 03/23/2023 010 by Maria G Roberts RN) Absence of urinary retention: Assess patient???s ability to void and empty bladder Monitor intake/output and perform bladder scan as needed Goal: Urinary catheter remains patent Outcome: Progressing Flowsheets (Taken 03/21/2023 1600 by Mtizy Murray RN) Urinary catheter remains patent: Assess [...] bowel fun (more content not included)... Normal [facility] 30 The patient is Moderately Stable [...] and behaviors that affect risk of falls [place] fall precautions as indicated by assessment Educate [...] urinary retention Outcome: Progressing Flowsheets (Taken 03/23/2023 010) Absence of urinary retention: Assess patient???s ability to void and empty bladder Monitor intake/output and perform bladder scan as needed Normal [facility] BASIC METABOLIC PANELon 12 Anion gap [Moles/Vol] 10 mmol/L Normal 7-20 [facility] Comment on above: Performed By: #### L [id number] ####[facility] ([facility])[address] [place] [address] Calcium [Mass/Vol] 9.2 mg/dL Normal 8.6-10.3 [facility] Comment on above: Performed By: #### L [id number] ####[facility] ([facility])[address] [place] [address] Chloride [Moles/Vol] 107 mmol/L Normal 98-107 [facility] Comment on above: Performed By: #### L [id number] ####[facility] ([facility])[address] [place] [address] CO2 [Moles/Vol] 24 mmol/L Normal 21-31 [facility] Comment on above: Performed By: #### L [id number] ####[facility] ([facility])[address] [place] [address] Creatinine [Mass/Vol] 0.65 mg/dL Low 0.70-1.30 [facility] Comment on above: Performed By: #### L [id number] ####[facility] ([facility])[address] [place] [address] GLOMERULAR FILTRATION RATE ML/MIN/1.73 SQ M.PREDICTED 109.9 mL/min/1.73m*2 Normal >60.0 [facility] Comment on above: Result Comment: The [facility]???s estimated glomerular filtration rate (eGFR) will [...] of individuals. Performed By: #### L [id number] ####[facility] ([facility])[address] [place] [address] Glucose [Mass/Vol] 103 mg/dL High 70-100 [facility] Comment on above: Performed By: #### L [id number] ####[facility] ([facility])[address] [place] [address] Potassium [Moles/Vol] 3.8 mmol/L Normal 3.5-5.1 [facility] Comment on above: Performed By: #### L [id number] ####[facility] ([facility])[address] [place] [address] Sodium [Moles/Vol] 137 mmol/L Normal 136-145 [facility] Comment on above: Performed By: #### L [id number] ####[facility] ([facility])[address] [place] [address] Urea nitrogen [Mass/Vol] 9 mg/dL Normal 7-25 [facility] Comment on above: Performed By: #### L [id number] ####[facility] ([facility])[address] [place] [address] UREA NITROGEN/CREATININE (MASS RATIO) IN SER/PLAS 13.8 Normal [facility] Comment on above: Performed By: #### L [id number] ####[facility] ([facility])[address] [place] [address] MAGNESIUMon 03-23-2023 Magnesium [Mass/Vol] 1.6 mg/dL Low 1.9-2.7 [facility] Comment on above: Performed By: #### L [id number] #### [facility] ([facility]) [address] [place] [address] 30on 03-22-2023 30 Problem: Pain - Adul [...] Goal: Maintains hematologic stability Outcome: Progressing Normal [facility] 30 Problem: Pain - Adul t [...] injury: Assess patient frequently for physical needs [place] fall precautions as indicated by assessment Identify [...] for suctioning and aspirate as needed Normal [facility] BASIC METABOLIC PANELon 12-0 Anion gap [Moles/Vol] 9 mmol/L Normal 7-20 [facility] Comment on above: Performed By: #### L [id number] #### [facility] ([facility]) [address] [place] [address] Calcium [Mass/Vol] 8.4 mg/dL Low 8.6-10.3 [facility] Comment on above: Performed By: #### L [id number] #### [facility] ([facility] [address] [place] [address] Chloride [Moles/Vol] 108 mmol/L High 98-107 [facility] Comment on above: Performed By: #### L [id number] #### [facility] [address] [place] [address] CO2 [Moles/Vol] 24 mmol/L Normal 21-31 [facility] Comment on above: Performed By: #### L [id number] #### [facility] ([facility]) [address] [place] [address] Creatinine [Mass/Vol] 0.68 mg/dL Low 0.70-1.30 [facility] Comment on above: Performed By: #### L [id number] #### [facility] ([facility]) [address] [facility] [place] [address] GLOMERULAR FILTRATION RATE ML/MIN/1.73 SQ M.PREDICTED 108.4 mL/min/1.73m*2 Normal >60.0 [facility] Comment on above: Result Comment: The [facility]???s estimated glomerular filtration rate (eGFR) will [...] individuals. Performed By: #### L [id number] #### [facility] ([facility]) [address] [place] [address] Glucose [Mass/Vol] 108 mg/dL High 70-100 [facility] Comment on above: Performed By: #### L [id number] #### [facility] ([facility]) [address] [place] [address] Potassium [Moles/Vol] 4.1 mmol/L Normal 3.5-5.1 [facility] Comment on above: Performed By: #### L [id number] #### [facility] ([facility]) [address] [place] [address] Sodium [Moles/Vol] 137 mmol/L Normal 136-145 [facility] Comment on above: Performed By: #### L [id number] #### [facility] ([facility]) [address] [place] [address] Urea nitrogen [Mass/Vol] 10 mg/dL Normal 7-25 [facility] Comment on above: Performed By: #### L [id number] #### [facility] ([facility] [address] [place] [address] UREA NITROGEN/CREATININE (MASS RATIO) IN SER/PLAS 14.7 Normal [facility] Comment on above: Performed By: #### L [id number] #### [facility] ([facility]) [address] [place] [address] Anion gap [Moles/Vol] 8 mmol/L Normal 7-20 [facility] Comment on above: Performed By: #### L [id number] ####[facility] ([facility] [place] [address] Calcium [Mass/Vol] 8.8 mg/dL Normal 8.6-10.3 [facility] Comment on above: Performed By: #### L [id number] ####[facility] ([facility])[address] [place] [address] Chloride [Moles/Vol] 106 mmol/L Normal 98-107 [facility] Comment on above: Performed By: #### L [id number] ####[facility] ([facility])[address] [place] [address] CO2 [Moles/Vol] 25 mmol/L Normal 21-31 [facility] Comment on above: Performed By: #### L [id number] ####[facility] ([facility])[address] [place] [address] Creatinine [Mass/Vol] 0.76 mg/dL Normal 0.70-1.30 [facility] Comment on above: Performed By: #### L [id number] ####[facility] ([facility])[address] [place] [address] GLOMERULAR FILTRATION RATE ML/MIN/1.73 SQ M.PREDICTED 104.8 mL/min/1.73m*2 Normal >60.0 [facility] Comment on above: Result Comment: [facility]???s estimated glomerular filtration rate (eGFR) will [...] of individuals. Performed By: #### L [id number] ####[facility] ([facility])[address] [place] [address] Glucose [Mass/Vol] 124 mg/dL High 70-100 [facility] Comment on above: Performed By: #### L [id number] ####[facility] ([facility])[address] [place] [address] Potassium [Moles/Vol] 3.4 mmol/L Low 3.5-5.1 [facility] Comment on above: Performed By: #### L [id number] ####[facility] ([facility])[address] [place] [address] Sodium [Moles/Vol] 136 mmol/L Normal 136-145 [facility] Comment on above: Performed By: #### L [id number] ####[facility] ([facility])[address] [place] [address] Urea nitrogen [Mass/Vol] 12 mg/dL Normal 7-25 [facility] Comment on above: Performed By: #### L [id number] ####[facility] ([facility])[address] [place] [address] UREA NITROGEN/CREATININE (MASS RATIO) IN SER/PLAS 15.8 Normal [facility] Comment on above: Performed By: #### L [id number] ####[facility] ([facility])[address] [place] [address] CBCon 03-22-2023 Erythrocyte distribution width (RBC) [Ratio] 13.7 % Normal 11.5-15.0 [facility] Comment on above: Performed By: #### L [id number] #### [facility] ([facility]) [address] [place] [address] ERYTHROCYTE MEAN CORPUSCULAR HEMOGLOBIN CONCENTRATION (G/DL) BY AUTOMATED 34.0 g/dL Normal 32.0-35.0 [facility] Comment on above: Performed By: #### L [id number] #### [facility] ([facility]) [address] [place] [address] Hematocrit (Bld) [Volume fraction] 38.5 % Low 39.0-55.0 [facility] Comment on above: Performed By: #### L [id number] #### [facility] ([facility]) [address] [place] [address] Hemoglobin (Bld) [Mass/Vol] 13.1 g/dL Normal 13.0-17.0 [facility] Comment on above: Performed By: #### L [id number] #### [facility] ([facility] [address] [place] [address] MCH (RBC) [Entitic mass] 30.8 pg Normal 27.0-33.0 [facility] Comment on above: Performed By: #### L [id number] #### [facility] ([facility] [address] [place] [address] MCV (RBC) [Entitic vol] 90.6 fL Normal 82.0-98.0 [facility] Comment on above: Performed By: #### L [id number] #### [facility] ([facility] [address] [place] [address] PLATELETS (10*3/UL) IN BLOOD AUTOMATED COUNT 198 10*3/uL Normal 150-400 [facility] Comment on above: Performed By: #### L [id number] #### [facility] ([facility]) [address] [place] [address] RBC (Bld) [#/Vol] 4.25 10*6/uL Normal 4.20-5.70 [facility] Comment on above: Performed By: #### L [id number] #### [facility] ([facility] [address] [place] [address] WBC (Bld) [#/Vol] 10.09 10*3/uL Normal 4.00-10.60 [facility] Comment on above: Performed By: #### L [id number] #### [facility] ([facility]) [address] [place] [address] MAGNESIUMon 03-22-2023 Magnesium [Mass/Vol] 1.9 mg/dL Normal 1.9-2.7 [facility] Comment on above: Performed By: #### L [id number] ####[facility] ([facility] [place] [address] Magnesium [Mass/Vol] 1.8 mg/dL Low 1.9-2.7 [facility] Comment on above: Performed By: #### L [id number] ####[facility] ([facility])[address] [place] [address] NURSNOTEon 03-22-2023 NURSNOTE Patient Name: Sam Elder : 1965 [...] Bryan Garg RN Rapid Response Team Nurse [phone] 03/22/2023 10:45 PM Normal [facility] TROPONIN Ion 03-22-2023 Troponin I.cardiac [Mass/Vol] 8.73 ng/mL Critically high 0.00-0.04 [facility] Comment on above: Result Comment: Prev ious result verified on 03/22/2023 0140 on specimen/case [id number] called with component Troponin I for procedure Troponin I with value 12.32 ng/mL. Performed By: #### L [id number] ####[facility] ([facility])[address] [place] [address] Troponin I.cardiac [Mass/Vol] 12.32 ng/mL Critically high 0.00-0.04 [facility] Comment on above: Result Comment: M-CT EVIOUS CRITICAL RESULT Previous result verified on 03/21/2023 1359 on specimen/case [id number] called with component Troponin I for procedure Troponin I with value 19.66 ng/mL. Performed By: #### L [id number] ####[facility] ([facility])[address] [place] [address] 30on 03-21-2023 30 The patient is Moderately [...] optimal renal function maintained Outcome: Progressing Normal [facility] ANTI-XA (HEPARIN LEVEL)on HEPARIN UNFRACTIONATED (U/ML) IN PPP BY CHROMOGENIC METHOD 0.59 IU/mL Normal 0.3-0.7 [facility] Comment on above: Result Comment: [place] roxaban and Apixaban will interfere with the anti Xa assay used to monitor UFH and LMWH. Performed By: #### L [id number] ####[facility] ([facility])[address] [place] [address] HEPARIN UNFRACTIONATED (U/ML) IN PPP BY CHROMOGENIC METHOD 0.42 IU/mL Normal 0.3-0.7 [facility] Comment on above: Result Comment: [place] roxaban and Apixaban will interfere with the anti Xa assay used to monitor UFH and LMWH. Performed By: #### L [id number] #### [facility] ([facility]) [address] [place] [address] ARTERIAL BLOOD GAS WITH CO-O XIMETRYon 03-21-2023 Base excess Calc (Bld) [Moles/Vol] 1.3 mmol/L Normal -2.0-3.0 [facility] Comment on above: Performed By: #### L [id number] ####[facility] [id number] [place] [address] [facility] CARBOXYHEMOGLOBIN/H EMOGLOBIN TOTAL % IN BLOOD 1.8 % Normal 0.0-3.0 [facility] Comment on above: Performed By: #### L [id number] ####[facility] [id number] [place] [address] [facility] CO2 (Bld) [Partial pressure] 36 mm[Hg] Normal 35-48 [facility] Comment on above: Performed By: #### L [id number] ####[facility] [id number] DEOXYGENATED HEMOGLOBIN IN BLOOD 2.4 % Normal 1-5 [facility] Comment on above: Performed By: #### L [id number] ####[facility] [id number] [place] [address] [facility] HCO3 (Bld) [Moles/Vol] 25.0 mmol/L Normal 21.0-28.0 [facility] Comment on above: Performed By: #### L [id number] ####[facility] [id number] [place] [address] [facility] Hemoglobin (Bld) [Mass/Vol] 13.6 g/dL Normal 11.7-17.4 [facility] Comment on above: Performed By: #### L [id number] ####[facility] [id number] [place], [place] [address] LPM 5 Normal [facility] Comment on above: Performed By: #### L [id number] ####[facility] [id number] [place] [address] [facility] METHEMOGLOBIN/100 IN BLOOD 0.7 % Normal 0.0-1.5 [facility] Comment on above: Performed By: #### L [id number] ####[facility] [id number] [place] [address] [facility] Oxygen (Bld) [Partial pressure] 79 mm[Hg] Low 83-100 [facility] Comment on above: Performed By: #### L [id number] ####[facility] [id number] [place] [address] [facility] OXYGEN SATURATION (%) IN ARTERIAL BLOOD 97.5 % Normal 94.0-98.0 [facility] Comment on above: Performed By: #### L [id number] ####[facility] [id number] [place] [address] [facility] OXYGENATED HEMOGLOBIN IN BLOOD 95.0 % Normal 90.0-95.0 [facility] Comment on above: Performed By: #### L [id number] ####[facility] [id number] [place] [address] [facility] pH (Bld) 7.45 [pH] Normal 7.35-7.45 [facility] Comment on above: Performed By: #### L [id number] ####[facility] [id number] [place] [address] [facility] SOURCE OF OXYGEN Nasal cannula Normal [facility] Comment on above: Performed By: #### L [id number] ####[facility] [id number] [place] [address] [facility] B-TYPE NATRIURETIC PEPTIDEon 03-21-2023 Natriuretic peptide B (Bld) [Mass/Vol] 464 pg/mL High 0-100 [facility] Comment on above: Performed By: #### L [id number] ####[facility] ([facility])[address] [place] [address] BASIC METABOLIC PANELon 12-0 8-2023 Anion gap [Moles/Vol] 11 mmol/L Normal 7-20 [facility] Comment on above: Performed By: #### L [id number] #### [facility] ([facility]) [address] [place] [address] Calcium [Mass/Vol] 8.9 mg/dL Normal 8.6-10.3 [facility] Comment on above: Performed By: #### L [id number] #### [facility] ([facility]) [address] [place] [address] Chloride [Moles/Vol] 105 mmol/L Normal 98-107 [facility] Comment on above: Performed By: #### L [id number] #### [facility] ([facility]) [address] [place] [address] CO2 [Moles/Vol] 24 mmol/L Normal 21-31 [facility] Comment on above: Performed By: #### L [id number] #### [facility] ([facility]) [address] [place] [address] Creatinine [Mass/Vol] 0.73 mg/dL Normal 0.70-1.30 [facility] Comment on above: Performed By: #### L [id number] #### [facility] ([facility]) [address] [place] [address] GLOMERULAR FILTRATION RATE ML/MIN/1.73 SQ M.PREDICTED 106.1 mL/min/1.73m*2 Normal >60.0 [facility] Comment on above: Result Comment: [facility]???s estimated glomerular filtration rate (eGFR) will [...] group of individuals. Performed By: #### L [id number] #### [facility] ([facility] [address] [place] [address] Glucose [Mass/Vol] 100 mg/dL Normal 70-100 [facility] Comment on above: Performed By: #### L [id number] #### [facility] ([facility]) [address] [place] [address] Potassium [Moles/Vol] 3.8 mmol/L Normal 3.5-5.1 [facility] Comment on above: Performed By: #### L [id number] #### [facility] ([facility]) [address] [place] [address] Sodium [Moles/Vol] 136 mmol/L Normal 136-145 [facility] Comment on above: Performed By: #### L [id number] #### [facility] ([facility]) [address] [place] [address] Urea nitrogen [Mass/Vol] 11 mg/dL Normal 7-25 [facility] Comment on above: Performed By: #### L [id number] #### [facility] ([facility]) [address] [place] [address] UREA NITROGEN/CREATININE (MASS RATIO) IN SER/PLAS 15.1 Normal [facility] Comment on above: Performed By: #### L [id number] #### [facility] ([facility]) [address] [place] [address] Anion gap [Moles/Vol] 10 mmol/L Normal 7-20 [facility] Comment on above: Performed By: #### L [id number] #### [facility] ([facility]) [address] [place] [address] Calcium [Mass/Vol] 8.8 mg/dL Normal 8.6-10.3 [facility] Comment on above: Performed By: #### L [id number] #### [facility] ([facility] [address] [place] [address] Chloride [Moles/Vol] 107 mmol/L Normal 98-107 [facility] Comment on above: Performed By: #### L [id number] #### [facility] ([facility]) [address] [place] [address] CO2 [Moles/Vol] 22 mmol/L Normal 21-31 [facility] Comment on above: Performed By: #### L [id number] #### [facility] ([facility]) [address] [place] [address] Creatinine [Mass/Vol] 0.71 mg/dL Normal 0.70-1.30 [facility] Comment on above: Performed By: #### L [id number] #### [facility] ([facility]) [address] [place] [address] GLOMERULAR FILTRATION RATE ML/MIN/1.73 SQ M.PREDICTED 107.0 mL/min/1.73m*2 Normal >60.0 [facility] Comment on above: Result Comment: [facility]???s estimated glomerular filtration rate (eGFR) will [...] individuals. Performed By: #### L [id number] #### [facility] ([facility]) [address] [place] [address] Glucose [Mass/Vol] 99 mg/dL Normal 70-100 [facility] Comment on above: Performed By: #### L [id number] #### [facility] ([facility]) [address] [place] [address] Potassium [Moles/Vol] 3.9 mmol/L Normal 3.5-5.1 [facility] Comment on above: Performed By: #### L [id number] #### [facility] ([facility]) [address] [place] [address] Sodium [Moles/Vol] 135 mmol/L Low 136-145 [facility] Comment on above: Performed By: #### L [id number] #### [facility] ([facility] [address] [place] [address] Urea nitrogen [Mass/Vol] 11 mg/dL Normal 7-25 [facility] Comment on above: Performed By: #### L [id number] #### [facility] ([facility]) [address] [place] [address] UREA NITROGEN/CREATININE (MASS RATIO) IN SER/PLAS 15.5 Normal [facility] Comment on above: Performed By: #### L [id number] #### [facility] ([facility]) [address] [place] [address] CALCIUM, IONIZEDon CALCIUM IONIZED (MMOL/L) IN BLOOD 1.15 mmol/L Normal 1.15-1.33 [facility] Comment on above: Performed By: #### L [id number] #### [facility] ([facility]) [address] [place] [address] CBCon 03-21-2023 Erythrocyte distribution width (RBC) [Ratio] 13.9 % Normal 11.5-15.0 [facility] Comment on above: Order Comment: On ar rival to CVU Performed By: #### L [id number] #### [facility] ([facility]) [address] [place] [address] ERYTHROCYTE MEAN CORPUSCULAR HEMOGLOBIN CONCENTRATION (G/DL) BY AUTOMATED 33.2 g/dL Normal 32.0-35.0 [facility] Comment on above: Order Comment: On ar rival to CVU Performed By: #### L [id number] #### [facility] [address] [place] [address] Hematocrit (Bld) [Volume fraction] 40.1 % Normal 39.0-55.0 [facility] Comment on above: Order Comment: On ar rival to CVU Performed By: #### L [id number] #### [facility] [address] [place] [address] Hemoglobin (Bld) [Mass/Vol] 13.3 g/dL Normal 13.0-17.0 [facility] Comment on above: Order Comment: On ar rival to CVU Performed By: #### L [id number] #### [facility] [address] [place] [address] MCH (RBC) [Entitic mass] 30.6 pg Normal 27.0-33.0 [facility] Comment on above: Order Comment: On ar rival to CVU Performed By: #### L [id number] #### [facility] ([facility]) [address] [place] [address] MCV (RBC) [Entitic vol] 92.2 fL Normal 82.0-98.0 [facility] Comment on above: Order Comment: On ar rival to CVU Performed By: #### L [id number] #### [facility] ([facility]) [address] [place] [address] PLATELETS (10*3/UL) IN BLOOD AUTOMATED COUNT 201 10*3/uL Normal 150-400 [facility] Comment on above: Order Comment: On ar rival to CVU Performed By: #### L [id number] #### [facility] ([facility]) [address] [place] [address] RBC (Bld) [#/Vol] 4.35 10*6/uL Normal 4.20-5.70 [facility] Comment on above: Order Comment: On ar rival to CVU Performed By: #### L [id number] #### [facility] ([facility]) [address] [place] [address] WBC (Bld) [#/Vol] 8.80 10*3/uL Normal 4.00-10.60 [facility] Comment on above: Order Comment: On ar rival to CVU Performed By: #### L [id number] #### [facility] [address] [place] [address] CBC WITH AUTO DIFFERENTIALon 03-21-2023 Basophils (Bld) [#/Vol] 0.03 10*3/uL Normal 0.00-0.20 [facility] Comment on above: Performed By: #### L [id number] #### [facility] ([facility] [address] [place] [address] Basophils/100 WBC (Bld) 0.3 % Normal 0.0-1.0 [facility] Comment on above: Performed By: #### L [id number] #### [facility] ([facility]) [address] [place] [address] Eosinophils (Bld) [#/Vol] 0.08 10*3/uL Normal 0.00-0.50 [facility] Comment on above: Performed By: #### L [id number] #### [facility] ([facility]) [address] [place] [address] Eosinophils/100 WBC (Bld) 0.8 % Normal 0.0-6.0 [facility] Comment on above: Performed By: #### L [id number] #### [facility] ([facility]) [address] [place] [address] Erythrocyte distribution width (RBC) [Ratio] 13.7 % Normal 11.5-15.0 [facility] Comment on above: Performed By: #### L [id number] #### [facility] ([facility] [address] [place] [address] ERYTHROCYTE MEAN CORPUSCULAR HEMOGLOBIN CONCENTRATION (G/DL) BY AUTOMATED 32.9 g/dL Normal 32.0-35.0 [facility] Comment on above: Performed By: #### L [id number] #### [facility] [address] [place] [address] Hematocrit (Bld) [Volume fraction] 37.4 % Low 39.0-55.0 [facility] Comment on above: Performed By: #### L [id number] #### [facility] ([facility] [address] [place] [address] Hemoglobin (Bld) [Mass/Vol] 12.3 g/dL Low 13.0-17.0 [facility] Comment on above: Performed By: #### L [id number] #### [facility] ([facility]) [address] [place] [place] [address] Immature granulocytes (Bld) [#/Vol] 0.04 10*3/uL Normal 0.00-0.20 [facility] Comment on above: Performed By: #### L [id number] #### [facility] ([facility]) [address] [place] [address] Immature granulocytes/100 WBC (Bld) 0.4 % Normal 0.0-1.0 [facility] Comment on above: Performed By: #### L [id number] #### [facility] ([facility]) [address] [place] [address] Lymphocytes (Bld) [#/Vol] 2.22 10*3/uL Normal 1.20-4.00 [facility] Comment on above: Performed By: #### L [id number] #### [facility] ([facility]) [address] [place] [address] Lymphocytes/100 WBC (Bld) 21.4 % Normal 20.0-45.0 [facility] Comment on above: Performed By: #### L [id number] #### [facility] ([facility]) [address] [place] [address] MCH (RBC) [Entitic mass] 30.6 pg Normal 27.0-33.0 [facility] Comment on above: Performed By: #### L [id number] #### [facility] ([facility]) [address] [place] [place] [address] MCV (RBC) [Entitic vol] 93.0 fL Normal 82.0-98.0 [facility] Comment on above: Performed By: #### L [id number] #### [facility] ([facility]) [address] [place] [address] Monocytes (Bld) [#/Vol] 0.80 10*3/uL Normal 0.10-1.00 [facility] Comment on above: Performed By: #### L [id number] #### [facility] ([facility]) [address] [place] [address] Monocytes/100 WBC (Bld) 7.7 % Normal 5.0-12.0 [facility] Comment on above: Performed By: #### L [id number] #### [facility] ([facility]) [address] [place] [address] Neutrophils (Bld) [#/Vol] 7.22 10*3/uL Normal 1.60-7.60 [facility] Comment on above: Performed By: #### L [id number] #### [facility] ([facility]) [address] [place] [address] Neutrophils/100 WBC (Bld) 69.4 % Normal 40.0-72.0 [facility] Comment on above: Performed By: #### L [id number] #### [facility] ([facility]) [address] [place] [address] NRBC (PER 100 WBCS) BY AUTOMATED COUNT 0.0 % Normal 0 [facility] Comment on above: Performed By: #### L [id number] #### [facility] ([facility]) [address] [place] [address] PLATELETS (10*3/UL) IN BLOOD AUTOMATED COUNT 185 10*3/uL Normal 150-400 [facility] Comment on above: Performed By: #### L [id number] #### [facility] ([facility]) [address] [place] [address] RBC (Bld) [#/Vol] 4.02 10*6/uL Low 4.20-5.70 [facility] Comment on above: Performed By: #### L [id number] #### [facility] ([facility]) [address] [place] [address] WBC (Bld) [#/Vol] 10.39 10*3/uL Normal 4.00-10.60 [facility] Comment on above: Performed By: #### L [id number] #### [facility] ([facility]) [address] [place] [address] CO-OXIMETRYon 03-21-2023 CARBOXYHEMOGLOBIN/H EMOGLOBIN TOTAL % IN BLOOD 1.4 % Normal [facility] Comment on above: Performed By: #### L [id number] #### [facility] ([facility]) [address] [place] [address] Hemoglobin (Bld) [Mass/Vol] 13.3 g/dL Normal [facility] Comment on above: Performed By: #### L [id number] #### [facility] ([facility]) [address] [place] [address] METHEMOGLOBIN/100 IN BLOOD 1.1 % Normal 0.0-1.5 [facility] Comment on above: Performed By: #### L [id number] #### [facility] ([facility]) [address] [place] [address] Oxygen saturation in Blood 64.9 % Normal [facility] Comment on above: Performed By: #### L [id number] #### [facility] ([facility]) [address] [place] [address] OXYGENATED HEMOGLOBIN IN BLOOD 63.3 % Normal [facility] Comment on above: Performed By: #### L [id number] #### [facility] ([facility]) [address] [place] [address] CONSULTon 03-21-2023 CONSULT -- Attestation signed by Jacques Brewer MD at 03/24/2023 11:31 AM Patient [...] Elder Age - 57 [facility] 1965 [id number] Date of Admission - 03/20/2023 8:25 PM Chief Complaint Chest pain History of Present Illness Sam Elder is a 57 y.o. male Patient has no known past medical history and has not seen a doctor regularly for his entire life. [facility] after having chest pain with [...] became diaphoretic and EMS was called. At [facility] initial workup significant for Troponin of 1.53, BNP 464, EKG with sinus rhythm, PVCs and septal infarct. Patient transferred to [facility] for catheterization. Patient had catheterization this am with stent placement in RCA and LAD. During the procedure patient had decompensating heart failure with low blood pressures and Impella device was placed. Patient then returned to the laboratory technologist later this afternoon and the Impella device [...] tablet 2.5 mg, 2.5 mg, oral, Daily, Santana Jung MD, 2.5 mg at 03/21/23 1822 [...] 2240 Oxygen Therapy, , inhalation, Continuous PRN, Jacques Brewer MD, Given at 03/21/23 1500 pantoprazole (ProtoNix) EC tablet 40 mg, 40 mg, oral, Daily, Bryan Nielsen MD, 40 mg at 03/20/23 7673 spironolactone (Aldactone) split tablet 12.5 mg, 12.5 [...] dysuria. Musculoskeleta (more content not included)... Normal [facility] CONSULT -- Attestation signed by Martin [...] Teaching Physician's Revisions: none Martin Blackburn MD [facility] Cardiology Consult Note Reason for Consult: transfer from [facility], NSTEMI, elevated trop 1.53, vitals stable, cards [...] nasal cannula saturating well. Patient at laboratory technologist during bedside evaluation in AM. Patient evaluated [...] 82 21 92 % -- -- 03/20/23 2226 86/69 -- -- 81 23 92 % -- -- 03/20/23 2206 91/77 -- -- 81 22 90 % -- -- 03/20/23 2146 93/72 -- -- 83 19 93 % -- -- 03/20/23 2126 93/73 -- -- 80 20 91 % -- -- 03/20/23 2106 96/76 -- -- 82 21 91 % -- -- 03/20/23 2046 92/72 -- -- 83 15 94 % [...] Value Ventricular Rate [address] Interval 194 QRS DURATION 94 QT Interval 362 QTC CALCULATION(BAZETT) 407 P [place] 69 R-[place] 113 T Wave [place] 97 Impression Sinus rhythm with occasional Premature vent (more content not included)... Normal [facility] HPon 03-21-2023 HP H&P reviewed. The patient was examined and there are no changes to the H&P. Patient without knonwn prior CAD hx, significant smoking and FH, presenting with NSTEMI and elevated BNP Will proceed with coronary angiogram and right heart cath. Procedures' details, risks and benefits discussed with the patient and he's agreeable. Normal [facility] MAGNESIUMon 03-21-2023 Magnesium [Mass/Vol] 1.7 mg/dL Low 1.9-2.7 [facility] Comment on above: Order Comment: On ar rival to CVU Performed By: #### L [id number] ####[facility] ([facility])[address] [place] [address] Magnesium [Mass/Vol] 1.7 mg/dL Low 1.9-2.7 [facility] Comment on above: Performed By: #### L [id number] #### [facility] ([facility]) [address] [place] [address] POCT ACTIVATED CLOTTING TIME UNSOLICITED RESULTSon 03-21-2023 POC ACTIVATED CLOTTING TIME 165 sec High 82-152 [facility] Comment on above: Performed By: #### L [id number] #### [facility] ([facility]) [address] [place] [address] POC ACTIVATED CLOTTING TIME 154 sec High 82-152 [facility] Comment on above: Performed By: #### L [id number] ####[facility] ([facility])[address] [place] [address] POC ACTIVATED CLOTTING TIME 165 sec High 82-152 [facility] Comment on above: Performed By: #### L [id number] #### [facility] ([facility]) [address] [place] [address] POC ACTIVATED CLOTTING TIME 194 sec High 82-152 [facility] Comment on above: Performed By: #### L [id number] #### [facility] ([facility]) [address] [place] [address] POTASSIUM, WHOLE BLOODon Potassium [Moles/Vol] 3.8 mmol/L Normal 3.5-5.1 [facility] Comment on above: Performed By: #### P OTASSIUM, WHOLE BLOOD ####[facility] RESPIRATORY [id number] [place] [address] [place] SODIUM, WHOLE BLOODon 2022 SODIUM, WHOLE BLOOD 134 Low 136-145 [facility] Comment on above: Performed By: #### L [id number] #### [facility] ([facility]) [address] [place] [address] TROPONIN Ion 03-21-2023 Troponin I.cardiac [Mass/Vol] 12.84 ng/mL Critically high 0.00-0.04 [facility] Comment on above: Result Comment: M-CT EVIOUS CRITICAL RESULT Previous result verified on 03/21/2023 1359 on specimen/case [facility]-[id number] called with component Troponin I for procedure Troponin I with value 19.66 ng/mL. Performed By: #### L [id number] #### [facility] ([facility]) [address] [place] [address] Troponin I.cardiac [Mass/Vol] 19.66 ng/mL Critically high 0.00-0.04 [facility] Comment on above: Result Comment: Prev ious result verified on 03/21/2023 0637 on specimen/case [facility]-[id number] called with component Troponin I for procedure Troponin I with value 17.29 ng/mL. Performed By: #### L [id number] ####[facility] ([facility])[address] [place] [address] Troponin I.cardiac [Mass/Vol] 17.29 ng/mL Critically high 0.00-0.04 [facility] Comment on above: Result Comment: Prev ious result verified on 03/20/20231 on specimen/case [id number] called with component Troponin I for procedure Troponin I with value 1.53 ng/mL. Performed By: #### L [id number] #### [facility] ([facility]) [address] [place] [address] ANTI-XA (HEPARIN LEVEL)on HEPARIN UNFRACTIONATED (U/ML) IN PPP BY CHROMOGENIC METHOD 0.19 IU/mL Low 0.3-0.7 [facility] Comment on above: Order Comment: Check anti-Xa level every 6 hours while on heparin infusion, or per protocol. Result Comment: Mary roxaban and Apixaban will interfere with the anti Xa assay used to monitor UFH and LMWH. Performed By: #### L [id number] ####[facility] ([facility])[address] [place] [address] APTTon 03-20-2023 ACTIVATED PARTIAL THROMBOPLASTIN TIME IN PPP BY COAGULATION ASSAY 49.5 Seconds High 25.0-35.0 [facility] Comment on above: Result Comment: Clin ical significance of the APTT is questionable in the presence of heparin. Performed By: #### L [id number] #### [facility] ([facility]) [address] [place] [address] CBC WITH AUTO DIFFERENTIALon 03-20-2023 Basophils (Bld) [#/Vol] 0.02 10*3/uL Normal 0.00-0.20 [facility] Comment on above: Performed By: #### L [id number] ####[facility] ([facility])[address] [place] [address] Basophils/100 WBC (Bld) 0.2 % Normal 0.0-1.0 [facility] Comment on above: Performed By: #### L [id number] ####[facility] ([facility])[address] [place] [address] Eosinophils (Bld) [#/Vol] 0.02 10*3/uL Normal 0.00-0.50 [facility] Comment on above: Performed By: #### L [id number] ####[facility] ([facility])[address] [place] [address] Eosinophils/100 WBC (Bld) 0.2 % Normal 0.0-6.0 [facility] Comment on above: Performed By: #### L [id number] ####[facility] ([facility])[address] [place] [address] Erythrocyte distribution width (RBC) [Ratio] 13.7 % Normal 11.5-15.0 [facility] Comment on above: Performed By: #### L [id number] ####[facility] ([facility])[address] [place] [address] ERYTHROCYTE MEAN CORPUSCULAR HEMOGLOBIN CONCENTRATION (G/DL) BY AUTOMATED 32.8 g/dL Normal 32.0-35.0 [facility] Comment on above: Performed By: #### L [id number] ####[facility] ([facility])[address] [place] [address] Hematocrit (Bld) [Volume fraction] 40.8 % Normal 39.0-55.0 [facility] Comment on above: Performed By: #### L [id number] ####[facility] ([facility])[address] [place] [address] Hemoglobin (Bld) [Mass/Vol] 13.4 g/dL Normal 13.0-17.0 [facility] Comment on above: Performed By: #### L [id number] ####[facility] ([facility])[address] [place] [address] Immature granulocytes (Bld) [#/Vol] 0.04 10*3/uL Normal 0.00-0.20 [facility] Comment on above: Performed By: #### L [id number] ####[facility] ([facility])[address] [place] [address] Immature granulocytes/100 WBC (Bld) 0.4 % Normal 0.0-1.0 [facility] Comment on above: Performed By: #### L [id number] ####[facility] ([facility])[address] [place] [address] Lymphocytes (Bld) [#/Vol] 1.22 10*3/uL Normal 1.20-4.00 [facility] Comment on above: Performed By: #### L [id number] ####[facility] ([facility])[address] [place] [address] Lymphocytes/100 WBC (Bld) 12.2 % Low 20.0-45.0 [facility] Comment on above: Performed By: #### L [id number] ####[facility] ([facility])[address] [place] [address] MCH (RBC) [Entitic mass] 30.8 pg Normal 27.0-33.0 [facility] Comment on above: Performed By: #### L [id number] ####[facility] ([facility])[address] [place] [address] MCV (RBC) [Entitic vol] 93.8 fL Normal 82.0-98.0 [facility] Comment on above: Performed By: #### L [id number] ####[facility] ([facility])[address] [place] [address] Monocytes (Bld) [#/Vol] 0.51 10*3/uL Normal 0.10-1.00 [facility] Comment on above: Performed By: #### L [id number] ####[facility] ([facility])[address] [place] [address] Monocytes/100 WBC (Bld) 5.1 % Normal 5.0-12.0 [facility] Comment on above: Performed By: #### L [id number] ####[facility] ([facility] [place] [address] Neutrophils (Bld) [#/Vol] 8.21 10*3/uL High 1.60-7.60 [facility] Comment on above: Performed By: #### L [id number] ####[facility] ([facility])[address] [place] [address] Neutrophils/100 WBC (Bld) 81.9 % High 40.0-72.0 [facility] Comment on above: Performed By: #### L [id number] ####[facility] ([facility] [place] [address] NRBC (PER 100 WBCS) BY AUTOMATED COUNT 0.0 % Normal 0 [facility] Comment on above: Performed By: #### L [id number] ####[facility] ([facility] [place], [place] [address] PLATELETS (10*3/UL) IN BLOOD AUTOMATED COUNT 215 10*3/uL Normal 150-400 [facility] Comment on above: Performed By: #### L [id number] ####[facility] ([facility])[address] [place] [address] RBC (Bld) [#/Vol] 4.35 10*6/uL Normal 4.20-5.70 [facility] Comment on above: Performed By: #### L [id number] ####[facility] ([facility])[address] [place], [place] [address] WBC (Bld) [#/Vol] 10.02 10*3/uL Normal 4.00-10.60 [facility] Comment on above: Performed By: #### L [id number] ####[facility] ([facility] [place] [address] COMPREHENSIVE METABOLIC PANE Edy 03-20-2023 Albumin [Mass/Vol] 3.9 g/dL Normal 3.5-5.7 [facility] Comment on above: Performed By: #### L [id number] ####[facility] ([facility])[address] [place] [address] ALP [Catalytic activity/Vol] 63 U/L Normal 34-104 [facility] Comment on above: Performed By: #### L [id number] ####[facility] ([facility])[address] [place] [address] ALT [Catalytic activity/Vol] 13 U/L Normal 7-52 [facility] Comment on above: Performed By: #### L [id number] ####[facility] ([facility])[address] [place] [address] Anion gap [Moles/Vol] 13 mmol/L Normal 7-20 [facility] Comment on above: Performed By: #### L [id number] ####[facility] ([facility] [place] [address] AST [Catalytic activity/Vol] 26 U/L Normal 13-39 [facility] Comment on above: Performed By: #### L [id number] ####[facility] ([facility] [place] [address] Bilirubin [Mass/Vol] 0.6 mg/dL Normal 0.3-1.0 [facility] Comment on above: Performed By: #### L [id number] ####[facility] ([facility])[address] [place] [address] Calcium [Mass/Vol] 8.9 mg/dL Normal 8.6-10.3 [facility] Comment on above: Performed By: #### L [id number] ####[facility] ([facility])[address] [place] [address] Chloride [Moles/Vol] 107 mmol/L Normal 98-107 [facility] Comment on above: Performed By: #### L [id number] ####[facility] ([facility])[address] [place] [address] CO2 [Moles/Vol] 22 mmol/L Normal 21-31 [facility] Comment on above: Performed By: #### L [id number] ####[facility] ([facility])[address] [place] [address] Creatinine [Mass/Vol] 0.78 mg/dL Normal 0.70-1.30 [facility] Comment on above: Performed By: #### L [id number] ####[facility] ([facility])[address] [place] [address] GLOMERULAR FILTRATION RATE ML/MIN/1.73 SQ M.PREDICTED 104.0 mL/min/1.73m*2 Normal >60.0 [facility] Comment on above: Result Comment: The [facility]???s estimated glomerular filtration rate (eGFR) will [...] of individuals. Performed By: #### L [id number] ####[facility] ([facility])[address] [place] [address] Glucose [Mass/Vol] 121 mg/dL High 70-100 [facility] Comment on above: Performed By: #### L [id number] ####[facility] ([facility])[address] [place] [address] Potassium [Moles/Vol] 4.6 mmol/L Normal 3.5-5.1 [facility] Comment on above: Performed By: #### L [id number] ####[facility] ([facility])[address] [place] [address] Protein [Mass/Vol] 6.2 g/dL Normal 6.0-8.3 [facility] Comment on above: Performed By: #### L [id number] ####[facility] ([facility])[address] [place] [address] Sodium [Moles/Vol] 137 mmol/L Normal 136-145 [facility] Comment on above: Performed By: #### L [id number] ####[facility] ([facility])[address] [place] [address] Urea nitrogen [Mass/Vol] 10 mg/dL Normal 7-25 [facility] Comment on above: Performed By: #### L [id number] ####[facility] (BEJOCY)[address] [place] [address] UREA NITROGEN/CREATININE (MASS RATIO) IN SER/PLAS 12.8 Normal [facility] Comment on above: Performed By: #### L [id number] ####[facility] (ELLYN)[address] [place] [address] EDNURSon 03-20-2023 EDNURS Patient arrives by life flight from [place] with elevated and increasing troponin from 0.82 [...] times 4 and denies any pain. Normal [facility] EDPROVon 03-20-2023 EDPROV HPI Chief Complaint [...] History provided by: EMS personnel and patient front desk agent used: No [place] Coma Scale Score: 15 Patient History History [...] sensory deficit. ECG 12 lead Performed by: Monse Ornelas MD Authorized by: Monse Ornelas MD ECG reviewed by ED Physician in the absence of a executive cyber leader: yes Previous ECG: Previous ECG: Unavailable Interpretation: Interpretation: abnormal Rate: ECG rate: 83 ECG rate assessment: normal Rhythm: Rhythm: sinus rhythm Rhythm comment: W right axis deviation Comments: EKG interpretation done by Dr. Ornelas Qtc 432 ms ED Course & MDM ED Course as of 03/20/23 2209 Deepali Mar 20, 20232037 Patient arrives from OSH for concern of NSTEMI. He received 1 L fluid MANAGER TRAINING as well as aspirin and Brilinta. He [...] 70s. Cardiac workup ordered. Will speak to executive cyber leader once troponin results. Patient arrives on a [...] of 03/20/232208 NSTEMI (non-ST elevated myocardial infarction) ([facility]) SOB (shortness of breath) Medical Decision Making [...] (more content not included)... Invalid Interpretation Code [facility] EDPROV -- Attestation signed by Monse Ornelas MD at 03/24/2023 3:04 PM I [...] with the patient and family: 60 mins Monse Ornelas MD HPI Chief Complaint Patient presents with Shortness of Breath Initial evaluation completed by (Resident) at 2020 Sam Elder is a 57 y.o. male [...] History provided by: EMS personnel and patient front desk agent used: No [place] Coma Scale Score: 15 Patient History History [...] sensory deficit. ECG 12 lead Performed by: Monse Ornelas MD Authorized by: Monse Ornelas MD ECG reviewed by ED Physician in the absence of a executive cyber leader: yes Previous ECG: Previous ECG: Unavailable Interpretation: Interpretation: abnormal Rate: ECG rate: 83 ECG rate assessment: normal Rhythm: Rhythm: sinus rhythm Rhythm comment: W right axis deviation Comments: EKG interpretation done by Dr. Ornelas Qtc 432 ms ED Course & [facility] ED Course as of 03/20/232208 Deepali Mar 20, 20232037 Patient arrives from OSH for concern of NSTEMI. He received 1 L fluid MANAGER TRAINING as well as aspirin and Brilinta. He [...] 70s. Cardiac workup ordered. Will speak to executive cyber leader once troponin results. Patient arrives on a heparin drip. This is continued. [NG] 1 Troponin resulted at 1.53, cardiology paged [NG] [phone] Spoke to cardiology. As patient is stable they are recommending admission to medicine. Plan for trending troponins, echo, and cardiac cath. Cardiology will see patient in the morning [NG] ED Course User Index [NG] Marshal Weir MD Diagnoses as of 03/20/23 2209 NSTEMI (non-ST elevated myocardial infarction) (CMS/HCC) SOB (shortness of breath) Medical Decision (more content not included)... Normal [facility] LIPID PANELon 03-20-2023 CHOL/HDL 5.1 mg/dL Normal [facility] Comment on above: Performed By: #### L [id number] #### [facility] ([facility]) [address] [place], [place] [address] Cholesterol [Mass/Vol] 178 mg/dL Normal 120-200 [facility] Comment on above: Performed By: #### L [id number] #### [facility] ([facility]) [address] [place] [address] Magnesium [Mass/Vol] 90 mg/dL Normal 40-149 [facility] Comment on above: Result Comment: TRIG LYCERIDE REFERENCE RANGE: 20 YEARS AND OLDER CARDIOVASCULAR RISK LESS THAN 150 mg/dL LOW RISK 150 TO 199 mg/dL BORDERLINE RISK 200 mg/dL AND GREATER HIGH RISK Performed By: #### L [id number] #### [facility] ([facility]) [address] [place] [address] Magnesium [Mass/Vol] 125 mg/dL Normal 0-160 [facility] Comment on above: Performed By: #### L AB18 #### [facility] ([facility]) [address] [place] [address] Magnesium [Mass/Vol] 35 mg/dL Normal 23-92 [facility] Comment on above: Performed By: #### L AB18 #### [facility] ([facility]) [address] [place] [address] NON HDL CHOL. (LDL+VLDL) 143 Normal [facility] Comment on above: Performed By: #### L AB18 #### [facility] ([facility]) [address] [place] [address] TOTAL VLDL-C 18 mg/dL Normal 0-40 [facility] Comment on above: Performed By: #### L AB18 #### [facility] ([employer]) [address] [place] [address] MAGNESIUMon 03-20-2023 Magnesium [Mass/Vol] 1.6 mg/dL Low 1.9-2.7 [facility] Comment on above: Performed By: #### L AB103 #### [facility] ([employer]) [address] [place] [address] PROTIME-INRon 03-20-2023 INR IN PPP BY COAGULATION ASSAY 1.06 Normal 0.90-1.10 [facility] Comment on above: Result Comment: ACCC [...] CHEST 1995;108:231S-246S. Performed By: #### L AB320 ####[facility] [employer])[address] [place] [address] PROTHROMBIN TIME (PT) IN PPP BY COAGULATION ASSAY 13.8 Seconds Normal 12.3-14.8 [facility] Comment on above: Performed By: #### L AB320 ####[facility] [employer])[address] [place] [address] TROPONIN Ion 03-20-2023 Troponin I.cardiac [Mass/Vol] 1.53 ng/mL Critically high 0.00-0.04 [facility] Comment on above: Performed By: #### L AB15 #### [facility] ([facility]) [address] [place] [address] MRI BRAIN WO/W CONon 019 MRI BRAIN WO/W CON Patient: SAM ELDER Exam Date: 12/23/2018 : 1965 Gender:M Ordering : TRISTEN CASTILLO Admission #: [id number] Family : Order #: [id number] CLICK HERE TO VIEW EXAM RADIOLOGY REPORT [...] subdural hematoma or acute abnormality. Dictated by: Amie Aponte M.D. on 12/23/2018 at 15:06 Approved by: Amie Aponte M.D. on 12/23/2018 at 15:16 Normal XR FOREIGN BODY EYEon 2018 XR FOREIGN BODY EYE Patient: SAM ELDER Exam Date: 12/23/2018 : 1965 Gender:M Ordering : TRISTEN CASTILLO Admission #: [id number] Family : Order #: [id number] CLICK HERE TO VIEW EXAM RADIOLOGY REPORT PROCEDURE: RADIOGRAPH FOREIGN BODY EYE COMPARISON: None. INDICATIONS: Foreign body in eye for MRI FINDINGS: ORBITS: Negative for a metallic foreign body. OTHER: Negative. CONCLUSION: No metallic foreign body within the orbits. Dictated by: Amie Aponte M.D. on 12/23/2018 at 13:31 Approved by: Amie Aponte M.D. on 12/23/2018 at 13:31 [facility] Encounters Encounter Date Encounter Type Care Provider Facility Start: 10-10-2023 End: 10-10-2023 ambulatory [facility] Start: 06-06-2023 End: 06-06-2023 ambulatory [facility] Start: 05-02-2023 End: 05-02-2023 ambulatory [facility] Start: 03-28-2023 End: 03-28-2023 ambulatory MAUREEN CALVILLO [facility] Start: 03-22-2023 Evaluation and management of inpatient HANNA [facility] Start: 03-22-2023 Evaluation and management of inpatient HANNA [facility] Start: 03-21-2023 Evaluation and management of inpatient HANNA [facility] Start: 03-21-2023 Evaluation and management of inpatient SANTANA JUNG [facility] Start: 03-20-2023 Evaluation and management of inpatient BRYAN NIELSEN [facility] Start: 03-20-2023 Emergency department patient visit MONSE ORNELAS [facility] Start: 03-20-2023 End: 03-25-2023 Evaluation and management of inpatient CHAYA GODOMAN [facility] Start: 03-20-2023 Emergency department patient visit RAIMUNDO FRANZ [facility] Start: 12-23-2018 End: 12-24-2018 Patient encounter procedure TRISTEN CASTILLO Facility:[facility]1 Payers Date Payer Category Payer Private Health Insurance [id number] 1965 Unknown [id number] 1959 Self-pay [id number] Clinical Notes 03-20-2023 to 10-10-2023 Note Date & Type Note Facility 10-10-2023 Note [facility] CARDIOLOGY PROGR ESS NOTE HPI: Sam Elder is a 58 y.o. male here for F/U Patient with past medical history including NSTEMI and CHF. Patient is seen for follow up. 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 EKG stress test without evidence of ischemia. Echo demonstrated EF 45-50%, improved from previous. Denies chest pain, SOB, palpitations, and lightheadedness/syncope. He states that he feels great. Review of Systems 10 point ROS is performed and is negative unless otherwise specified in HPI Final Discharge Diagnosis: #NSTEMI #status post PCI to LAD and RCA #Acute CHF with reduced ejection fraction, EF 25%. #Tobacco use #Hypomagnesemia Admission Diagnosis: SOB (shortness of breath) [R06.02] NSTEMI (non-ST elevated myocardial infarction) ([facility]) [I21.4] Hospital course: 57-year-old male with past medical history significant for tobacco use and otherwise unknown past medical history. Presented to [facility] due to chest pain, apparently has been dealing with chest discomfort for 1 week associated with shortness of breath and diaphoresis. At [facility] his high sensitive troponin was elevated, he was transferred to [facility] urgently for cardiology evaluation. Patient was started [...] March 24, 2023 per Visit Vitals BP 135/75 (BP Location: Left arm, Patient Position: Sitting) Pulse 81 Ht 1.803 m (5' 11 ) Wt 101 kg (222 lb) SpO2 96% BMI 30.96 kg/m??? Smoking Status Former BSA 2.25 m??? Allergies Allergen Reactions Oxycodone Nausea And Vomiting Penicillins Unknown Vicodin [Hydrocodone-Acetaminophen] Nausea And Vomiting Medications: Current Outpatient Medications on File Prior to Visit Medication Sig Dispense Refill aspirin 81 mg EC tablet Take 1 tablet (81 mg) by mouth in the morning. 90 tablet 3 atorvastatin (Lipitor) 80 mg tablet Take 1 tablet (80 mg) by mouth at bedtime. 90 tablet 3 dapagliflozin propanediol (Farxiga) 10 mg Take 1 tablet (10 mg) by mouth in the morning. 90 tablet 3 lisinopril 2.5 mg tablet Take 1 tablet (2.5 mg) by mouth in the morning. 90 tablet 3 metoprolol succinate XL (Toprol-XL) 25 mg 24 hr tablet Take 1 tablet (25 mg) by mouth in the morning. Do not crush or chew. 90 tablet 3 pantoprazole (ProtoNix) 40 mg EC tablet Take 1 tablet (40 mg) by mouth before breakfast for 360 doses. Do not crush, chew, or split. 90 tablet 3 spironolactone (Aldactone) 25 mg tablet Take 0.5 tablets (12.5 mg) by mouth in the morning. 45 tablet 3 nicotine (Nicoderm CQ) 14 mg/24 [...] at bedtime. (Patient not taking: Reported on 10/10/2023) 60 tablet 11 No current facility-administered medications on file prior to visit. Physical Exam VITAL SIGNS: BP 135/75 (BP Location: Left arm, Patient Position: Sitting) Pulse 81 Ht 1.803 m (5' 11 ) Wt 101 kg (222 lb) SpO2 96% BMI 30.96 kg/m??? Constitutional: Well developed, Well nourished, No acute distress, Non-toxic appearance. HENT: Normocephalic, Atraumatic, Bilateral external ears have normal appearance, Bilateral TMs clear, Oropharynx moist, No oral or pharyngeal exudates, Nose appears normal, nares are patent. Eyes: PERRLA, EOMI, Conjunctiva normal, No discharge. Neck: Normal range of motion, No tenderness, Supple, No stridor. No cervical lymphadenopathy noted. Cardiovascula (more content not included)... [facility] 06-06-2023 Note Patient here for [address] [facility] follow up CAD, systolic heart failure, HTN, and HLD. No longer wearing LifeVest. He is doing very well, and said yesterday he walked over 10,000 steps. Denies chest pain, SOB, palpitations, and lightheadedness/syncope. Review of Systems Musculoskeletal: Positive for back pain. All other systems reviewed and are negative. [facility] 06-06-2023 Note [facility]TP CARDIOLOGY PROGR ESS [...] breath) [R06.02] NSTEMI (non-ST elevated myocardial infarction) ([facility]) [I21.4] Hospital course: 57-year-old male with past medical history significant for tobacco use and otherwise unknown past medical history. Presented to [facility] due to chest pain, apparently has been dealing with chest discomfort for 1 week associated with shortness of breath and diaphoresis. At [facility] his high sensitive troponin was elevated, he was transferred to [facility] urgently for cardiology evaluation. Patient was started [...] on discharge. Patient was unable to afford Go[employer]. Patient will have close follow-up with cardiology [...] appearance. HENT: Normoceph (more content not included)... [facility] 05-02-2023 Note Telephone visit for 1 [...] All other systems reviewed and are negative. [facility] 05-02-2023 Note UTP CARDIOLOGY PROGR ESS NOTE HPI: Sam Elder is a 57 y.o. male here for F/U Patient with past medical history including NSTEMI and CHF. Patient is seen in telemedicine for follow-up visit today. Date of Telehealth Visit: 05/02/2023 The patient was notified that using 3rd democrat telecommunication application (e.g., Rad) is not HIPPA compliant and may carry [...] breath) [R06.02] NSTEMI (non-ST elevated myocardial infarction) ([facility]) [I21.4] Hospital course: 57-year-old male with past medical history significant for tobacco use and otherwise unknown past medical history. Presented to [facility] due to chest pain, apparently has been dealing with chest discomfort for 1 week associated with shortness of breath and diaphoresis. At [facility] his high sensitive troponin was elevated, he was transferred to [facility] urgently for cardiology evaluation. Patient was started [...] on discharge. Patient was unable to afford [employer]. Patient will have close follow-up with cardiology [...] 05/02/2023) 60 tablet (more content not included)... [facility] 04-23-2023 Note PharmD Consult - SGL T2i Initiation 04/23/23 Provider: Santana Carreonroger Elder is a 57 y.o. male with PMH of: Past Medical History: Diagnosis Date CHF (congestive heart failure) (CMS/HCC) Coronary artery disease PharmD consulted for evaluation [...] through AZ&Me. Ronal Downs PharmD (Robbie), PGY-1 [employer] 04/23/23 [facility] Cardiology, [facility] 04-23-2023 Note Attempted to call sue verma to get information required for AZ&Me application for Farxiga, but he did not answer. LVM for him to call us back when he can. Ronal Downs PharmD (Robbie), PGY-1 [employer] 04/30/23 [facility]iology[facility] 04-23-2023 Note The Farxiga is in pr ocess and in transit to be delivered. [facility] tracking number is [id number] and it is currently in [place], [place]. It is yet to be out for delivery yet. Ronal Downs PharmD (Robbie), PGY-1 [employer] 05/14/23 [facility] Cardiology[facility] 04-23-2023 Note Attestation signed by Avelina Louis at 05/06/2023 8:04 AM I was available for discussion and questions prior to patient visit. Plan was discussed prior to implementation and I was present for delivery of the plan. I agree with the assessment and plan and have modified the documentation as necessary. Avelina Louis, Saroj, BCACP 05/06/23 [place] General Internal Medicine Patient called back and provided income information so I could proceed with the AZ&Me application for [employer] [facility]. Patient is enrolled in AZ&Me as follows: Start of Enrollment period: 05/05/2023 End of Enrollment period: 05/05/2024 Prescribed medication to [facility] mail order pharmacy for processing the prescription. They will mail the medication to the patient at no cost. Pharmacy team will continue to follow to ensure he receives the medication. Of note, it could be beneficial to check a BMP two to four weeks after he starts the Farxiga. Ronal Downs (Robbie), PrettyD, PGY-1 [facility] 05/05/23 [facility] Cardiology, [facility] 03-28-2023 Note Currently pt is akbar vering well, lifevest in place and pt is tolerating well. Initiation of Cardiac rehab and referral to parquetry floor layer for nutrition counseling [facility] 03-28-2023 Note Continue lipitor [facility] 03-28-2023 Note Patient here for [facility] for NSTEMI and CHF. He was discharged with a LifeVest. Has stopped smoking since admission. Denies recurrent chest pain, lightheadedness, and palpitations. Gets a little SOB w/ exertion at times. Review of Systems Cardiovascular: Positive for dyspnea on exertion. Musculoskeletal: Positive for back pain. All other systems reviewed and are negative. [facility] 03-28-2023 Note [facility]TP CARDIOLOGY PROGR ESS NOTE HPI: Sam Elder is a 57 y.o. male here for hospital F/U s/p NSTEMI Patient here for follow up [facility] for NSTEMI and CHF. 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 Review of Systems Cardiovascular: Positive for dyspnea on exertion. Musculoskeletal: Positive for back pain. All other systems reviewed and are negative. 03/20/23 Discharge Summary Final Discharge Diagnosis: #NSTEMI #status post PCI to LAD and RCA #Acute CHF with reduced ejection fraction, EF 25%. #Tobacco use #Hypomagnesemia Admission Diagnosis: SOB (shortness of breath) [R06.02] NSTEMI (non-ST elevated myocardial infarction) ([facility]) [I21.4] Hospital course: 57-year-old male with past medical history significant for tobacco use and otherwise unknown past medical history. Presented to [facility] due to chest pain, apparently has been dealing with chest discomfort for 1 week associated with shortness of breath and diaphoresis. At [facility] his high sensitive troponin was elevated, he was transferred to [facility] urgently for cardiology evaluation. Patient was started [...] Physical Exam: Constitutional: (more content not included)... [facility] 03-28-2023 Note [facility] II, currently e [...] fluid restriction 1.5-2L/day, renal function and electrolytes- [facility] 03-28-2023 Note HTN very well contro lled 102/60- borderline labile- continue all medications [facility] 03-28-2023 Note Coronary artery dise ase is stable Continue GDMT- ASA, brilinta, toprol, lipitor and lisinopril. Pt to start cardiac rehab- orders completed continue risk factor modifications- heart healthy diet, regular exercise as tolerated and continue all medications. [facility] 03-25-2023 Note Hospital Medicine Daily Progress Note - 03/25/2023 2:11 PM; Room: 4148/4148-01 Admission: 03/20/2023 8:25 PM; Length of stay: 5 days THE HOSPITALIST TEAM PREFERS TO USE [employer] CHAT FOR COMMUNICATION 7AM-7PM. IF I DO NOT RESPOND WITHIN 15 MINUTES, PLEASE PAGE ME/CALL THROUGH THE [employer] CHIP FRIER. FROM 7PM-7AM, PLEASE PAGE [phone](COVR) Code Status: Full Code Barriers to Discharge: [...] Principal Problem: NSTEMI (non-ST elevated myocardial infarction) ([facility]) Assessment and Plan # NSTEMI # status [...] days Lab Units 03/25/23 0543 03/24/2342003/21/23 0516 03/20/232038 WBC AUTO 10*3/uL 8.69 9.39 < > 10.02 HEMOGLOBIN g/dL 13.4 12.6* < > 13.4 HEMATOCRIT % 40.2 38.0* < > 40.8 MCV fL 91.0 90.9 < > 93.8 PLATELETS AUTO 10*3/uL 268 217 < > 215 INR -- -- -- 1.06 < > = values in this interval not displayed. Chemistry: Results from last 7 days Lab Units 03/25/23 0543 03/24/2342003/23/2312 SODIUM mmol/L 138 137 137 POTASSIUM mmol/L [...] LDL 143 03/20/2023 No results found for: RLLXRYQZ30 , IRON , TIBC , C3 , C4 , FRANCOISE , CANCA , ASO , PSA , CEA , CA125 , CA199 , AFP , CA153 Imaging Cardiac catheterization Procedure: Impella removal and vascular hemostasis with modified post-closure technique (use of Perclose and Angio-seal closure devices) Pewter Caster: Santana Jung MD Technique: Patient's blood pressure and [...] site to obtain temporary hemostasis. A 8 German sheath was placed over the wire. A second 0.035 wire was then placed through the (more content not included)... [facility] 03-25-2023 Note 03/25/23 1045 Referral Data Referral Source Physician Referral Reason Other (Comment) (CHF) Patient Information Primary Caregiver Self Activities of Daily Living Assistive Device Not applicable Living Arrangement (Current/Prior to Hospitalization) Private residence Ambulation Independent Dressing Independent Feeding Independent Behavior Oriented Communication Can write;Talks;Understands speaking;Understands Portuguese;Reads Income Information Income Source Employed (He will [...] a life vest today. 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 He has not sick, paid time off, STD or LTD plan. He states who would expect this at the age of 57 . Patient has already been seen by [facility] care. They completed a PFA and he [...] the Life vest and his meds through [employer] and plans to return home with family [...] any other SW needs at this time. [facility] 03-24-2023 Note Cardiology Progress Note Reason for Consult: transfer from [place], NSTEMI, elevated trop 1.53, vitals stable, cards [...] nasal cannula saturating well. Patient at laboratory technologist during bedside evaluation in AM. Patient evaluated [...] ???C (98.6 ???F) 87 18 95 % 03/23/23 2013 100/70 37 ???C (98.6 ???F) 89 18 [...] of endocardial bord (more content not included)... [facility] 03-24-2023 Note Hospital Medicine Discharge Summary Final Discharge Diagnosis: #NSTEMI #status post PCI to LAD and RCA #Acute CHF with reduced ejection fraction, EF 25%. #Tobacco use #Hypomagnesemia Admission Diagnosis: SOB (shortness of breath) [R06.02] NSTEMI (non-ST elevated myocardial infarction) ([facility]) [I21.4] Hospital course: 57-year-old male with past medical history significant for tobacco use and otherwise unknown past medical history. Presented to [facility] due to chest pain, apparently has been dealing with chest discomfort for 1 week associated with shortness of breath and diaphoresis. At [facility] his high sensitive troponin was elevated, he was transferred to [facility] urgently for cardiology evaluation. Patient was started [...] on discharge. Patient was unable to afford [facility]. Patient will have close follow-up with cardiology [...] Time Provider Department Center 03/28/2023 9:20 AM Maureen Calvillo NP LETICIA Isha Anjel Your medication list START taking these medications [...] medications were sent to [facility] - [place], [place] - [address] [place] [address] MS [phone] 1076, [facility] [address] aspirin 81 mg EC tablet atorvastatin 80 [...] Results from last 7 days Lab Units 03/24/2342003/22/23 0024 03/21/23 0516 03/20/23 2039 WBC AUTO [...] Results from last 7 days Lab Units 03/24/2342003/23/23 0712 03/22/23 0811 SODIUM mmol/L 137 137 137 POTASSIUM (more content not included)... [facility] 03-24-2023 Note Pt admitted to [facility] for NSTEMI. Pt's echo from 03/22/23 estimated LVEF 25%, which qualifies pt for cardiac rehab (CR) therapy with HF diagnosis. Pt also eligible for NSTEMI. I will watch for updates and follow up with pt, if appropriate. JOSE GuzmánN glass handler Outpatient Coordinator Cardiopulmonary Rehab [facility] 03-23-2023 Note Hospital Medicine Daily Progress Note - 03/23/2023 11:53 AM; Room: [address] [place] [address] Admission: 03/20/2023 8:25 PM; Length of stay: 3 days THE HOSPITALIST TEAM PREFERS TO USE [employer] CHAT FOR COMMUNICATION 7AM-7PM. IF I DO NOT RESPOND WITHIN 15 MINUTES, PLEASE PAGE ME/CALL THROUGH THE [employer]. FROM 7PM-7AM, PLEASE PAGE [phone](COVR) Code Status: Full Code Barriers to Discharge: [...] Principal Problem: NSTEMI (non-ST elevated myocardial infarction) ([facility]) Assessment and Plan # NSTEMI # status [...] Units 03/22/23 0024 03/21/23 1305 03/21/23 0516 03/20/239 WBC AUTO 10*3/uL 10.09 8.80 < > [...] LDL 143 03/20/2023 No results found for: [id number] , IRON , TIBC , C3 , [...] AGENT, STRAIN, 3D, BUBBLE STUDY 1 1 [facility] Heart Station [address] [place] [address] [phone] (fax) Echocardiogram-[facility] Name: SAM ELDER Study Date: 03/22/2023 08:13 AM B/P: 103 mmHg/57 mmHg HR: Date of : 1965 Location: [facility] Height: 71 in. Age: 57 year(s) Patient Room: 3219 Weight: 225 lb. Gender: Male Patient Status: InPt BSA: 2.22 m2 Indication: Chest Pain, Impella removed 03/21/23 (more content not included)... [facility] 03-23-2023 Note Cardiology Progress Note Reason for Consult: transfer from [place], NSTEMI, elevated trop 1.53, vitals stable, cards [...] nasal cannula saturating well. Patient at laboratory technologist during bedside evaluation in AM. Patient evaluated [...] enlarged. Overall Conclusions: (more content not included)... [facility] 03-22-2023 Note Attestation signed by Yordy [...] y.o. male presenting as a transfer from [facility] for chest pain. Patient underwent stent placement; [...] (99.1 ???F) 96 -- 93 % 03/22/23 195 93/62 37.4 ???C (99.3 ???F) 91 -- [...] no acute distress. HEAD: Atraumatic, normocephalic. EYES: ESLIN, EOMI. NECK: No JVD present. CARDIAC: RRR. No murmur, rubs, or gallops. RESPIRATORY: CTAB, no increased effort of breathing. ABDOMEN: Soft, nontender, nondistended. EXTREMITIES: No lower extremity edema, peripheral pulses are 2+ bilaterally. NEURO: No focal deficits Relevant Lab Results Encounter Date: 03/20/23 Electrocardiogram, 12-lead Result Value Ventricular Rate [address] Interval 178 QRS DURATION 96 QT Interval 396 QTC CALCULATION(BAZETT) 462 P [place] 55 R-[place] 85 T Wave [place] 40 Impression Normal sinus rhythm Possible Left [...] BUBBLE STUDY Result Date: 03/22/2023 1 1 [facility] Heart Station [address] [place] [address] [phone] (fax) Echocardiogram-[facility] Name: SAM ELDER Study Date: 03/22/2023 08:13 AM B/P: 103 mmHg/57 mmHg HR: Date of : 1965 Location: [facility] Height: 71 in. Age: 57 year(s) Patient [...] root exhibits n (more content not included)... [facility] 03-22-2023 Note Attestation signed by Omari [...] his entire life. [facility] after having chest pain with [...] became diaphoretic and EMS was called. At [facility] initial workup significant for Troponin of 1.53, BNP 464, EKG with sinus rhythm, PVCs and septal infarct. Patient transferred to [facility] for catheterization. Patient had catheterization this am with stent placement in RCA and LAD. During the procedure patient had decompensating heart failure with low blood pressures and Impella device was placed. Patient then returned to the laboratory technologist later this afternoon and the Impella device [...] Final No results found for: PHVEN , QZV2VUR , PO2VEN , DBP4UBR , IONCALVEN CBC: Results from last 7 days Lab Units 03/22/23 0024 03/21/23 1305 03/21/23 0516 WBC AUTO 10*3/uL 10.09 8.80 10.39 HEMOGLOBIN g/dL 13.1 13.3 12.3* HEMATOCRIT % 38.5* 40.1 37.4* PLATELETS AUTO 10*3/uL 198 201 185 Coagulation: Results from last 7 days Lab Units 03/20/239 APTT Seconds 49.5* INR 1.06 Metabolic Panel: [...] PHOS U/L 63 (more content not included)... [facility] 03-21-2023 Note Interventional Cardi ology Impella removed in the laboratory technologist See my procedure note under the cardiology tab for details Patient tolerated Impella removal well Monitor right groin access sites for bleeding I discontinued heparin infusion Optimize HFrEF meds in the next few days Santana Jung MD rn l and d Interventional Cardiology [facility] Pager: [phone] [facility] 03-21-2023 Note Interventional Cardi ology Complex presentation with high risk NSTEMI, acute systolic heart failure, cardiogenic shock, and multivessel CAD Patient status post Impella mechanical circulatory support and multivessel PCI Please see my report under cardiology tab Page interventional cardiology with any questions Interventional cardiology will reassess to determine appropriate time for Impella weaning and removal. Santana Jung MD rn l and d Interventional Cardiology [facility] Pager: [phone] [facility] 03-21-2023 Note Patient: Sam alva Procedure Information Date/Time: 03/21/23 0830 Procedures: Coronary angiography Right heart cath Location: [facility] GIS [facility]ELOPER 3 / [facility] HV VASCULAR LAB (Cath) Providers: Santana Jung MD Clinical information reviewed: Allergies Meds [...] with fellow and attending. Additional Equipment Requests [facility] 03-21-2023 Note unable to see Patien t to discuss insurance needs, due to Pt not being in room [facility] 03-21-2023 Note Pt left floor for ec ho and cath procedure prior to consumer loan underwriter being able to perform morning assessment. [facility] 03-20-2023 Note 03/20/23 2310 Physical Activity On average, [...] place to sleep or slept in a [facility] (including now)? N Transportation Needs In the [...] relatives? Never How often do you attend roman catholic or hindu services? Never Do you belong to any clubs or organizations such as roman catholic groups, unions, fraternal or athletic groups, or [...] more drinks on one occasion? 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 [facility] 03-20-2023 Note Hospital Medicine History and Physical 03/20/2023 10:38 PM THE HOSPITALIST TEAM PREFERS TO USE [employer] CHAT FOR COMMUNICATION 7AM-7PM. IF I DO NOT RESPOND WITHIN 15 MINUTES, PLEASE PAGE ME/CALL THROUGH THE [employer]IP FRIER. FROM 7PM-7AM, PLEASE PAGE [phone](COVR) Chief Complaint Chief Complaint Patient presents with Shortness of Breath History of Present Illness Sam Elder is an 57 y.o. male [facility] where he was evaluated for ongoing chest [...] dyspnea on exertion the EKG in the [place] [facility] showed anterior septal changes and possible incomplete left bundle branch block his white blood count at [facility] was 12.9 his glucose was 110 and troponin high-sensitivity was 819.5 he had repeat troponin done in [facility] ER which was 1.53 chest x-ray showed no consolidation or CHF but moderate cardiomegaly EKG showed septal changes patient denies any history of hypertension hyperlipidemia stroke thromboembolic event he had family history of coronary artery disease with his mother having acute [place] in the mid 50s Review of System [...] Date Noted NSTEMI (non-ST elevated myocardial infarction) ([facility]) 03/20/2023 Assessment and Plan Nstemi Copd exertional [...] this hospital stay by a member of [facility]. Past Medical History History reviewed. No pertinent past medical history. Past Surgical (more content not included)... [facility] Summary Purpose Family History No Family History Records FoundNo Family History Records Found Advance Directives No Advanced Directives Records FoundNo Advanced Directives Records Found Additional Source Comments (unrecognized sect ion and content) No Status Records FoundNo Status Records Found INFORMATION SOURCE (unrecogn ized section and content) DATE CREATED AUTHOR 12/31/2018 [facility] DATE CREATED AUTHOR AUTHOR'S ORGANIZ ATION 11/18/2023 [facility] FOR RECORDS PERTAINING TO PATIENTS WHO [...] BE BASED ON THE PRIMARY CLINICAL RECORDS. [employer] provides no warranty or guarantee of the accuracy or completeness of information in this document.
[2023-12-31 10:01] LABS: Anion Gap 10.5; BUN Creatinine Ratio 10.8; Calcium 8.8 mg/dL (8.5-10.1); Carbon Dioxide 26.6 mmol/L (21.0-32.0); Chloride 107 mmol/L (98-107); Chol HDL Ratio 1.9; Cholesterol 106 mg/dL (<=200); Estimated GFR (African America >60 (>=60); Estimated GFR (Non-African Ame >60 (>=60); Glucose 92 mg/dL (74-106); HDL Cholesterol 55 mg/dL (40-60); LDL Cholesterol Calculated 43.4 mg/dL; Potassium 4.1 mmol/L (3.5-5.1); Sodium 140 mmol/L (136-145); Triglycerides 38 mg/dL (<=150); VLDL CHOLESTEROL 7.6 mg/dL
== END 2023-12-31 09:22 | disposition home or self-care (01) ==
LOC: LAB 09:23
PROVIDERS: PCP Family Medicine; Visit Provider Internal Medicine Cardiovascular Disease
DX: I25.10 Atherosclerotic heart disease of native coronary artery without angina pectoris (principal)
CPT/HCPCS: 36415; 80048; 80061

== ENCOUNTER 2024-03-07 15:13 | Emergency (ER) | payer MEDICAID, SELFPAY ==
[2024-03-07] VITALS (13 sets, daily range): BP systolic 119–143; BP diastolic 74–90; PULSE 64–98; TEMP 36.6; O2SAT 92–99; BMI 30.7
--- OUTSIDE RECORDS SUMMARY | 2024-03-07 15:19 | XMS_ITS | CCD ---
Author Organization [facility] Care Team Providers Care Sec Reporting Consultant Name Role Phone TRISTEN CASTILLO Admitting Unavailable TRISTEN CASTILLO Attending Unavailable REQUEST, NONE LISTED Primary Care Unavailable AMIE APONTE Consulting Unavailable TRISTEN CASTILLO Consulting Unavailable MARTIN BLACKBURN Attending Unavailable ALGHOMARTIN NAVARRETE Attending Unavailable AOUTHMONSE CANTU Referring Unavailable AOUTHMANMONSE Mohamud Referring Unavailable JUNGSANTANA Referring Unavailable ALI, JACQUES TIANMAN Referring Unavailable ALI, JACQUES MCCARTHY Referring Unavailable ALI, JACQUES MCCARTHY Referring Unavailable SANAULLBRYAN SUN Referring Unavailable RAIMUNDO FRANZ Referring Unavailable LAST TEIXEIRA Attending Unavailable PUNEET, LAST Admitting Unavailable MAXINE, CHAYA Admitting Unavailable PUNEET, SARMED Attending Unavailable RAJINDERMAUREEN Montoya Attending Unavailable ALGHOTHSAM, MARTIN Attending Unavailable ALGMARTIN GUTIERREZ Attending Unavailable Allergies Allergy Classification Reported Allergen(s) Allergy Type Date of Onset Reaction(s) Facility (2 sources) Penicillins; Translations: [PENICILLINS] Drug allergy (disorder) 3 [facility] Repository (1 source) Acetaminophen / HYDROcodone; Translations: [HYDROCODONE-ACET AMINOPHEN] Drug Allergy 3 [facility] Repository (1 source) oxyCODONE; Translations: [OXYCODONE] Drug Allergy 3 [facility] Repository (1 source) ALLERGIES NOT ON FILE; Translations: [ALLERGIES NOT ON FILE] Propensity to adverse reactions (disorder) [facility] Repository Problems Active Problems Problem Classification [...] disease (2 sources) Atherosclerotic heart disease of [place] coronary artery without angina pectoris; Translations: [Atherosclerotic heart disease of [place] coronary artery without angina pectoris] Onset: 03-28-2023 [...] Value Interpretation Reference Range Facility Office Visiton 12-30-2023 Follow-up visit [id number] Michelle Elder 1965 M Date Provider Department Center 12/30/2023 Verito8-[facility] Family History Problem Relation Age of Onset Coronary artery disease Mother Atrial fibrillation Mother Coronary artery disease Brother Hyperlipidemia Brother Family Status - Relation Status Age at Mother Brother Level of Service:50258 ND OFFICE/OUTPATIENT ESTABLISHED LOW MDM 20 MIN Normal [facility] Office Visiton 10-10-2023 Follow-up visit [id number] Michelle Elder 1965 M Date Provider Department Center 10/10/2023 MARTIN YATES LETICIA [facility] Family History Problem Relation Age of Onset Coronary artery disease Mother Atrial fibrillation Mother Coronary artery disease Brother Hyperlipidemia Brother Family Status - Relation Status Age at Mother Brother Level of Service:23696 ND OFFICE/OUTPATIENT ESTABLISHED LOW MDM 20 MIN [facility] Office Visiton 06-06-2023 Follow-up visit [id number] Michelle Elder 1965 M Date Provider Department Center 06/06/2023 3848MARTIN FINN LETICIA [facility] Family History Problem Relation Age of Onset Coronary artery disease Mother Atrial fibrillation Mother Coronary artery disease Brother Hyperlipidemia Brother Family Status - Relation Status Age at Mother Brother Level of Service:71200 ND OFFICE/OUTPATIENT ESTABLISHED MOD MDM 30 MIN [facility] Orders Onlyon 06-06-2023 Orders Only [id number] Michelle Elder 1965 Date Provider Department Center 06/06/2023 DONTE LUIS LETICIA [facility] Family History Problem Relation Age of Onset Coronary artery disease Mother Atrial fibrillation Mother Coronary artery disease Brother Hyperlipidemia Brother Family Status - Relation Status Age at Mother Brother [facility] 36on 05-28-2023 36 Called patient and confirmed he received the Farxiga in the mail through the [place] patient assistance program without any issues around 05/19/2023. Educated the patient that his most recent BMP in April 2023 was WNL. He has an appointment with Dr. Blackburn on 06/06/2023, so I will pass the message along to him. Ronal Downs (Robbie), PharmD, PGY-1 Train System Operator 05/28/23 [facility] Cardiology, Heart and Vascular Center Normal [facility] Telephoneon 05-28-2023 Telephone [id number] Michelle Elder 1965 M Date Provider Department Center 05/28/202300687-WCTOWGRRONAL DOWNS [facility] Family History Problem Relation Age of Onset Coronary artery disease Mother Atrial fibrillation Mother Coronary artery disease Brother Hyperlipidemia Brother Family Status - Relation Status Age at Mother Brother Normal [facility] Office Visiton 05-02-2023 Follow-up visit [id number] Lauri Elderdonald thacker B 1965 M Date Provider Department Center 05/02/2023 3848-KEVIN BLACKBURNSALVADORVinod CARD [facility] Family History Problem Relation Age of Onset Coronary artery disease Mother Atrial fibrillation Mother Coronary artery disease Brother Hyperlipidemia Brother Family Status - Relation Status Age at Mother Brother Level of Service:63344 ND OFFICE/OUTPATIENT ESTABLISHED MOD MDM 30 MIN [facility] 29on 04-23-2023 29 Addended by: RONAL DOWNS on: 05/05/2023 10:33 AM Modules accepted: Orders [facility] Documentationon 04-23-2023 Documentation [id number] Lauri Elderdonald thacker B 1965 M Date Provider Department Center 04/23/2023 93185-VYMYEVNRONAL DOWNS [facility] Family History Problem Relation Age of Onset Coronary artery disease Mother Atrial fibrillation Mother Coronary artery disease Brother Hyperlipidemia Brother Family Status - Relation Status Age at Mother Brother Reason for Visit and Comments: Medication Access - Farxiga [Other] [facility] 36on 04-22-2023 36 Patient stopped by t he office after his echo today to make you aware that Brilinta and Farxiga are too costly for him. Can he be switched to Plavix and maybe Jardiance? He does not currently have insurance. Please advise. Thanks. [facility] 2903-28-2023 29 Addended by: MAUREEN CALVILLO on: 03/28/2023 06:54 PM Modules accepted: Orders [facility] Office Visiton 03-28-2023 Follow-up visit [id number] Michelle Elder B 1965 M Date Provider Department Center 03/28/2023 120-MAUREEN CALVILLO LETICIA [facility] Family History Problem Relation Age of Onset Coronary artery disease Mother Atrial fibrillation Mother Coronary artery disease Brother Hyperlipidemia Brother Family Status - Relation Status Age at Mother Brother Level of Service:31080 ND OFFICE/OUTPATIENT ESTABLISHED MOD MDM 30-39 MIN [facility] 36on 03-26-2023 36 Discharge date: 03/25/23 Call [...] Pt denied any additional questions or concerns. [facility] Documentationon 03-26-2023 Documentation [id number] Michelle Elder ld 1965 M Date Provider Department Center 03/26/2023 [facility] No family history on file Reason for Visit and Comments: HF inpatient satisfaction survey sent. [Other] [facility] Telephoneon 03-26-2023 Telephone [id number] Michelle Elder ld 1965 M Date Provider Department Center 03/26/2023 [facility] No family history on file [facility] 30on 03-25-2023 30 Anibal from [employer] called and patient made payment, he will be fitted for lifevest sometime before 4pm today. [facility] 30 Call placed to Javier montoya from [employer] who reports he has a nurse on standby, and as soon as he gets confirmation of payment, nurse will be in to place life vest. Sodium Chlorite Operator back to bedside, and updated. Patient verbalized understanding. Patient reports he is unsure of where his mother is, as she is not answering phone call. States he hopes to hear from her soon. Primary RN aware. [facility] 30 Spoke with patient a t bedside. Patients reports he was never fitted for [employer] V[employer] yesterday. Patient states he only came in and gave me a brochure and educated me. I was never fitted for anything . Sodium Chlorite Operator informed him Anibal from [employer] sent [...] bringing his wallet. Primary RN aware. Normal [facility] BASIC METABOLIC PANELon 12- Anion gap [Moles/Vol] 11 mmol/L Normal 7-20 [facility] Comment on above: Performed By: #### L [id number] #### [facility] ([facility]) [address] [place] [address] Calcium [Mass/Vol] 9.4 mg/dL Normal 8.6-10.3 [facility] Comment on above: Performed By: #### L [id number] #### [facility] ([facility]) [address] [place] [address] Chloride [Moles/Vol] 108 mmol/L High 98-107 [facility] Comment on above: Performed By: #### L [id number] #### [facility] ([facility]) [address] [place] [address] CO2 [Moles/Vol] 23 mmol/L Normal 21-31 [facility] Comment on above: Performed By: #### L [id number] #### [facility] ([facility]) [address] [place] [address] Creatinine [Mass/Vol] 0.70 mg/dL Normal 0.70-1.30 [facility] Comment on above: Performed By: #### L [id number] #### [facility] ([facility]) [address] [place] [address] GLOMERULAR FILTRATION RATE ML/MIN/1.73 SQ M.PREDICTED 107.5 mL/min/1.73m*2 Normal >60.0 [facility] Comment on above: Result Comment: The [facility]???s estimated glomerular filtration rate (eGFR) will [...] individuals. Performed By: #### L [id number] #### [facility] ([facility]) [address] [place] [address] Glucose [Mass/Vol] 99 mg/dL Normal 70-100 [facility] Comment on above: Performed By: #### L [id number] #### [facility] ([facility]) [address] [place] [address] Potassium [Moles/Vol] 4.0 mmol/L Normal 3.5-5.1 [facility] Comment on above: Performed By: #### L [id number] #### [facility] ([facility]) [address] [place] [address] Sodium [Moles/Vol] 138 mmol/L Normal 136-145 [facility] Comment on above: Performed By: #### L [id number] #### [facility] ([facility]) [address] [place] [address] Urea nitrogen [Mass/Vol] 13 mg/dL Normal 7-25 [facility] Comment on above: Performed By: #### L [id number] #### [facility] ([facility]) [address] [place] [address] UREA NITROGEN/CREATININE (MASS RATIO) IN SER/PLAS 18.6 Normal [facility] Comment on above: Performed By: #### L [id number] #### [facility] ([facility]) [address] [place] [address] CBCon 03-25-2023 Erythrocyte distribution width (RBC) [Ratio] 13.4 % Normal 11.5-15.0 [facility] Comment on above: Performed By: #### L [id number] #### [facility] ([facility]) [address] [place] [address] ERYTHROCYTE MEAN CORPUSCULAR HEMOGLOBIN CONCENTRATION (G/DL) BY AUTOMATED 33.3 g/dL Normal 32.0-35.0 [facility] Comment on above: Performed By: #### L [id number] #### [facility] [address] [place] [address] Hematocrit (Bld) [Volume fraction] 40.2 % Normal 39.0-55.0 [facility] Comment on above: Performed By: #### L [id number] #### [facility] ([facility]) [address] [place] [address] Hemoglobin (Bld) [Mass/Vol] 13.4 g/dL Normal 13.0-17.0 [facility] Comment on above: Performed By: #### L [id number] #### [facility] ([facility]) [address] [place] [address] MCH (RBC) [Entitic mass] 30.3 pg Normal 27.0-33.0 [facility] Comment on above: Performed By: #### L [id number] #### [facility] ([facility]) [address] [place] [address] MCV (RBC) [Entitic vol] 91.0 fL Normal 82.0-98.0 [facility] Comment on above: Performed By: #### L [id number] #### [facility] ([facility]) [address] [place] [address] PLATELETS (10*3/UL) IN BLOOD AUTOMATED COUNT 268 10*3/uL Normal 150-400 [facility] Comment on above: Performed By: #### L [id number] #### [facility] ([facility]) [address] [place] [address] RBC (Bld) [#/Vol] 4.42 10*6/uL Normal 4.20-5.70 [facility] Comment on above: Performed By: #### L [id number] #### [facility] ([facility]) [address] [place] [address] WBC (Bld) [#/Vol] 8.69 10*3/uL Normal 4.00-10.60 [facility] Comment on above: Performed By: #### L [id number] #### [facility] ([facility]) [address] [place] [address] MAGNESIUMon 03-25-2023 Magnesium [Mass/Vol] 1.8 mg/dL Low 1.9-2.7 [facility] Comment on above: Performed By: #### L [id number] ####[facility] ([facility])[address] [place] [address] 30on 03-24-2023 30 The patient is Moderately [...] and behaviors that affect risk of falls [place] fall precautions as indicated by assessment Educate [...] restriction a (more content not included)... Normal [facility] 30 Contacted [employer] Anibal concerning lifevest. Anibal states he is on his way to [facility]. EF 25%. Order for vest was received per Anibal. 12:16 Spoke with Anibal from [employer] and all requested paperwork given. Anibal to check into charitable donations available form this patient and cost of lifevest considering income. Patient and SW updated on plan/delay. 13:20 Anibal and this underwriter mortgage loan met with patient and explained paperwork for lifevest assistance program. Paperwork given to patient. Awaiting finical statement from patient. 15:05 patient completed form with presence of underwriter mortgage loan. Assisted patient in calling his bank to request last statement to provide to [facility] [employer]. 15:25 All requested information and forms sent to Anibal from [employer]. Await determination Normal [facility] BASIC METABOLIC PANELon 12-1 Anion gap [Moles/Vol] 11 mmol/L Normal 7-20 [facility] Comment on above: Performed By: #### L [id number] #### [facility] ([facility]) [address] [place] [address] Calcium [Mass/Vol] 9.1 mg/dL Normal 8.6-10.3 [facility] Comment on above: Performed By: #### L [id number] #### [facility] ([facility]) [address] [place] [address] Chloride [Moles/Vol] 108 mmol/L High 98-107 [facility] Comment on above: Performed By: #### L [id number] #### [facility] ([facility]) [address] [facility] [place] [address] CO2 [Moles/Vol] 22 mmol/L Normal 21- [facility] Comment on above: Performed By: #### L [id number] #### [facility] ([facility]) [address] [place] [address] Creatinine [Mass/Vol] 0.67 mg/dL Low 0.70-1.30 [facility] Comment on above: Performed By: #### L [id number] #### [facility] ([facility]) [address] [place] [address] GLOMERULAR FILTRATION RATE ML/MIN/1.73 SQ M.PREDICTED 108.9 mL/min/1.73m*2 Normal >60.0 [facility] Comment on above: Result Comment: The [facility]???s estimated glomerular filtration rate (eGFR) will [...] individuals. Performed By: #### L [id number] #### [facility] ([facility]) [address] [place] [address] Glucose [Mass/Vol] 102 mg/dL High 70-100 [facility] Comment on above: Performed By: #### L [id number] #### [facility] ([facility]) [address] [facility] [place] [place] [address] Potassium [Moles/Vol] 3.6 mmol/L Normal 3.5-5.1 [facility] Comment on above: Performed By: #### L [id number] #### [facility] ([facility]) [address] [facility] [place] [address] Sodium [Moles/Vol] 137 mmol/L Normal 136-145 [facility] Comment on above: Performed By: #### L [id number] #### [facility] ([facility]) [address] [place] [address] Urea nitrogen [Mass/Vol] 12 mg/dL Normal 7-25 [facility] Comment on above: Performed By: #### L [id number] #### [facility] ([facility]) [address] [place] [address] UREA NITROGEN/CREATININE (MASS RATIO) IN SER/PLAS 17.9 Normal [facility] Comment on above: Performed By: #### L [id number] #### [facility] ([facility]) [address] [place] [address] CBCon 03-24-2023 Erythrocyte distribution width (RBC) [Ratio] 13.6 % Normal 11.5-15.0 [facility] Comment on above: Performed By: #### L [id number] ####[facility] ([facility])[address] [place] [address] ERYTHROCYTE MEAN CORPUSCULAR HEMOGLOBIN CONCENTRATION (G/DL) BY AUTOMATED 33.2 g/dL Normal 32.0-35.0 [facility] Comment on above: Performed By: #### L [id number] ####[facility] ([facility])[address] [place] [address] Hematocrit (Bld) [Volume fraction] 38.0 % Low 39.0-55.0 [facility] Comment on above: Performed By: #### L [id number] ####[facility] ([facility])[address] [place] [address] Hemoglobin (Bld) [Mass/Vol] 12.6 g/dL Low 13.0-17.0 [facility] Comment on above: Performed By: #### L [id number] ####[facility] ([facility])[address] [place] [address] MCH (RBC) [Entitic mass] 30.1 pg Normal 27.0-33.0 [facility] Comment on above: Performed By: #### L [id number] ####[facility] ([facility])[address] [place] [address] MCV (RBC) [Entitic vol] 90.9 fL Normal 82.0-98.0 [facility] Comment on above: Performed By: #### L [id number] ####[facility] ([facility])[address] [place] [address] PLATELETS (10*3/UL) IN BLOOD AUTOMATED COUNT 217 10*3/uL Normal 150-400 [facility] Comment on above: Performed By: #### L [id number] ####[facility] ([facility])[address] [facility] [place] [address] RBC (Bld) [#/Vol] 4.18 10*6/uL Low 4.20-5.70 [facility] Comment on above: Performed By: #### L [id number] ####[facility] ([facility])[address] [place] [address] WBC (Bld) [#/Vol] 9.39 10*3/uL Normal 4.00-10.60 [facility] Comment on above: Performed By: #### L [id number] ####[facility] ([facility])[address] [place] [address] CONSULTon 03-24-2023 CONSULT Adult Nutrition Consult Name: Sam Elder Date: 1965 Date of Visit: 03/24/23 Admission Dx: SOB (shortness of breath) [R06.02] NSTEMI (non-ST elevated myocardial infarction) ([facility]) [I21.4] Acute HFrEF: Life Vest upon discharge [...] 0.67 (L) 03/24/2023 0421 NA 137 03/24/2023 042 NA 134 (L) 03/21/2023 1333 K 3.6 [...] made dietary changes and weight last week DYE TUB TENDER was 219# (99.5kg) IBW: 78.2kg Nutrition Assessment: Nutrition history: 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 Discussed seasoning alternatives rather than salt: encouraged [...] compliance w/ MNT Contact the dietitian via [employer] chat [phone]-4P Friday through Friday or call extension [phone]. For weekends & holidays, the dietitian can be reached via pager (more content not included)... Normal [facility] MAGNESIUMon 03-24-2023 Magnesium [Mass/Vol] 1.6 mg/dL Low 1.9-2.7 [facility] Comment on above: Performed By: #### L [id number] #### [facility] ([facility]) [place] [address] 30on 03-23-2023 30 The patient is Moderately [...] and behaviors that affect risk of falls [place] fall precautions as indicated by assessment Educate [...] bowel fun (more content not included)... Normal [facility] 30 The patient is Moderately Stable [...] and behaviors that affect risk of falls [place] fall precautions as indicated by assessment Educate [...] and perform bladder scan as needed Normal [facility] BASIC METABOLIC PANELon 03-14 Anion gap [Moles/Vol] 10 mmol/L Normal 7-20 [facility] Comment on above: Performed By: #### L [id number] ####[facility] ([facility])[address] [place] [address] Calcium [Mass/Vol] 9.2 mg/dL Normal 8.6-10.3 [facility] Comment on above: Performed By: #### L [id number] ####[facility] ([facility])[address] [place] [address] Chloride [Moles/Vol] 107 mmol/L Normal 98-107 [facility] Comment on above: Performed By: #### L [id number] ####[facility] ([facility])[address] [place] [address] CO2 [Moles/Vol] 24 mmol/L Normal 21-31 [facility] Comment on above: Performed By: #### L [id number] ####[facility] ([facility])[address] [place] [address] Creatinine [Mass/Vol] 0.65 mg/dL Low 0.70-1.30 [facility] Comment on above: Performed By: #### L [id number] ####[facility] ([facility])[address] [place] [address] GLOMERULAR FILTRATION RATE ML/MIN/1.73 SQ M.PREDICTED 109.9 mL/min/1.73m*2 Normal >60.0 [facility] Comment on above: Result Comment: [facility]???s estimated glomerular filtration rate (eGFR) will [...] of individuals. Performed By: #### L [id number] ####[facility] ([facility])[address] [place] [address] Glucose [Mass/Vol] 103 mg/dL High 70-100 [facility] Comment on above: Performed By: #### L [id number] ####[facility] ([facility])[address] [place] [address] Potassium [Moles/Vol] 3.8 mmol/L Normal 3.5-5.1 [facility] Comment on above: Performed By: #### L [id number] ####[facility] ([facility])[address] [place] [address] Sodium [Moles/Vol] 137 mmol/L Normal 136-145 [facility] Comment on above: Performed By: #### L [id number] ####[facility] ([facility] [place] [address] Urea nitrogen [Mass/Vol] 9 mg/dL Normal 7-25 [facility] Comment on above: Performed By: #### L [id number] ####[facility] ([facility])[address] [place] [address] UREA NITROGEN/CREATININE (MASS RATIO) IN SER/PLAS 13.8 Normal [facility] Comment on above: Performed By: #### L [id number] ####[facility] ([facility])[address] [place] [address] MAGNESIUMon 03-23-2023 Magnesium [Mass/Vol] 1.6 mg/dL Low 1.9-2.7 [facility] Comment on above: Performed By: #### L [id number] #### [facility] (BEAKER) [address] [place] [address] 30on 03-22-2023 30 Problem: Pain - Adul [...] Goal: Maintains hematologic stability Outcome: Progressing Normal [facility] 30 Problem: Pain - Adul t [...] from fall injury Outcome: Progressing Flowsheets (Taken 03/22/2023242) Free from fall injury: Assess patient frequently for physical needs [place] fall precautions as indicated by assessment Identify [...] for suctioning and aspirate as needed Normal [facility] BASIC METABOLIC PANELon 12-0 Anion gap [Moles/Vol] 9 mmol/L Normal 7-20 [facility] Comment on above: Performed By: #### L [id number] ####[facility] (BEAKER)[address] [place] [address] Calcium [Mass/Vol] 8.4 mg/dL Low 8.6-10.3 [facility] Comment on above: Performed By: #### L [id number] ####[facility] (BEAKER)[address] [place] [address] Chloride [Moles/Vol] 108 mmol/L High 98-107 [facility] Comment on above: Performed By: #### L [id number] ####[facility] (BEAKER)[address] [place] [address] CO2 [Moles/Vol] 24 mmol/L Normal 21-31 [facility] Comment on above: Performed By: #### L [id number] ####[facility] (BEAKER)[address] [place] [address] Creatinine [Mass/Vol] 0.68 mg/dL Low 0.70-1.30 [facility] Comment on above: Performed By: #### L [id number] ####[facility] ([facility])[address] [place] [address] GLOMERULAR FILTRATION RATE ML/MIN/1.73 SQ M.PREDICTED 108.4 mL/min/1.73m*2 Normal >60.0 [facility] Comment on above: Result Comment: [facility]???s estimated glomerular filtration rate (eGFR) will [...] of individuals. Performed By: #### L [id number] ####[facility] ([facility])[address] [place] [address] Glucose [Mass/Vol] 108 mg/dL High 70-100 [facility] Comment on above: Performed By: #### L [id number] ####[facility] ([facility])[address] [place] [address] Potassium [Moles/Vol] 4.1 mmol/L Normal 3.5-5.1 [facility] Comment on above: Performed By: #### L [id number] ####[facility] ([facility])[address] [facility] [address] Sodium [Moles/Vol] 137 mmol/L Normal 136-145 [facility] Comment on above: Performed By: #### L [id number] ####[facility] ([facility])[address] [place] [place] [address] Urea nitrogen [Mass/Vol] 10 mg/dL Normal 7-25 [facility] Comment on above: Performed By: #### L [id number] ####[facility] ([facility])[address] [place] [address] UREA NITROGEN/CREATININE (MASS RATIO) IN SER/PLAS 14.7 Normal [facility] Comment on above: Performed By: #### L [id number] ####[facility] (BEAKER)[address] [place] [address] Anion gap [Moles/Vol] 8 mmol/L Normal 7-20 [facility] Comment on above: Performed By: #### L [id number] ####[facility] ([facility] [place] [address] Calcium [Mass/Vol] 8.8 mg/dL Normal 8.6-10.3 [facility] Comment on above: Performed By: #### L [id number] ####[facility] (BEAKER)[address] [place] [address] Chloride [Moles/Vol] 106 mmol/L Normal 98-107 [facility] Comment on above: Performed By: #### L [id number] ####[facility] ([facility] [place] [address] CO2 [Moles/Vol] 25 mmol/L Normal 21-31 [facility] Comment on above: Performed By: #### L [id number] ####[facility] ([facility])[address] [place] [address] Creatinine [Mass/Vol] 0.76 mg/dL Normal 0.70-1.30 [facility] Comment on above: Performed By: #### L [id number] ####[facility] ([facility])[address] [place] [address] GLOMERULAR FILTRATION RATE ML/MIN/1.73 SQ M.PREDICTED 104.8 mL/min/1.73m*2 Normal >60.0 [facility] Comment on above: Result Comment: The [facility]???s estimated glomerular filtration rate (eGFR) will [...] of individuals. Performed By: #### L [id number] ####[facility] ([facility])[address] [place] [address] Glucose [Mass/Vol] 124 mg/dL High 70-100 [facility] Comment on above: Performed By: #### L [id number] ####[facility] ([facility])[address] [place] [address] Potassium [Moles/Vol] 3.4 mmol/L Low 3.5-5.1 [facility] Comment on above: Performed By: #### L [id number] ####[facility] ([facility])[address] [place] [address] Sodium [Moles/Vol] 136 mmol/L Normal 136-145 [facility] Comment on above: Performed By: #### L [id number] ####[facility] ([facility])[address] [place] [address] Urea nitrogen [Mass/Vol] 12 mg/dL Normal 7-25 [facility] Comment on above: Performed By: #### L [id number] ####[facility] ([facility])[address] [place] [address] UREA NITROGEN/CREATININE (MASS RATIO) IN SER/PLAS 15.8 Normal [facility] Comment on above: Performed By: #### L [id number] ####[facility] ([facility])[address] [place] [address] CBCon 03-22-2023 Erythrocyte distribution width (RBC) [Ratio] 13.7 % Normal 11.5-15.0 [facility] Comment on above: Performed By: #### L [id number] #### [facility] ([facility]) [address] [place] [address] ERYTHROCYTE MEAN CORPUSCULAR HEMOGLOBIN CONCENTRATION (G/DL) BY AUTOMATED 34.0 g/dL Normal 32.0-35.0 [facility] Comment on above: Performed By: #### L [id number] #### [facility] ([facility]) [address] [place] [address] Hematocrit (Bld) [Volume fraction] 38.5 % Low 39.0-55.0 [facility] Comment on above: Performed By: #### L [id number] #### [facility] ([facility]) [address] [place] [address] Hemoglobin (Bld) [Mass/Vol] 13.1 g/dL Normal 13.0-17.0 [facility] Comment on above: Performed By: #### L [id number] #### [facility] ([facility]) [address] [place] [address] MCH (RBC) [Entitic mass] 30.8 pg Normal 27.0-33.0 [facility] Comment on above: Performed By: #### L [id number] #### [facility] ([facility]) [address] [place] [address] MCV (RBC) [Entitic vol] 90.6 fL Normal 82.0-98.0 [facility] Comment on above: Performed By: #### L [id number] #### [facility] ([facility]) [address] [place] [address] PLATELETS (10*3/UL) IN BLOOD AUTOMATED COUNT 198 10*3/uL Normal 150-400 [facility] Comment on above: Performed By: #### L [id number] #### [facility] ([facility]) [address] [place] [address] RBC (Bld) [#/Vol] 4.25 10*6/uL Normal 4.20-5.70 [facility] Comment on above: Performed By: #### L [id number] #### [facility] ([facility]) [address] [place] [address] WBC (Bld) [#/Vol] 10.09 10*3/uL Normal 4.00-10.60 [facility] Comment on above: Performed By: #### L [id number] #### [facility] (BEAKER) [address] [place] [address] MAGNESIUMon 03-22-2023 Magnesium [Mass/Vol] 1.9 mg/dL Normal 1.9-2.7 [facility] Comment on above: Performed By: #### L [id number] ####[facility] ([facility])[address] [place] [address] Magnesium [Mass/Vol] 1.8 mg/dL Low 1.9-2.7 [facility] Comment on above: Performed By: #### L [id number] ####[facility] ([facility])[address] [place] [address] NURSNOTEon 03-22-2023 NURSNOTE Patient Name: Sam Elder [...] call if anything changes over night. Bryan Garg, RN Rapid Response Team Nurse [phone] 03/22/2023 10:45 PM Normal [facility] TROPONIN Ion 03-22-2023 Troponin I.cardiac [Mass/Vol] 8.73 ng/mL Critically high 0.00-0.04 [facility] Comment on above: Result Comment: Prev ious result verified on 03/22/2023 0140 on specimen/case [id number] called with component Troponin I for procedure Troponin I with value 12.32 ng/mL. Performed By: #### L [id number] #### [facility] (BEAKER) [address] [place] [address] Troponin I.cardiac [Mass/Vol] 12.32 ng/mL Critically high 0.00-0.04 [facility] Comment on above: Result Comment: M-ND EVIOUS CRITICAL RESULT Previous result verified on 03/21/2023 1359 on specimen/case [id number] called with component Troponin I for procedure Troponin I with value 19.66 ng/mL. Performed By: #### L [id number] ####[facility] ([facility])[address] [place] [address] 30on 03-21-2023 30 The patient is Moderately [...] optimal renal function maintained Outcome: Progressing Normal [facility] ANTI-XA (HEPARIN LEVEL)on HEPARIN UNFRACTIONATED (U/ML) IN PPP BY CHROMOGENIC METHOD 0.59 IU/mL Normal 0.3-0.7 [facility] Comment on above: Result Comment: Mary roxaban and Apixaban will interfere with the anti Xa assay used to monitor UFH and LMWH. Performed By: #### L [id number] ####[facility] (BEAKER)[address] [place] [address] HEPARIN UNFRACTIONATED (U/ML) IN PPP BY CHROMOGENIC METHOD 0.42 IU/mL Normal 0.3-0.7 [facility] Comment on above: Result Comment: Mary roxaban and Apixaban will interfere with the anti Xa assay used to monitor UFH and LMWH. Performed By: #### L [id number] #### [facility] (BEAKER) [address] [place] [address] ARTERIAL BLOOD GAS WITH CO-O XIMETRYon 03-21-2023 Base excess Calc (Bld) [Moles/Vol] 1.3 mmol/L Normal -2.0-3.0 [facility] Comment on above: Performed By: #### L [id number] ####[facility] [id number] [place] [address] [facility] CARBOXYHEMOGLOBIN/H EMOGLOBIN TOTAL % IN BLOOD 1.8 % Normal 0.0-3.0 [facility] Comment on above: Performed By: #### L [id number] ####[facility] [id number] [place] [address] [place] CO2 (Bld) [Partial pressure] 36 mm[Hg] Normal 35-48 [facility] Comment on above: Performed By: #### L [id number] ####[facility] [id number] [place] [address] [place] DEOXYGENATED HEMOGLOBIN IN BLOOD 2.4 % Normal 1-5 [facility] Comment on above: Performed By: #### L [id number] ####[facility] [id number] [place] [address] [place] HCO3 (Bld) [Moles/Vol] 25.0 mmol/L Normal 21.0-28.0 [facility] Comment on above: Performed By: #### L [id number] ####[facility] [id number] [place] [address] [facility] Hemoglobin (Bld) [Mass/Vol] 13.6 g/dL Normal 11.7-17.4 [facility] Comment on above: Performed By: #### L [id number] ####[facility] [id number] [place] [address] [place] LPM 5 Normal [facility] Comment on above: Performed By: #### L [id number] ####[facility] [id number] [place] [address] [facility] METHEMOGLOBIN/100 IN BLOOD 0.7 % Normal 0.0-1.5 [facility] Comment on above: Performed By: #### L [id number] ####[facility] [id number] [place] [address] [facility] Oxygen (Bld) [Partial pressure] 79 mm[Hg] Low 83-100 [facility] Comment on above: Performed By: #### L [id number] ####[facility] [id number] [place] [address] [facility] OXYGEN SATURATION (%) IN ARTERIAL BLOOD 97.5 % Normal 94.0-98.0 [facility] Comment on above: Performed By: #### L [id number] ####[facility] [id number] [place] [address] [facility] OXYGENATED HEMOGLOBIN IN BLOOD 95.0 % Normal 90.0-95.0 [facility] Comment on above: Performed By: #### L [id number] ####[facility] [id number] [place] [address] [facility] pH (Bld) 7.45 [pH] Normal 7.35-7.45 [facility] Comment on above: Performed By: #### L [id number] ####[facility] [id number] [place] [address] [facility] SOURCE OF OXYGEN Nasal cannula Normal [facility] Comment on above: Performed By: #### L [id number] ####[facility] [id number] [place] [address] [place] B-TYPE NATRIURETIC PEPTIDEon 03-21-2023 Natriuretic peptide B (Bld) [Mass/Vol] 464 pg/mL High 0-100 [facility] Comment on above: Performed By: #### L [id number] #### [facility] ([facility]) [address] [place] [address] BASIC METABOLIC PANELon 12-0 Anion gap [Moles/Vol] 11 mmol/L Normal 7-20 [facility] Comment on above: Performed By: #### L [id number] #### [facility] ([facility]) [address] [place] [address] Calcium [Mass/Vol] 8.9 mg/dL Normal 8.6-10.3 [facility] Comment on above: Performed By: #### L [id number] #### [facility] ([facility]) [address] [place] [address] Chloride [Moles/Vol] 105 mmol/L Normal 98-107 [facility] Comment on above: Performed By: #### L [id number] #### [facility] ([facility]) [address] [place] [address] CO2 [Moles/Vol] 24 mmol/L Normal 21-31 [facility] Comment on above: Performed By: #### L [id number] #### [facility] ([facility]) [address] [place] [address] Creatinine [Mass/Vol] 0.73 mg/dL Normal 0.70-1.30 [facility] Comment on above: Performed By: #### L [id number] #### [facility] ([facility]) [address] [place] [address] GLOMERULAR FILTRATION RATE ML/MIN/1.73 SQ M.PREDICTED 106.1 mL/min/1.73m*2 Normal >60.0 [facility] Comment on above: Result Comment: [facility]???s estimated glomerular filtration rate (eGFR) will [...] individuals. Performed By: #### L [id number] #### [facility] ([facility]) [address] [place] [address] Glucose [Mass/Vol] 100 mg/dL Normal 70-100 [facility] Comment on above: Performed By: #### L [id number] #### [facility] ([facility]) [address] [place] [address] Potassium [Moles/Vol] 3.8 mmol/L Normal 3.5-5.1 [facility] Comment on above: Performed By: #### L [id number] #### [facility] ([facility]) [address] [place] [address] Sodium [Moles/Vol] 136 mmol/L Normal 136-145 [facility] Comment on above: Performed By: #### L [id number] #### [facility] ([facility]) [address] [place] [address] Urea nitrogen [Mass/Vol] 11 mg/dL Normal 7-25 [facility] Comment on above: Performed By: #### L [id number] #### [facility] (BEAKER) [address] [place] [address] UREA NITROGEN/CREATININE (MASS RATIO) IN SER/PLAS 15.1 Normal [facility] Comment on above: Performed By: #### L [id number] #### [facility] ([facility] [address] [place] [address] Anion gap [Moles/Vol] 10 mmol/L Normal 7-20 [facility] Comment on above: Performed By: #### L [id number] #### [facility] ([facility]) [address] [place] [address] Calcium [Mass/Vol] 8.8 mg/dL Normal 8.6-10.3 [facility] Comment on above: Performed By: #### L [id number] #### [facility] ([facility]) [address] [place] [address] Chloride [Moles/Vol] 107 mmol/L Normal 98-107 [facility] Comment on above: Performed By: #### L [id number] #### [facility] ([facility]) [address] [place] [address] CO2 [Moles/Vol] 22 mmol/L Normal 21-31 [facility] Comment on above: Performed By: #### L [id number] #### [facility] ([facility]) [address] [place] [address] Creatinine [Mass/Vol] 0.71 mg/dL Normal 0.70-1.30 [facility] Comment on above: Performed By: #### L [id number] #### [facility] ([facility]) [address] [place] [address] GLOMERULAR FILTRATION RATE ML/MIN/1.73 SQ M.PREDICTED 107.0 mL/min/1.73m*2 Normal >60.0 [facility] Comment on above: Result Comment: [facility]???s estimated glomerular filtration rate (eGFR) will [...] individuals. Performed By: #### L [id number] #### [facility] ([facility]) [address] [place] [address] Glucose [Mass/Vol] 99 mg/dL Normal 70-100 [facility] Comment on above: Performed By: #### L [id number] #### [facility] ([facility]) [address] [place] [address] Potassium [Moles/Vol] 3.9 mmol/L Normal 3.5-5.1 [facility] Comment on above: Performed By: #### L [id number] #### [facility] ([facility]) [address] [place] [address] Sodium [Moles/Vol] 135 mmol/L Low 136-145 [facility] Comment on above: Performed By: #### L [id number] #### [facility] ([facility]) [address] [place] [address] Urea nitrogen [Mass/Vol] 11 mg/dL Normal 7-25 [facility] Comment on above: Performed By: #### L [id number] #### [facility] ([facility]) [address] [place] [address] UREA NITROGEN/CREATININE (MASS RATIO) IN SER/PLAS 15.5 Normal [facility] Comment on above: Performed By: #### L [id number] #### [facility] ([facility]) [address] [place] [address] CALCIUM, IONIZEDon CALCIUM IONIZED (MMOL/L) IN BLOOD 1.15 mmol/L Normal 1.15-1.33 [facility] Comment on above: Performed By: #### C ALCIUM, IONIZED ####[facility] [id number] [place] [address] [place] CBCon 03-21-2023 Erythrocyte distribution width (RBC) [Ratio] 13.9 % Normal 11.5-15.0 [facility] Comment on above: Order Comment: On ar rival to CVU Performed By: #### L [id number] #### [facility] ([facility]) [address] [place] [address] ERYTHROCYTE MEAN CORPUSCULAR HEMOGLOBIN CONCENTRATION (G/DL) BY AUTOMATED 33.2 g/dL Normal 32.0-35.0 [facility] Comment on above: Order Comment: On ar rival to CVU Performed By: #### L [id number] #### [facility] ([facility]) [address] [place] [address] Hematocrit (Bld) [Volume fraction] 40.1 % Normal 39.0-55.0 [facility] Comment on above: Order Comment: On ar rival to CVU Performed By: #### L [id number] #### [facility] ([facility]) [address] [place] [address] Hemoglobin (Bld) [Mass/Vol] 13.3 g/dL Normal 13.0-17.0 [facility] Comment on above: Order Comment: On ar rival to CVU Performed By: #### L [id number] #### [facility] ([facility]) [address] [place] [address] MCH (RBC) [Entitic mass] 30.6 pg Normal 27.0-33.0 [facility] Comment on above: Order Comment: On ar rival to CVU Performed By: #### L [id number] #### [facility] ([facility]) [address] [place] [address] MCV (RBC) [Entitic vol] 92.2 fL Normal 82.0-98.0 [facility] Comment on above: Order Comment: On ar rival to CVU Performed By: #### L [id number] #### [facility] ([facility]) [address] [place] [address] PLATELETS (10*3/UL) IN BLOOD AUTOMATED COUNT 201 10*3/uL Normal 150-400 [facility] Comment on above: Order Comment: On ar rival to CVU Performed By: #### L [id number] #### [facility] ([facility]) [address] [place] [address] RBC (Bld) [#/Vol] 4.35 10*6/uL Normal 4.20-5.70 [facility] Comment on above: Order Comment: On ar rival to CVU Performed By: #### L [id number] #### [facility] (BEAKER) [address] [place] [address] WBC (Bld) [#/Vol] 8.80 10*3/uL Normal 4.00-10.60 [facility] Comment on above: Order Comment: On ar rival to CVU Performed By: #### L [id number] #### [facility] (BEAKER) [address] [place] [address] CBC WITH AUTO DIFFERENTIALon 03-21-2023 Basophils (Bld) [#/Vol] 0.03 10*3/uL Normal 0.00-0.20 [facility] Comment on above: Performed By: #### L [id number] #### [facility] [address] [place] [address] Basophils/100 WBC (Bld) 0.3 % Normal 0.0-1.0 [facility] Comment on above: Performed By: #### L [id number] #### [facility] (BEAKER) [address] [place] [address] Eosinophils (Bld) [#/Vol] 0.08 10*3/uL Normal 0.00-0.50 [facility] Comment on above: Performed By: #### L [id number] #### [facility] (BEAKER) [address] [place] [address] Eosinophils/100 WBC (Bld) 0.8 % Normal 0.0-6.0 [facility] Comment on above: Performed By: #### L [id number] #### [facility] (BEAKER) [address] [place] [address] Erythrocyte distribution width (RBC) [Ratio] 13.7 % Normal 11.5-15.0 [facility] Comment on above: Performed By: #### L [id number] #### [facility] (BEAKER) [address] [place] [address] ERYTHROCYTE MEAN CORPUSCULAR HEMOGLOBIN CONCENTRATION (G/DL) BY AUTOMATED 32.9 g/dL Normal 32.0-35.0 [facility] Comment on above: Performed By: #### L [id number] #### [facility] (BEAKER) [address] [place] [address] Hematocrit (Bld) [Volume fraction] 37.4 % Low 39.0-55.0 [facility] [facility] Comment on above: Performed By: #### L [id number] #### [facility] ([facility] [address] [place] [address] Hemoglobin (Bld) [Mass/Vol] 12.3 g/dL Low 13.0-17.0 [facility] Comment on above: Performed By: #### L [id number] #### [facility] ([facility] [address] [place] [address] Immature granulocytes (Bld) [#/Vol] 0.04 10*3/uL Normal 0.00-0.20 [facility] Comment on above: Performed By: #### L [id number] #### [facility] (BEAKER) [address] [place] [address] Immature granulocytes/100 WBC (Bld) 0.4 % Normal 0.0-1.0 [facility] Comment on above: Performed By: #### L [id number] #### [facility] (BEAKER) [address] [place] [address] Lymphocytes (Bld) [#/Vol] 2.22 10*3/uL Normal 1.20-4.00 [facility] Comment on above: Performed By: #### L [id number] #### [facility] (BEAKER) [address] [place] [address] Lymphocytes/100 WBC (Bld) 21.4 % Normal 20.0-45.0 [facility] Comment on above: Performed By: #### L [id number] #### [facility] (BEAKER) [address] [place] [address] MCH (RBC) [Entitic mass] 30.6 pg Normal 27.0-33.0 [facility] Comment on above: Performed By: #### L [id number] #### [facility] ([facility]) [address] [place] [address] MCV (RBC) [Entitic vol] 93.0 fL Normal 82.0-98.0 [facility] Comment on above: Performed By: #### L [id number] #### [facility] ([facility]) [address] [place] [address] Monocytes (Bld) [#/Vol] 0.80 10*3/uL Normal 0.10-1.00 [facility] Comment on above: Performed By: #### L [id number] #### [facility] ([facility]) [address] [place] [address] Monocytes/100 WBC (Bld) 7.7 % Normal 5.0-12.0 [facility] Comment on above: Performed By: #### L [id number] #### [facility] ([facility]) [address] [place] [address] Neutrophils (Bld) [#/Vol] 7.22 10*3/uL Normal 1.60-7.60 [facility] Comment on above: Performed By: #### L [id number] #### [facility] ([facility]) [address] [place] [address] Neutrophils/100 WBC (Bld) 69.4 % Normal 40.0-72.0 [facility] Comment on above: Performed By: #### L [id number] #### [facility] ([facility]) [address] [place] [address] NRBC (PER 100 WBCS) BY AUTOMATED COUNT 0.0 % Normal 0 [facility] Comment on above: Performed By: #### L [id number] #### [facility] (BEAKER) [address] [place] [address] PLATELETS (10*3/UL) IN BLOOD AUTOMATED COUNT 185 10*3/uL Normal 150-400 [facility] Comment on above: Performed By: #### L [id number] #### [facility] ([facility]) [address] [place] [address] RBC (Bld) [#/Vol] 4.02 10*6/uL Low 4.20-5.70 [facility] Comment on above: Performed By: #### L [id number] #### [facility] (BEAKER) [address] [place] [address] WBC (Bld) [#/Vol] 10.39 10*3/uL Normal 4.00-10.60 [facility] Comment on above: Performed By: #### L [id number] #### [facility] (BEAKER) [address] [place] [address] CO-OXIMETRYon 03-21-2023 CARBOXYHEMOGLOBIN/H EMOGLOBIN TOTAL % IN BLOOD 1.4 % Normal [facility] Comment on above: Performed By: #### L [id number] #### [facility] ([facility] [address] [place] [address] Hemoglobin (Bld) [Mass/Vol] 13.3 g/dL Normal [facility] Comment on above: Performed By: #### L [id number] #### [facility] ([facility] [address] [place] [address] METHEMOGLOBIN/100 IN BLOOD 1.1 % Normal 0.0-1.5 [facility] Comment on above: Performed By: #### L [id number] #### [facility] ([facility]) [address] [place] [address] Oxygen saturation in Blood 64.9 % Normal [facility] Comment on above: Performed By: #### L [id number] #### [facility] ([facility]ER) [address] [place] [address] OXYGENATED HEMOGLOBIN IN BLOOD 63.3 % Normal [facility] Comment on above: Performed By: #### L [id number] #### [facility]) [address] [address] CONSULTon 03-21-2023 CONSULT -- Attestation signed by [...] his entire life. He initially presented to [facility] yesterday after having chest pain with radiation [...] became diaphoretic and EMS was called. At [place] initial workup significant for Troponin of 1.53, BNP 464, EKG with sinus rhythm, PVCs and septal infarct. Patient transferred to [facility] for catheterization. Patient had catheterization this am with stent placement in RCA and LAD. During the procedure patient had decompensating heart failure with low blood pressures and Impella device was placed. 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 Musculoskeleta (more content not included)... Normal [facility] CONSULT -- Attestation signed by Martin [...] Teaching Physician's Revisions: none Martin Blackburn MD DC Cardiology Cardiology Consult Note Reason for Consult: transfer from [place], NSTEMI, elevated trop 1.53, vitals stable, cards [...] on nasal cannula saturating well. 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 Patient [...] -- 83 21 96 % -- -- 03/20/232325 92/77 -- -- 76 21 97 % -- -- 03/20/23 230 9172 -- -- 87 22 (!) 89 % -- -- 03/20/23 224 93/72 -- -- 82 21 92 % -- -- 03/20/232225 86/69 -- -- 81 23 92 % -- -- 03/20/232205 91/77 -- -- 81 22 90 % [...] Value Ventricular Rate 76 Atrial Rate 76 ND Interval 194 QRS DURATION 94 QT Interval 362 QTC CALCULATION(BAZETT) 407 P [place] 69 R-[place] 113 T Wave [place] 97 Impression Sinus rhythm with occasional Premature vent (more content not included)... Normal [facility] HPon 03-21-2023 HP H&P reviewed. The patient was examined and there are no changes to the H&P. Patient without knonwn prior CAD hx, significant smoking and FH, presenting with NSTEMI and elevated BNP Will proceed with coronary angiogram and right heart cath. Procedures' details, risks and benefits discussed with the patient and he's agreeable. Normal [facility] MAGNESIUMon 03-21-2023 Magnesium [Mass/Vol] 1.7 mg/dL Low 1.9-2.7 [facility] Comment on above: Order Comment: On ar rival to CVU Performed By: #### L [id number] ####[facility] ([employer])[address] [place] [address] Magnesium [Mass/Vol] 1.7 mg/dL Low 1.9-2.7 [facility] Comment on above: Performed By: #### L [id number] #### [facility] ([employer]) [address] [place] [address] POCT ACTIVATED CLOTTING TIME UNSOLICITED RESULTSon 03-21-2023 POC ACTIVATED CLOTTING TIME 165 sec High 82-152 [facility] Comment on above: Performed By: #### L [id number] #### [facility] ([facility]) [address] [place] [address] POC ACTIVATED CLOTTING TIME 154 sec High 82-152 [facility] Comment on above: Performed By: #### L [id number] ####[facility] ([facility])[address] [place] [address] POC ACTIVATED CLOTTING TIME 165 sec High 82-152 [facility] Comment on above: Performed By: #### L [id number] #### [facility] ([facility]) [address] [place] [address] POC ACTIVATED CLOTTING TIME 194 sec High 82-152 [facility] Comment on above: Performed By: #### L [id number] #### [facility] ([facility]) [address] [place] [address] POTASSIUM, WHOLE BLOODon Potassium [Moles/Vol] 3.8 mmol/L Normal 3.5-5.1 [facility] Comment on above: Performed By: #### P OTASSIUM, WHOLE BLOOD ####[facility] [id number] [place] [address] [place] SODIUM, WHOLE BLOODon 2022 SODIUM, WHOLE BLOOD 134 Low 136-145 [facility] Comment on above: Performed By: #### L [id number] #### [facility] ([facility]) [address] [place] [address] TROPONIN Ion 03-21-2023 Troponin I.cardiac [Mass/Vol] 12.84 ng/mL Critically high 0.00-0.04 [facility] Comment on above: Result Comment: M-ND EVIOUS CRITICAL RESULT Previous result verified on 03/21/2023 1359 on specimen/case [id number] called with component Troponin I for procedure Troponin I with value 19.66 ng/mL. Performed By: #### L [id number] #### [facility] ([facility]) [address] [place] [address] Troponin I.cardiac [Mass/Vol] 19.66 ng/mL Critically high 0.00-0.04 [facility] Comment on above: Result Comment: Prev ious result verified on 03/21/2023 0637 on specimen/case [id number] called with component Troponin I for procedure Troponin I with value 17.29 ng/mL. Performed By: #### L [id number] ####[facility] ([facility])[address] [place] [address] Troponin I.cardiac [Mass/Vol] 17.29 ng/mL Critically high 0.00-0.04 [facility] Comment on above: Result Comment: Prev ious result verified on 03/20/2023 2201 on specimen/case [id number] called with component Troponin I for procedure Troponin I with value 1.53 ng/mL. Performed By: #### L [id number] #### [facility] ([facility]) [address] [place] [address] ANTI-XA (HEPARIN LEVEL)on HEPARIN UNFRACTIONATED (U/ML) IN PPP BY CHROMOGENIC METHOD 0.19 IU/mL Low 0.3-0.7 [facility] Comment on above: Order Comment: Check anti-Xa level every 6 hours while on heparin infusion, or per protocol. Result Comment: Mary roxaban and Apixaban will interfere with the anti Xa assay used to monitor UFH and LMWH. Performed By: #### L [id number] ####[facility] ([facility])[address] [place] [address] APTTon 03-20-2023 ACTIVATED PARTIAL THROMBOPLASTIN TIME IN PPP BY COAGULATION ASSAY 49.5 Seconds High 25.0-35.0 [facility] Comment on above: Result Comment: Clin ical significance of the APTT is questionable in the presence of heparin. Performed By: #### L [id number] ####[facility] ([facility])[address] [place] [address] CBC WITH AUTO DIFFERENTIALon 03-20-2023 Basophils (Bld) [#/Vol] 0.02 10*3/uL Normal 0.00-0.20 [facility] Comment on above: Performed By: #### L [id number] #### [facility] (BEAKER) [address] [place] [address] Basophils/100 WBC (Bld) 0.2 % Normal 0.0-1.0 [facility] Comment on above: Performed By: #### L [id number] #### [facility] ([facility]AKER) [address] [place] [address] Eosinophils (Bld) [#/Vol] 0.02 10*3/uL Normal 0.00-0.50 [facility] Comment on above: Performed By: #### L [id number] #### [facility] (BEAKER) [address] [place] [address] Eosinophils/100 WBC (Bld) 0.2 % Normal 0.0-6.0 [facility] Comment on above: Performed By: #### L [id number] #### [facility] (BEAKER) [address] [place] [address] Erythrocyte distribution width (RBC) [Ratio] 13.7 % Normal 11.5-15.0 [facility] Comment on above: Performed By: #### L [id number] #### [facility] (BEAKER) [address] [place] [address] ERYTHROCYTE MEAN CORPUSCULAR HEMOGLOBIN CONCENTRATION (G/DL) BY AUTOMATED 32.8 g/dL Normal 32.0-35.0 [facility] Comment on above: Performed By: #### L [id number] #### [facility] (BEAKER) [address] [place] [address] Hematocrit (Bld) [Volume fraction] 40.8 % Normal 39.0-55.0 [facility] Comment on above: Performed By: #### L [id number] #### [facility] (BEAKER) [address] [place] [address] Hemoglobin (Bld) [Mass/Vol] 13.4 g/dL Normal 13.0-17.0 [facility] Comment on above: Performed By: #### L [id number] #### [facility] ([facility]) [address] [place] [address] Immature granulocytes (Bld) [#/Vol] 0.04 10*3/uL Normal 0.00-0.20 [facility] Comment on above: Performed By: #### L [id number] #### [facility] ([facility]) [address] [place] [address] Immature granulocytes/100 WBC (Bld) 0.4 % Normal 0.0-1.0 [facility] Comment on above: Performed By: #### L [id number] #### [facility] ([facility]) [address] [place] [address] Lymphocytes (Bld) [#/Vol] 1.22 10*3/uL Normal 1.20-4.00 [facility] Comment on above: Performed By: #### L [id number] #### [facility] ([facility]) [address] [place] [address] Lymphocytes/100 WBC (Bld) 12.2 % Low 20.0-45.0 [facility] Comment on above: Performed By: #### L [id number] #### [facility] ([facility] [address] [place] [address] MCH (RBC) [Entitic mass] 30.8 pg Normal 27.0-33.0 [facility] Comment on above: Performed By: #### L [id number] #### [facility] (BEAKER) [address] [place] [address] MCV (RBC) [Entitic vol] 93.8 fL Normal 82.0-98.0 [facility] Comment on above: Performed By: #### L [id number] #### [facility] (BEAKER) [address] [place] [address] Monocytes (Bld) [#/Vol] 0.51 10*3/uL Normal 0.10-1.00 [facility] Comment on above: Performed By: #### L [id number] #### [facility] ([facility]) [address] [place] [address] Monocytes/100 WBC (Bld) 5.1 % Normal 5.0-12.0 [facility] Comment on above: Performed By: #### L [id number] #### [facility] ([facility]) [address] [place] [address] Neutrophils (Bld) [#/Vol] 8.21 10*3/uL High 1.60-7.60 [facility] Comment on above: Performed By: #### L [id number] #### [facility] ([facility]) [address] [place] [address] Neutrophils/100 WBC (Bld) 81.9 % High 40.0-72.0 [facility] Comment on above: Performed By: #### L [id number] #### [facility] ([facility]) [address] [place] [address] NRBC (PER 100 WBCS) BY AUTOMATED COUNT 0.0 % Normal 0 [facility] Comment on above: Performed By: #### L [id number] #### [facility] ([facility]) [address] [place] [address] PLATELETS (10*3/UL) IN BLOOD AUTOMATED COUNT 215 10*3/uL Normal 150-400 [facility] Comment on above: Performed By: #### L [id number] #### [facility] ([facility]) [address] [place] [address] RBC (Bld) [#/Vol] 4.35 10*6/uL Normal 4.20-5.70 [facility] Comment on above: Performed By: #### L [id number] #### [facility] ([facility]) [address] [place] [address] WBC (Bld) [#/Vol] 10.02 10*3/uL Normal 4.00-10.60 [facility] Comment on above: Performed By: #### L [id number] #### [facility] ([facility]) [address] [place] [address] COMPREHENSIVE METABOLIC PANE Edy 03-20-2023 Albumin [Mass/Vol] 3.9 g/dL Normal 3.5-5.7 [facility] Comment on above: Performed By: #### L [id number] ####[facility] ([facility])[address] [place] [address] ALP [Catalytic activity/Vol] 63 U/L Normal 34-104 [facility] Comment on above: Performed By: #### L [id number] ####[facility] ([facility])[address] [place] [address] ALT [Catalytic activity/Vol] 13 U/L Normal 7-52 [facility] Comment on above: Performed By: #### L [id number] ####[facility] ([facility])[address] [place] [address] Anion gap [Moles/Vol] 13 mmol/L Normal 7-20 [facility] Comment on above: Performed By: #### L [id number] ####[facility] ([facility])[address] [place] [address] AST [Catalytic activity/Vol] 26 U/L Normal 13-39 [facility] Comment on above: Performed By: #### L [id number] ####[facility] ([facility])[address] [place] [address] Bilirubin [Mass/Vol] 0.6 mg/dL Normal 0.3-1.0 [facility] Comment on above: Performed By: #### L [id number] ####[facility] ([facility])[address] [place] [address] Calcium [Mass/Vol] 8.9 mg/dL Normal 8.6-10.3 [facility] Comment on above: Performed By: #### L [id number] ####[facility] ([facility])[address] [place] [address] Chloride [Moles/Vol] 107 mmol/L Normal 98-107 [facility] Comment on above: Performed By: #### L [id number] ####[facility] ([facility])[address] [place] [address] CO2 [Moles/Vol] 22 mmol/L Normal 21-31 [facility] Comment on above: Performed By: #### L [id number] ####[facility] ([facility])[address] [place] [address] Creatinine [Mass/Vol] 0.78 mg/dL Normal 0.70-1.30 [facility] Comment on above: Performed By: #### L [id number] ####[facility] ([facility])[address] [place] [address] GLOMERULAR FILTRATION RATE ML/MIN/1.73 SQ M.PREDICTED 104.0 mL/min/1.73m*2 Normal >60.0 [facility] Comment on above: Result Comment: [facility]???s estimated glomerular filtration rate (eGFR) will [...] of individuals. Performed By: #### L [id number] ####[facility] ([facility])[address] [place] [address] Glucose [Mass/Vol] 121 mg/dL High 70-100 [facility] Comment on above: Performed By: #### L [id number] ####[facility] ([facility])[address] [place] [address] Potassium [Moles/Vol] 4.6 mmol/L Normal 3.5-5.1 [facility] Comment on above: Performed By: #### L [id number] ####[facility] ([facility])[address] [place] [address] Protein [Mass/Vol] 6.2 g/dL Normal 6.0-8.3 [facility] Comment on above: Performed By: #### L [id number] ####[facility] (BEAKER)[address] [place] [address] Sodium [Moles/Vol] 137 mmol/L Normal 136-145 [facility] Comment on above: Performed By: #### L [id number] ####[facility] ([facility] [place] [address] Urea nitrogen [Mass/Vol] 10 mg/dL Normal 7-25 [facility] Comment on above: Performed By: #### L [id number] ####[facility] ([facility])[address] [place] [address] UREA NITROGEN/CREATININE (MASS RATIO) IN SER/PLAS 12.8 Normal [facility] Comment on above: Performed By: #### L [id number] ####[facility] ([facility])[address] [place] [address] EDNURSon 03-20-2023 EDNURS Patient arrives by life flight from [place] with elevated and increasing troponin from 0.82 [...] times 4 and denies any pain. Normal [facility] EDPROVon 03-20-2023 EDPROV HPI Chief Complaint [...] History provided by: EMS personnel and patient water quality control engineer used: No [place] Coma Scale Score: 15 Patient History History [...] ED Physician in the absence of a local delivery driver: yes Previous ECG: Previous ECG: Unavailable Interpretation: Interpretation: abnormal Rate: ECG rate: 83 ECG rate assessment: normal Rhythm: Rhythm: sinus rhythm Rhythm comment: W right axis deviation Comments: EKG interpretation done by Dr. Ornelas Qtc 432 ms ED Course & MDM ED Course as of 03/20/232208 Deepali Mar 20, [id number] Patient arrives from [facility] for concern of NSTEMI. He received 1 L fluid DYE TUB TENDER as well as aspirin and Brilinta. He [...] 70s. Cardiac workup ordered. Will speak to local delivery driver once troponin results. Patient arrives on a [...] of 03/20/232208 NSTEMI (non-ST elevated myocardial infarction) ([facility] SOB (shortness of breath) Medical Decision Making [...] (more content not included)... Invalid Interpretation Code [facility] EDPROV -- Attestation signed by Monse [...] History provided by: EMS personnel and patient water quality control engineer used: No [place] Coma Scale Score: 15 [...] ED Physician in the absence of a local delivery driver: yes Previous ECG: Previous ECG: Unavailable Interpretation: Interpretation: abnormal Rate: ECG rate: 83 ECG rate assessment: normal Rhythm: Rhythm: sinus rhythm Rhythm comment: W right axis deviation Comments: EKG interpretation done by Dr. Ornelas Qtc 432 ms ED Course & [facility] ED Course as of 03/20/239 Deepali Mar 20, [id number] Patient arrives from [facility]SH for concern of NSTEMI. He received 1 L fluid DYE TUB TENDER as well as aspirin and Brilinta. He [...] 70s. Cardiac workup ordered. Will speak to local delivery driver once troponin results. Patient arrives on a [...] Medical Decision (more content not included)... Normal [facility] LIPID PANELon 03-20-2023 CHOL/HDL 5.1 mg/dL Normal [facility] Comment on above: Performed By: #### L [id number] #### [facility] ([facility]) [address] [place] [address] Cholesterol [Mass/Vol] 178 mg/dL Normal 120-200 [facility] Comment on above: Performed By: #### L [id number] #### [facility] ([facility]) [address] [place] [address] Magnesium [Mass/Vol] 90 mg/dL Normal 40-149 [facility] Comment on above: Result Comment: TRIG LYCERIDE REFERENCE RANGE: 20 YEARS AND OLDER CARDIOVASCULAR RISK LESS THAN 150 mg/dL LOW RISK 150 TO 199 mg/dL BORDERLINE RISK 200 mg/dL AND GREATER HIGH RISK Performed By: #### L [id number] #### [facility] ([facility]) [address] [place] [address] Magnesium [Mass/Vol] 125 mg/dL Normal 0-160 [facility] Comment on above: Performed By: #### L [id number] #### [facility] ([facility]) [address] [place] [address] Magnesium [Mass/Vol] 35 mg/dL Normal 23-92 [facility] Comment on above: Performed By: #### L [id number] #### [facility] ([facility]) [address] [place] [address] NON HDL CHOL. (LDL+VLDL) 143 Normal [facility] Comment on above: Performed By: #### L [id number] #### [facility] ([facility]) [address] [place] [address] TOTAL VLDL-C 18 mg/dL Normal 0-40 [facility] Comment on above: Performed By: #### L AB18 #### [facility] ([facility]) [address] [place] [address] MAGNESIUMon 03-20-2023 Magnesium [Mass/Vol] 1.6 mg/dL Low 1.9-2.7 [facility] Comment on above: Performed By: #### L [id number] #### [facility] ([facility]) [address] [place] [address] PROTIME-INRon 03-20-2023 INR IN PPP BY COAGULATION ASSAY 1.06 Normal 0.90-1.10 [facility] Comment on above: Result Comment: ACCC [...] CHEST 1995;108:231S-246S. Performed By: #### L AB320 ####[facility] ([facility])[address] [place] [address] PROTHROMBIN TIME (PT) IN PPP BY COAGULATION ASSAY 13.8 Seconds Normal 12.3-14.8 [facility] Comment on above: Performed By: #### L AB320 ####[facility] ([facility])[address] [place] [address] TROPONIN Ion 03-20-2023 Troponin I.cardiac [Mass/Vol] 1.53 ng/mL Critically high 0.00-0.04 [facility] Comment on above: Performed By: #### L AB15 #### [facility] ([facility]) [address] [place] [address] MRI BRAIN WO/W CONon 019 MRI BRAIN WO/W CON Patient: SAM ELDER Exam Date: 12/23/2018 : 1965 Gender:M Ordering : TRISTEN CASTILLO Admission #: [id number] Family : Order #: [id number] CLICK HERE TO VIEW EXAM RADIOLOGY REPORT [...] 15:16 Normal [facility] XR FOREIGN BODY EYEon 2018 XR FOREIGN BODY EYE Patient: SAM ELDER Exam Date: 12/23/2018 : 1965 Gender:M Ordering : TRISTEN CASTILLO Admission #: [id number] Family : Order #: [id number] CLICK HERE TO VIEW EXAM RADIOLOGY REPORT PROCEDURE: RADIOGRAPH FOREIGN BODY EYE COMPARISON: None. INDICATIONS: Foreign body in eye for MRI FINDINGS: ORBITS: Negative for a metallic foreign body. OTHER: Negative. CONCLUSION: No metallic foreign body within the orbits. Dictated by: Amie Aponte M.D. on 12/23/2018 at 13:31 Approved by: Amie Aponte M.D. on 12/23/2018 at 13:31 Normal [facility] Encounters Encounter Date Encounter Type Care Provider Facility Start: 12-30-2023 End: 12-30-2023 ambulatory [facility] Start: 10-10-2023 End: 10-10-2023 ambulatory [facility] Start: 06-06-2023 End: 06-06-2023 ambulatory [facility] Start: 05-02-2023 End: 05-02-2023 ambulatory [facility] Start: 03-28-2023 End: 03-28-2023 ambulatory MAUREEN CALVILLO [facility] Start: 03-22-2023 [facility] Start: 03-22-2023 Evaluation and management of inpatient JACQUES SHARIMORENITA BREWER [facility] Start: 03-21-2023 Evaluation and management of inpatient JACQUES SHARIMORENITA BREWER [facility] Start: 03-21-2023 Evaluation and management of inpatient SANTANA JUNG [facility] Start: 03-20-2023 Evaluation and management of inpatient BRYAN MORALES [facility] Start: 03-20-2023 Emergency department patient visit MONSE ORNELAS [facility] Start: 03-20-2023 End: 03-25-2023 Evaluation and management of inpatient CHAYA GOODMAN [facility] Start: 03-20-2023 Emergency department patient visit RAIMUNDO FRANZ [facility] Start: 12-23-2018 End: 12-24-2018 Patient encounter procedure TRISTEN CASTILLO Facility: Payers Date Payer Category Payer Private Health Insurance [id number] 1965 Unknown [id number] 1959 Self-pay [id number] Clinical Notes 03-20-2023 to 12-30-2023 Note Date & Type Note Facility 12-30-2023 Note [facility] CARDIOLOGY PROGR ESS NOTE HPI: Sam Elder is a 58 y.o. male here for F/U Patient with past medical history including NSTEMI and CHF. Patient is seen for 3 month follow up. He feels great, per his report. Patient adamantly denies any cardiac complaints or concerns. Patient denies any chest pain or shortness of breath. Patient denies any lower extremity edema, orthopnea, or proximal nocturnal dyspnea. No near-syncope or syncope. No dizziness or lightheadedness. Review of Systems 10 point ROS is [...] otherwise unknown past medical history. Presented to [facility] due to chest pain, apparently has been dealing with chest discomfort for 1 week associated with shortness of breath and diaphoresis. At [facility] his high sensitive troponin was elevated, he was transferred to [facility] urgently for cardiology evaluation. Patient was started [...] March 24, 2023 per Visit Vitals BP 108/70 (BP Location: Right arm, Patient Position: Sitting) Pulse 88 Ht 1.803 m (5' 11 ) Wt 101 kg (222 lb) SpO2 94% BMI 30.96 kg/m??? Smoking Status Former BSA [...] by mouth at bedtime. 90 tablet 3 clopidogrel (Plavix) 75 mg tablet Take 1 [...] mouth in the morning. 45 tablet 3 ticagrelor (Brilinta) 90 mg tablet Take 1 tablet (90 mg) by mouth in the morning and at bedtime. 60 tablet 11 nicotine (Nicoderm CQ) 14 mg/24 hr patch [...] to visit. Physical Exam VITAL SIGNS: BP 108/70 (BP Location: Right arm, Patient Position: Sitting) Pulse 88 Ht 1.803 m (5' 11 ) Wt 101 kg (222 lb) SpO2 94% BMI 30.96 kg/m??? Constitutional: Well developed, Well nourished, No acute distress, Non-toxic appearance. HENT: Normocephalic, Atraumatic, Bilateral external ears have normal appearance, Bilateral TMs clear, Oropharynx moist, No oral or pharyngeal exudates, Nose appears normal, nares are patent. Eyes: PERRLA, EOMI, Conjunctiva normal, No discharge. Neck: Nor (more content not included)... [facility] 10-10-2023 Note [facility]TP CARDIOLOGY PROGR ESS NOTE [...] breath) [R06.02] NSTEMI (non-ST elevated myocardial infarction) ([facility]) [I21.4] Hospital course: 57-year-old male with past medical history significant for tobacco use and otherwise unknown past medical history. Presented to [facility] due to chest pain, apparently has been dealing with chest discomfort for 1 week associated with shortness of breath and diaphoresis. At [facility] his high sensitive troponin was elevated, he was transferred to [facility] urgently for cardiology evaluation. Patient was started [...] on discharge. Patient was unable to afford YouTube. Patient will have close follow-up with cardiology [...] lymphadenopathy noted. Cardiovascula (more content not included)... [facility] 06-06-2023 Note Patient here for 6 w [place] follow up CAD, systolic heart failure, HTN, and HLD. No longer wearing LifeVest. He is doing very well, and said yesterday he walked over 10,000 steps. Denies chest pain, SOB, palpitations, and lightheadedness/syncope. Review of Systems Musculoskeletal: Positive for back pain. All other systems reviewed and are negative. [facility] 06-06-2023 Note UTP CARDIOLOGY PROGR ESS [...] breath) [R06.02] NSTEMI (non-ST elevated myocardial infarction) ([facility]) [I21.4] Hospital course: 57-year-old male with past medical history significant for tobacco use and otherwise unknown past medical history. Presented to [facility] due to chest pain, apparently has been dealing with chest discomfort for 1 week associated with shortness of breath and diaphoresis. At [facility] his high sensitive troponin was elevated, he was transferred to [facility] urgently for cardiology evaluation. Patient was started [...] on discharge. Patient was unable to afford YouTube. Patient will have close follow-up with cardiology [...] appearance. HENT: Normoceph (more content not included)... [facility] 05-02-2023 Note Telephone visit for 1 [...] All other systems reviewed and are negative. [facility] 05-02-2023 Note UTP CARDIOLOGY PROGR ESS NOTE HPI: Sam Elder is a 57 y.o. male here for F/U Patient with past medical history including NSTEMI and CHF. Patient is seen in telemedicine for follow-up visit today. Date of Telehealth Visit: 05/02/2023 The patient was notified that using 3rd libertarian telecommunication application (e.g., [employer]) is not HIPPA compliant and may carry [...] otherwise unknown past medical history. Presented to [facility] due to chest pain, apparently has been dealing with chest discomfort for 1 week associated with shortness of breath and diaphoresis. At [facility] his high sensitive troponin was elevated, he was transferred to [facility] urgently for cardiology evaluation. Patient was started [...] on discharge. Patient was unable to afford YouTube. Patient will have close follow-up with cardiology [...] 05/02/2023) 60 tablet (more content not included)... [facility] 04-23-2023 Note PharmD Consult - SGL T2i Initiation 04/23/23 Provider: Santnaa Jung Sam Elder is a 57 y.o. male with PMH of: Past Medical History: Diagnosis Date CHF (congestive heart failure) ([facility]) Coronary artery disease PharmD consulted for evaluation [...] through AZ[employer]Me. Ronal Downs PharmD (Robbie), PGY-1 Train System Operator 04/23/23 [facility] Cardiology[facility] 04-23-2023 Note Attempted to call sue verma to get information required for AZ[employer]Me application for Farxiga, but he did not answer. LVM for him to call us back when he can. Ronal Downs PharmD (Robbie), PGY-1 Train System Operator 04/30/23 [facility] 04-23-2023 Note The Farxiga is in pr ocess and in transit to be delivered. [facility] tracking number is [id number] and it is currently in [place], [place]. It is yet to be out for delivery yet. Ronal Downs PharmD (Robbie), PGY-1 Train System Operator 05/14/23 [facility] 04-23-2023 Note Attestation signed by Avelina Louis at 05/06/2023 8:04 AM I was available for discussion and questions prior to patient visit. Plan was discussed prior to implementation and I was present for delivery of the plan. I agree with the assessment and plan and have modified the documentation as necessary. Avelina Louis PharmD, BCACP 05/06/23 [place] General Internal Medicine Patient called back and provided income information so I could proceed with the [employer] application for YouTube. Patient is enrolled in AZ[employer]Me as follows: Start of Enrollment period: 05/05/2023 End of Enrollment period: 05/05/2024 Prescribed medication to [facility] mail order pharmacy for processing the prescription. They will mail the medication to the patient at no cost. Pharmacy team will continue to follow to ensure he receives the medication. Of note, it could be beneficial to check a BMP two to four weeks after he starts the Farxiga. Ronal Downs (Robbie), Saroj, PGY-1 Train System Operator 05/05/23 [facility] Cardiology[facility] 03-28-2023 Note Currently pt is akbar vering well, lifevest in place and pt is tolerating well. Initiation of Cardiac rehab and referral to component engineer for nutrition counseling [facility] 03-28-2023 Note Continue lipitor [facility] 03-28-2023 Note UTP CARDIOLOGY PROGR ESS NOTE HPI: Sam Elder is a 57 y.o. male here for hospital F/U s/p NSTEMI Patient here for follow up [facility] for NSTEMI and CHF. 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 Review of Systems Cardiovascular: Positive for dyspnea on exertion. Musculoskeletal: Positive for back pain. All other systems reviewed and are negative. 03/20/23 Discharge Summary Final Discharge Diagnosis: #NSTEMI #status post PCI to LAD and RCA #Acute CHF with reduced ejection fraction, EF 25%. #Tobacco use #Hypomagnesemia Admission Diagnosis: SOB (shortness of breath) [R06.02] NSTEMI (non-ST elevated myocardial infarction) ([facility]) [I21.4] Hospital course: 57-year-old male with past medical history significant for tobacco use and otherwise unknown past medical history. Presented to [facility] due to chest pain, apparently has been dealing with chest discomfort for 1 week associated with shortness of breath and diaphoresis. At [facility] his high sensitive troponin was elevated, he was transferred to [facility] urgently for cardiology evaluation. Patient was started [...] on discharge. Patient was unable to afford YouTube. Patient will have close follow-up with cardiology [...] Physical Exam: Constitutional: (more content not included)... [facility] 03-28-2023 Note Patient here for [facility] for NSTEMI and CHF. He was discharged with a LifeVest. Has stopped smoking since admission. Denies recurrent chest pain, lightheadedness, and palpitations. Gets a little SOB w/ exertion at times. Review of Systems Cardiovascular: Positive for dyspnea on exertion. Musculoskeletal: Positive for back pain. All other systems reviewed and are negative. [facility] 03-28-2023 Note [facility] II, currently e [...] fluid restriction 1.5-2L/day, renal function and electrolytes- [facility] 03-28-2023 Note HTN very well contro lled 102/60- borderline labile- continue all medications [facility] 03-28-2023 Note Coronary artery dise ase is stable Continue GDMT- ASA, brilinta, toprol, lipitor and lisinopril. Pt to start cardiac rehab- orders completed continue risk factor modifications- heart healthy diet, regular exercise as tolerated and continue all medications. [facility] 03-25-2023 Note Hospital Medicine Daily Progress Note - 03/25/2023 2:11 PM; Room: [facility] Admission: 03/20/2023 8:25 PM; Length of stay: 5 days THE HOSPITALIST TEAM PREFERS TO USE [employer] CHAT FOR COMMUNICATION 7AM-7PM. IF I DO NOT RESPOND WITHIN 15 MINUTES, PLEASE PAGE ME/CALL THROUGH THE UNIT COORDINATOR. FROM 7PM-7AM, PLEASE PAGE [phone](COVR) Code Status: Full Code Barriers to Discharge: [...] Principal Problem: NSTEMI (non-ST elevated myocardial infarction) ([facility]) Assessment and Plan # NSTEMI # status [...] Units 03/25/23 0543 03/24/23 0421 03/21/23 0516 03/20/23 2039 WBC AUTO 10*3/uL 8.69 [...] last 7 days Lab Units 03/25/23 0543 03/24/231 03/23/23 0712 SODIUM mmol/L 138 137 137 [...] LDL 143 03/20/2023 No results found for: [id number] , IRON , TIBC , C3 , C4 , FRANCOISE , CANCA , ASO , PSA , CEA , CA125 , CA199 , AFP , CA153 Imaging Cardiac catheterization Procedure: Impella removal and vascular hemostasis with modified post-closure technique (use of Perclose and Angio-seal closure devices) Magnetic Prospector: Santana Jung MD Technique: Patient's blood pressure [...] site to obtain temporary hemostasis. A 8 Chilean sheath was placed over the wire. A second 0.035 wire was then placed through the (more content not included)... [facility] 03-25-2023 Note 03/25/23 1045 Referral Data Referral Source Physician Referral Reason Other (Comment) (CHF) Patient Information Primary Caregiver Self Activities of Daily Living Assistive Device Not applicable Living Arrangement (Current/Prior to Hospitalization) Private residence Ambulation Independent Dressing Independent Feeding Independent Behavior Oriented Communication Can write;Talks;Understands speaking;Understands Irish;Reads Income Information Income Source Employed (He will [...] life vest today. 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 He has not sick, paid time off, STD or LTD plan. He states who would expect this at the age of 57 . Patient has already been seen by [facility] care. They completed a PFA and [...] the Life vest and his meds through tidy and plans to return home with family [...] any other SW needs at this time. [facility] 03-24-2023 Note Cardiology Progress Note Reason for Consult: transfer from [place], NSTEMI, elevated trop 1.53, vitals stable, cards [...] on nasal cannula saturating well. 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 Patient [...] of endocardial bord (more content not included)... [facility] 03-24-2023 Note Hospital Medicine Discharge Summary Final Discharge Diagnosis: #NSTEMI #status post PCI to LAD and RCA #Acute CHF with reduced ejection fraction, EF 25%. #Tobacco use #Hypomagnesemia Admission Diagnosis: SOB (shortness of breath) [R06.02] NSTEMI (non-ST elevated myocardial infarction) (CMS/HCC) [I21.4] Hospital course: 57-year-old male with past medical history significant for tobacco use and otherwise unknown past medical history. Presented to [facility] due to chest pain, apparently has been dealing with chest discomfort for 1 week associated with shortness of breath and diaphoresis. At [facility] his high sensitive troponin was elevated, he was transferred to [facility] urgently for cardiology evaluation. Patient was started [...] Center 03/28/2023 9:20 AM Maureen Calvillo NP CARD [facility] Your medication list START taking these [...] Medications These medications were sent to [facility] - [address] [place] [address] [address] [facility] [place] [address], [facility] [address] aspirin 81 mg EC tablet atorvastatin 80 [...] Units 03/24/23 0421 03/22/23 0024 03/21/23 0516 03/20/239 WBC AUTO 10*3/uL 9.39 10.09 < > [...] 137 137 POTASSIUM (more content not included)... [facility] 03-24-2023 Note Pt admitted to [facility] for NSTEMI. Pt's echo from 03/22/23 estimated LVEF 25%, which qualifies pt for cardiac rehab (CR) therapy with HF diagnosis. Pt also eligible for NSTEMI. I will watch for updates and follow up with pt, if appropriate. JOSE GuzmánN forestry extension specialist Outpatient Coordinator Cardiopulmonary Rehab [facility] 03-23-2023 Note Hospital Medicine Daily Progress Note - 03/23/2023 11:53 AM; Room: [address] [place] [address] Admission: 03/20/2023 8:25 PM; Length of stay: 3 days THE HOSPITALIST TEAM PREFERS TO USE [employer] CHAT FOR COMMUNICATION 7AM-7PM. IF I DO NOT RESPOND WITHIN 15 MINUTES, PLEASE PAGE ME/CALL THROUGH THE UNIT COORDINATOR. FROM 7PM-7AM, PLEASE PAGE [phone](COVR) Code Status: Full Code Barriers to Discharge: [...] Principal Problem: NSTEMI (non-ST elevated myocardial infarction) ([facility]) Assessment and Plan # NSTEMI # status [...] LDL 143 03/20/2023 No results found for: [id number] , IRON , TIBC , C3 , [...] AGENT, STRAIN, 3D, BUBBLE STUDY 1 1 [facility] Heart Station [address] [place] [address] [phone] (fax) Echocardiogram-[facility] Name: SAM ELDER Study Date: 03/22/2023 08:13 AM B/P: 103 mmHg/57 mmHg HR: Date of : 1965 Location: [facility] Height: 71 in. Age: 57 year(s) Patient Room: 3219 Weight: 225 lb. Gender: Male Patient Status: InPt BSA: 2.22 m2 Indication: Chest Pain, Impella removed 03/21/23 (more content not included)... [facility] 03-23-2023 Note Cardiology Progress Note Reason for Consult: transfer from [place], NSTEMI, elevated trop 1.53, vitals stable, cards [...] on nasal cannula saturating well. 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 Patient [...] enlarged. Overall Conclusions: (more content not included)... [facility] 03-22-2023 Note Attestation signed by Yordy [...] y.o. male presenting as a transfer from [facility] for chest pain. Patient underwent stent placement; [...] QT Interval 396 QTC CALCULATION(BAZETT) 462 P [place] 55 R-[place] 85 T Wave [place] 40 Impression Normal sinus rhythm Possible Left [...] BUBBLE STUDY Result Date: 03/22/2023 1 1 [facility] Heart Station [address] [place] [address] [phone] (fax) Echocardiogram-[facility] Name: SAM ELDER Study Date: 03/22/2023 08:13 AM B/P: 103 mmHg/57 mmHg HR: Date of : 1965 Location: [facility] Height: 71 in. Age: 57 year(s) Patient [...] root exhibits n (more content not included)... [facility] 03-22-2023 Note Attestation signed by Omari [...] Elder Age - 57 [facility]. [facility] 1965 [id number] Date of Admission - 03/20/2023 8:25 PM HPI/Hospital Course Subjective Patient has no known past medical history and has not seen a doctor regularly for his entire life. He initially presented to [facility] yesterday after having chest pain with radiation [...] became diaphoretic and EMS was called. At [place] initial workup significant for Troponin of 1.53, BNP 464, EKG with sinus rhythm, PVCs and septal infarct. Patient transferred to [facility] for catheterization. Patient had catheterization this am with stent placement in RCA and LAD. During the procedure patient had decompensating heart failure with low blood pressures and Impella device was placed. Patient then returned to the pipelines laborer later this afternoon and the Impella [...] Final No results found for: PHVEN , ION7QCF , PO2VEN , KDA0TSV , IONCALVEN CBC: Results from last 7 [...] PHOS U/L 63 (more content not included)... [facility] 03-21-2023 Note Interventional Cardi ology Impella removed in the pipelines laborer See my procedure note under the cardiology tab for details Patient tolerated Impella removal well Monitor right groin access sites for bleeding I discontinued heparin infusion Optimize HFrEF meds in the next few days Santana Jung MD assistant printer floor covering Interventional Cardiology DC Cardiology Pager: [phone] [facility] 03-21-2023 Note Interventional Cardi ology Complex presentation with high risk NSTEMI, acute systolic heart failure, cardiogenic shock, and multivessel CAD Patient status post Impella mechanical circulatory support and multivessel PCI Please see my report under cardiology tab Page interventional cardiology with any questions Interventional cardiology will reassess to determine appropriate time for Impella weaning and removal. Santana Jung MD assistant printer floor covering Interventional Cardiology DC Cardiology Pager: [phone] [facility] 03-21-2023 Note Patient: Sam alva Procedure Information Date/Time: 03/21/23829 Procedures: Coronary angiography Right heart cath Location: [facility] ORDER TO DELIVERY SUPERVISOR 3 / [facility] (Cath) Providers: Santana Jung MD [...] with fellow and attending. Additional Equipment Requests [facility] 03-21-2023 Note unable to see Patien t to discuss insurance needs, due to Pt not being in room [facility] 03-21-2023 Note Pt left floor for ec ho and cath procedure prior to underwriter mortgage loan being able to perform morning assessment. [facility] 03-20-2023 Note 03/20/23 2310 Physical Activity [...] place to sleep or slept in a correction (including now)? N Transportation Needs In the [...] relatives? Never How often do you attend sikhism or orthodoxy services? Never Do you belong to any clubs or organizations such as sikhism groups, unions, fraternal or athletic groups, or [...] more drinks on one occasion? 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 [facility] 03-20-2023 Note Hospital Medicine History and Physical 03/20/2023 10:38 PM THE HOSPITALIST TEAM PREFERS TO USE [employer] FOR COMMUNICATION 7AM-7PM. IF I DO NOT RESPOND WITHIN 15 MINUTES, PLEASE PAGE ME/CALL THROUGH THE UNIT COORDINATOR. FROM 7PM-7AM, PLEASE PAGE [phone](COVR) Chief Complaint Chief Complaint Patient presents with Shortness of Breath History of Present Illness Sam Elder is an 57 y.o. male [facility] where he was evaluated for ongoing [...] dyspnea on exertion the EKG in the [facility] showed anterior septal changes and possible incomplete left bundle branch block his white blood count at [facility] was 12.9 his glucose was 110 and troponin high-sensitivity was 819.5 he had repeat troponin done in [facility] ER which was 1.53 chest x-ray showed no consolidation or CHF but moderate cardiomegaly EKG showed septal changes patient denies any history of hypertension hyperlipidemia stroke thromboembolic event he had family history of coronary artery disease with his mother having acute OK in the mid 50s Review of System [...] Date Noted NSTEMI (non-ST elevated myocardial infarction) ([facility] 03/20/2023 Assessment and Plan Nstemi Copd exertional [...] this hospital stay by a member of [facility]. Past Medical History History reviewed. No pertinent past medical history. Past Surgical (more content not included)... [facility] Summary Purpose Family History No Family History Records FoundNo Family History Records Found Advance Directives No Advanced Directives Records FoundNo Advanced Directives Records Found Additional Source Comments (unrecognized sect ion and content) No Status Records FoundNo Status Records Found INFORMATION SOURCE (unrecogn ized section and content) DATE CREATED AUTHOR 12/31/2018 [facility] DATE CREATED AUTHOR AUTHOR'S ORGANIZ ATION 03/01/2024 [facility] FOR RECORDS PERTAINING TO PATIENTS WHO [...] BE BASED ON THE PRIMARY CLINICAL RECORDS. [employer] provides no warranty or guarantee of the accuracy or completeness of information in this document.
--- NOTE | 2024-03-07 15:24 | XR_ITS ---
[facility] [place] [id number] Patient Name: SAM CROSS MRN: [id number] date: 1965 Sex: M Assigned Patient Location: ER Current Patient Location: ER Accession/Order Number: [id number] Exam Date: 03/07/2024 15:35 Report Date: 03/07/2024 16:35 At the request of: CLAUDIA VEAG Procedure: XR chest 1V EXAMINATION: XR chest 1V, , 03/07/2024 3:35 PM EST INDICATION: chest pressure HISTORY: Ordering Provider Reason for Exam: chest pressure Technologist Note: Additional: COMPARISON: XR chest 1V Study Date: 03/20/2023 TECHNIQUE: Chest x-ray: One view. FINDINGS: No pneumothorax, pleural effusion or focal airspace consolidation. Heart is normal in size. Bony thorax is unremarkable. XR/XR chest 1V IMPRESSION: No acute cardiopulmonary process. Electronically authenticated by: ROSA ELENA HICKS Date: 03/07/2024 16:35
--- NOTE | 2024-03-07 15:46 | PC.NURSE ---
pt states he had some [employer] today and after a little while later -- began to feel not right . states he felt more gassy, just like he did when he had a heart attack 1 year ago. Pt then began to get very anxious and short of breath. pt was never hypoxic. resps easy and regular at this time. pt also begins to get angry and states 'If this is another heart attack after eating burger greg, I'm going to sara [employer] greg!
[2024-03-07 15:49] LABS: Basophils Percent Auto 0.3 % (0.2-2.0); Eosinophils Absolute Auto 0.2 10^3/uL (0.0-0.7); Eosinophils Percent Auto 2.3 % (0.9-7.0); Hematocrit 45.9 % (42.0-54.0); Hemoglobin 15.2 g/dL (14.0-18.0); Immature Granulocytes Abs Auto 0.01 10^3/uL (0.00-0.03); Immature Granulocytes Pct Auto 0.1 % (0.0-0.5); Lymphocytes Absolute Auto 1.7 10^3/uL (1.2-3.8); Lymphocytes Percent Auto 24.5 % (20.5-60.0); Mean Corpuscular HGB Conc 33.1 g/dL (29.9-35.2); Mean Corpuscular Hemoglobin 29.9 pg (25.9-34.0); Mean Corpuscular Volume 90.2 fL (80.0-94.0); Mean Platelet Volume 10.3 fL (9.5-13.5); Monocytes Absolute Auto 0.6 10^3/uL (0.3-0.8); Monocytes Percent Auto 8.5 % (1.7-12.0); Neutrophils Absolute Auto 4.5 10^3/uL (1.4-6.5); Neutrophils Percent Auto 64.3 % (43.0-75.0); Platelet Count 191 10^3/uL (150-450); Red Blood Count 5.09 10^6/uL (4.70-6.10)
[2024-03-07] MEDS: ONDANSETRON PF 4 MG/2 ML VIAL IV (15:52)
[2024-03-07 16:02] LABS: INR 0.94
[2024-03-07 16:05] LABS: Alanine Aminotransferase 36 U/L (16-63); Albumin Globulin Ratio 1.2; Albumin Level 3.5 g/dL (3.4-5.0); Alkaline Phosphatase 80 U/L (46-116); Anion Gap 12.7; Aspartate Amino Transferase 18 U/L (15-37); BUN Creatinine Ratio 9.5; Bilirubin Total 0.8 mg/dL (0.2-1.0); Carbon Dioxide 25.9 mmol/L (21.0-32.0); Chloride 104 mmol/L (98-107); Estimated GFR (African America >60 (>=60 mL/min/1.73m^2); Estimated GFR (Non-African Ame >60 (>=60 mL/min/1.73m^2); Globulin 2.8 g/dL; Glucose 100 mg/dL (74-106); Potassium 3.6 mmol/L (3.5-5.1); Sodium 139 mmol/L (136-145); Total Protein 6.3 g/dL (6.4-8.2)
[2024-03-07 16:12] LABS: Troponin I High Sensitivity 11.9 pg/mL (4.0-76.1)
--- NOTE | 2024-03-07 17:09 | ED_ITS ---
HPI HPI - General Adult General Chief complaint: Nausea/Vomiting/Diarrhea Stated complaint: NAUSEA Time Seen by Provider: 03/07/24 15:17 Source: patient Mode of arrival: ambulance Limitations: no limitations History of Present Illness HPI narrative: 58-year-old male presented to the emergency room by demarcus with chief complaint of nausea and gas. Patient states he ate at [employer] prior to arrival today. He then became nauseous. Mom at bedside states she believes he had a panic attack. Patient had similar episode last year from eating [employer] became nauseous and then a week later had a heart attack. He symptoms made him nervous today and felt like he may have a heart attack. Patient had a recent stress test approximately 3 months ago which was negative and stated all his blood work did look better. Patient denied chest pain today. States he has had a gas and is very gassy since eating [employer]. Related Data Home Medications ?Medication ?Instructions ?Recorded ?Confirmed aspirin 81 mg tablet,delayed 81 mg PO DAILY 03/07/24 03/07/24 release atorvastatin 80 mg tablet 80 mg PO DAILY 03/07/24 03/07/24 clopidogrel 75 mg tablet 75 mg PO DAILY 03/07/24 03/07/24 dapagliflozin propanediol 10 mg 10 mg PO DAILY 03/07/24 03/07/24 tablet (Farxiga) lisinopril 2.5 mg tablet 2.5 mg PO DAILY 03/07/24 03/07/24 metoprolol succinate 25 mg 25 mg PO DAILY 03/07/24 03/07/24 tablet,extended release 24 hr pantoprazole 40 mg tablet,delayed 40 mg PO DAILY 03/07/24 03/07/24 release spironolactone 25 mg tablet 12.5 mg PO DAILY 03/07/24 03/07/24 Allergies Allergy/AdvReac Type Severity Reaction Status Date / Time Penicillins Allergy Unknown Unknown Verified 03/07/24 15:15 Opioid HPI Opioid Management Most Recent Opioid Data: Last Pain Scale 4 03/20/23 16:56 03/20/23 Review of Systems ROS Narrative All Systems are negative except as noted/marked.All systems reviewed and otherwise negative PFSH PFSH Social History Smoking status: Heavy tobacco smoker Little interest or pleasure in doing things: not at all Feeling down, depressed, or hopeless: not at all Exam Narrative Exam Narrative: Nurses note and vital signs reviewed and patient is not hypoxic. General: The patient appears well and in no apparent distress. Patient is resting comfortably on cart. Skin: Warm, dry, no pallor noted. There is no rash noted. Head: Normocephalic, atraumatic Eye: Normal conjunctiva, no drainage, EOMI. PERRL Ears, Nose, Mouth, and Throat: oral mucosa is moist. Nares patent. Mouth without vesicles. Ear canals patent. Tm's without Erythema Cardiovascular: Regular Rate and Rhythm Respiratory: Patient is in no distress, no accessory muscle use, lungs are clear to auscultation, no wheezing, rales or rhonchi Back: non-tender, no CVA tenderness bilaterally to percussion. GI: Normal bowel sounds, no tenderness to palpation, no masses appreciated. No rebound, guarding, or rigidity noted. Musculoskeletal: The patient has no evidence of calf tenderness, no pitting edema, symmetrical pulses noted bilaterally Neurological: A&O x4, normal speech Psychiatric: Cooperative Constitutional Vital Signs, click to edit/add: Last Vital Signs Temp 97.8 F 03/07/24 15:15 Pulse 64 03/07/24 16:40 Resp 18 03/07/24 15:15 BP 143/90 H 03/07/24 15:15 Pulse Ox 97 03/07/24 16:40 O2 Del Method Room Air 03/07/24 15:15 Course Vital Signs Vital signs: Vital Signs Temperature 97.8 F 03/07/24 15:15 Pulse Rate 72 03/07/24 15:15 Respiratory Rate 18 03/07/24 15:15 Blood Pressure 143/90 H 03/07/24 15:15 Pulse Oximetry 99 03/07/24 15:15 Oxygen Delivery Method Room Air 03/07/24 15:15 Temperature 97.8 F 03/07/24 15:15 Pulse Rate 64 03/07/24 16:40 Respiratory Rate 18 03/07/24 15:15 Blood Pressure 143/90 H 03/07/24 15:15 Pulse Oximetry 97 03/07/24 16:40 Oxygen Delivery Method Room Air 03/07/24 15:15 Medical Decision Making MDM Narrative Medical decision making narrative: 58-year-old male presented to the emergency room by squad with chief complaint of nausea and gas. Patient states he ate at [employer] prior to arrival today. He then became nauseous. Mom at bedside states she believes he had a panic attack. Patient had similar episode last year from eating [employer] became nauseous and then a week later had a heart attack. He symptoms made him nervous today and felt like he may have a heart attack. Patient had a recent stress test approximately 3 months ago which was negative and stated all his blood work did look better. Patient denied chest pain today. States he has had a gas and is very gassy since eating [employer]. Patient presented to the emergency room by demarcus. He states he believed he was having a panic attack or was nervous. He take 2 cups of coffee earlier today and also had [employer]. He states he had similar episodes prior previously 1 year ago almost of the day that he had a heart attack and having symptoms of gas here today and at home made him concerned for an PR. Patient had blood work including CBC CMP and troponins which were both negative. Patient was medicated only with Zofran and his symptoms have improved. He denies any chest pain or pressure. He states he has not had chest pain or pressure chest having lots of belching and gas. Both symptoms have also subsided. Patient is comfortable going home he will follow-up with his primary care physician. Reasons to return to the emergency room were discussed. Differential Diagnosis Differential Diagnosis: gastritis, panic attack, chest pain, Medical Records Medical records reviewed: Yes I reviewed the patient's medical records Lab Data Lab results reviewed: Yes I reviewed the patient's lab results Labs: Lab Results 03/07/24 03/07/24 Range/Units 15:35 16:49 WBC 7.0 (4.0-11.0) 10^3/uL RBC 5.09 (4.70-6.10) 10^6/uL Hgb 15.2 (14.0-18.0) g/dL Hct 45.9 (42.0-54.0) % MCV 90.2 (80.0-94.0) fL MCH 29.9 (25.9-34.0) pg MCHC 33.1 (29.9-35.2) g/dL RDW 13.0 (11.0-15.0) % Plt Count 191 (150-450) 10^3/uL MPV 10.3 (9.5-13.5) fL Neut % (Auto) 64.3 (43.0-75.0) % Lymph % (Auto) 24.5 (20.5-60.0) % [place] % (Auto) 8.5 (1.7-12.0) % Eos % (Auto) 2.3 (0.9-7.0) % Baso % (Auto) 0.3 (0.2-2.0) % Neut # (Auto) 4.5 (1.4-6.5) 10^3/uL Lymph # (Auto) 1.7 (1.2-3.8) 10^3/uL [place] # (Auto) 0.6 (0.3-0.8) 10^3/uL Eos # (Auto) 0.2 (0.0-0.7) 10^3/uL Baso # (Auto) 0.0 (0.0-0.1) 10^3/uL Abs Immat Gran (auto) 0.01 (0.00-0.03) 10^3/uL Imm/Tot Granulo (auto) 0.1 (0.0-0.5) % PT 10.0 (9.0-11.6) sec INR 0.94 Sodium 139 (136-145) mmol/L Potassium 3.6 (3.5-5.1) mmol/L Chloride 104 (98-107) mmol/L Carbon Dioxide 25.9 (21.0-32.0) mmol/L Anion Gap 12.7 BUN 10.0 (7.0-18.0) mg/dL Creatinine 1.05 (0.70-1.30) mg/dL Est GFR ( Amer) >60 (>=60 mL/min/1.73m^2) Est GFR (Non-Af Amer) >60 (>=60 mL/min/1.73m^2) BUN/Creatinine Ratio 9.5 Glucose 100 (74-106) mg/dL Calcium 9.0 (8.5-10.1) mg/dL Total Bilirubin 0.8 (0.2-1.0) mg/dL AST 18 (15-37) U/L ALT 36 (16-63) U/L Alkaline Phosphatase 80 (46-116) U/L Troponin I High Sens 11.9 12.4 (4.0-76.1) pg/mL NT-Pro-B Natriuret Pep 142.0 (<=900.0) pg/mL Total Protein 6.3 L (6.4-8.2) g/dL Albumin 3.5 (3.4-5.0) g/dL Globulin 2.8 g/dL Albumin/Globulin Ratio 1.2 ECG Data Interpretation: 1515 EKG shows normal sinus rhythm with a rate of 72 bpm, no ST depression or elevation MT interval 208 ms QRS duration 92 ms no STEMI Discharge Plan Discharge Chief Complaint: Nausea/Vomiting/Diarrhea Clinical Impression: Nausea, Gastritis Patient Disposition: Home, Self-Care Time of Disposition Decision: 17:21 Condition: Good Prescriptions / Home Meds: No Action aspirin 81 mg tablet,delayed release (DR/EC) 81 mg PO DAILY atorvastatin 80 mg tablet 80 mg PO DAILY clopidogrel 75 mg tablet 75 mg PO DAILY lisinopril 2.5 mg tablet 2.5 mg PO DAILY metoprolol succinate 25 mg tablet extended release 24 hr 25 mg PO DAILY pantoprazole 40 mg tablet,delayed release (DR/EC) 40 mg PO DAILY spironolactone 25 mg tablet 12.5 mg PO DAILY dapagliflozin propanediol [Farxiga] 10 mg tablet 10 mg PO DAILY Print Language: Hungarian Instructions: Gastritis (ED) Referrals: Estrada Banda DO [Primary Care Provider] - 1 week
[2024-03-07 17:15] LABS: Troponin I High Sensitivity 12.4 pg/mL (4.0-76.1)
--- NOTE | 2024-03-07 17:33 | ECG_ITS ---
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
== END 2024-03-07 17:29 | disposition home or self-care (01) ==
PROVIDERS: Physician Assistant; Emergency Provider Emergency Medicine; PCP Family Medicine
DX: K29.70 Gastritis, unspecified, without bleeding (principal); R11.0 Nausea; I25.2 Old myocardial infarction
CPT/HCPCS: 36415; 71045; 80053; 83880; 84484; 85025; 85610; 93005; 96374; 99285; J2405

== ENCOUNTER 2025-01-04 08:45 | Outpatient (OUT) | payer MEDICAID, SELFPAY ==
--- OUTSIDE RECORDS SUMMARY | 2025-01-04 08:50 | XMS_ITS | CCD ---
Author Organization [facility] Care Team Providers Care Shift Lab Technician Name Role Phone TRISTEN CASTILLO Admitting Unavailable TRISTEN CASTILLO Attending Unavailable REQUEST, NONE LISTED Primary Care Unavailable AMIE APONTE Consulting Unavailable TRISTEN CASTILLO Consulting Unavailable MARTIN CASAREZ Attending Unavailable CHOLO APPIAH Attending Unavailable Allergies Allergy Classification Reported Allergen(s) Allergy Type Date of Onset Reaction(s) Facility (2 sources) Penicillins; Translations: [PENICILLINS] Drug allergy (disorder) 09-11-[address] [facility] Repository (1 source) Acetaminophen / HYDROcodone; Translations: [HYDROCODONE-ACETA MINOPHEN] Drug Allergy 03-20-2023 [facility] Repository (1 source) oxyCODONE; Translations: [OXYCODONE] Drug Allergy 03-20-2023 [facility] Repository Problems Problem Classification Problem Date Documented Date Episodic/Chronic Congestive heart failure; nonhypertensive (2 sources) Chronic diastolic (congestive) heart failure; Translations: [Chronic diastolic (congestive) heart failure] Onset: 01-03-2025 Chronic Coronary atherosclerosis and other heart disease (2 sources) Atherosclerotic heart disease of [place] coronary artery without angina pectoris; Translations: [Atherosclerotic heart disease of [place] coronary artery without angina pectoris] Onset: 03-28-2023 Chronic Coronary atherosclerosis and other heart disease (2 sources) Presence of coronary angioplasty implant and graft; Translations: [Presence of coronary angioplasty implant and graft] Onset: 01-03-2025 Episodic Disorders of lipid metabolism (2 sources) Mixed hyperlipidemia; Translations: [Mixed hyperlipidemia] Onset: 03-28-2023 Chronic Intracranial injury (4 sources) Unspecified intracranial injury with loss of consciousness of unspecified duration, initial encounter; Translations: [UNS INTRACRAN INJ LOC UNS DUR INIT] Onset: 12-23-2018 Episodic Late effects of cerebrovascular disease (1 source) Unspecified sequelae of cerebral infarction; Translations: [UNS SEQUELAE CEREBRAL INFARCTION] Onset: 12-31-2018 Chronic Syncope (1 source) Syncope and collapse; Translations: [SYNCOPE AND COLLAPSE] Onset: 12-31-2018 Episodic Results Test Name Value Interpretation Reference Range Facility Office Visiton 01-03-2025 Follow-up visit [id number] Sam Elder 1965 M Date Provider Department Center 01/03/2025 Vanna-CHOLO APPIAH [facility] Family History Problem Relation Age of Onset Coronary artery disease Mother Atrial fibrillation Mother Coronary artery disease Brother Hyperlipidemia Brother Family Status - Relation Status Age at Mother Alive Father Brother Level of Service:31414 OR OFFICE/OUTPATIENT ESTABLISHED MOD MDM 30 MIN Normal [facility] Office Visiton 06-21-2024 Follow-up visit [id number] Sam Elder 1965 M Date Provider Department Center 06/21/2024 3848-MARTIN CASAREZ [facility] Family History Problem Relation Age of Onset Coronary artery disease Mother Atrial fibrillation Mother Coronary artery disease Brother Hyperlipidemia Brother Family Status - Relation Status Age at Mother Brother Level of Service:45676 OR OFFICE/OUTPATIENT ESTABLISHED LOW MDM 20 MIN Normal [facility] Documentationon 05-07-2024 Documentation [id number] Messer 1965 M Date Provider Department Center 05/07/2024 Melvi[facility] Family History Problem Relation Age of Onset Coronary artery disease Mother Atrial fibrillation Mother Coronary artery disease Brother Hyperlipidemia Brother Family Status - Relation Status Age at Mother Brother Reason for Visit and Comments: [facility] [Other] Normal [facility] MRI BRAIN WO/W CONon 019 MRI BRAIN WO/W CON Patient: SAM ELDER. Exam Date: 12/23/2018 : 1965 Gender:M Ordering : TRISTEN CASTILLO Admission #: [id number] Family : Order #: [id number] CLICK HERE TO VIEW EXAM RADIOLOGY REPORT [...] Aponte M.D. on 12/23/2018 at 15:[address] [facility] XR FOREIGN BODY EYEon 2018 XR FOREIGN BODY EYE Patient: SAM ELDER Exam Date: 12/23/2018 : 1965 Gender:M Ordering : TRISTEN CASTILLO Admission #: [id number] Family : Order #: [id number] CLICK HERE TO VIEW EXAM RADIOLOGY REPORT PROCEDURE: RADIOGRAPH FOREIGN BODY EYE COMPARISON: None. INDICATIONS: Foreign body in eye for MRI FINDINGS: ORBITS: Negative for a metallic foreign body. OTHER: Negative. CONCLUSION: No metallic foreign body within the orbits. Dictated by: Amie Aponte M.D. on 12/23/2018 at 13:31 Approved by: Amie Aponte M.D. on 12/23/2018 at 13:31 [facility] Encounters Encounter Date Encounter Type Care Provider Facility Start: 01-03-2025 [facility] Start: 06-21-2024 End: 06-21-2024 ambulatory MARTIN CASAREZ [facility] Start: 12-23-2018 End: 12-24-2018 Patient encounter procedure TRISTEN CASTILLO Facility:[facility] Payers Date Payer Category Payer Private Health Insurance [id number] 1965 Unknown [id number] 1959 Self-pay [id number] Progress note 01-03-2025 Note Date & Type Note Facility 01-03-2025 Note [place] [facility] - [facility] Subjective Sam Elder is a 59 y.o. year old male patient being seen for a 6 month follow routine appointment. Patient states he breathes faster when is working or doing activities occasional fatigue. Problem List[1] Family History[2] Social History[3] RADHA Goldberg is seen in follow-up. This is the first time I am meeting him. He used to follow with Dr. Martin Casarez. He is a 59-year-old man with history of CAD and chronic systolic heart failure. Those were diagnosed in March 2023 when he was admitted with acute myocardial infarction and acute systolic heart failure and LVEF around 25%. He underwent Impella assisted PCI to the LAD and RCA with drug-eluting stents. He then was discharged from the hospital. Today he reports that he has been doing reasonably well. He has mild shortness of breath with exertion NYHA class II symptoms. He denies chest pain. No leg edema. No palpitations. No dizziness or lightheadedness and no syncope. He is taking medications as prescribed. He has not had any blood testing in the past year. Review of Systems Constitutional: Positive for malaise/fatigue. Cardiovascular: Positive for dyspnea on exertion. Objective Visit Vitals BP 117/77 (BP Location: Left arm, Patient Position: Sitting) Pulse 68 Ht 1.803 m (5' 11 ) Wt 102 kg (224 lb) SpO2 95% BMI 31.24 kg/m??? Smoking Status Former BSA 2.26 m??? Physical Exam Constitutional: Appearance: He is well-developed. He is not ill-appearing. HENT: Head: Normocephalic and atraumatic. Nose: Nose normal. Eyes: General: No scleral icterus. Pupils: Pupils are equal, round, and reactive to light. Neck: Thyroid: No thyromegaly. Vascular: No JVD. Cardiovascular: Rate and Rhythm: Normal rate and regular rhythm. Pulses: Radial pulses are 2+ on the right side and 2+ on the left side. Heart sounds: Normal heart sounds. No murmur heard. No friction rub. No gallop. Pulmonary: Effort: Pulmonary effort is normal. No respiratory distress. Breath sounds: Normal breath sounds. No wheezing or rales. Chest: Chest wall: No tenderness. Abdominal: General: Bowel sounds are normal. There is no distension. Palpations: Abdomen is soft. Tenderness: There is no abdominal tenderness. Musculoskeletal: General: No swelling. Cervical back: Neck supple. Skin: General: Skin is warm and dry. Neurological: General: No focal deficit present. Mental Status: He is alert and oriented to person, place, and time. Psychiatric: Mood and Affect: Mood normal. Behavior: Behavior is cooperative. Judgment: Judgment normal. Allergies Allergies[4] Medications Current Medications[5] Recent Labs Blood testing 12/31/2023: Potassium 4.1, BUN 9, creatinine 0.83, eGFR more than 60, triglycerides 38, cholesterol 106, HDL 55, LDL 43. Imaging and other tests ECG 03/07/2024: Sinus rhythm, abnormal right axis deviation, borderline ECG. Stress test 06/18/2023: No ischemic EKG changes seen on treadmill exercise stress test. Appropriate heart rate and blood pressure response to exercise. Cohen treadmill score is 6.2. Estimated 1 year mortality is 0.3 to 0.9%. Risk category is low risk. Angiography usually not indicated. Echocardiogram 06/18/2023: 1. The left ventricle is normal in size and exhibits mild global hypokinesis. Systolic function is mildly reduced. Estimated LVEF is 45 to 50%. 2. Normal right ventricular size and systolic function. 3. No significant valvular dysfunction. 4. Normal right-sided pressures. 03/22/23 Limited TTE Left Ventricle: The left ventricle appears enlarged. Global left ventricular systolic function is severely reduced. The EF is 25 % visually. Left ventricular wall thickness is normal. Regional wall motion abnormalities (see diagram). Right Ventricle: The right ventricle appears normal in size. Right ventricular systolic function appears normal. Left Atrium: The left atrium appears enlarged. 03/21/23 TTE Left Ventricle: The left ventricle is mildly enlarged. Global left ventricular systolic function is severely reduced. The calculated Biplane EF is 30 %. Left ventricular wall thickness is normal. Regional wall motion abnormalities (see diagram). Grade 2, moderate diastolic dysfunction (pseudonormalized LV filling pattern). No left ventricular hypertrophy. Right Ventricle: The right ventricle is normal in size. Normal right ventricular systolic function. Doppler studies suggest mildly elevated right sided pressures. Left Atrium: The left atrium is normal in size. Mitral Valve: Moderate mitral regurgitation. 03/21/23 Final Impression: 1) due to severely decompensated heart failure and low blood pressure, I elected to place Impella mechanical circulatory support 2) coronary angiogram showed severe two-vessel disease with 100% LAD occlusion and 90% RCA stenosis status post successful PCI. The (more content not included)... [facility] Progress note 06-21-2024 Note Date & Type Note Facility 06-21-2024 Note [facility] PROGR ESS NOTE HPI: Sam Elder is a 58 y.o. male here for F/U Patient with past medical history including NSTEMI and CHF. Patient is seen for 3 month follow up. Patient here for 6 mo follow up CAD and chronic systolic heart failure. Denies chest pain, SOB, palpitations, and lightheadedness/syncope. Says he wakes up with hand/joint pain, but it then goes away after he has some coffee and/or breakfast. He is not taking Plavix. Patient adamantly denies any cardiac complaints or [...] otherwise unknown past medical history. Presented to [facility] due to chest pain, apparently has been dealing with chest discomfort for 1 week associated with shortness of breath and diaphoresis. At [facility] his high sensitive troponin was elevated, [...] on discharge. Patient was unable to afford [employer]. Patient will have close follow-up with cardiology and CHF clinic. He was counseled about his tobacco use and he is determined to quit smoking. Patient is being discharged home in stable condition on March 24, 2023 per Visit Vitals Smoking Status Former Allergies Allergen Reactions Oxycodone Nausea And Vomiting Penicillins Unknown Vicodin [Hydrocodone-Acetaminophen] Nausea And Vomiting Medications: Current Outpatient Medications on File Prior to Visit Medication Sig Dispense Refill [] aspirin 81 mg EC tablet Take 1 [...] not crush or chew. 90 tablet 3 nicotine (Nicoderm CQ) 14 [...] before April 16, 2023.) 10 patch 0 spironolactone (Aldactone) 25 mg tablet Take 0.5 tablets (12.5 mg) by mouth in the morning. 45 tablet 3 [DISCONTINUED] pantoprazole (ProtoNix) 40 mg EC tablet Take 1 tablet (40 mg) by mouth before breakfast for 360 doses. Do not crush, chew, or split. 90 tablet 3 No current facility-administered medications on file prior to visit. Physical Exam VITAL SIGNS: BP 118/76 (BP Location: Left arm, Patient Position: Sitting) Pulse 77 Ht 1.803 m (5' 11 ) Wt 100 kg (221 lb) SpO2 95% BMI 30.82 kg/m??? Constitutional: Well developed, Well nourished, No acute distress, Non-toxic appearance. HENT: Normocephalic, Atraumatic, Bilateral external ears have normal appearance, Bilateral TMs clear, Oropharynx moist, No oral or pharyngeal exudates, Nose appears normal, nares are patent. Eyes: PERRLA, EOMI, Conjunctiva normal, No discharge. Neck: Normal range o (more content not included)... [facility] Progress note 05-07-2024 Note Date & Type Note Facility 05-07-2024 Note Received documentati on from [facility] that patient needs new rx for Farxiga in order to continue receiving it through [facility]. Appears PharmD assisted patient in obtaining Farxiga through [facility] in 04/2023. Per most recent chart notes, he should still be on Farxiga. Will send updated rx to [facility]. Avelina Queen, PharmD, BCACP [facility] 05/07/24 [facility] Summary Purpose Family History No Family History Records FoundNo Family History Records Found Advance Directives No Advanced Directives Records FoundNo Advanced Directives Records Found Additional Source Comments (unrecognized sect ion and content) No Status Records FoundNo Status Records Found INFORMATION SOURCE (unrecogn ized section and content) DATE CREATED AUTHOR 12/31/2018 [facility] DATE CREATED AUTHOR AUTHOR'S ORGANIZ ATION 01/03/2025 [facility] FOR RECORDS PERTAINING TO PATIENTS WHO [...] BE BASED ON THE PRIMARY CLINICAL RECORDS. [employer] provides no warranty or guarantee of the accuracy or completeness of information in this document.
[2025-01-04 09:41] LABS: Hematocrit 45.8 % (42.0-54.0); Hemoglobin 14.8 g/dL (14.0-18.0); Immature Granulocytes Abs Auto 0.01 10^3/uL (0.00-0.03); Immature Granulocytes Pct Auto 0.2 % (0.0-0.5); Lymphocytes Absolute Auto 1.2 10^3/uL (1.2-3.8); Mean Corpuscular HGB Conc 32.3 g/dL (29.9-35.2); Mean Corpuscular Hemoglobin 29.7 pg (25.9-34.0); Mean Corpuscular Volume 91.8 fL (80.0-94.0); Platelet Count 197 10^3/uL (150-450); Red Blood Count 4.99 10^6/uL (4.70-6.10); White Blood Count 4.4 10^3/uL (4.0-11.0)
[2025-01-04 11:32] LABS: Alanine Aminotransferase 33 U/L (16-63); Albumin Globulin Ratio 1.2; Albumin Level 3.5 g/dL (3.4-5.0); Alkaline Phosphatase 77 U/L (46-116); Anion Gap 13.3; Aspartate Amino Transferase 17 U/L (15-37); Blood Urea Nitrogen 9.0 mg/dL (7.0-18.0); Calcium 8.7 mg/dL (8.5-10.1); Carbon Dioxide 24.2 mmol/L (21.0-32.0); Chloride 105 mmol/L (98-107); Cholesterol 143 mg/dL (<=200); Estimated GFR (African America >60 (>=60 mL/min/1.73m^2); Estimated GFR (Non-African Ame >60 (>=60 mL/min/1.73m^2); Globulin 3.0 g/dL; Glucose 100 mg/dL (74-106); HDL Cholesterol 57 mg/dL (40-60); Potassium 4.5 mmol/L (3.5-5.1); Sodium 138 mmol/L (136-145); Total Protein 6.5 g/dL (6.4-8.2); Triglycerides 34 mg/dL (<=150); VLDL CHOLESTEROL 6.8 mg/dL
== END 2025-01-04 08:46 | disposition home or self-care (01) ==
PROVIDERS: PCP Family Medicine; Visit Provider Internal Medicine Interventional Cardiology
DX: I50.32 Chronic diastolic (congestive) heart failure (principal); I25.10 Atherosclerotic heart disease of native coronary artery without angina pectoris; E78.2 Mixed hyperlipidemia
CPT/HCPCS: 36415; 80053; 80061; 85025

== ENCOUNTER 2025-01-07 07:52 | Outpatient (OUT) | payer MEDICAID, SELFPAY ==
--- OUTSIDE RECORDS SUMMARY | 2025-01-07 07:54 | XMS_ITS | Clinical Summary ---
Author Organization [facility] Address [address] [place] [address] Care Team Providers Care Bread Packer Name Role Phone Estrada Banda DO Primary Care Provider [phone] Allergies Active Allergy Reactions Criticality Noted Date Comments Oxycodone Nausea And Vomiting 03/20/2023 Penicillins Unknown 03/20/2023 Hydrocodone-Acetaminophen Nausea And Vomiting 1 05/21/2022 Medications nicotine (Nicoderm CQ) 7 mg/24 hr patchIndications :NSTEMI (non-ST elevated myocardial infarction) (CMS/HCC) Place 1 patch on the skin 1 (one) time each day at the same time for 10 days. Do not start before April 16, 2023. 10 patch 04/16/19 24 Active Additional Information Patient not taking.Reported on 01/03/2025 dapagliflozin propanediol (Farxiga) 10 mgIndications:Ac [place] on chronic systolic heart failure, NYHA class 2 (CMS/HCC) Take 1 tablet (10 mg) by mouth in the morning. 90 tablet 3 05/07/19 25 Active atorvastatin (Lipitor) 80 mg tabletIndication s:NSTEMI (non-ST elevated myocardial infarction) (CMS/HCC) Take 1 tablet (80 mg) by mouth at bedtime. 90 tablet 3 09/16/19 25 026 Active lisinopril 2.5 mg tabletIndication s:NSTEMI (non-ST elevated myocardial infarction) (CMS/HCC) Take 1 tablet (2.5 mg) by mouth in the morning. 90 tablet 3 09/16/19 026 Active metoprolol succinate XL (Toprol-XL) 25 mg 24 hr tabletIndication s:NSTEMI (non-ST elevated myocardial infarction) (CMS/HCC) Take 1 tablet (25 mg) by mouth in the morning. Do not crush or chew. 90 tablet 3 09/16/19 026 Active pantoprazole (ProtoNix) 40 mg EC tabletIndication s:NSTEMI (non-ST elevated myocardial infarction) (CMS/HCC) Take 1 tablet (40 mg) by mouth before breakfast for 360 doses. Do not crush, chew, or split. 90 tablet 3 09/16/19 026 Active spironolactone (Aldactone) 25 mg tabletIndication s:NSTEMI (non-ST elevated myocardial infarction) (CMS/HCC) Take 0.5 tablets (12.5 mg) by mouth in the morning. 45 tablet 3 09/16/19 026 Active clopidogrel (Plavix) 75 mg tabletIndication s:Coronary artery disease, unspecified vessel or lesion type, unspecified whether angina present, unspecified whether red devil or transplanted heart Take 1 tablet (75 mg) by mouth once daily as directed. 90 tablet 3 12/22/19 026 Active aspirin 81 mg EC tablet Take 81 mg by mouth in the morning. Active clopidogrel (Plavix) 75 mg tabletIndication s:Coronary artery disease, unspecified vessel or lesion type, unspecified whether angina present, unspecified whether red devil or transplanted heart Take 1 tablet (75 mg) by mouth once daily as directed. 90 tablet 3 06/22/19 025 Discontin ued(Reord er) Active Problems Problem Noted Date Diagnosed Date Acute on chronic systolic heart failure, NYHA cl ass 2 03/28/2023 Assessment & Plan (03/28/2023 6:41 PM EST): [facility] II, currently euvolemic without exacerbation. Pt has stopped smoking, implementing [...] fluid restriction 1.5-2L/day, renal function and electrolytes- Coronary artery disease invo lving red devil coronary artery of red devil heart without angina pectoris 03/28/2023 Overview (03/28/2023): 03/2023- severe multi-vessel CAD and acute HFrEF s/p Impella and PCI LAD and PCI RCA, impella Assessment & Plan (03/28/2023 6:42 PM EST): Coronary artery disease is stable Continue GDMT- ASA, brilinta, toprol, lipitor and lisinopril. Pt to start cardiac rehab- orders completed continue risk factor modifications- heart healthy diet, regular exercise as tolerated and continue all medications. Benign hypertensive cardiomyopathy with heart fa ilure 03/28/2023 Assessment & Plan (03/28/2023 6:41 PM EST): HTN very well controlled 102/60- borderline labile- continue all medications Mixed hyperlipidemia 03/28/2023 Assessment & Plan (03/28/2023 6:43 PM EST): Continue lipitor NSTEMI (non-ST elevated myocardial infarction) 1 05/21/2022 Assessment & Plan (03/28/2023 6:44 PM EST): Currently pt is recovering well, lifevest in place and pt is tolerating well. Initiation of Cardiac rehab and referral to [facility] for nutrition counseling Encounters Date Type Department Care Team Description 01/03/2025 9:15 AM EDT Office Visit [facility] [place] [address] [place] [address] Kg Quezada MD Coronary artery disease involving red devil coronary artery of red devil heart without angina pectoris (Primary Dx); Heart failure with improved ejection fraction (HFimpEF) (CMS/FORMERLY [facility]); Status post insertion of drug eluting coronary artery stent; Mixed hyperlipidemia 12/21/[address] [facility] [address] [place] [address] Kavya Fatima MA Coronary artery disease, unspecified vessel or lesion type, unspecified whether angina present, unspecified whether red devil or transplanted heart from Last 3 Months Family History Medical History Relation Name Comments Coronary artery disease Brother Hyperlipidemia Brother Atrial fibrillation Mother Coronary artery disease Mother Relation Name Status Comments Brother Father Mother Alive Social History Tobacco Use Types Packs/Day Years Used Date Smoking Tobacco: Former Cigarettes Q uit: 03/20/2023 Passive Smoke Exposure: Past Smokeless Tobacco: Never Tobacco Cessation:Counseling Given: Not Answered Alcohol Use Standard Drinks/Week Comments Not Currently 0 (1 standard drink = 0.6 oz pur e alcohol) Humiliation, Afraid, Rape, and Kick questionnair e Answer Date Recorded Within the last year, have y ou been afraid of your partner or ex-partner? No 03/20/2023 Within the last year, have y ou been humiliated or emotionally abused in other ways by your partner or ex-partner? No Within the last year, have y ou been kicked, hit, slapped, or otherwise physically hurt by your partner or ex-partner? No 03/20/2023 Within the last year, have y ou been raped or forced to have any kind of sexual activity by your partner or ex-partner? No 03/20/2023 Social Connection and Isolat ion Panel [NHANES] Answer Date Recorded In a typical week, how many times do you talk on the phone with family, friends, or neighbors? More than three times a week 03/20/2023 How often do you get togethe r with friends or relatives? Never 03/20/2023 How often do you attend [facility] or zoroastrian services? Never 03/20/2023 Do you belong to any clubs o r organizations such as synagogue groups, unions, fraternal or athletic groups, or school groups? No 03/20/2023 How often do you attend meet ings of the clubs or organizations you belong to? Never 03/20/2023 Are you , , di vorced, , never , or living with a partner? 03/20/2023 AUDIT-C Answer Date Recorded Q1: How often do you have a drink containing alcohol? Never 03/20/2023 Q2: How many drinks containi ng alcohol do you have on a typical day when you are drinking? Patient does not drink Q3: How often do you have si x or more drinks on one occasion? Never 03/20/2023 Overall Financial Resource Strain (CARDIA) Answe r Date Recorded How hard is it for you to pa y for the very basics like food, housing, medical care, and heating? Not hard at all 03/20/2023 [facility] Occupat ional Health - Occupational Stress Questionnaire Answer Date Recorded Do you feel stress - tense, restless, nervous, or anxious, or unable to sleep at night because your mind is troubled all the time - these days? Rather much 03/20/2023 Exercise Vital Sign Answer Date Recorde d On average, how many days pe r week do you engage in moderate to strenuous exercise (like a brisk walk)? 0 days 03/20/2023 On average, how many minutes do you engage in exercise at this level? 0 min 03/20/2023 [place] [facility] Answer Date Rec orded Within the last year, have y ou been afraid of your partner or ex-partner? No 03/20/2023 Within the last year, have y ou been humiliated or emotionally abused in other ways by your partner or ex-partner? No 03/20/2023 Within the last year, have y ou been kicked, hit, slapped, or otherwise physically hurt by your partner or ex-partner? No 03/20/2023 Within the last year, have y ou been raped or forced to have any kind of sexual activity by your partner or ex-partner? No 03/20/2023 In the past year have you be en physically or sexually abused? Unrecognized value 03/20/2023 Transportation Answer Date Recorded In the past 12 months, has l ack of transportation kept you from medical appointments or from getting medications? No 10/2022 In the past 12 months, has l ack of transportation kept you from meetings, work, or from getting things needed for daily living? No 03/20/2023 Housing Stability Vital Sign Answer Oskar e Recorded In the last 12 months, was t here a time when you were not able to pay the mortgage or rent on time? No 03/20/2023 Number of Times Moved in the Last Year Not on fi le 03/20/2023 Homeless in the Last Year Not on file 2022 Hunger Vital Sign Answer Date Recorded Within the past 12 months, y ou worried that your food would run out before you got the money to buy more. Never true 03/20/20 23 Within the past 12 months, t he food you bought just didn't last and you didn't have money to get more. Never true 03/20/2023 Sex and Gender Information Value Date Recorded Sex Assigned at Male 12/23/2024 4:16 PM EDT Legal Sex Male 11:52 PM EDT Gender Identity Male 12/23/2024 4:16 PM EDT Sexual Orientation Heterosexual or Straight 12/13 4:16 PM EDT Last Filed Vital Signs Vital Sign Reading Time Taken Comments Blood Pressure 117/77 01/03/2025 8:58 AM EDT Pulse 68 01/03/2025 8:58 AM EDT Temperature 36.8 C (98.2 F) 03/25/2023 7:34 AM EST Respiratory Rate 16 03/25/2023 7:34 AM EST Oxygen Saturation 95% 01/03/2025 8:58 AM EDT Inhaled Oxygen Concentration - - Weight 102 kg (224 lb) 01/03/2025 8:58 AM EDT Height 180.3 cm (5' 11 ) 01/03/2025 8:58 AM EDT Body Mass Index 31.24 01/03/2025 8:58 AM EDT Plan of Treatment Health Maintenance Due Date Last Done Comments CT Colonography 1965 Colonoscopy 1965 Colorectal Cancer Screening 1965 FIT-DNA 1965 FIT 1965 FOBT 1965 Sigmoidoscopy 1965 Depression Screening 1977 Hepatitis B Vaccines (1 of 3 - 19+ 3-dose series) 1984 Pneumococcal Vaccine: Pediat rics (0 to 5 Years) and At-Risk Patients (6 to 64 Years) (1 of 2 - PCV) 1984 Adult Tetanus 09/16/1987 Zoster Vaccines (1 of 2) 09/16/2015 COVID-19 Vaccine (1 - 2023-2 5 season) 2024 Influenza Vaccine (#1) 2024 HIB Vaccines Aged Out No longer eligi ble based on patient's age to complete this topic HPV Vaccines Aged Out No longer eligi ble based on patient's age to complete this topic IPV Vaccines Aged Out No longer eligi ble based on patient's age to complete this topic Meningococcal B Vaccine Aged Out No l onger eligible based on patient's age to complete this topic Meningococcal Vaccine Aged Out No natalio shleley eligible based on patient's age to complete this topic Rotavirus Vaccines Aged Out No longer eligible based on patient's age to complete this topic Medical Devices Implanted Type Area Data Collection Interviewer Device Identifier Shelf Expiration Date Model / Serial / Lot Stent,Synergy Mr 3.00 X 24 - [id number] Implanted:Qty: 1 on 03/21/2023 by Ernesto Woodruff MD at [facility] Drug Eluting Stent [employer] [id number] 11/13/2023 [id number] / / [id number] Stent,Synergy Mr 3.00 X 32 - [id number] Implanted:Qty: 1 on 03/21/2023 by Ernesto Woodruff MD at [facility] Drug Eluting Stent [employer] [id number] 10/02/2023 [id number] / / [id number] Insurance [facility] [employer] Advance Directives * Full Code (Latest Code Status on File) Date Activated Date Inactivated Comments 03/20/2023 10:36 PM 03/25/2023 8:01 PM Care Teams Bread Packer Relationship Specialty Start Date End Date Estrada Banda DO [address] [place] [id number] PCP - General 06/06/23
--- OUTSIDE RECORDS SUMMARY | 2025-01-07 07:54 | XMS_ITS | CCD ---
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 Machine Operator Name Role Phone TRISTEN CASTILLO Admitting Unavailable TRISTEN CASTILLO Attending Unavailable REQUEST, NONE LISTED Primary Care Unavailable AMIE APONTE Consulting Unavailable TRISTEN CASTILLO Consulting Unavailable MARTIN CASAREZ Attending Unavailable CHOLO APPIAH Attending Unavailable Allergies Allergy Classification Reported Allergen(s) Allergy Type Date of Onset Reaction(s) Facility (2 sources) Penicillins; Translations: [PENICILLINS] Drug allergy (disorder) 09-11-2012 [facility] Repository (1 source) Acetaminophen / HYDROcodone; Translations: [HYDROCODONE-ACETA MINOPHEN] Drug Allergy 03-20-2023 [facility] Repository (1 source) oxyCODONE; Translations: [OXYCODONE] Drug Allergy 03-20-2023 [facility] Repository Problems Problem Classification Problem Date Documented Date Episodic/Chronic Congestive heart failure; nonhypertensive (2 sources) Chronic diastolic (congestive) heart failure; Translations: [Chronic diastolic (congestive) heart failure] Onset: 01-03-2025 Chronic Coronary atherosclerosis and other heart disease (2 sources) Atherosclerotic heart disease of rampart coronary artery without angina pectoris; Translations: [Atherosclerotic heart disease of rampart coronary artery without angina pectoris] Onset: 03-28-2023 [...] Range Facility Office Visiton 01-03-2025 Follow-up visit [id number] Sam Elder 1965 M Date Provider Department Center 01/03/2025 Vanna-CHOLO APPIAH [facility] Family History Problem Relation Age of Onset Coronary artery disease Mother Atrial fibrillation Mother Coronary artery disease Brother Hyperlipidemia Brother Family Status - Relation Status Age at Mother Alive Father Brother Level of Service:77379 NM OFFICE/OUTPATIENT ESTABLISHED MOD MDM 30 MIN Normal [facility] Office Visiton 06-21-2024 Follow-up visit [id number] Sam Elder 1965 M Date Provider Department Center 06/21/2024 3848-MARTIN CASAREZ [facility] Family History Problem Relation Age of Onset Coronary artery disease Mother Atrial fibrillation Mother Coronary artery disease Brother Hyperlipidemia Brother Family Status - Relation Status Age at Mother Brother Level of Service:09976 NM OFFICE/OUTPATIENT ESTABLISHED LOW MDM 20 MIN Normal [facility] Documentationon 05-07-2024 Documentation [id number] Messer 1965 M Date Provider Department Center 05/07/2024 Melvi2-AVELINA [facility] Family History Problem Relation Age of Onset Coronary artery disease Mother Atrial fibrillation Mother Coronary artery disease Brother Hyperlipidemia Brother Family Status - Relation Status Age at Mother Brother Reason for Visit and Comments: Lia PAP [Other] Normal [facility] MRI BRAIN WO/W CONon 019 MRI BRAIN WO/W CON Patient: SAM ELDER. Exam Date: 12/23/2018 : 1965 Gender:M Ordering : TRISTEN CASTILLO Admission #: [id number] Family : Order #: [id number] CLICK HERE TO VIEW EXAM RADIOLOGY REPORT [...] Aponte M.D. on 12/23/2018 at 15:16 Normal [facility] XR FOREIGN BODY EYEon 2018 XR FOREIGN BODY EYE Patient: SAM ELDER Exam Date: 12/23/2018 : 1965 Gender:M Ordering : TRISTEN CASTILLO Admission #: [id number] Family : Order #: [id number] CLICK HERE TO VIEW EXAM RADIOLOGY REPORT PROCEDURE: RADIOGRAPH FOREIGN BODY EYE COMPARISON: None. INDICATIONS: Foreign body in eye for MRI FINDINGS: ORBITS: Negative for a metallic foreign body. OTHER: Negative. CONCLUSION: No metallic foreign body within the orbits. Dictated by: Amie Aponte M.D. on 12/23/2018 at 13:31 Approved by: Amie Aponte M.D. on 12/23/2018 at 13:31 [facility] Encounters Encounter Date Encounter Type Care Provider Facility Start: [facility]-03-2025 [facility] Start: 06-21-2024 End: 06-21-2024 ambulatory MARTIN CASAREZ [facility] Start: 12-23-2018 End: 12-24-2018 Patient encounter procedure TRISTEN CASTILLO Facility:[facility]1 Payers Date Payer Category Payer Private Health Insurance [id number] 1965 Unknown [id number] 1959 Self-pay [id number] Progress note 01-03-2025 Note Date & Type Note Facility 01-03-2025 Note [place] Cardiology - [facility] Subjective Sam Elder is a [...] successful PCI. The (more content not included)... [facility] Progress note 06-21-2024 Note Date & [...] otherwise unknown past medical history. Presented to [facility] due to chest pain, apparently has been dealing with chest discomfort for 1 week associated with shortness of breath and diaphoresis. At [facility] his high sensitive troponin was elevated, he was transferred to [facility] urgently for cardiology evaluation. Patient was started [...] on discharge. Patient was unable to afford MonitisexiTrivop. Patient will have close follow-up with cardiology [...] Normal range o (more content not included)... [facility] Progress note 05-07-2024 Note Date & [...] [place] & Me. Avelina Queen, PharmD, BCACP [facility] Cardiology 05/07/24 [facility] Summary Purpose Family History No Family History Records FoundNo Family History Records Found Advance Directives No Advanced Directives Records FoundNo Advanced Directives Records Found Additional Source Comments (unrecognized sect ion and content) No Status Records FoundNo Status Records Found INFORMATION SOURCE (unrecogn ized section and content) DATE CREATED AUTHOR 12/31/2018 [facility] DATE CREATED AUTHOR AUTHOR'S ORGANIZ ATION 01/03/2025 [facility] FOR RECORDS PERTAINING TO PATIENTS WHO [...] BE BASED ON THE PRIMARY CLINICAL RECORDS. [employer] provides no warranty or guarantee of the accuracy or completeness of information in this document.
--- NOTE | 2025-01-07 07:57 | CA_ITS ---
Patient Name: SAM CROSS MR#: [id number] : 1965 Exam Date: 01/07/2025 Ordering Doctor: DR CHOLO QUEZADA M.D. ECHOCARDIOGRAM REPORT PROCEDURE: CA ECHO DOPPLER COMPLETE INDICATIONS: Heart failure with improved ejection fraction COMPARISON: None. DESCRIPTION: COMPLETE ECHOCARDIOGRAM Real-time transthoracic echocardiography with 2D, M-mode, spectral and color flow Doppler performed. QUALITY: Technical quality was good. LEFT VENTRICLE: Normal chamber size. Normal left ventricular wall thickness. Global left ventricular systolic function is normal. LV EF: Estimated left ventricular ejection fraction is 55%. DIASTOLIC: Diastolic function is indeterminate. ATRIAL SEPTUM: LEFT ATRIUM: Mild dilatation. RIGHT ATRIUM: Normal chamber size. RIGHT VENTRICLE: Normal chamber size. Normal right ventricular systolic function. TRICUSPID VALVE: Normal mobility and thickness. No stenosis with trivial regurgitation. No evidence of pulmonary hypertension. RVSP 19 mmHg. MITRAL VALVE: Normal mobility and thickness. No evidence of mitral valve stenosis. There is no mitral annular calcification. Trivial mitral regurgitation. AORTIC VALVE: Normal trileaflet appearance. No visible sclerosis. Normal leaflet mobility. No evidence of aortic valve stenosis. No aortic regurgitation. AORTIC ROOT: Mildly dilated, measuring 4.0 cm. The ascending aorta is normal in size and measures 3.2 cm. PULMONIC VALVE: Normal thickness and mobility. No stenosis. Trivial regurgitation. PERICARDIUM: No evidence of pericardial effusion. IVC: Collapses with inspiration. Mild dilatation measuring 2.2 cm. PLEURA: CONCLUSION: 1. Normal ventricular size and systolic function. Estimated LVEF is 55%. 2. No significant valvular dysfunction. 3. Normal right-sided pressures. 4. Mildly dilated aortic root measuring 4.0 cm. The ascending aorta is normal in size. Adult Echocardiography Procedure Report Left Ventricle LVEDD (3.7 - 5.6 cm): 5.16 cm LVESD (2.2 - 4.0 cm): 3.69 cm LVIVS thickness (0.6 - 1.2 cm): 0.96 cm LVPW thickness (0.5 - 1.0 cm): 1.14 cm e': 0.07 m/s E - e': 9.67 LVOT Max Gradient: 3.11 mm[Hg] LVOT Area (cm2): 0.88 m/s Peak Velocity (LVOT): 0.88 m/s Mean Velocity (LVOT): 0.64 m/s LVOT Diameter 2.39 cm Left Ventricular Ejection Fraction: 55 % Left Atrium LA Volume Index (2D A2C): 34.17 ml/m2 Left Atrium Systolic Dimension: 4.62 cm Mitral Valve MV E to A Ratio: 0.82 Mitral Valve A-Wave Peak Velocity: 0.77 m/s Mitral Valve E-Wave Peak Velocity: 0.64 m/s Right Ventricle RV Internal Diastolic Dimension: 3.79 cm Aorta AO Root Diam: 4.03 cm Ascending Ao Diam: 3.21 cm Aortic Valve AoV Area (Peak Doug): 4.20 cm2, 4.20 cm2 AoV Area (VTI): 4.14 cm2, 4.14 cm2 Peak Velocity(Antegrade Flow): 0.94 m/s Peak Gradient(Antegrade Flow): 3.51 mm[Hg] Mean Velocity(Antegrade Flow): 0.63 m/s Mean Gradient(Antegrade Flow): 1.82 mm[Hg] Velocity Time Integral: 20.70 cm Tricuspid Valve Peak Velocity (Regurgitant Flow): 1.67 m/s Pulmonic Valve Mean Gradient: 1.33 mm[Hg], 1.34 mm[Hg] Mean Velocity: 0.53 m/s, 0.54 m/s Peak Velocity: 0.76 m/s Peak Gradient: 2.43 mm[Hg], 2.21 mm[Hg] Right Atrium Right Atrium Systolic Pressure: 63.40 ml, 63.40 ml Dictated by: Cholo Quezada M.D. on 01/07/2025 at 14:34 Approved by: Cholo Quezada M.D. on 01/07/2025 at 14:37
== END 2025-01-07 07:53 | disposition home or self-care (01) ==
LOC: CARD 07:52
PROVIDERS: Visit Provider Internal Medicine Interventional Cardiology
DX: I50.32 Chronic diastolic (congestive) heart failure (principal)
CPT/HCPCS: 93306; 93356